=== PATIENT | male | born 1960 | race Hispanic/Latino ===

== ENCOUNTER 2016-10-27 12:27 | Inpatient (IN) | payer BC ==
[2016-10-27 12:46] VITALS: BMI 28.1
[2016-10-27 13:54] LABS: MEAN CELL VOLUME 99.5 fl (80.0-105.0); MEAN CORPUSCULAR HEMOGLOBIN 33.3 pg (25.0-35.0); MEAN CORPUSCULAR HGB CONC 33.5 g/dl (31.0-37.0); RBC 1.86 10^6/uL (3.5-6.1); RED CELL DISTRIBUTION WIDTH 18.4 % (11.5-14.5)
[2016-10-27] MEDS ORDERED: Iohexol 240 (50 ml) ONE (13:56)
[2016-10-27 14:04] LABS: ALB/GLOB RATIO 0.7 (1.1-1.8); ALBUMIN 3.2 g/dL (3.0-4.8); ALT/SGPT 36 U/L (7-56); AST/SGOT 43 U/L (15-59); BLOOD UREA NITROGEN 11 mg/dL (7-21); CALCIUM 8.7 mg/dL (8.4-10.5); GFR AFRICAN-AMERICAN > 60; GFR NON-AFRICAN AMERICAN > 60
[2016-10-27 14:05] LABS: INR 1.16 (0.93-1.08); PARTIAL THROMBOPLASTIN TIME 32.3 Seconds (23.7-30.8); PROTHROMBIN TIME 12.5 Seconds (9.9-11.8)
[2016-10-27 14:11] LABS: HEMOGLOBIN 6.2 g/dL (14.0-18.0); PLATELET COUNT 10 10^3/uL (120.0-450.0); WHITE BLOOD COUNT 2.2 10^3/ul (4.5-11.0)
[2016-10-27 14:26] LABS: EOSINOPHIL 1 % (0.0-3.0); LYMPHOCYTE 45 % (22.0-35.0); MONOCYTE 9 % (1.0-6.0); NEUTROPHIL 45 % (50.0-70.0)
[2016-10-27 14:27] LABS: HYPOCHROMIA SLIGHT; MICROCYTOSIS 1+; PLATELET ESTIMATE LOW (NORMAL)
--- NOTE | 2016-10-27 14:28 | ED PDOC ---
Arrival/HPI - General Chief Complaint: Dizziness/Lightheaded Time Seen by Provider: 10/27/16 13:10 - History of Present Illness Narrative History of Present Illness (Text): 10/27/16 15:58 56yo male with a hx of hemolytic anemia, referred to the ER for pancytopenia. Pt denies cp/sob, states he has some intermitted ISIDRO. No other complaints. Past Medical History - Provider Review Nursing Documentation Reviewed: Yes - Infectious Disease Hx of Infectious Diseases: None - Tetanus Immunization Tetanus Immunization: Unknown - Past Medical History Past Medical History: No Previous - Cardiac Hx Cardiac Disorders: No Hx Pacemaker: No - Pulmonary Hx Respiratory Disorders: Yes Hx Asthma: Yes - Neurological Hx Neurological Disorder: No Hx Paralysis: No - HEENT Hx HEENT Disorder: No - Renal Hx Renal Disorder: Yes Hx Kidney Stones: Yes (3.8 MM KIDNEY STONES 11-02-13) - Endocrine/Metabolic Hx Endocrine Disorders: No - Hematological/Oncological Hx Blood Disorders: Yes Hx Blood Transfusions: Yes (platelets) Hx Blood Transfusion Reaction: No Other/Comment: pancytopenia - Integumentary Hx Dermatological Disorder: No - Musculoskeletal/Rheumatological Hx Musculoskeletal Disorders: No - Gastrointestinal Hx Gastrointestinal Disorders: No - Genitourinary/Gynecological Hx Genitourinary Disorders: No - Psychiatric Hx Emotional Abuse: No Hx Physical Abuse: No Hx Substance Use: No - Past Surgical History Past Surgical History: No Previous - Surgical History Other/Comment: lung biopsy in past, begnin - Anesthesia Hx Anesthesia: Yes Hx Anesthesia Reactions: No Hx Malignant Hyperthermia: No - Suicidal Assessment Feels Threatened In Home Enviroment: No Family/Social History Family/Social History: Unknown Family HX Smoking Status: Never Smoked Hx Alcohol Use: No (RARE) Hx Substance Use: No Hx Substance Use Treatment: No Allergies/Home Meds Allergies/Adverse Reactions: Allergies DUST Adverse Reaction (Uncoded 10/27/16 12:46) SNEEZING MOLD Adverse Reaction (Uncoded 10/27/16 12:46) SNEEZING POLLEN Adverse Reaction (Uncoded 10/27/16 12:46) SNEEZING Home Medications: Home Meds Medication Instructions Recorded Confirmed Multivitamin [Daily Kayden] 1 tab PO DAILY 05/19/16 10/27/16 Benzonatate [Tessalon Perles] 100 mg PO TID PRN 10/27/16 10/27/16 Dexlansoprazole [Dexilant] 60 mg PO DAILY 10/27/16 10/27/16 Ferrous Sulfate [Iron] 325 mg PO DAILY 10/27/16 10/27/16 Folic Acid [Folic Acid] 1 mg PO BID 10/27/16 10/27/16 Physical Exam - Physical Exam Narrative Physical Exam (Text): - Review of Systems Constitutional: Normal. absent: Fatigue, Weight Change, Fevers Eyes: Normal ENT: denies sore throat, denies tristhmus Respiratory: Normal. absent: SOB, Cough, Sputum Cardiovascular: ISIDRO (not while at rest). absent: Chest Pain, Palpitations, Syncope Gastrointestinal: Normal. absent: Abdominal Pain, Diarrhea, Nausea, Vomiting Genitourinary: Normal. absent: Dysuria, Frequency, Hematuria Musculoskeletal: Normal. absent: Arthralgias, Back Pain, Neck Pain Skin: no rashes, no erythema Neurological: absent: Focal Weakness Endocrine: Normal Hemo/Lymphatic: Normal Psychiatric: No suicidal or homicidal ideations Physical exam Patient appears age appropriate in no distress, speaking full sentences without difficulty - Systems Exam Head: Present: Atraumatic, Normocephalic Pupils: Present: PERRL Extroacular Muscles: Present: EOMI Conjunctiva: Present: Normal Mouth: Present: Moist Mucous Membranes Neck: Present: Normal Range of Motion. No: MIDLINE TENDERNESS, Paraspinal Tenderness Respiratory/Chest: Present: Clear to Auscultation, Good Air Exchange. No: Respiratory Distress, Accessory Muscle Use, Tachypneic Cardiovascular: Present: Regular Rate and Rhythm, Normal S1, S2, Peripheal Pulses Present. No: Murmurs Abdomen: Present: Normal Bowel Sounds. No: Tenderness, Distention, Peritoneal Signs, Rebound, Guarding Back: Present: Normal Inspection. No: Midline Tenderness, Paraspinal Tenderness Upper Extremity: Present: Normal Inspection. No: Cyanosis, Edema Lower Extremity: Present: Normal Inspection. No: Edema Neurological: Present: GCS=15, Speech Normal, cranial nerves II through XII fully intact with no cerebellar abnormality, neurosensory fully intact. No focal neurological deficits. Skin: Present: Warm, Dry, Normal Color. No: Rashes Lymphatic: Present: OX3, NI, NC Psychiatric: Present: Alert, Oriented x 3, Normal Insight, Normal Concentration Vital Signs Reviewed: Yes Vital Signs Temp Pulse Resp BP Pulse Ox 10/27/16 15:35 76 18 103/62 100 10/27/16 13:00 97.7 F 76 20 94/60 L 97 Temperature: Afebrile Blood Pressure: Hypotensive Pulse: Regular Respiratory Rate: Normal Appearance: Positive for: Well-Appearing Pain Distress: None Mental Status: Positive for: Alert and Oriented X 3 Medical Decision Making ED Course and Treatment: 10/27/16 14:[address] Perez in detail, asked to admit to his service to monitored bed states he will f/u imaging asked to placed consults to Ming Morris, [place] pt in no distress, aware of and agrees with plan states he currently has no cp/sob/isidro 14:[address] Perez again, relayed the results asked to transfuse 2U PRBCs and 2 U single donor PLT - Critical Care Critical Care Minutes: 30 minutes - Medication Orders Current Medication Orders: Discontinued Medications Sodium Chloride (Sodium Chloride 0.9%) 1,000 mls @ 1,000 mls/hr IV .Q1H STA Stop: 10/27/16 15:42 Last Admin: 10/27/16 15:35 Dose: 1,000 mls/hr Iohexol (Omnipaque 240 (50 Ml)) Confirm Administered Dose 50 ml .ROUTE .STK-MED ONE Stop: 10/27/16 13:57 Disposition/Present on Arrival - Present on Arrival Any Indicators Present on Arrival: No History of DVT/PE: No History of Uncontrolled Diabetes: No Urinary Catheter: No History of Decub. Ulcer: No History Surgical Site Infection Following: None - Disposition Have Diagnosis and Disposition been Completed?: Yes Diagnosis: Anemia Disposition: HOSPITALIZED Disposition Time: 14:40 Patient Plan: Admission Patient Problems: Current Active Problems Problem Status Onset Anemia Acute Condition: FAIR
[2016-10-27] MEDS ORDERED: Sodium Chloride 0.9% 1,000 ML IV STA (14:43)
[2016-10-27] MEDS ORDERED: DiphenhydrAMINE 50 mg/ml Inj IVP STA (16:21)
--- NOTE | 2016-10-27 16:21 | CARD ---
APPROVED REPORT EKG Measurement Heart [id number] <Conclusion> Normal sinus rhythm Cannot rule out Anterior infarct, age undetermined Abnormal ECG
--- NOTE | 2016-10-27 18:01 | CT ---
PROCEDURE: CT Chest with contrast HISTORY: ABD PAIN Relevant medical history: Hemolytic anemia. COMPARISON: None. TECHNIQUE: Contiguous axial images were obtained through the chest with intravenous contrast enhancement. Sagittal and coronal reconstructions were performed. IV contrast: 95 cc Omnipaque 350 Radiation dose (DLP): 444.34 mGy-cm. This CT exam was performed using one or more of the following dose reduction techniques: Automated exposure control, adjustment of the mA and/or kV according to patient size, and/or use of iterative reconstruction technique. FINDINGS: LUNGS: Pulmonary parenchymal disease combination of interstitial lung disease peripheral alveolar consolidative changes which are bilateral an approximately symmetrical. The findings are nonspecific but can be seen with granulomatous diseases/sarcoid. MEDIASTINUM: Unremarkable thoracic aorta. No aneurysm or dissection. Normal sized heart. Main pulmonary artery unremarkable. No vascular congestion. Hilar and mediastinal lymphadenopathy. This includes paratracheal/azygos adenopathy. Bilateral hilar adenopathy is approximately symmetrical. PLEURA: No pleural fluid. No pneumothorax. BONES: No fracture. No destructive lesion. UPPER ABDOMEN: Hepatic steatosis. No focal masses. No intrahepatic bile duct dilatation or perihepatic ascites. Incompletely visualize splenomegaly. OTHER FINDINGS: None. IMPRESSION: Interstitial/alveolar lung disease. Hilar mediastinal adenopathy. Although the findings are nonspecific and can be seen in sarcoid.
--- NOTE | 2016-10-27 18:15 | CT ---
Liver protocol triple phase CT Indication: Pancytopenia Technique: Contiguous axial images of the abdomen and pelvis without & with IV contrast utilizing liver protocol. Coronal and Sagittal reformats generated and reviewed. This CT exam was performed using 1 or more of the falling dose reduction techniques: Automated exposure control, adjustment of the MAA and/or kV according to patient size, and/or use of iterative reconstruction technique. Contrast: Oral contrast was administered. 115 Omnipaque 350 IV. Radiation dose: Total exam DLP = 1449.79 MGy-cm. Comparison: CT abdomen and pelvis without contrast performed 11/02/13 Findings: Bilateral lower lobe patchy airspace and interstitial opacities. No visible pleural effusion or pneumothorax. Small hiatal hernia/ distal esophageal wall thickening. Delayed images do not include the entirety of the liver excluding the inferior aspect. The kidneys enhance symmetrically. No evidence of hydronephrosis or obstructing calculus. Too small to characterize left renal hypodensity; statistically likely cysts. Borderline splenomegaly. The pancreas, adrenal glands, and gallbladder appear otherwise unremarkable. The stomach is nondistended. The bowel loops appear within normal limits of caliber without evidence of intestinal obstruction. There is no definite free air. The presumed appendix appears within normal limits of caliber. No secondary signs of acute appendicitis. Sub cm mesenteric lymph nodes. Mild camilo appearance of the mesentery. Mesenteric panniculitis is not excluded. The prostate gland appears unremarkable. The urinary bladder appears unremarkable. Partially imaged left gynecomastia. Tiny fat containing umbilical hernia. No acute osseous abnormality is detected. Impression: The liver is incompletely imaged on delayed views with exclusion of the inferior aspect. No focal hepatic mass identified. Borderline splenomegaly. Sub cm mesenteric lymph nodes. Mild camilo appearance of the mesentery. Mesenteric panniculitis is not excluded. Patchy bilateral lower lobe airspace and interstitial opacities. Please refer to CT of the chest with contrast performed the same day more detailed discussion. Additional findings as above.
[2016-10-27] MEDS ORDERED: Pneumococcal 23-Valent Vaccine IM ONE (21:25)
[2016-10-27] MEDS ORDERED: Albuterol-Ipratrop 3 mg / 0.5 (3 ml) UD IH PRN (22:01)
[2016-10-28] MEDS: Pantoprazole 40 mg EC Tab PO SCH (06:31)
[2016-10-28 07:58] LABS: ALB/GLOB RATIO 0.7 (1.1-1.8); ALBUMIN 3.2 g/dL (3.0-4.8); ALT/SGPT 36 U/L (7-56); AST/SGOT 37 U/L (15-59); BLOOD UREA NITROGEN 11 mg/dL (7-21); CALCIUM 8.5 mg/dL (8.4-10.5); GFR AFRICAN-AMERICAN > 60; GFR NON-AFRICAN AMERICAN > 60
[2016-10-28 09:05] LABS: BASO # 0.02 K/mm3 (0.0-2.0); BASO % 0.5 % (0.0-3.0); GRAN # 2.21 (1.4-6.5); GRAN % 57.6 % (50.0-68.0); LYMPH # 1.3 (1.2-3.4); LYMPH % 33.6 % (22.0-35.0); MEAN CELL VOLUME 93.1 fl (80.0-105.0); MEAN CORPUSCULAR HEMOGLOBIN 31.9 pg (25.0-35.0); MEAN CORPUSCULAR HGB CONC 34.3 g/dl (31.0-37.0); MEAN PLATELET VOLUME 8.9 fl (7.0-11.0); MONO # 0.3 (0.1-0.6); MONO % 8.3 % (1.0-6.0); PLATELET COUNT 51 10^3/uL (120.0-450.0); RED CELL DISTRIBUTION WIDTH 20.5 % (11.5-14.5); WHITE BLOOD COUNT 3.8 10^3/ul (4.5-11.0)
[2016-10-28 09:08] LABS: HEMOGLOBIN 8.3 g/dL (14.0-18.0)
[2016-10-28] MEDS: Multivitamin Therapeutic Tab PO SCH (09:15)
--- NOTE | 2016-10-28 16:40 | CP.PCM.HP ---
History of Present Illness - History of Present Illness History of Present Illness: H&P note for Dr Perez: 56M with pmh of hemorrhoids s/p surgery, BETANCOURT, presents to the ED for feeling very weak and short of breath. Pt states that he was at Dr Perez office the day prior and he was told that he was very anemic and thrombocytopenic. His symptoms worsened so he came to the ED. He denies falling or hitting his head. Denies any headache or dizziness, fever or chills, n/v/d, chest santino or palpitations. Pt had a history of diarrhea aprox last Feb 2016, found to have Campylobacter infection. Later in February he started having a cough. Pt was found to have a pulm nodule and retroperitoneal lymphadenopathy. Pt went to develop anemia and thrombocytopenia 90's. Blood work showed Aditya direct + and hemolytic anemia with normal retic count and increased LDH. Endoscopy and colonoscopy have been negative. Pt had a bone marrow biopsy aspiration which was mainly negative. Coughing worsened over the months and EBUS biopsy was done in [facility] of the lung nodules and was nondiagnostic. Pt started to become pancytopenic with Hb in the 6s, Platlet of 12, and leukopenic. Pt became symptomatic and came to the ED. PMH: as above PSH: hemorrhoidectomy Med: refer to MAR ALL: dust, mold, pollen FH: nephrolithiasis in fathers side SH: denies any smoking, etoh abuse or drugs Present on Admission - Present on Admission Any Indicators Present on Admission: No Review of Systems - Review of Systems All systems: reviewed and no additional remarkable complaints except (HPI) Past Patient History - Infectious Disease Hx of Infectious Diseases: None - Tetanus Immunizations Tetanus Immunization: Unknown - Past Social History Smoking Status: Never Smoked - CARDIAC Hx Cardiac Disorders: No Hx Pacemaker: No Hx Peripheral Edema: Yes (ble +1 chronic) - PULMONARY Hx Respiratory Disorders: Yes Hx Asthma: Yes - NEUROLOGICAL Hx Neurological Disorder: No - HEENT Hx HEENT Problems: No - RENAL Hx Chronic Kidney Disease: Yes Hx Kidney Stones: Yes (3.8 MM KIDNEY STONES 11-02-13) - ENDOCRINE/METABOLIC Hx Endocrine Disorders: No - HEMATOLOGICAL/ONCOLOGICAL Hx Blood Disorders: Yes Other/Comment: pancytopenia, blood transfusion platelets - INTEGUMENTARY Hx Dermatological Problems: No - MUSCULOSKELETAL/RHEUMATOLOGICAL Hx Falls: No - GASTROINTESTINAL Hx Gastrointestinal Disorders: No - GENITOURINARY/GYNECOLOGICAL Hx Genitourinary Disorders: No - PSYCHIATRIC Hx Substance Use: No - SURGICAL HISTORY Other/Comment: lung biopsy in past, benign, ct scan guided bone marrow bx 05/21/16 - ANESTHESIA Hx Anesthesia: Yes Hx Anesthesia Reactions: No Hx Malignant Hyperthermia: No Meds Allergies/Adverse Reactions: Allergies Allergy/AdvReac Type Severity Reaction Status Date / Time DUST AdvReac SNEEZING Uncoded 10/27/16 12:46 MOLD AdvReac SNEEZING Uncoded 10/27/16 12:46 POLLEN AdvReac SNEEZING Uncoded 10/27/16 12:46 Physical Exam - Constitutional Appears: No Acute Distress - Head Exam Head Exam: ATRAUMATIC, NORMAL INSPECTION, NORMOCEPHALIC - Eye Exam Eye Exam: EOMI, Normal appearance, PERRL Pupil Exam: NORMAL ACCOMODATION, PERRL - ENT Exam ENT Exam: Mucous Membranes Moist, Normal Exam - Neck Exam Neck exam: Positive for: Normal Inspection - Respiratory Exam Respiratory Exam: Clear to Auscultation Bilateral, NORMAL BREATHING PATTERN. absent: Wheezes - Cardiovascular Exam Cardiovascular Exam: REGULAR RHYTHM, RRR, +S1, +S2 - GI/Abdominal Exam GI & Abdominal Exam: Normal Bowel Sounds, Soft. absent: Tenderness - Extremities Exam Extremities exam: Positive for: normal inspection. Negative for: calf tenderness, pedal edema - Neurological Exam Neurological exam: Alert, Oriented x3, Reflexes Normal - Psychiatric Exam Psychiatric exam: Normal Affect, Normal Mood - Skin Skin Exam: Dry, Intact, Normal Color, Warm Results - Vital Signs Recent Vital Signs: Last Vital Signs Temp 97.9 F 10/28/16 08:58 Pulse 82 10/28/16 10:00 Resp 21 10/28/16 08:58 BP 112/76 10/28/16 08:58 Pulse Ox 92 L 10/28/16 08:58 - Labs Result Diagrams: 10/28/16 08:30 10/28/16 07:00 Labs: Laboratory Results - last 24 hr 10/27/16 10/28/16 10/28/16 14:02 07:00 08:30 WBC 3.8 L D RBC 2.60 L Hgb 8.3 L D Hct 24.2 L MCV 93.1 D MCH 31.9 MCHC 34.3 RDW 20.5 H Plt Count 51 L MPV 8.9 Gran % 57.6 Lymph % (Auto) 33.6 [place]quois % (Auto) 8.3 H Eos % (Auto) 0.0 L Baso % (Auto) 0.5 Gran # 2.21 Lymph # 1.3 [place]quois # 0.3 Eos # 0.0 Baso # 0.02 Sodium 138 Potassium 4.0 Chloride 107 Carbon Dioxide 24 Anion Gap 11 BUN 11 Creatinine 0.6 Est GFR ( Amer) > 60 Est GFR (Non-Af Amer) > 60 Random Glucose 141 H Calcium 8.5 Total Bilirubin 1.3 AST 37 ALT 36 Alkaline Phosphatase 105 Total Protein 7.7 Albumin 3.2 Globulin 4.5 Albumin/Globulin Ratio 0.7 L Blood Type A POSITIVE Antibody Screen Negative RASHIDA, Poly Interpret Negative Crossmatch See Detail BBK History Checked No verified bt Assessment & Plan - Assessment and Plan (Free Text) Assessment: 56M with pmh of hemorrhoids s/p surgery, early onset signs of liver cirrhosis possibly due to BETANCOURT, chronic cough, presents to the ED for feeling very weak and short of breath, found to be pancytopenic. s/p Bone marrow biopsy in 05/2016 - negative. S/p lung EBUS biopsy negative as well. - NPO after midnight - Consulted GI- plan for push enteroscopy and biopsy velasquez 9am. Plan to hang first bag of platelets at 8am and second bag during the procedure - Consulted Dr Gallagher - Plan for liver biopsy following first biopsy - Hb upon admission was 6.6 s/p 2 units PRBC todays hb of 8.3 - Platelets on admission 10, s/p 2 units of platelets, this am 51 - F/u pulm consult - Cont Duoneb, Tessalon jazmin, codeine 15mg PO Q8h - F/u ID consult - hx of contact with black mold - Chest CT: interstitial/alveolar lung disease. Hilar mediastinal adenopathy. Non specific can be seen in Sarcoid. - Liver CT: borderline spelomegaly, sub cm mesenteric lymphnode. mild camilo appearance of the mesentary. Mesenteric pannculitis not excluded. - Cont hydrocortisone 25mg RC Q6H - Daily labs Case and plan was reviewed and discussed with Dr Perez.
--- NOTE | 2016-10-28 21:15 | CON ---
DATE: 10/28/2016 GASTROENTEROLOGY CONSULTATION REQUESTING PHYSICIAN: Dr. Perez. REASON FOR CONSULTATION: I have been asked to see this 56-year-old male with several months of pancytopenia with negative extensive workup including bone marrow biopsy, lung biopsy, endoscopy, colonoscopy, multiple CT imaging of the abdomen and chest, who comes to the hospital with generalized weakness and dyspnea at rest and on minimal exertion. The patient was noted to be profoundly anemic with a hemoglobin in the 6 gram range. His platelet count and white blood count were both also extremely low. He admits occasional rectal bleeding from hemorrhoids which is a chronic problem for this patient. He denies any bleeding from his gum or epistaxis or hematuria. The patient has a longstanding history of hepatic steatosis. He was also recently found to have splenomegaly mild as well as interstitial lung disease and nonspecific lymphadenopathy in the hilar region of the chest. Again, lung biopsy in the last several months has been negative. I have been asked to see this patient for anemia. Again, the patient had an endoscopy and colonoscopy within the last 3-4 months, which did not reveal a source of GI blood loss. He denies any weight loss, night sweats, chest pain or cough. He does have a history of asthma. He denies any fevers or chills. PAST MEDICAL HISTORY: As above. Again, he has a history of pancytopenia, mild splenomegaly, fatty liver, asthma, hemorrhoids and kidney stones. SOCIAL HISTORY: He denies cigarettes smoking or alcohol use. FAMILY HISTORY: Noncontributory. REVIEW OF SYSTEMS: A 14-point review of systems is notable for dyspnea on minimal exertion and occasionally at rest. PHYSICAL EXAMINATION: GENERAL: Well developed male, lying in bed, in no acute distress. VITAL SIGNS: Reveals temperature of 97.9, blood pressure of 112/76, and heart rate of 80. HEENT: Reveal sclerae to be white, conjunctivae pale. NECK: Supple. LUNGS: Chest reveal lungs to be clear. HEART: Reveals a regular rate and rhythm. ABDOMEN: Soft and nontender. EXTREMITIES: Show no edema. LABORATORY DATA: Reveals white blood cell count of 3.8, hemoglobin 8.3 after transfusion of 2 units of packed red blood cells. PT/INR are mildly elevated at 12.5 and 1.16. Chemistries reveal normal electrolytes. Blood sugar of 141. IMPRESSION: This is a 56-year-old male with pancytopenia, etiology unclear with negative recent bone marrow aspirate, lung biopsy, history of fatty liver with mild splenomegaly with carinal lymphadenopathy and interstitial infiltrates on CT scan of a chest. Etiology of the pancytopenia is unclear. The patient has only some intermittent rectal bleeding from hemorrhoids which he has had for years. He had a negative colonoscopy and endoscopy several months ago. RECOMMENDATIONS: The patient is to receive platelets and then undergo a push enteroscopy in the morning. He is also scheduled to have a liver biopsy. Gerardo Quintanilla MD
--- NOTE | 2016-10-29 03:27 | CON ---
DATE: 10/27/2016 REFERRING PHYSICIAN: Dr. Perez. REASON FOR CONSULTATION: Bilateral pulmonary embolism, chronic cough, sleep apnea syndrome. HISTORY OF PRESENT ILLNESS: This is a 56-year-old gentleman known to me from the office with multiple medical issues, which include has a mediastinal retroperitoneal lymphadenopathy, pulmonary nodule with interstitial infiltrate, has some sign of liver cirrhosis especially in the periphery, severe anemia, thrombocytopenia, leukopenia, had a mild sleep apnea syndrome and treated for it as outpatient. So from the last couple of months, he has seen multiple speciality including Dr. Perez. He has seen rheumatology at [place]. Also seen second opinion, Dr. Yolie Baugh, at [facility], seen interventional biofuels manager at [facility] Dr. Mata, he had an EBUS done with a biopsy of the lymph nodes, which was non-diagnostic. He was also referred to thoracic surgery to Dr. Adams for possible wedge resection for infiltrate to make the diagnosis. Presently admitted to [facility] through ER with increased shortness of breath. Other issue was his recurrent oral thrush, while he was on inhaled steroids, but inhaled steroids which stopped almost 3 weeks ago, but still has an oral thrush while he received Diflucan a few days ago and been on a statin in the past. So presently admitted because he was getting short of breath with minimal exertion, hemoglobin dropped severely to around 6 or so with thrombocytopenia, has a persistent cough, cough been treated with Tessalon Perles, Lyrica, and codeine as an outpatient. Since last night, he got one dose of hydrocortisone, also received blood transfusion and feels better, still gets short of breath and tachycardia with minimal exertion. No chest pain. No nausea. No vomiting. No diarrhea. Does have a chronic leg swelling. He had cardiac workup including echo, being unremarkable though. PAST MEDICAL HISTORY: Anemia, thrombocytopenia, leukopenia, bilateral pulmonary embolism, interstitial infiltrates, chronic cough, recurrent oral thrush, retroperitoneal lymphadenopathy, questionable liver cirrhosis, bilateral leg swelling, also had a history of renal stones in the past. SOCIAL HISTORY: Never smoked. No history of alcohol abuse. FAMILY HISTORY: Unremarkable. ALLERGIES: ENVIRONMENTAL AND TOXIN ALLERGIES. MEDICATIONS: Presently he is on Anusol q.6 hours, also on DuoNeb q.6 hours p.r.n., folic acid 1 mg twice a day, Protonix 40 mg daily, Tessalon Perles 100 mg 3 times a day, multivitamins daily. REVIEW OF SYSTEMS: No headache. No rhinitis. Has a dry cough for months, short of breath on exertion. No chest pain. No nausea. No vomiting. No abdominal pain. Has a chronic leg swelling. PHYSICAL EXAMINATION GENERAL: Lying in the bed, in no acute distress. VITAL SIGNS: Temperature is 98, heart rate is 83, blood pressure 112/76, pulse 72% on room air. HEENT: Moist mucous membranes. Has oral thrush. NECK: Supple. No JVD. LUNGS: Has few crackles on the bases. HEART: S1 and S2. ABDOMEN: Soft, nontender, nondistended. EXTREMITIES: Does have edema. NEUROLOGIC: Awake and follows simple commands. LABORATORY DATA: Shows hemoglobin yesterday 6.2, after transfusion came to 8.3. WBC 3.8. Platelet count today is 51, yesterday platelet was 10. INR 1.16, PTT 32. Sodium 138, potassium 4.0, chloride 107, bicarbonate 24, BUN 11, creatinine 0.6, glucose 141, calcium 8.5, total bilirubin 1.3, AST 37, ALT 36, alkaline phosphatase is 105, albumin is 3.2. CAT scan of the chest was done on admission. He also had a liver CT done, which showed interstitial alveolar lung disease, hilar mediastinal adenopathy suggestive of sarcoidosis, liver showed some hepatic steatosis, it was incomplete visualization of the liver. IMPRESSION AND PLAN: Severe anemia with thrombocytopenia, severe leukopenia, splenomegaly, retroperitoneal lymphadenopathy, has some cirrhotic patches in the liver, bilateral pulmonary embolism, mediastinal adenopathy, interstitial infiltrates, chronic dry cough with chronic leg swelling and edema. Case discussed with Chris Martin in detail. Patient had been seen by multiple specialities. Right on top of the list is sarcoidosis, but unfortunately, the bronchoscopy at [facility], which was an EBUS was non-diagnostic. Presently, the plan is to have an EGD and colonoscopy done with a villi biopsy, also suggestion is to do peripheral biopsy of the liver edges if we can make the diagnosis because there is some abnormality there. If that does not work, the next choice is going to be VATS with liver biopsy, especially because the patient's thrombocytopenia needs direct visualization for biopsy instead of blind procedure. He does not feel coughed up last night. For now, continue supportive care, increase in bronchodilator, cough suppressor. Thank you and we will follow with you. Ant Lai MD
[2016-10-29] MEDS: Pantoprazole 40 mg EC Tab PO SCH (06:49)
[2016-10-29 07:26] LABS: HEMOGLOBIN 8.6 g/dL (14.0-18.0); MEAN CELL VOLUME 94.9 fl (80.0-105.0); MEAN CORPUSCULAR HEMOGLOBIN 31.5 pg (25.0-35.0); MEAN CORPUSCULAR HGB CONC 33.2 g/dl (31.0-37.0); PLATELET COUNT 52 10^3/uL (120.0-450.0); RBC 2.73 10^6/uL (3.5-6.1); RED CELL DISTRIBUTION WIDTH 20.9 % (11.5-14.5); WHITE BLOOD COUNT 3.9 10^3/ul (4.5-11.0)
[2016-10-29 07:34] LABS: ALB/GLOB RATIO 0.7 (1.1-1.8); ALBUMIN 3.4 g/dL (3.0-4.8); ALT/SGPT 30 U/L (7-56); AST/SGOT 43 U/L (15-59); BLOOD UREA NITROGEN 9 mg/dL (7-21); CALCIUM 8.6 mg/dL (8.4-10.5); GFR AFRICAN-AMERICAN > 60; GFR NON-AFRICAN AMERICAN > 60
[2016-10-29 08:41] LABS: INR 1.1 (0.93-1.08); PROTHROMBIN TIME 11.9 Seconds (9.9-11.8)
[2016-10-29 09:05] LABS: LYMPHOCYTE 66 % (22.0-35.0); MONOCYTE 10 % (1.0-6.0); NEUTROPHIL 24 % (50.0-70.0); PLATELET ESTIMATE NORMAL (NORMAL)
[2016-10-29] MEDS ORDERED: Lidocaine 1% Inj (20ml) ONE ×2 (09:08→09:27)
[2016-10-29] MEDS ORDERED: Propofol 10 mg/ml Inj (20 ML) ONE ×3 (09:08→09:35)
[2016-10-29 09:24] LABS: FIBRINOGEN 337.8 mg/dL (187-400)
[2016-10-29] MEDS: Sodium Chloride 0.9% 1,000 ML IV SCH ×2 (10:31→21:10)
[2016-10-29] MEDS: Multivitamin Therapeutic Tab PO SCH (10:32)
[2016-10-29] MEDS ORDERED: Meropenem 1g/NS 100mL IVPB 1 GM/100 ML PIGGYBACK IVPB STA (14:25)
[2016-10-29] MEDS ORDERED: Vancomycin 1gm in NS 250ml 1 GM/250 ML BAG IVPB STA (14:26)
--- NOTE | 2016-10-29 14:45 | CP.PCM.PCO ---
Physician Communication Note - Physician Communication Note Physician Communication Note: Unable to see pt - undergoing procedures-start Vanco and Merrem for fever
--- NOTE | 2016-10-29 15:19 | CP.PCM.PN ---
Subjective - Date & Time of Evaluation Date of Evaluation: 10/29/16 Time of Evaluation: 07:30 - Subjective Subjective: Heme/onc note for Dr Perez: Pt seen and examined at bedside. Pt back from push enetroscopy this am. Pt spiked fever 101.9. Ordered tylenol and 650mg stat. ID called and started on vanc and kosta. Pt to have liver biopsy this afternoon. Denies any mujica, dizziness , sob, chest pain, abd pain, urinary or bm changes. Objective - Vital Signs/Intake and Output Vital Signs (last 24 hours): Temp Pulse Resp BP Pulse Ox 103.1 F H 62 16 125/72 100 10/29/16 15:04 10/29/16 11:00 10/29/16 11:00 10/29/16 11:00 10/29/16 11:00 Intake and Output: 10/29/16 10/29/16 06:59 18:59 Intake Total 540 200 Balance 540 200 - Medications Medications: Current Medications Albuterol/Ipratropium (Duoneb 3 Mg/0.5 Mg (3 Ml) Ud) 3 ml IH [id number] PRN PRN Reason: Cough Benzonatate (Tessalon Perles) 100 mg PO TID [facility] Last Admin: 10/29/16 14:16 Dose: Not Given Codeine Sulfate (Codeine) 15 mg PO Q8 [facility] Last Admin: 10/29/16 13:05 Dose: Not Given Folic Acid (Folic Acid) 1 mg PO BID [facility] Last Admin: 10/29/16 10:31 Dose: Not Given Hydrocortisone (Anusol-Hc) 25 mg RC Q6H [facility] Last Admin: 10/29/16 13:05 Dose: Not Given Sodium Chloride (Sodium Chloride 0.9%) 1,000 mls @ 100 mls/hr IV .Q10H [facility] Last Admin: 10/29/16 10:31 Dose: Not Given Meropenem 1g/NS 100mL IVPB (Meropenem 1g/Ns 100ml Ivpb) 1 gm in 100 mls @ 100 mls/hr IVPB STAT STA PRN Reason: Protocol Stop: 10/29/16 15:24 Last Admin: 10/29/16 14:57 Dose: 100 mls/hr Vancomycin HCl (Vancomycin 1gm) 1 gm in 250 mls @ 167 mls/hr IVPB STAT STA PRN Reason: Protocol Stop: 10/29/16 15:55 Meropenem 1g/NS 100mL IVPB (Meropenem 1g/Ns 100ml Ivpb) 1 gm in 100 mls @ 100 mls/hr IVPB Q8 DAVID PRN Reason: Protocol Stop: 11/05/16 22:01 Multivitamins (Thera Tab) 1 tab PO DAILY [facility] Last Admin: 10/29/16 10:32 Dose: Not Given Pantoprazole Sodium (Protonix Ec Tab) 40 mg PO 0600 [facility] Last Admin: 10/29/16 06:49 Dose: Not Given - Labs Labs: 10/29/16 07:00 10/29/16 07:00 PT 11.9 Seconds (9.9-11.8) H 10/29/16 07:00 INR 1.10 (0.93-1.08) H 10/29/16 07:00 APTT 32.3 Seconds (23.7-30.8) H 10/27/16 13:45 - Constitutional Appears: No Acute Distress - Head Exam Head Exam: ATRAUMATIC, NORMAL INSPECTION, NORMOCEPHALIC - Eye Exam Eye Exam: EOMI, Normal appearance, PERRL - ENT Exam ENT Exam: Mucous Membranes Moist, Normal Exam - Neck Exam Neck Exam: Full ROM, Normal Inspection. absent: Lymphadenopathy - Respiratory Exam Respiratory Exam: Clear to Ausculation Bilateral, NORMAL BREATHING PATTERN. absent: Wheezes - Cardiovascular Exam Cardiovascular Exam: REGULAR RHYTHM, RRR, +S1, +S2. absent: Murmur - GI/Abdominal Exam GI & Abdominal Exam: Soft, Normal Bowel Sounds. absent: Distended, Tenderness - Extremities Exam Extremities Exam: Normal Capillary Refill, Normal Inspection. absent: Calf Tenderness, Joint Swelling, Pedal Edema - Back Exam Back Exam: NORMAL INSPECTION - Neurological Exam Neurological Exam: Alert, Awake, CN II-XII Intact, Normal Gait, Oriented x3 - Psychiatric Exam Psychiatric exam: Normal Affect, Normal Mood - Skin Skin Exam: Dry, Intact, Normal Color, Warm Assessment and Plan - Assessment and Plan (Free Text) Assessment: 56M with pmh of hemorrhoids s/p surgery, early onset signs of liver cirrhosis possibly due to BETANCOURT, chronic cough, presents to the ED for feeling very weak and short of breath, found to be pancytopenic. s/p Bone marrow biopsy in 05/2016 - negative. S/p lung EBUS biopsy negative as well. This am pt went for push enteroscopy. Plan on liver biopsy today. - Fevers - Tylenol PRN and ID started on vanc and Kosta - S/p push enetroscopy POD 1 - f/u path results f/u gi recs - Consulted Dr Gallagher - Plan for liver biopsy this afternoon. 1 unit plt 1 hour prior and 1 unit platelets during procedure - Hb stable todays hb of 8.3 - Platelets on admission 10, s/p 2 units of platelets, this am 52 - F/u pulm consult - Cont Duoneb, Tessalon jazmin, codeine 15mg PO Q8h - F/u ID consult - started vanc and kosta - Chest CT: interstitial/alveolar lung disease. Hilar mediastinal adenopathy. Non specific can be seen in Sarcoid. - Liver CT: borderline spelomegaly, sub cm mesenteric lymphnode. mild camilo appearance of the mesentary. Mesenteric pannculitis not excluded. - Cont hydrocortisone 25mg RC Q6H - Daily labs Case and plan was reviewed and discussed with Dr Perez.
[2016-10-29] MEDS ORDERED: Midazolam 2 MG/2 ML VIAL ONE (16:14)
[2016-10-29] MEDS ORDERED: Sodium Chloride 0.45% 1,000 ML IV SCH (17:15)
[2016-10-29 19:10] LABS: URINE BILIRUBIN NEGATIVE (NEGATIVE); URINE BLOOD NEGATIVE (NEGATIVE); URINE GLUCOSE (UA) NEGATIVE (NEGATIVE); URINE LEUKOCYTE ESTERASE NEGATIVE Leu/uL (NEGATIVE); URINE NITRATE NEGATIVE (NEGATIVE); URINE PROTEIN NEGATIVE mg/dL (<30 mg/dL)
[2016-10-29 19:12] LABS: URINE APPEARANCE CLEAR (CLEAR); URINE COLOR YELLOW (YELLOW)
--- NOTE | 2016-10-29 20:13 | CT ---
PROCEDURE: CT guided liver biopsy. HISTORY: Pancytopenia. Fever of unknown origin. Unremarkable bone marrow biopsy. Needs liver biopsy. PHYSICIAN(S): Dalton Gallagher MD. TECHNIQUE: The relative risks and indications of the procedure were explained to the patient and consent obtained. The patient was transfused platelets prior to the procedure. The patient was placed supine on the CT scanner and preliminary images through the liver obtained. Conscious sedation and monitoring were provided throughout the procedure by a nurse. The visualized portions of the liver are normal on the non contrast images. A subxyphoid approach was selected and the area prepped and draped in the usual sterile fashion. 1% Xylocaine was used to anesthetize the skin and soft tissues. A 17-gauge guiding needle was advanced into the lateral segment of the left lobe of the liver. Its position was confirmed with CT. Using coaxial technique, multiple core biopsies were obtained. The postprocedure images show no evidence of significant hemorrhage. IMPRESSION: 1. CT-guided liver biopsy as described above. Specimens were sent for histology and microbiology.
[2016-10-29] MEDS: Meropenem 1g/NS 100mL IVPB 1 GM/100 ML PIGGYBACK IVPB SCH (21:10)
[2016-10-30] MEDS: DiphenhydrAMINE 50 mg/ml Inj IVP PRN ×2 (01:05→23:42)
--- NOTE | 2016-10-30 01:31 | PN ---
DATE: 10/29/2016 PULMONARY PROGRESS NOTE REFERRING PHYSICIAN: Dr. Herb Fernández. SUBJECTIVE: He just came back after liver biopsy, had an endoscopy done earlier today. After endoscopy, spiked fever up to 102, seen by infectious diseases, started on broad spectrum antibiotics, presently feels okay. Cough is little better since yesterday. No hemoptysis, no abdominal pain and no dysuria. No leg pain. He does have a leg swelling. OBJECTIVE GENERAL: No acute distress. VITAL SIGNS: Temperature 98, heart rate 67, respiratory rate is 18, blood pressure 134/69, pulse ox 100% on 3 liters nasal cannula. HEENT: Moist mucous membrane. Does have oral thrush. NECK: Supple. No JVD. LUNGS: Few crackles at the bases. HEART: S1 and S2. ABDOMEN: Soft, nontender. No organomegaly. EXTREMITIES: Have edema. NEUROLOGIC: Awake and alert. Follows simple command. LABORATORY DATA: Show hemoglobin 8.6, hematocrit 25.9, WBC 3.9 and platelet count is 52. INR 1.0 and fibrinogen 337. Sodium 137, potassium 4.1, chloride 104, bicarbonate 25, BUN 9, creatinine 0.7 and calcium is 8.6. AST 43, ALT 30, alkaline phosphatase is 129 and albumin is 3.4. MEDICATIONS: He is on Anusol 25 mg rectally q. 6 hours, codeine 15 mg q. 8 hours, DuoNeb q. 6 hours p.r.n., folic acid 1 mg twice a day, meropenem 1 g IV q. 8 hours, Protonix 40 mg daily, IV fluid half normal saline 80 mL/hour, Tessalon Perles 100 mg 3 times a day, multivitamins daily, Tylenol p.r.n. and Zofran p.r.n. IMPRESSION AND PLAN: Severe anemia with thrombocytopenia, abnormal liver CT, bilateral pulmonary embolism, interstitial infiltrates, retroperitoneal lymphadenopathy, mediastinal adenopathy, chronic dry cough and bilateral leg edema. Workup is in progress for the cause of above symptoms. Today, had a liver biopsy and endoscopy with small bowel biopsy, developed fever afterwards, seen by infectious diseases and started on broad spectrum antibiotics. Spoke to the family, all the questions answered, still waiting for the answer. If it is one systemic disease, most likely some sort of connective tissue disease. Hopefully, we will get some answer from the above liver biopsy and small bowel biopsy. If nothing pans out, next one is to do VATS and possible lung biopsy. The patient and the family is not thrilled about it, I agree. Continue present care. Gastric prophylaxis, SCDs to lower extremities, pain medication and also cough suppressor. Thank you and we will follow with you. Ant Lai MD
[2016-10-30] MEDS: Pantoprazole 40 mg EC Tab PO SCH (05:18)
[2016-10-30] MEDS: Meropenem 1g/NS 100mL IVPB 1 GM/100 ML PIGGYBACK IVPB SCH ×3 (05:19→21:39)
[2016-10-30] MEDS: Sodium Chloride 0.9% 1,000 ML IV SCH ×2 (05:27→18:17)
[2016-10-30 07:55] LABS: EOS % 0.4 % (1.5-5.0); GRAN % 40.7 % (50.0-68.0); LYMPH # 1.3 (1.2-3.4); MEAN CORPUSCULAR HEMOGLOBIN 31.9 pg (25.0-35.0); MEAN CORPUSCULAR HGB CONC 33.2 g/dl (31.0-37.0); MEAN PLATELET VOLUME 9.2 fl (7.0-11.0); MONO # 0.3 (0.1-0.6); MONO % 11.9 % (1.0-6.0); PLATELET COUNT 81 10^3/uL (120.0-450.0); RBC 2.51 10^6/uL (3.5-6.1); RED CELL DISTRIBUTION WIDTH 19.7 % (11.5-14.5)
[2016-10-30 08:00] LABS: WHITE BLOOD COUNT 2.7 10^3/ul (4.5-11.0)
[2016-10-30 08:10] LABS: ALB/GLOB RATIO 0.7 (1.1-1.8); ALBUMIN 3.2 g/dL (3.0-4.8); ALT/SGPT 46 U/L (7-56); AST/SGOT 55 U/L (15-59); BLOOD UREA NITROGEN 9 mg/dL (7-21); CALCIUM 8.6 mg/dL (8.4-10.5); GFR AFRICAN-AMERICAN > 60; GFR NON-AFRICAN AMERICAN > 60
[2016-10-30] MEDS: Multivitamin Therapeutic Tab PO SCH (09:20)
--- NOTE | 2016-10-30 15:49 | CP.PCM.PN ---
Subjective - Date & Time of Evaluation Date of Evaluation: 10/30/16 Time of Evaluation: 10:35 - Subjective Subjective: Heme/onc note for Dr ePrez: Pt seen and examined at bedside. No acute events overnight. Denies any fevers since yesterday. He does state that he feels weak. No other complaints. Denies any mujica, dizziness, sob, chest pain, abd pain, urinary or bm changes. Objective - Vital Signs/Intake and Output Vital Signs (last 24 hours): Temp Pulse Resp BP Pulse Ox 98.1 F 77 18 121/79 96 10/30/16 14:51 10/30/16 14:51 10/30/16 14:51 10/30/16 14:51 10/30/16 08:17 Intake and Output: 10/30/16 10/30/16 06:59 18:59 Intake Total 1740 10 Balance 1740 10 - Medications Medications: Current Medications Acetaminophen (Tylenol 325mg Tab) 650 mg PO Q6H PRN PRN Reason: Fever >100.4 F Last Admin: 10/30/16 02:42 Dose: 650 mg Albuterol/Ipratropium (Duoneb 3 Mg/0.5 Mg (3 Ml) Ud) 3 ml IH [id number] PRN PRN Reason: Cough Last Admin: 10/29/16 21:22 Dose: 3 ml Benzonatate (Tessalon Perles) 100 mg PO TID [facility] Last Admin: 10/30/16 14:12 Dose: 100 mg Codeine Sulfate (Codeine) 15 mg PO Q8 [facility] Last Admin: 10/30/16 14:14 Dose: Not Given Diphenhydramine HCl (Benadryl) 25 mg IVP HS PRN PRN Reason: Allergy symptoms Last Admin: 10/30/16 01:05 Dose: 25 mg Folic Acid (Folic Acid) 1 mg PO BID [facility] Last Admin: 10/30/16 09:20 Dose: 1 mg Hydrocortisone (Anusol-Hc) 25 mg RC Q6H [facility] Last Admin: 10/30/16 14:14 Dose: Not Given Sodium Chloride (Sodium Chloride 0.9%) 1,000 mls @ 100 mls/hr IV .Q10H [facility] Last Admin: 10/30/16 05:27 Dose: 100 mls/hr Meropenem 1g/NS 100mL IVPB (Meropenem 1g/Ns 100ml Ivpb) 1 gm in 100 mls @ 100 mls/hr IVPB Q8 [facility] PRN Reason: Protocol Stop: 11/05/16 22:01 Last Admin: 10/30/16 14:14 Dose: Not Given Multivitamins (Thera Tab) 1 tab PO DAILY [facility] Last Admin: 10/30/16 09:20 Dose: 1 tab Ondansetron HCl (Zofran Inj) 4 mg IVP Q6H PRN PRN Reason: Nausea/Vomiting Pantoprazole Sodium (Protonix Ec Tab) 40 mg PO 0600 [facility] Last Admin: 10/30/16 05:18 Dose: Not Given - Labs Labs: 10/30/16 07:00 10/30/16 07:00 PT 11.9 Seconds (9.9-11.8) H 10/29/16 07:00 INR 1.10 (0.93-1.08) H 10/29/16 07:00 APTT 32.3 Seconds (23.7-30.8) H 10/27/16 13:45 - Constitutional Appears: No Acute Distress - Head Exam Head Exam: ATRAUMATIC, NORMAL INSPECTION, NORMOCEPHALIC - Eye Exam Eye Exam: EOMI, Normal appearance, PERRL Pupil Exam: NORMAL ACCOMODATION, PERRL - ENT Exam ENT Exam: Mucous Membranes Moist, Normal Exam - Neck Exam Neck Exam: Full ROM, Normal Inspection. absent: Lymphadenopathy - Respiratory Exam Respiratory Exam: Clear to Ausculation Bilateral, NORMAL BREATHING PATTERN. absent: Rales, Rhonchi, Wheezes - Cardiovascular Exam Cardiovascular Exam: REGULAR RHYTHM, +S1, +S2. absent: Murmur - GI/Abdominal Exam GI & Abdominal Exam: Soft, Normal Bowel Sounds. absent: Distended, Tenderness - Extremities Exam Extremities Exam: Full ROM, Normal Capillary Refill, Normal Inspection. absent : Joint Swelling, Pedal Edema - Back Exam Back Exam: NORMAL INSPECTION - Neurological Exam Neurological Exam: Alert, Awake, CN II-XII Intact, Normal Gait, Oriented x3 - Psychiatric Exam Psychiatric exam: Normal Affect, Normal Mood - Skin Skin Exam: Dry, Intact, Normal Color, Warm Assessment and Plan - Assessment and Plan (Free Text) Assessment: 56M with pmh of hemorrhoids s/p surgery, early onset signs of liver cirrhosis possibly due to BETANCOURT, chronic cough, presents to the ED for feeling very weak and short of breath, found to be pancytopenic. s/p Bone marrow biopsy in 05/2016 - negative. S/p lung EBUS biopsy negative as well a months prior. S/p push enteroscopy and liver biopsy pod1. - S/p push enetroscopy POD 1 - f/u path results and gi recs - s/p liver biopsy pod 1 - f/u path results - Consulted ID for fevers - started on vanc and French - Hb of 8.0 this am will transfuse 1 unit prbc - Platelets this am 81 - F/u pulm consult - Cont Duoneb, Tessalon jazmin, codeine 15mg PO Q8h - Chest CT: interstitial/alveolar lung disease. Hilar mediastinal adenopathy. Non specific can be seen in Sarcoid. - Liver CT: borderline spelomegaly, sub cm mesenteric lymphnode. mild camilo appearance of the mesentary. Mesenteric pannculitis not excluded. - Cont hydrocortisone 25mg RC Q6H - Daily labs Case and plan was reviewed and discussed with Dr Perez.
--- NOTE | 2016-10-30 15:49 | CP.PCM.CON ---
History of Present Illness - History of Present Illness History of Present Illness: 56 year old male with PMH of hemorrhoids, history of non-alcoholic steatohepatitis is brought in to [facility] because of weakness and dyspnea on exertion. He has had pancytopenia since earlier this year after a bout of Influenza (2016). PRior to that, he has had 2 episodes of Campylobacter infection a year apart. Since the start of the year, he has had pancytopenia and extensive work up has been done , including a bone marrow biopsy, but no answers have been found to find the etiology. He had enteroscopy and biopsy of the small bowels done and liver biopsy done, and he developed fevers after the procedure, with shaking chills. He denies headache or dizziness , no blurring of vision, no chest pain, no SOB, no cough or colds, no dysuria, no diarrhea. Infectious Diseases consult is requested to further evaluate and manage. Review of Systems - Review of Systems All systems: reviewed and no additional remarkable complaints except (as per HPI ) Past Patient History - Infectious Disease Hx of Infectious Diseases: None - Tetanus Immunizations Tetanus Immunization: Unknown - Past Social History Smoking Status: Never Smoked - CARDIAC Hx Cardiac Disorders: No Hx Pacemaker: No Hx Peripheral Edema: Yes (ble +1 chronic) - PULMONARY Hx Respiratory Disorders: Yes Hx Asthma: Yes - NEUROLOGICAL Hx Neurological Disorder: No - HEENT Hx HEENT Problems: No - RENAL Hx Chronic Kidney Disease: Yes Hx Kidney Stones: Yes (3.8 MM KIDNEY STONES 11-02-13) - ENDOCRINE/METABOLIC Hx Endocrine Disorders: No - HEMATOLOGICAL/ONCOLOGICAL Hx Blood Transfusions: Yes (platelets) Hx Blood Transfusion Reaction: No - INTEGUMENTARY Hx Dermatological Problems: No - MUSCULOSKELETAL/RHEUMATOLOGICAL Hx Falls: No - GASTROINTESTINAL Hx Gastrointestinal Disorders: No - GENITOURINARY/GYNECOLOGICAL Hx Genitourinary Disorders: No - PSYCHIATRIC Hx Substance Use: No - SURGICAL HISTORY Hx Surgeries: No - ANESTHESIA Hx Anesthesia Reactions: No Hx Malignant Hyperthermia: No Meds Allergies/Adverse Reactions: Allergies Allergy/AdvReac Type Severity Reaction Status Date / Time DUST AdvReac SNEEZING Uncoded 10/27/16 12:46 MOLD AdvReac SNEEZING Uncoded 10/27/16 12:46 POLLEN AdvReac SNEEZING Uncoded 10/27/16 12:46 - Medications Medications: Current Medications Acetaminophen (Tylenol 325mg Tab) 650 mg PO Q6H PRN PRN Reason: Fever >100.4 F Last Admin: 10/30/16 02:42 Dose: 650 mg Albuterol/Ipratropium (Duoneb 3 Mg/0.5 Mg (3 Ml) Ud) 3 ml IH [id number] PRN PRN Reason: Cough Last Admin: 10/29/16 21:22 Dose: 3 ml Benzonatate (Tessalon Perles) 100 mg PO TID [facility] Last Admin: 10/30/16 14:12 Dose: 100 mg Codeine Sulfate (Codeine) 15 mg PO Q8 [facility] Last Admin: 10/30/16 14:14 Dose: Not Given Diphenhydramine HCl (Benadryl) 25 mg IVP HS PRN PRN Reason: Allergy symptoms Last Admin: 10/30/16 01:05 Dose: 25 mg Folic Acid (Folic Acid) 1 mg PO BID [facility] Last Admin: 10/30/16 09:20 Dose: 1 mg Hydrocortisone (Anusol-Hc) 25 mg RC Q6H [facility] Last Admin: 10/30/16 14:14 Dose: Not Given Sodium Chloride (Sodium Chloride 0.9%) 1,000 mls @ 100 mls/hr IV .Q10H [facility] Last Admin: 10/30/16 05:27 Dose: 100 mls/hr Meropenem 1g/NS 100mL IVPB (Meropenem 1g/Ns 100ml Ivpb) 1 gm in 100 mls @ 100 mls/hr IVPB Q8 [facility]ID PRN Reason: Protocol Stop: 11/05/16 22:01 Last Admin: 10/30/16 14:14 Dose: Not Given Multivitamins (Thera Tab) 1 tab PO DAILY [facility] Last Admin: 10/30/16 09:20 Dose: 1 tab Ondansetron HCl (Zofran Inj) 4 mg IVP Q6H PRN PRN Reason: Nausea/Vomiting Pantoprazole Sodium (Protonix Ec Tab) 40 mg PO 0600 [facility] Last Admin: 10/30/16 05:18 Dose: Not Given Physical Exam - Constitutional Appears: Non-toxic, No Acute Distress - Head Exam Head Exam: NORMAL INSPECTION - ENT Exam ENT Exam: Mucous Membranes Moist - Neck Exam Neck exam: Negative for: Lymphadenopathy, Meningismus - Respiratory Exam Respiratory Exam: Decreased Breath Sounds - Cardiovascular Exam Cardiovascular Exam: +S1, +S2 - GI/Abdominal Exam GI & Abdominal Exam: Soft. absent: Tenderness Results - Vital Signs Recent Vital Signs: Last Vital Signs Temp 98.1 F 10/30/16 14:51 Pulse 77 10/30/16 14:51 Resp 18 10/30/16 14:51 BP 121/79 10/30/16 14:51 Pulse Ox 96 10/30/16 08:17 - Labs Result Diagrams: 10/30/16 07:00 10/30/16 07:00 Labs: Laboratory Results - last 24 hr 10/28/16 10/29/16 10/29/16 08:30 16:17 16:17 WBC RBC Hgb Hct MCV MCH MCHC RDW Plt Count MPV Gran % Lymph % (Auto) Buchanan % (Auto) Eos % (Auto) Baso % (Auto) Gran # Lymph # Buchanan # Eos # Baso # Sodium Potassium Chloride Carbon Dioxide Anion Gap BUN Creatinine Est GFR ( Amer) Est GFR (Non-Af Amer) Random Glucose Calcium Total Bilirubin AST ALT Alkaline Phosphatase Total Protein Albumin Globulin Albumin/Globulin Ratio A1AT Clinical Indicatr TNP Reoiy-7-[place] TNP A1AT Mutation TNP Procalcitonin 0.11 L Urine Color Urine Appearance Urine pH Ur Specific Baker Urine Protein Urine Glucose (UA) Urine Ketones Urine Blood Urine Nitrate Urine Bilirubin Urine Urobilinogen Ur Leukocyte Esterase Hepatitis C Antibody Negative HIV 1&2 Ag/Ab, 4th Gen Blood Type Antibody Screen Crossmatch BBK History Checked 10/29/16 10/29/16 10/30/16 16:17 19:06 07:00 WBC 2.7 L* D RBC 2.51 L Hgb 8.0 L Hct 24.1 L MCV 96.0 MCH 31.9 MCHC 33.2 RDW 19.7 H Plt Count 81 L MPV 9.2 Gran % 40.7 L Lymph % (Auto) 47.0 H Buchanan % (Auto) 11.9 H Eos % (Auto) 0.4 L Baso % (Auto) 0.0 Gran # 1.10 L Lymph # 1.3 Buchanan # 0.3 Eos # 0.0 Baso # 0.00 Sodium Potassium Chloride Carbon Dioxide Anion Gap BUN Creatinine Est GFR ( Amer) Est GFR (Non-Af Amer) Random Glucose Calcium Total Bilirubin AST ALT Alkaline Phosphatase Total Protein Albumin Globulin Albumin/Globulin Ratio A1AT Clinical Indicatr [id number] A1AT Mutation Procalcitonin Urine Color Yellow Urine Appearance Clear Urine pH 7.0 Ur Specific Baker 1.015 Urine Protein Negative Urine Glucose (UA) Negative Urine Ketones Negative Urine Blood Negative Urine Nitrate Negative Urine Bilirubin Negative Urine Urobilinogen 2.0 H Ur Leukocyte Esterase Negative Hepatitis C Antibody HIV 1&2 Ag/Ab, 4th Gen Nonreactive Blood Type Antibody Screen Crossmatch BBK History Checked 10/30/16 10/30/16 07:00 11:15 WBC RBC Hgb Hct MCV MCH MCHC RDW Plt Count MPV Gran % Lymph % (Auto) Buchanan % (Auto) Eos % (Auto) Baso % (Auto) Gran # Lymph # Buchanan # Eos # Baso # Sodium 138 Potassium 4.2 Chloride 105 Carbon Dioxide 25 Anion Gap 12 BUN 9 Creatinine 0.7 Est GFR ( Amer) > 60 Est GFR (Non-Af Amer) > 60 Random Glucose 100 Calcium 8.6 Total Bilirubin 0.8 AST 55 ALT 46 Alkaline Phosphatase 123 Total Protein 7.5 Albumin 3.2 Globulin 4.3 Albumin/Globulin Ratio 0.7 L A1AT Clinical Indicatr Vqdmm-7-Tlbgeewgitg A1AT Mutation Procalcitonin Urine Color Urine Appearance Urine pH Ur Specific Baker Urine Protein Urine Glucose (UA) Urine Ketones Urine Blood Urine Nitrate Urine Bilirubin Urine Urobilinogen Ur Leukocyte Esterase Hepatitis C Antibody HIV 1&2 Ag/Ab, 4th Gen Blood Type A POSITIVE Antibody Screen Negative Crossmatch See Detail BBK History Checked Patient has bt Assessment & Plan - Assessment and Plan (Free Text) Plan: Assessment Systemic Inflammatory Response Syndome, R/O sepsis from bacteremia after enterscopy and biopsy was done Pancytopenia, etiology to be determined hemorrhoids history of non-alcoholic steatohepatitis Plan Gave a dose of IV Vancomycin and started MErrem yesterday pending blood and urine cx; CT chest showed interstitial disease which has been there previously follow up results of the small bowel and liver biopsy we have ordered CMV and EBV tests, Crypt Ag (apparently the patient was exposed to molds in his house previously), HIV tests, Hepatitis profile will monitor clinically
--- NOTE | 2016-10-30 16:03 | PN ---
DATE: 10/30/2016 SUBJECTIVE: The patient is lying in bed, comfortable. He had a low grade temperature last night to 100.2. He denies any fevers this morning. His temperature at this point is 99.8. He had a transient episode of mild mid abdominal cramping yesterday. He denies any further abdominal pain. He is tolerating solid foods. He underwent a liver biopsy yesterday without any apparent complications. OBJECTIVE: VITAL SIGNS: Currently reveal temperature of 99.8, blood pressure 116/69, heart rate of 85. ABDOMEN: Soft, nontender. LABORATORY DATA: Hemoglobin this morning is 8.0. White blood cell count 2.7, platelet count of 81,000. Chemistries reveal normal electrolytes. IMPRESSION: A 56-year-old male with pancytopenia, etiology unclear. The patient is status post a normal push-enteroscopy and a liver biopsy yesterday. His blood count is slowly dropping. There is no clinical evidence of GI bleeding. He did have a low-grade temperature last night. Infectious disease has been called to see the patient. RECOMMENDATIONS: Further workup and treatment as per Hematology and Infectious Disease. Gerardo Quintanilla MD
--- NOTE | 2016-10-31 01:23 | PN ---
DATE: 10/30/2016 REFERRING PHYSICIAN: Herb Fernández MD SUBJECTIVE: The patient is lying in the bed, head at 45 degrees. and sister are at bedside. Night was unremarkable, got short of breath with exertion, cough is much better. No nausea, no vomiting, no diarrhea. Decreased leg swelling. PHYSICAL EXAMINATION GENERAL: No acute distress. VITAL SIGNS: Temperature is 99, heart rate is 77, respiratory rate is 18, blood pressure 121/79, pulse ox 100% on room air. HEENT: Moist mucous membrane. Thrush is better. NECK: Supple. No JVD. LUNGS: Fair airflow with crackles at the bases. HEART: S1 and S2. ABDOMEN: Soft, nontender. No organomegaly. EXTREMITIES: There is decreased edema. NEUROLOGIC: Awake and alert. Follows simple command. LABORATORY DATA: Hemoglobin 8.0, hematocrit 24.1, WBC 2.7, platelet is 81,000. Chemistry showed sodium 138, potassium 4.2, chloride 105, bicarbonate 25, BUN 9, creatinine 0.7, glucose 100, calcium is 8.6, AST 55,ALT 46, alk phos is 123, procalcitonin 0.11. Microbiology; blood culture negative and urine culture has no growth. MEDICATIONS: He is on Benadryl 25 mg at nighttime p.r.n., codeine 15 mg q. 8 hours p.r.n., DuoNeb q. 6 hours, folic acid 1 mg daily, meropenem 1 g IV q. 8 hours, Protonix 40 mg daily, IV fluid, normal saline 100 mL per hour, Tessalon Perles 3 times a day, multivitamins daily, Tylenol p.r.n. and Zofran p.r.n. basis. IMPRESSION AND PLAN: Recurrent anemia, thrombocytopenia, elevated abnormal liver on CT, bilateral pulmonary infiltrate with nodule, retroperitoneal lymphadenopathy, mediastinal adenopathy, chronic dry cough, bilateral leg edema, status post endoscopy with small bowel biopsy, status post liver biopsy, being transfused. Since transfusion, shortness of breath is better, cough is little better too. Case discussed with Dr. Perez. Clinically, I feel his fever related to transient bacteremia secondary to endoscopy. His cultures are all negative. May consider to discontinue antibiotics if okay with Infectious Diseases. Future plan discussed with Dr. Perez as well as family members. If he is afebrile and antibiotics discontinued by tomorrow and no cultures positive, he can go home. Follow up as outpatient with both biopsies. If no answer for cognitive disease, may need to consider VATS at tertiary care center in hope to make a diagnosis. Continue bronchodilator, cough suppressors, gastric prophylaxis, SCDs to lower extremities. Thank you and we will follow up with you. Ant Lai MD
[2016-10-31] MEDS: Meropenem 1g/NS 100mL IVPB 1 GM/100 ML PIGGYBACK IVPB SCH ×2 (05:16→14:26)
[2016-10-31] MEDS: Pantoprazole 40 mg EC Tab PO SCH (05:16)
[2016-10-31] MEDS: Sodium Chloride 0.9% 1,000 ML IV SCH (05:17)
[2016-10-31 06:07] VITALS: PULSE 76
[2016-10-31 06:31] LABS: BASO # 0.02 K/mm3 (0.0-2.0); BASO % 0.9 % (0.0-3.0); EOS % 0.4 % (1.5-5.0); GRAN # 0.84 (1.4-6.5); HEMOGLOBIN 8.6 g/dL (14.0-18.0); LYMPH # 1.2 (1.2-3.4); LYMPH % 49.4 % (22.0-35.0); MEAN CELL VOLUME 94.5 fl (80.0-105.0); MEAN CORPUSCULAR HEMOGLOBIN 31.6 pg (25.0-35.0); MEAN CORPUSCULAR HGB CONC 33.5 g/dl (31.0-37.0); MEAN PLATELET VOLUME 9.3 fl (7.0-11.0); MONO # 0.3 (0.1-0.6); MONO % 13.3 % (1.0-6.0); PLATELET COUNT 63 10^3/uL (120.0-450.0); RBC 2.72 10^6/uL (3.5-6.1); RED CELL DISTRIBUTION WIDTH 18.7 % (11.5-14.5)
[2016-10-31 06:41] LABS: WHITE BLOOD COUNT 2.3 10^3/ul (4.5-11.0)
[2016-10-31 06:43] LABS: ALB/GLOB RATIO 0.8 (1.1-1.8); ALBUMIN 3.2 g/dL (3.0-4.8); ALT/SGPT 48 U/L (7-56); AST/SGOT 43 U/L (15-59); BLOOD UREA NITROGEN 10 mg/dL (7-21); CALCIUM 8.7 mg/dL (8.4-10.5); GFR AFRICAN-AMERICAN > 60; GFR NON-AFRICAN AMERICAN > 60
[2016-10-31 08:27] VITALS: BP 126/79; RESP 19; TEMP 98.9; O2SAT 93
[2016-10-31] MEDS: Multivitamin Therapeutic Tab PO SCH (10:53)
--- NOTE | 2016-10-31 11:52 | CP.PCM.PN ---
Subjective - Date & Time of Evaluation Date of Evaluation: 10/31/16 Time of Evaluation: 11:30 - Subjective Subjective: Comfortable on a chair, not in distress, afebrile for more than 24 hours, eating well, no diarrhea, no nausea, no SOB, no cough. Objective - Vital Signs/Intake and Output Vital Signs (last 24 hours): Temp Pulse Resp BP Pulse Ox 98.9 F 76 19 126/79 93 L 10/31/16 08:27 10/31/16 08:27 10/31/16 08:27 10/31/16 08:27 10/31/16 08:27 Intake and Output: 10/31/16 10/31/16 06:59 18:59 Intake Total 3060 Output Total 400 Balance 2660 - Medications Medications: Current Medications Acetaminophen (Tylenol 325mg Tab) 650 mg PO Q6H PRN PRN Reason: Fever >100.4 F Last Admin: 10/30/16 02:42 Dose: 650 mg Albuterol/Ipratropium (Duoneb 3 Mg/0.5 Mg (3 Ml) Ud) 3 ml IH [id number] PRN PRN Reason: Cough Last Admin: 10/29/16 21:22 Dose: 3 ml Benzonatate (Tessalon Perles) 100 mg PO TID [facility] Last Admin: 10/30/16 18:17 Dose: 100 mg Codeine Sulfate (Codeine) 15 mg PO Q8 [facility] Last Admin: 10/31/16 05:16 Dose: Not Given Diphenhydramine HCl (Benadryl) 25 mg IVP HS PRN PRN Reason: Allergy symptoms Last Admin: 10/30/16 23:42 Dose: 25 mg Folic Acid (Folic Acid) 1 mg PO BID [facility] Last Admin: 10/30/16 19:17 Dose: 1 mg Hydrocortisone (Anusol-Hc) 25 mg RC Q6H [facility] Last Admin: 10/31/16 08:07 Dose: Not Given Sodium Chloride (Sodium Chloride 0.9%) 1,000 mls @ 100 mls/hr IV .Q10H [facility] Last Admin: 10/31/16 05:17 Dose: 100 mls/hr Meropenem 1g/NS 100mL IVPB (Meropenem 1g/Ns 100ml Ivpb) 1 gm in 100 mls @ 100 mls/hr IVPB Q8 [facility] PRN Reason: Protocol Stop: 11/05/16 22:01 Last Admin: 10/31/16 05:16 Dose: 100 mls/hr Multivitamins (Thera Tab) 1 tab PO DAILY [facility] Last Admin: 10/30/16 09:20 Dose: 1 tab Ondansetron HCl (Zofran Inj) 4 mg IVP Q6H PRN PRN Reason: Nausea/Vomiting Pantoprazole Sodium (Protonix Ec Tab) 40 mg PO 0600 [facility] Last Admin: 10/31/16 05:16 Dose: 40 mg - Labs Labs: 10/31/16 06:10 10/31/16 06:10 PT 11.9 Seconds (9.9-11.8) H 10/29/16 07:00 INR 1.10 (0.93-1.08) H 10/29/16 07:00 APTT 32.3 Seconds (23.7-30.8) H 10/27/16 13:45 - Constitutional Appears: Non-toxic, No Acute Distress - Head Exam Head Exam: NORMAL INSPECTION - Neck Exam Neck Exam: absent: Meningismus - Respiratory Exam Respiratory Exam: Decreased Breath Sounds - Cardiovascular Exam Cardiovascular Exam: +S1, +S2 - GI/Abdominal Exam GI & Abdominal Exam: Soft. absent: Tenderness Assessment and Plan - Assessment and Plan (Free Text) Plan: Assessment Systemic Inflammatory Response Syndome, probably from transient bacteremia after enterscopy and biopsy was done Pancytopenia, etiology to be determined hemorrhoids history of non-alcoholic steatohepatitis Plan on Merrem day 3; blood cx have been negative; CT chest showed interstitial disease which has been there previously; patient has no urinary symptoms - can be switched to PO Augmentin to complete a 5-7 day course follow up results of the small bowel and liver biopsy we have ordered CMV and EBV tests, Crypt Ag (apparently the patient was exposed to molds in his house previously) and these can be followed as an outpatient; HIV tests, Hepatitis profile are negative
--- NOTE | 2016-11-02 15:41 | DS ---
LOCATION: The patient is in room 369. HISTORY OF PRESENT ILLNESS: This is a 56-year-old white male with a history of progressive pancytopenia seen and monitored by us since April 2016 with progressively worsening hemoglobin, hematocrit, and platelet count. He was admitted with symptomatic anemia and profound weakness with dyspnea on minimal exertion. PAST MEDICAL HISTORY: Significant for the fact that he has history of nonalcoholic steatohepatitis documented about 20 years ago when he was overweight. He had two episodes of Campylobacter infection in March 2015, a bout of influenza and he says he was also exposed to mold in his basement and subsequent to that the patient has had progressive pancytopenia from the white count of 3.7, hemoglobin 9.7, platelet count of 70,000 in May to now where the counts have really gone down. Upon admission, his white count was 2.6, hemoglobin was 6.4, and the platelet count was 12,000. In the interim, the patient has had exhaustive workup between here at [facility] in our office and also workup at [facility], but he was seen both by is project manager/deckhand sponge boat and the liver person or price accuracy supervisor. The patient was also seen in [facility] for EBUS in targeted biopsy of the mediastinal nodes and lung, which was inconclusive and was also seen by one of the irrigator gravity flow/oncologist at [facility], by the name of Dr. Gil Baugh to get some input on his management. Workup so far as an outpatient had been negative for his progressive pancytopenia, bone marrow biopsy, aspiration was sent for cultures and various studies including fluid cytometric analysis, histochemical analysis and the marrow showed a reactive marrow with appropriate cell lines without any evidence of the mononuclear cells, paratrabecular infiltrate, leukemia, lymphoma, myelodysplastic syndrome, or myeloproliferative disorder. The patient also had screening for PNH, which was negative. He had ultrasound of his liver, which showed an abnormal contour suggestive of early cirrhosis, but the ultrasound failed to confirm it. CAT scan was suggestive of it. He had an MRCP to check for patent portal vein to make sure he had no portal venous thrombosis. CAT scans of the chest have always shown mediastinal nodes and interstitial infiltrates in the lung and borderline splenomegaly on the CAT scan of the abdomen. No had been found. The patient denies any headache dizziness, blurring of vision, chest pain. The patient definitely is short of breath on minimal exertion, coughing which has abated while he is in the hospital. No dysuria, no diarrhea. Infectious disease consult was obtained while he has been in the hospital. The patient required 3 units of blood and 4 units of platelets just before the push enteroscopy and biopsy and the liver biopsy. Push enteroscopy was done with a suggestion if he had anything to do with celiac disease. Biopsies were taken for the same or to rule out intestinal lymphoma. Liver biopsy was done as part of the fewer workup to check for granulomas, lymphomas, or even sarcoidosis. Post transfusion and post biopsy, post push enteroscopy and prior to the liver biopsy. The patient had fevers and chills, but was not sure if it was the reaction to the platelets or it was a procedure related issue where if transient bacteria when the bowels were insufflated at the time of the push enteroscopy. The patient was covered with antibiotics. Cultures were done, which are negative and ID suggested sending him home on oral antibiotics for five days. PHYSICAL EXAMINATION: Physical examination at the time of discharge reveals: GENERAL: The patient to be awake, alert, and oriented in no acute distress. He is feeling better. He is able to walk and ambulate better without getting wheezes, shortness of breath or coughing. Denies any history of fevers, chills, nausea, vomiting. LUNGS: Relatively clear. CARDIOVASCULAR: Reveals S1 and S2 to be normal. Gallop and murmur is heard. ABDOMEN: Soft, nontender. EXTREMITIES: Reveals no cyanosis, clubbing or edema. PLAN: The patient is going to be discharged to home. At the time of discharge, the patient's blood counts were noted and is still on pancytopenic side. Today's labs reveal a white count of 2.3 with an ANC of 0.84, hemoglobin 8.6, hematocrit 25, platelet count 163,000. I told to the patient that at this point in time to stay on a neutropenic diet will not intervene or intercede and give him anything at this point based on the liver biopsies and the cultures and then make appropriate recommendations. It would appear that it is needed, we can always give him Neupogen to correct the leukopenia at this time. Wait for the cultures before we push about anything else. I spoke to Dr. Lai, the fretted instrument maker hand who has been following him as well. The other staff that we would probably explore would be to include a plan for VATS procedure, video assisted thoracoscopy and possible lung biopsy. Diagnose was done at the time of discharge is unclear except that he has pancytopenia and further workup may be needed. Definitely dealing with some sort of an autoimmune process this affecting the lung, also causing pancytopenia with a normal marrow and evidence of splenomegaly and mediastinal nodes. Workup for rheumatologic issues so far to date has been negative. I told the patient to continue to monitor him at least we know for a fact and he does not have any major antibodies unless they were interfering protease that were giving the falsely Comb's test that was done repeatedly as an outpatient was reported abnormal. Routine post exam instructions have been given to the patient. He has been told to stay on a neutropenic diet. There is no other medication except folic acid that has been requested and the patient should followup in about four days with me as an outpatient in the office. Abhinav Perez MD
== END 2016-10-31 15:19 | disposition home or self-care (01) | DRG 809 ==
LOC: ED 12:27 → ERH 13:43 → 3RSO 15:57 → 3RNO 10-28 16:15
PROVIDERS: ADMIT Family Medicine; ATTEND Family Medicine
PROC: 30233N1 Transfusion of Nonautologous Red Blood Cells into Peripheral Vein, Percutaneous Approach (ICD-10-PCS; principal; 2016-10-27)
PROC: 6A551Z2 Pheresis of Platelets, Multiple (ICD-10-PCS; 2016-10-28)
DX: D61.818 Other pancytopenia (principal); J84.9 Interstitial pulmonary disease, unspecified; B37.0 Candidal stomatitis; D69.6 Thrombocytopenia, unspecified; R65.10 Systemic inflammatory response syndrome (SIRS) of non-infectious origin without acute organ dysfunction; R78.81 Bacteremia; D58.9 Hereditary hemolytic anemia, unspecified; K74.60 Unspecified cirrhosis of liver; K75.81 Nonalcoholic steatohepatitis (NASH); D86.9 Sarcoidosis, unspecified; G47.30 Sleep apnea, unspecified; J45.909 Unspecified asthma, uncomplicated; K64.9 Unspecified hemorrhoids; Z87.442 Personal history of urinary calculi; Z86.711 Personal history of pulmonary embolism; Z91.048 Other nonmedicinal substance allergy status; R40.2412 Glasgow coma scale score 13-15, at arrival to emergency department; R59.0 Localized enlarged lymph nodes; R16.1 Splenomegaly, not elsewhere classified

== ENCOUNTER 2016-11-19 16:50 | Observation (INO) | payer BC ==
[2016-11-19 17:02] VITALS: BMI 27.6
[2016-11-19] MEDS ORDERED: DiphenhydrAMINE 12.5 mg/5 ml LIQ UD (5 ml) PO STA (17:15)
--- NOTE | 2016-11-19 17:33 | ED PDOC ---
Arrival/HPI - General Chief Complaint: Abnormal Labs Time Seen by Provider: 11/19/16 16:56 Historian: Patient - History of Present Illness Narrative History of Present Illness (Text): 11/19/16 17:25 Aristeo Contreras is a 56 year old male, whose past medical history includes hemolytic anemia and pancytopenia, presents to the emergency department complaining of feeling fatigue. Patient reports having a persistent chronic cough and shortness of breath, consistent with symptoms of pancytopenia. Patient denies any chest pain, headache, abdominal pain, vomiting, diarrhea, dysuria, or other complaints. PMD: Dr. Barber Time/Duration: 4-6 hours Symptom Onset: Sudden Symptom Course: Unchanged Activities at Onset: Light Context: Home Associated Symptoms (Text): chronic persistent cough, fatigue, and shortness of breat Past Medical History - Provider Review Nursing Documentation Reviewed: Yes - Infectious Disease Hx of Infectious Diseases: None - Tetanus Immunization Tetanus Immunization: Unknown - Past Medical History Past Medical History: No Previous - Cardiac Hx Cardiac Disorders: No Hx Pacemaker: No Hx Peripheral Edema: Yes (ble +1 chronic) - Pulmonary Hx Respiratory Disorders: Yes Hx Asthma: Yes - Neurological Hx Neurological Disorder: No - HEENT Hx HEENT Disorder: No - Renal Hx Renal Disorder: Yes Hx Kidney Stones: Yes (3.8 MM KIDNEY STONES 11-02-13) - Endocrine/Metabolic Hx Endocrine Disorders: No - Hematological/Oncological Hx Blood Transfusions: Yes (platelets) Hx Blood Transfusion Reaction: No - Integumentary Hx Dermatological Disorder: No - Musculoskeletal/Rheumatological Hx Falls: No - Gastrointestinal Hx Gastrointestinal Disorders: No - Genitourinary/Gynecological Hx Genitourinary Disorders: No - Psychiatric Hx Emotional Abuse: No Hx Physical Abuse: No Hx Substance Use: No - Past Surgical History Past Surgical History: No Previous - Surgical History Other/Comment: lung biopsy in past, benign, ct scan guided bone marrow bx 05/21/16 - Anesthesia Hx Anesthesia Reactions: No Hx Malignant Hyperthermia: No - Suicidal Assessment Feels Threatened In Home Enviroment: No Family/Social History - Physician Review Nursing Documentation Reviewed: Yes Family/Social History: Unknown Family HX Smoking Status: Never Smoked Hx Alcohol Use: No (rarely) Hx Substance Use: No Hx Substance Use Treatment: No Allergies/Home Meds Allergies/Adverse Reactions: Allergies POLLEN Adverse Reaction (Mild, Uncoded 11/19/16 17:02) SNEEZING DUST Adverse Reaction (Uncoded 11/19/16 17:02) SNEEZING MOLD Adverse Reaction (Uncoded 11/19/16 17:02) SNEEZING Home Medications: Home Meds Medication Instructions Recorded Confirmed Multivitamin [Daily Kayden] 1 tab PO DAILY 05/19/16 11/19/16 Benzonatate [Tessalon Perles] 100 mg PO TID PRN 10/27/16 11/19/16 Dexlansoprazole [Dexilant] 60 mg PO DAILY 10/27/16 11/19/16 Ferrous Sulfate [Iron] 325 mg PO DAILY 10/27/16 11/19/16 Folic Acid [Folic Acid] 1 mg PO BID 10/27/16 11/19/16 Codeine Phosphate 10 gm MC DAILY 11/19/16 11/19/16 Review of Systems - Review of Systems Constitutional: Fatigue. absent: Fevers Respiratory: SOB, Cough (chronic) Cardiovascular: absent: Chest Pain Gastrointestinal: absent: Abdominal Pain Genitourinary Male: absent: Dysuria Musculoskeletal: absent: Back Pain Neurological: absent: Headache Physical Exam Vital Signs Reviewed: Yes Vital Signs Temp Pulse Resp BP Pulse Ox 11/19/16 18:01 93 H 18 110/70 99 11/19/16 16:59 99.5 F 114 H 18 123/66 99 Temperature: Afebrile Blood Pressure: Normal Pulse: Tachycardic Respiratory Rate: Normal Appearance: Positive for: Well-Appearing, Non-Toxic, Comfortable Pain Distress: None Mental Status: Positive for: Alert and Oriented X 3 - Systems Exam Head: Present: Atraumatic, Normocephalic Pupils: Present: PERRL Extroacular Muscles: Present: EOMI Conjunctiva: Present: Normal Mouth: Present: Moist Mucous Membranes Neck: Present: Normal Range of Motion Respiratory/Chest: Present: Clear to Auscultation, Good Air Exchange. No: Respiratory Distress, Accessory Muscle Use Cardiovascular: Present: Tachycardic. No: Murmurs Abdomen: Present: Normal Bowel Sounds. No: Tenderness, Distention, Peritoneal Signs Upper Extremity: Present: Normal Inspection. No: Cyanosis, Edema Lower Extremity: Present: Normal Inspection. No: Edema Neurological: Present: GCS=15, CN II-XII Intact, Speech Normal Skin: Present: Warm, Dry, Normal Color. No: Rashes Psychiatric: Present: Alert, Oriented x 3, Normal Insight, Normal Concentration Medical Decision Making ED Course and Treatment: 11/19/16 17:25 Impression: 56 year old male with symptoms consisting of pmh pancytopenia. Patient reports feeling fatigue with chronic cough and shortness of breath. Plan: -- EKG -- Labs -- Benadryl, Solucortef, and Tylenol -- Reassess and disposition Progress Notes: EKG: Ordered, reviewed, and independently interpreted the EKG. Rate : 108 BPM Rhythm : sinus tachycardia Interpretation : No ST-segment elevations or depressions, no T-wave inversions, normal intervals. 11/19/[address] Fernández who presented to ED with patient with a Hgb done today by Dr. Perez for 7.3. The plan is to treat pre-treat patient with benadryl, solucortef and tylenol prior to transfusion as per their recommendations. They request transfusion for 2 units of RBC and Platelets. 11/19/16 18:50 Labs returned with Hgb of 8.3. Discussed with Dr. Fernández and Dr. Perez and they both recommend transfusion of PRBC and Platelets to be continued. Patient agreed and would like the transfusion. Consent for transfusion signed. Will admit to Dr. Fernández service. - Lab Interpretations Lab Results: 11/19/16 17:10 11/19/16 17:10 Lab Results 11/19/16 17:20: Blood Type Pending, Antibody Screen Pending, Crossmatch See Detail, BBK History Checked Patient has bt 11/19/16 17:10: Sodium 135, Potassium 3.8, Chloride 99, Carbon Dioxide 25, Anion Gap 15, BUN 13, Creatinine 0.7, Est GFR ( Amer) > 60, Est GFR (Non- Af Amer) > 60, Random Glucose 119 H, Calcium 9.1, Total Bilirubin 1.0, AST 31, ALT 22, Alkaline Phosphatase 127 H, Total Protein 9.2 H, Albumin 3.8, Globulin 5.4, Albumin/Globulin Ratio 0.7 L 11/19/16 17:10: PT 12.0 H, INR 1.11 H, APTT 29.9 11/19/16 17:10: WBC 2.8 L* D, RBC 2.50 L, Hgb 8.3 L, Hct 24.3 L, MCV 97.2, MCH 33.2, MCHC 34.2, RDW 20.2 H, Plt Count 20 L*, MPV 10.4, Gran % 36.9 L, Lymph % ( Auto) 43.0 H, Baker % (Auto) 19.0 H, Eos % (Auto) 0.4 L, Baso % (Auto) 0.7, Gran # 1.05 L, Lymph # 1.2, Baker # 0.5, Eos # 0.0, Baso # 0.02 - EKG Interpretation Interpreted by ED Physician: Yes Type: 12 lead EKG - Medication Orders Current Medication Orders: Discontinued Medications Acetaminophen (Tylenol 325mg Tab) 650 mg PO STAT STA Stop: 11/19/16 17:16 Diphenhydramine HCl (Benadryl) 25 mg PO STAT STA Stop: 11/19/16 17:16 Hydrocortisone Sodium Succinate (Solu-Cortef) 100 mg IVP STAT STA Stop: 11/19/16 17:16 Last Admin: 11/19/16 17:32 Dose: 100 mg - Scribe Statement The provider has reviewed the documentation as recorded by the Scribe 11/19/2016 Megan Easton Provider Scribe Attestation: All medical record entries made by the Scribe were at my direction and personally dictated by me. I have reviewed the chart and agree that the record accurately reflects my personal performance of the history, physical exam, medical decision making, and the department course for this patient. I have also personally directed, reviewed, and agree with the discharge instructions and disposition. Disposition/Present on Arrival - Present on Arrival Any Indicators Present on Arrival: No History of DVT/PE: No History of Uncontrolled Diabetes: No Urinary Catheter: No History of Decub. Ulcer: No History Surgical Site Infection Following: None - Disposition Have Diagnosis and Disposition been Completed?: Yes Diagnosis: Symptomatic anemia, Pancytopenia Disposition: HOSPITALIZED Disposition Time: 18:51 Patient Plan: Observation Condition: FAIR Referrals: Terry Barber MD [Primary Care Provider] - Follow up with primary Forms: Shahab P. Tabatabai, Broker (Turkish)
--- NOTE | 2016-11-19 17:46 | CARD ---
APPROVED REPORT EKG Measurement Heart [id number] <Conclusion> Sinus tachycardia Cannot rule out Anterior infarct, age undetermined Abnormal ECG
[2016-11-19 17:48] LABS: ALB/GLOB RATIO 0.7 (1.1-1.8); ALKALINE PHOSPHATASE 127 U/L (38-126); ALT/SGPT 22 U/L (7-56); AST/SGOT 31 U/L (17-59); BLOOD UREA NITROGEN 13 mg/dL (7-21); CALCIUM 9.1 mg/dL (8.4-10.5); CARBON DIOXIDE 25 mmol/L (21-33); CHLORIDE 99 mmol/L (95-110); GFR AFRICAN-AMERICAN > 60; GLUCOSE,RANDOM 119 mg/dL (70-110); POTASSIUM 3.8 mmol/L (3.6-5.0); SODIUM 135 mmol/L (132-148); TOTAL PROTEIN 9.2 g/dL (5.8-8.3)
[2016-11-19 17:49] LABS: BASO # 0.02 K/mm3 (0.0-2.0); BASO % 0.7 % (0.0-3.0); EOS % 0.4 % (1.5-5.0); GRAN # 1.05 (1.4-6.5); GRAN % 36.9 % (50.0-68.0); HEMATOCRIT 24.3 % (42.0-52.0); LYMPH # 1.2 (1.2-3.4); MEAN CELL VOLUME 97.2 fl (80.0-105.0); MEAN CORPUSCULAR HEMOGLOBIN 33.2 pg (25.0-35.0); MEAN CORPUSCULAR HGB CONC 34.2 g/dl (31.0-37.0); MEAN PLATELET VOLUME 10.4 fl (7.0-11.0); MONO # 0.5 (0.1-0.6); RED CELL DISTRIBUTION WIDTH 20.2 % (11.5-14.5)
[2016-11-19 17:56] LABS: INR 1.11 (0.93-1.08); PARTIAL THROMBOPLASTIN TIME 29.9 Seconds (23.7-30.8)
[2016-11-19 18:16] LABS: PLATELET COUNT 20 10^3/uL (120.0-450.0); WHITE BLOOD COUNT 2.8 10^3/ul (4.5-11.0)
[2016-11-19] MEDS ORDERED: Pneumococcal 23-Valent Vaccine IM ONE (22:20)
[2016-11-19 22:31] VITALS: RESP 20
[2016-11-19 23:07] VITALS: O2SAT 95
[2016-11-20 02:09] VITALS: TEMP 97.4
[2016-11-20 03:35] VITALS: BP 109/69; PULSE 79
[2016-11-20 05:02] LABS: HEMATOCRIT 28.9 % (42.0-52.0); MEAN CELL VOLUME 93.5 fl (80.0-105.0); MEAN CORPUSCULAR HEMOGLOBIN 31.7 pg (25.0-35.0); MEAN CORPUSCULAR HGB CONC 33.9 g/dl (31.0-37.0); MEAN PLATELET VOLUME 9.4 fl (7.0-11.0); RED CELL DISTRIBUTION WIDTH 19.1 % (11.5-14.5)
[2016-11-20 05:16] LABS: WHITE BLOOD COUNT 2.8 10^3/ul (4.5-11.0)
[2016-11-20] MEDS ORDERED: DEXLANSOPRAZOLE 60 MG PO SCH (10:00)
[2016-11-20] MEDS ORDERED: [UNRECOGNIZED DRUG - OTHER] MC SCH (10:00)
[2016-11-20] MEDS ORDERED: Multivitamin Therapeutic Tab PO SCH (10:00)
--- NOTE | 2016-12-24 03:42 | HP ---
This is Aristeo Arechiga's admission history and physical. For Dr. Perez. CHIEF COMPLAINT: Severe anemia. HISTORY OF PRESENT ILLNESS: The patient is a 56-year-old male, admitted by the emergency room for transfusion of packed red blood cells due to severe hemolytic anemia with pancytopenic indices. He has main complaints that is of severe fatigue with persistent chronic cough and shortness of breath. With this as per Dr. Perez's recommendation, we will transfuse the patient in anticipation of his visit at [facility] tomorrow as his anemic indices was quite severe with a value in our office earlier, hemoglobin 7.3 earlier today with a repeat of 8.3 in the emergency room. His white blood cell count was at 2.8 with a platelet count of 20,000 with significant pancytopenic parameters that is listed. The patient is otherwise in no acute distress, oxygen is on, and consent was signed. ALLERGIES: NO KNOWN ALLERGIES EXCEPT FOR MOLD, DUST, AND POLLEN. MEDICATIONS: The patient's medicines were reviewed, they included Dexilant, folic acid, ferrous sulfate, Tessalon Perles, multivitamin, and codeine phosphate. PAST MEDICAL HISTORY: Significant for kidney stones in the past, persistent cough with fatigue and his pancytopenia with severe thrombocytopenia, history of diarrhea with Campylobacter infection in 01/2016 with pulmonary nodule, retroperitoneal lymphadenopathy. Bone marrow biopsy aspiration was mainly negative with EBUS biopsy done in [facility] was nondiagnostic. He also is status post hemorrhoid surgery, possible early liver cirrhosis due to BETANCOURT and splenomegaly. SOCIAL HISTORY: Nonsmoker. Nonethanolic. REVIEW OF SYSTEMS: A 12-point review of systems was done, which was negative to question except as mentioned in history of present illness. PHYSICAL EXAMINATION: VITAL SIGNS: At the time of admission included a temperature of 98.9, pulse 88, respirations 20, blood pressure 110/67, pulse ox 99%. HEENT: Unremarkable with pale sclerae. NECK: Supple. HEART: Tachy rate. Regular rhythm. LUNGS: Clear. ABDOMEN: Soft and nontender. EXTREMITIES: No edema. SKIN: Warm and dry. Pale. NEUROLOGIC: Awake, alert and oriented x3. LABORATORY DATA: The patient's labs were done to include white blood cell count of 2.8, hemoglobin of 8.3, hematocrit 24.3, platelet count 20,000 with a chem metabolic panel essentially within normal range except for total protein of 9.2, alkaline phosphatase 127. His INR is 1.11. His absolute neutrophil count was 1.05. As far as his workup, he did have an EKG done ordered by Dr. Samuel. The emergency room director saw the patient showing sinus tachycardia cannot rule out anterior infarct abnormal EKG. ASSESSMENT: The assessment for this patient is severe anemia, thrombocytopenia, neutropenia, and pancytopenia with transfusion to be done today. Fatigue and chronic cough. PLAN: The plan was to transfuse 2 units of packed red blood cells and also platelets, single donor apheresis platelets, with further testing as per consultants in [place] once he is discharged. Prognosis for this patient is guarded. We will repeat the labs in the morning. Herb Fernández MD
--- NOTE | 2016-12-24 06:06 | DS ---
For Dr. Perez. SUBJECTIVE: The patient is a 56-year-old male with known severe pancytopenic indices, status post transfusion 2 units of packed red blood cells and platelets as per Dr. Perez's recommendation in anticipation of evaluation at [facility] for assistance in his diagnoses. The patient reports that his cough is modestly improved and reports that his fatigue is also modestly improved. He is for discharge today on his present medical regimen. PHYSICAL EXAMINATION: VITAL SIGNS: Temperature is 97.4, pulse 79, respirations 20, blood pressure 109/69, pulse ox of 95%. HEENT: Unremarkable. NECK: Supple. HEART: Tachy rate, regular rhythm. LUNGS: Clear. ABDOMEN: Soft and nontender. EXTREMITIES: No edema. SKIN: Warm and dry. NEUROLOGIC: Awake and alert, LABORATORY DATA: The patient's labs were done; white blood cell count of 2.8, hemoglobin of 9.8 improved from 8.3 yesterday, hematocrit of 29.9, platelet count of 36,000 improved from 20,000 yesterday. ASSESSMENT: Pancytopenia with thrombocytopenia, neutropenia and anemia of etiology unknown. She worked up with persistent cough, chronic obstructive pulmonary disease, and fatigue. PLAN: For this patient is to be discharged home on his present medical regimen, which includes multivitamin once a day, Dexilant, folic acid, ferrous sulfate, Tessalon, codeine phosphate for cough. Plan for this patient after conservation with Dr. Perez, had followup at [facility] as per Dr. ePrez's recommendations with arrangements made for visit with doctors their with the patient to followup with Dr. Perez in one weeks time or earlier. Prognosis for this patient is guarded. Herb Fernández MD
== END 2016-11-20 05:03 | disposition home or self-care (01) ==
LOC: ED 16:50 → ERH 18:51 → 5RSO 20:42
PROVIDERS: ADMIT Family Medicine; ATTEND Family Medicine
DX: D58.9 Hereditary hemolytic anemia, unspecified (principal); D61.818 Other pancytopenia; J45.909 Unspecified asthma, uncomplicated; Z87.442 Personal history of urinary calculi; Z91.048 Other nonmedicinal substance allergy status; R00.0 Tachycardia, unspecified; R40.2412 Glasgow coma scale score 13-15, at arrival to emergency department
CPT/HCPCS: 36415; 36430; 80053; 85025; 85027; 85610; 85730; 86850; 86900; 86920; 86921; 86922; 93005; 96374; 99283; G0378; J1720; P9016; P9035

== ENCOUNTER 2017-01-28 17:20 | Inpatient (IN) | payer BC ==
[2017-01-28 17:30] VITALS: BMI 27.3
--- NOTE | 2017-01-28 18:19 | ED PDOC ---
Arrival/HPI - General Chief Complaint: Abnormal Labs Time Seen by Provider: 01/28/17 17:22 Historian: Patient, Spouse - History of Present Illness Narrative History of Present Illness (Text): 01/28/17 17:58 A 56 year old male, whose past medical history includes pancytopenia and anemia , sent into the emergency department by Dr. Perez for further evaluation. Patient reports worsening generalized weakness and a decrease in appetite for the past 5 days. reports 1 week old bruise on left arm and recently noticed small bruise on left side of neck. Patient also notes a slight cough, mild lightheadedness and a fever in the low 100s over the past 2 days. Patient denies any nasal congestion, nausea, vomiting, abdominal pain, urinary symptoms , chest pain, shortness of breath, headache or any other complaints. PMD: Dr. Perez Time/Duration: Other (5 days) Symptom Course: Worsening Quality: Other Context: Home Past Medical History - Provider Review Nursing Documentation Reviewed: Yes - Infectious Disease Hx of Infectious Diseases: None - Tetanus Immunization Tetanus Immunization: Unknown - Past Medical History Past Medical History: No Previous - Cardiac Hx Cardiac Disorders: No Hx Pacemaker: No Hx Peripheral Edema: Yes (ble +1 chronic pitting) - Pulmonary Hx Respiratory Disorders: Yes Hx Asthma: (pt denies asthma) - Neurological Hx Neurological Disorder: No - HEENT Hx HEENT Disorder: No - Renal Hx Renal Disorder: Yes Hx Kidney Stones: Yes (3.8 MM KIDNEY STONES 11-02-13) - Endocrine/Metabolic Hx Endocrine Disorders: No - Hematological/Oncological Hx Blood Disorders: Yes Other/Comment: pancytopenia, blood transfusion platelets, hemolytic anemia - Integumentary Hx Dermatological Disorder: No - Musculoskeletal/Rheumatological Hx Falls: No - Gastrointestinal Hx Gastrointestinal Disorders: No - Genitourinary/Gynecological Hx Genitourinary Disorders: No - Psychiatric Hx Emotional Abuse: No Hx Physical Abuse: No Hx Substance Use: No - Past Surgical History Past Surgical History: No Previous - Surgical History Other/Comment: lung biopsy in past, benign, ct scan guided bone marrow bx 05/21/16 - Anesthesia Hx Anesthesia Reactions: No Hx Malignant Hyperthermia: No - Suicidal Assessment Feels Threatened In Home Enviroment: No Family/Social History - Physician Review Nursing Documentation Reviewed: Yes Family/Social History: No Known Family HX Smoking Status: Never Smoked Hx Alcohol Use: No (rare) Hx Substance Use: No Hx Substance Use Treatment: No Allergies/Home Meds Allergies/Adverse Reactions: Allergies POLLEN Adverse Reaction (Mild, Uncoded 01/28/17 17:30) SNEEZING DUST Adverse Reaction (Uncoded 01/28/17 17:30) SNEEZING MOLD Adverse Reaction (Uncoded 01/28/17 17:30) SNEEZING Home Medications: Home Meds Medication Instructions Recorded Confirmed Multivitamin [Daily Kayden] 1 tab PO DAILY 05/19/16 01/28/17 Dexlansoprazole [Dexilant] 60 mg PO DAILY 10/27/16 01/28/17 Ferrous Sulfate [Iron] 325 mg PO DAILY 10/27/16 01/28/17 Folic Acid 1 mg PO BID 10/27/16 01/28/17 Prednisone 75 mg PO DAILY 01/28/17 01/28/17 Review of Systems - Physician Review All systems were reviewed & negative as marked: Yes - Review of Systems Constitutional: Fevers, Other (Generalized weakness) ENT: absent: Sinus Congestion Respiratory: Cough. absent: SOB Cardiovascular: absent: Chest Pain Gastrointestinal: Appetite Changes (decrease appetite). absent: Abdominal Pain , Nausea, Vomiting Genitourinary Male: absent: Dysuria, Frequency, Hematuria, Urinary Output Changes Skin: Other (bruising on lef arm and left side of neck) Neurological: Other (lightheadedness). absent: Headache Physical Exam Vital Signs Temp Pulse Resp BP 01/28/17 21:00 101.1 F H 99 H 16 118/81 01/28/17 20:50 101.1 F H Appearance: Positive for: Non-Toxic, Comfortable, Other (weak appearing) Pain Distress: None Mental Status: Positive for: Alert and Oriented X 3 - Systems Exam Head: Present: Atraumatic, Normocephalic Pupils: Present: PERRL Extroacular Muscles: Present: EOMI Conjunctiva: Present: Normal Mouth: Present: Moist Mucous Membranes Neck: Present: Normal Range of Motion, Other (small bruise on left side of neck , no palpable hematoma). No: Bruit (/thrill) Respiratory/Chest: Present: Clear to Auscultation, Good Air Exchange. No: Respiratory Distress, Accessory Muscle Use Cardiovascular: Present: Regular Rate and Rhythm, Normal S1, S2. No: Murmurs Abdomen: Present: Normal Bowel Sounds. No: Tenderness, Distention, Peritoneal Signs Back: Present: Normal Inspection Upper Extremity: Present: Normal ROM, NORMAL PULSES, Neurovascularly Intact, Other (bruise on left upper extremity). No: Cyanosis, Edema, Temperature Abnormalties Lower Extremity: Present: Edema (trace edema bilaterally), NORMAL PULSES. No: CALF TENDERNESS Neurological: Present: GCS=15, CN II-XII Intact, Speech Normal Skin: Present: Warm, Dry, Normal Color. No: Rashes Psychiatric: Present: Alert, Oriented x 3, Normal Insight, Normal Concentration Medical Decision Making ED Course and Treatment: 01/28/17 17:58 Impression: A 56 year old male sent in by Dr. Perez for evaluation. Patient reports increased weakness and decreased appetite. Differential Diagnosis included but are not limited to: Pancytopenia Plan: -- Chest xray -- EKG -- Labs -- Blood and Urine culture -- Urinalysis -- Reassess and disposition Dr. Fernández states that Dr. Perez wants patient received 1 unit of PRBC and 2 units of Platelets. Both were ordered. Progress Notes: EKG shows NSR at [address]-segment elevations, normal intervals, normals axis. Interpreted by me. 01/28/17 20:56 Sodium low and treated with IV fluids. Case was discussed with Dr. Herb Fernández who will take the admission to his service on the medical floor. He ordered isolation. Dr. Morley states that patient is Dr. Barber's patient and admitting to Dr. Perez and Dr. Fernández is appropriate. Patient developed a fever in the ED and treated with Tylenol. This fever developed prior to blood transfusion. CXR was negative for PNA. Patient states his ID doctor was giving him Bactrim for PCP prophylaxis but he has not started it yet. 01/28/17 21:08 01/28/17 21:09 Dr. Herb Menon came back to the ED. I discussed with him that we will be calling a code sepsis on his patient for elevated LA with tachycardia and fever. Treated with broad spectrum abx Vancomycin and Zosyn IV. Dr. Menon asked me to discontinue Bactrim and Granix which I cancelled for him. - Lab Interpretations Lab Results: 01/28/17 19:00 Lab Results 01/28/17 19:00: Blood Type A POSITIVE, Antibody Screen Negative, Crossmatch See Detail, BBK History Checked Patient has bt 01/28/17 19:00: Sodium 125 L, Chloride 91 L, Potassium 4.4, Carbon Dioxide 27, Anion Gap 11, BUN 16, Creatinine 0.8, Est GFR ( Amer) > 60, Est GFR (Non- Af Amer) > 60, Random Glucose 257 H, Calcium 8.8, Phosphorus 3.6, Magnesium 2.2 , Total Bilirubin 1.3, AST 80 H D, ALT 90 H, Alkaline Phosphatase 207 H D, Total Protein 8.1, Albumin 3.4, Globulin 4.7, Albumin/Globulin Ratio 0.7 L 01/28/17 19:00: PT 14.9 H, INR 1.36 H, APTT 28.4 01/28/17 18:58: pO2 25 L, VBG pH 7.44 H, VBG pCO2 40.0, VBG HCO3 27.2, VBG Total CO2 28.4 H, VBG O2 Sat (Calc) 48.5, VBG Base Excess 2.8 H, VBG Potassium 4.3, Sodium 127.0 L, Chloride 93.0 L, Glucose 262 H, Lactate 2.7 H, FiO2 21.0, Venous Blood Potassium 4.3 01/28/17 18:00: Urine Color Yellow, Urine Appearance Slight-cloudy, Urine pH 6.0 , Ur Specific [place] >= 1.030, Urine Protein 100 H, Urine Glucose (UA) >=1000, Urine Ketones Negative, Urine Blood Large H, Urine Nitrate Negative, Urine Bilirubin Negative, Urine Urobilinogen 1.0 H, Ur Leukocyte Esterase Negative, Urine RBC 10 - 15, Urine WBC 2 - 5, Ur Epithelial Cells 1 - 3, Urine Bacteria Few, Hyaline Casts 0 - 2, Fine Granular Casts 0 - 2 I have reviewed the lab results: Yes - RAD Interpretation Radiology Orders: 01/28/17 17:55 CHEST PORTABLE [RAD] Stat - Medication Orders Current Medication Orders: Acetaminophen (Tylenol 325mg Tab) 650 mg PO Q4 PRN PRN Reason: Fever >100.4 F Clotrimazole (Mycelex Charles) 10 mg MT 5XD DAVID Folic Acid (Folic Acid) 1 mg PO DAILY DAVID Sodium Chloride (Sodium Chloride 0.9%) 1,000 mls @ 100 mls/hr IV .Q10H DAVID Last Admin: 01/28/17 19:11 Dose: 100 mls/hr eMAR Start Stop Document 01/28/17 19:11 OCS (Rec: 01/28/17 19:11 OCS [place] [id number]) Intravenous Solution Start Date 01/28/17 Start Time 19:11 Vancomycin HCl (Vancomycin 1gm) 250 mls @ 167 mls/hr IVPB STAT STA PRN Reason: Protocol Stop: 01/28/17 22:33 Piperacillin Sod/Tazobactam Sod (Zosyn 4.5 Gm In Ns 100ml) 100 mls @ 200 mls/ hr IVPB STAT STA PRN Reason: Protocol Stop: 01/28/17 21:33 Insulin Human Regular (Humulin R Low) 0 units SC ACHS DAVID PRN Reason: Protocol Pantoprazole Sodium (Protonix Ec Tab) 40 mg PO DAILY DAVID Prednisone (Prednisone Tab) 60 mg PO DAILY DAVID Prednisone (Prednisone Tab) 15 mg PO DAILY DAVID Discontinued Medications Acetaminophen (Tylenol 325mg Tab) 975 mg PO STAT STA Stop: 01/28/17 20:48 Last Admin: 01/28/17 20:50 Dose: 975 mg MAR Pain/Vitals Document 01/28/17 20:50 JOL (Rec: 01/28/17 21:03 JOL [place] [id number]) Pain Reassessment Is This A Pain ReAssessment? No Sleep Is patient sleeping during reassessment? No Presence of Pain Presence of Pain No Vitals Temperature (97.6 F-99.6 F) 101.1 F Temperature Source Oral - Scribe Statement The provider has reviewed the documentation as recorded by the Scribe Alanna Salazar Provider Scribe Attestation: All medical record entries made by the Scribe were at my direction and personally dictated by me. I have reviewed the chart and agree that the record accurately reflects my personal performance of the history, physical exam, medical decision making, and the department course for this patient. I have also personally directed, reviewed, and agree with the discharge instructions and disposition. Disposition/Present on Arrival - Present on Arrival Any Indicators Present on Arrival: No History of DVT/PE: No History of Uncontrolled Diabetes: No Urinary Catheter: No History of Decub. Ulcer: No History Surgical Site Infection Following: None - Disposition Have Diagnosis and Disposition been Completed?: Yes Diagnosis: Pancytopenia, Fever, Hyponatremia Disposition Time: 19:14 Patient Plan: Admission Patient Problems: Current Active Problems Problem Status Onset Pancytopenia Acute Fever Acute Hyponatremia Acute Condition: GUARDED
[2017-01-28 18:51] LABS: URINE BILIRUBIN NEGATIVE (NEGATIVE); URINE BLOOD LARGE (NEGATIVE); URINE GLUCOSE (UA) >=1000 mg/dL (NEGATIVE); URINE KETONE NEGATIVE (NEGATIVE); URINE LEUKOCYTE ESTERASE NEGATIVE Leu/uL (NEGATIVE); URINE PROTEIN 100 mg/dL (<30 mg/dL)
[2017-01-28 19:03] LABS: VENOUS BLOOD GAS BASE EXCESS 2.8 mmol/L (0.0-2.0); VENOUS BLOOD PH 7.44 (7.32-7.43)
[2017-01-28] MEDS: Sodium Chloride 0.9% 1,000 ML IV SCH (19:11)
[2017-01-28 19:42] LABS: URINE COLOR YELLOW (YELLOW)
[2017-01-28 19:43] LABS: URINE APPEARANCE SLIGHT-CLOUDY (CLEAR)
[2017-01-28 19:55] LABS: ALB/GLOB RATIO 0.7 (1.1-1.8); ALKALINE PHOSPHATASE 207 U/L (38-126); ALT/SGPT 90 U/L (7-56); AST/SGOT 80 U/L (17-59); BILIRUBIN,TOTAL 1.3 mg/dL (0.2-1.3); BLOOD UREA NITROGEN 16 mg/dL (7-21); CALCIUM 8.8 mg/dL (8.4-10.5); CARBON DIOXIDE 27 mmol/L (21-33); CHLORIDE 91 mmol/L (98-107); GFR AFRICAN-AMERICAN > 60; GLUCOSE,RANDOM 257 mg/dL (70-110); MAGNESIUM 2.2 mg/dL (1.7-2.2); PHOSPHOROUS 3.6 mg/dL (2.5-4.5); POTASSIUM 4.4 mmol/L (3.6-5.0); SODIUM 125 mmol/L (132-148); TOTAL PROTEIN 8.1 g/dL (5.8-8.3)
[2017-01-28 20:02] LABS: INR 1.36 (0.93-1.08); PARTIAL THROMBOPLASTIN TIME 28.4 Seconds (25.1-36.5)
[2017-01-28 20:08] LABS: URINE BACTERIA FEW (NEG)
[2017-01-28] MEDS ORDERED: Tmp-Smz 800 mg-160 mg DS Tab PO STA ×2 (20:48)
[2017-01-28] MEDS ORDERED: Vancomycin 1gm in NS 250ml 1 GM/250 ML BAG IVPB STA (21:04)
[2017-01-28] MEDS ORDERED: Piperacill/Tazo 4.5gm in NS 4.5 GM/100 ML BAG IVPB STA (21:04)
[2017-01-28] MEDS ORDERED: Tmp-Smz 800 mg-160 mg DS Tab PO SCH (21:30)
[2017-01-28 21:33] LABS: VENOUS BLOOD GAS BASE EXCESS 5.2 mmol/L (0.0-2.0); VENOUS BLOOD PH 7.55 (7.32-7.43)
--- NOTE | 2017-01-29 00:17 | PCM.SEPTIC ---
<Mani Landeros - Last Filed: 01/29/17 00:17> Sepsis Progress Note - Reassessment Type Reassessment Type: Non-invasive reassessment - Non Invasive Reassessment Were the most recent vital sign reviewed: Yes Vital Sign (Latest): Temp Pulse Resp BP Pulse Ox 98.0 F 76 19 99/62 L 100 01/28/17 23:23 01/28/17 23:23 01/28/17 23:23 01/28/17 23:23 01/28/17 20:59 Cardiovascular: Yes: Regular Rate, Rhythm Respiratory: Yes: Normal Breath Sounds Capillary Refill: Normal (Less than 2 sec) Skin: Warm <Tasha Rocha - Last Filed: 01/29/17 01:48> Sepsis Progress Note - Non Invasive Reassessment Vital Sign (Latest): Temp Pulse Resp BP Pulse Ox 98.0 F 76 19 99/62 L 100 01/28/17 23:23 01/28/17 23:23 01/28/17 23:23 01/28/17 23:23 01/28/17 20:59 Attending/Attestation - Attestation I have personally seen and examined this patient.: Yes I have fully participated in the care of the patient.: Yes I have reviewed all pertinent clinical information, including history, physical exam and plan: Yes Notes (Text): 01/29/17 01:47 =Agree with documentation.
[2017-01-29] MEDS: Insulin Reg-LOW-Coverage SC SCH ×5 (00:21→22:26)
[2017-01-29] MEDS: Meropenem 1 GM in Dextrose 5% In Water 100 ML IVPB SCH ×4 (00:22→22:27)
[2017-01-29] MEDS ORDERED: DiphenhydrAMINE 50 mg/ml Inj IVP STA (05:20)
--- NOTE | 2017-01-29 05:42 | CP.PCM.PN ---
Subjective - Date & Time of Evaluation Date of Evaluation: 01/29/17 Time of Evaluation: 05:30 - Subjective Subjective: Pt seen stat at the request of his RN for fever or of 101.8 and shaking chills while second unit of platelets is infusing. He was admitted for fever,pancytopenia and hyponatremia. Pt denies any additional symptoms. VS:BP 131/77 HR 107 RR 20 [id number] O2 sat 97% on R Air. Objective - Vital Signs/Intake and Output Vital Signs (last 24 hours): Temp Pulse Resp BP Pulse Ox 101.8 F H 107 H 20 131/77 91 L 01/29/17 05:10 01/29/17 05:10 01/29/17 05:10 01/29/17 05:10 01/29/17 05:10 Intake and Output: 01/28/17 01/29/17 18:59 06:59 Intake Total 865 Output Total 600 Balance 265 - Medications Medications: Current Medications Acetaminophen (Tylenol 325mg Tab) 650 mg PO Q4 PRN PRN Reason: Fever >100.4 F Last Admin: 01/29/17 05:10 Dose: 650 mg Clotrimazole (Mycelex Charles) 10 mg MT 5XD [facility] Last Admin: 01/29/17 00:22 Dose: 10 mg Folic Acid (Folic Acid) 1 mg PO DAILY DAVID Sodium Chloride (Sodium Chloride 0.9%) 1,000 mls @ 100 mls/hr IV .Q10H [facility] Last Admin: 01/28/17 19:11 Dose: 100 mls/hr Meropenem 1 gm/ Dextrose 100 mls @ 100 mls/hr IVPB Q8 DAVID PRN Reason: Protocol Stop: 02/04/17 23:46 Last Admin: 01/29/17 00:22 Dose: 100 mls/hr Insulin Human Regular (Humulin R Low) 0 units SC ACHS DAVID PRN Reason: Protocol Last Admin: 01/29/17 00:21 Dose: Not Given Pantoprazole Sodium (Protonix Ec Tab) 40 mg PO DAILY DAVID Prednisone (Prednisone Tab) 60 mg PO DAILY DAVID Prednisone (Prednisone Tab) 15 mg PO DAILY [facility] - Labs Labs: PT 14.9 SECONDS (9.4-12.5) H 01/28/17 19:00 INR 1.36 (0.93-1.08) H 01/28/17 19:00 APTT 28.4 Seconds (25.1-36.5) 01/28/17 19:00 - Constitutional Appears: No Acute Distress - Head Exam Head Exam: ATRAUMATIC, NORMAL INSPECTION, NORMOCEPHALIC - Eye Exam Eye Exam: PERRL - ENT Exam ENT Exam: Mucous Membranes Moist - Neck Exam Neck Exam: Full ROM Additional comments: There is a linear ecchymotic area on the neck just below the L ear. - Respiratory Exam Respiratory Exam: Clear to Ausculation Bilateral - Cardiovascular Exam Cardiovascular Exam: Tachycardia, REGULAR RHYTHM - GI/Abdominal Exam GI & Abdominal Exam: Soft, Normal Bowel Sounds. absent: Tenderness (no guarding or rebound) - Extremities Exam Extremities Exam: absent: Calf Tenderness Additional comments: There are 2 ecchymotic areas noted on the L upper arm,one on the deltoid region and another on the lower part of the upper arm. - Back Exam Back Exam: NORMAL INSPECTION - Neurological Exam Neurological Exam: Alert, Awake, Oriented x3 - Psychiatric Exam Psychiatric exam: Normal Affect - Skin Skin Exam: Dry, Warm. absent: Rash Additional comments: Ecchymotic areas noted on the L side of the neck and L upper arm. Assessment and Plan - Assessment and Plan (Free Text) Assessment: Fever and shaking chills Pancytopenia Plan: Tylenol already given Benadryl ordered Discussed with Dr Fernández,was advised to continue the platelet infusion. Transfer to the Oncology floor ordered at his request. CBC including manual platelet count and ,CMP ordered for the am.
--- NOTE | 2017-01-29 07:18 | HP ---
ADMISSION HISTORY AND PHYSICAL For Dr. Perez. CHIEF COMPLAINT: Pancytopenia. HISTORY OF PRESENT ILLNESS: The patient is a 56-year-old male admitted by the emergency room for progressive pancytopenia with the patient now status post a visit earlier today to Dr. Weston, Infectious Disease product marketing consultant with recommendations for the patient to be on Bactrim Double Strength for suspected infection, possibly pneumonia. With this, the patient is now also complaining of severe fatigue with watery stool for approximately 3 days' time with weight loss approximately 20 pounds in the past 1 week. He also reports a left lateral neck abrasion that is scabbed with no recollection of how this had happened, with ecchymotic changes to left biceps, also a scab lesion to the left posterior shoulder. He is accompanied by his , who reports the patient has been following a strict protocol with medicines adhere to with patient known to have had transfusions in the recent past for significant anemic indices.. Patient is also status post visits to other facilities for evaluation of his complex medical condition. He had recently been seen by Dr. Emanuel Samuel, 11/20/2016 at [facility] at [place] with the impression by Dr. Samuel that to be that of pancytopenia with liver and pulmonary dysfunction, mediastinal LAD with splenomegaly. His recommendations at that time as the multisystem organ dysfunction of uncertain etiology with worsening pancytopenia with consideration for repeat bone marrow biopsy. Also, consideration for mediastinoscopy or open mediastinal lymph node biopsy to fully characterize the ongoing process with a possible underlying rheumatologic condition with all testing thus far unable to reveal a specific diagnosis. The patient is now being admitted as per Dr. Perez's recommendations. PAST MEDICAL HISTORY: Significant for longstanding nonalcoholic steatohepatitis diagnosed approximately 20 years prior with liver biopsy, which did not demonstrate evidence of cirrhosis. Two episodes of Campylobacter infection, 03/2015 with progressive pancytopenia since then. Bone marrow biopsy, 05/21/2016 revealed cellular marrow maturing trilineage, hematopoiesis, no evidence of acute leukemia, lymphoproliferative disorder, plasma cell dyscrasia. The other second opinion at [facility], Dr. Gil Baugh, which did not elucidate further etiology of his cytopenias. PNH testing was negative with splenomegaly and mediastinal LAD. He had a bronchoscopy with biopsy of the mediastinal lymph nodes, but has not had excision biopsy of these nodes. He does have ongoing GI blood loss due to hemorrhoids with colonoscopy in 04/2016, push enteroscopy in 10/2016 with no evidence of source of the blood loss. He is also evaluated at [facility] for liver disease and rheumatologic issues also in [place], but none of these consultation or test biopsies determined any unifying diagnosis. As it is presumed, he has underlying autoimmune disease according to his constellation of symptoms and he is now here for evaluation of treatment of his profound fatigue with severe thrombocytopenia with a platelet count 17,000, manual count 16,000 earlier today. The patient also has abnormal liver enzymes. 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 He is status post multiple transfusions in the past, packed red blood cells and platelets. FAMILY HISTORY AND SOCIAL HISTORY: Noncontributory. Patient never smoked, rare EtOH. He is with one child, alive and well. Mother is alive at 83, history of CVA. Father at 81, coronary artery disease, colon cancer. His daughter is 18 years old with mentally challenged with ulcerative colitis history. ALLERGIES: POLLEN, DUST AND MOLD. MEDICATIONS: Patient's current medications include prednisone 75 mg per day, the patient was on 80 mg a day with modest improvement in his symptoms. He is also on Dexilant 60 mg daily for GI prophylaxis; Strovite; calcium and vitamin D; phosphorus, ferrous sulfate; folic acid; Tessalon Perles, which he is no longer taking; Zovirax ointment with recent herpes simplex of his lip; Mycelex Troches and nystatin,which he has not taken recently. Patient was given a prescription today for Bactrim Double Strength. We will determine whether this is necessary to continue as per Dr. Lovett and Dr. Chisholm, Infectious Disease consultants. REVIEW OF SYSTEMS: A 12-point review of systems was done, which is negative except for items mentioned in the history of present illness above with a profound fatigue, now expressing itself. OBJECTIVE PHYSICAL EXAMINATION: VITAL SIGNS: Temperature 98.8, pulse 102, respirations 14, blood pressure 113/72 with a pulse ox of 91%. HEENT: Unremarkable. Tongue has whitish coating. NECK: Has a 2 cm left lateral neck abrasion with scabbed changes. HEART: Tachy rate. Regular rhythm. LUNGS: Minimal decreased breath sounds. ABDOMEN: Soft, nontender. EXTREMITIES: Faint +1 edema, bilateral feet. NEUROLOGIC: Awake, alert, and oriented, but lethargic. SKIN: Warm, dry and clear except for an apricot size ecchymotic change to left biceps with scabbed left posterior shoulder abrasion, healing. LABORATORY DATA: The patient's labs were done with white blood cell count of 2.4, absolute neutrophilic count of 2.0, hemoglobin 8.5, hematocrit 25.4 with a platelet count of 17,000 with a manual count of 16,000. Patient's urinalysis showed large amount of blood with an ABG to be done. His INR was 1.36 with a PTT of 28.4, PT of 14.9. A chest x-ray is pending as is an EKG. The patient's labs are now addended to his hard-copy chart from Dr. Weston's office with his CD4/CD8 ratio profile, absolute CD4 helper cells noted to be 171 with a percent CD4 positive lymphocytes at 15.4 with recommendations to start PCP prophylaxis with Bactrim. His hemoglobin in Dr. Weston's office from 01/21/2017 showed hemoglobin 8.1, hematocrit 24.2 with platelet count of 25,000. His blood sugar that day was 260 as the patient is on high dose steroids. He had Yen-Adhikari antibody VCA-IgG of greater than 600 with immunoglobulin E total of 208 with immunoglobulin A, quantitative serum of 1216 greater than the cut of value of 386. Lyme testing was negative. Hepatitis C testing was negative. HIV testing was also negative. RPR testing was negative. TSH is 0.32. Hepatitis B surface antibody was also nonreactive with antinuclear antibody testing negative. Sed rate of 41. C-reactive protein of 76. Hepatitis B surface antigen was negative. Copies of these tests are on the chart, hard-copy. ASSESSMENT: Severe thrombocytopenia, pancytopenia with Pneumocystis carinii pneumonia prophylaxis recommended for his absolute CD4 helper count of 171 with a CD4 positive lymphocyte count of 15.[address] Weston. Severe fatigue, failure to thrive with weight loss approximately 20 pounds in the past week, watery stool, rule out Clostridium difficile, easy bruisability secondary to severe thrombocytopenia, hematuria, oropharyngeal candidiasis, gastrointestinal prophylaxis. PLAN: After conversation with Dr. Perez and Dr. Samuel, emergency room director, is to admit to the medical floor. We will recommend the patient's transfusion of 1 unit of packed red blood cells, 2 unit of freezed single donor platelets. We will also recommend Granix 300 mcg subcu daily for 5 days with consults with Dr. Lovett, Infectious Disease; Dr. Lai, Pulmonology; Dr. Esquivel, Renal for his electrolyte imbalance as he is hyponatremic at this point. We will also as per consult with his primary doctor, a medical evaluation, Dr. Braton and Dr. Joshua for his abnormal liver function tests. We will continue his prednisone, Mycelex Troches and we will also give the Bactrim Double Strength until further evaluation by Dr. Lovett. I will monitor clinically with labs. Prognosis for this patient is guarded. Herb Fernández MD
[2017-01-29 08:30] LABS: GRAN # 1.1 (1.4-6.5); GRAN % 55.2 % (50.0-68.0); LYMPH # 0.7 (1.2-3.4); LYMPH % 32.7 % (22.0-35.0); MEAN CELL VOLUME 102.9 fl (80.0-105.0); MEAN CORPUSCULAR HEMOGLOBIN 35.3 pg (25.0-35.0); MEAN CORPUSCULAR HGB CONC 34.3 g/dl (31.0-37.0); MEAN PLATELET VOLUME 10.5 fl (7.0-11.0); MONO # 0.2 (0.1-0.6); MONO % 12.1 % (1.0-6.0); RED CELL DISTRIBUTION WIDTH 22.5 % (11.5-14.5)
[2017-01-29 08:34] LABS: ALB/GLOB RATIO 0.8 (1.1-1.8); ALKALINE PHOSPHATASE 133 U/L (38-126); ALT/SGPT 78 U/L (7-56); AST/SGOT 53 U/L (17-59); BILIRUBIN,TOTAL 1.4 mg/dL (0.2-1.3); BLOOD UREA NITROGEN 15 mg/dL (7-21); CALCIUM 8.4 mg/dL (8.4-10.5); CARBON DIOXIDE 27 mmol/L (21-33); CHLORIDE 99 mmol/L (98-107); GFR AFRICAN-AMERICAN > 60; GLUCOSE,RANDOM 114 mg/dL (70-110); POTASSIUM 3.9 mmol/L (3.6-5.0); SODIUM 129 mmol/L (132-148); TOTAL PROTEIN 6.5 g/dL (5.8-8.3)
[2017-01-29] MEDS ORDERED: Influenza Vaccine 60 mcg/0.5 mL SYR (4YR UP) IM ONE (08:50)
[2017-01-29] MEDS ORDERED: Pneumococcal 23-Valent Vaccine IM ONE (08:50)
[2017-01-29] MEDS: Pantoprazole 40 mg EC Tab PO SCH (09:18)
--- NOTE | 2017-01-29 09:25 | RAD ---
HISTORY: Sepsis Patient COMPARISON: No prior. FINDINGS: LUNGS: Linear infiltrates in the upper lobes. Previously evaluated with CT PLEURA: No significant pleural effusion identified, no pneumothorax apparent. CARDIOVASCULAR: Normal. OSSEOUS STRUCTURES: No significant abnormalities. VISUALIZED UPPER ABDOMEN: Normal. OTHER FINDINGS: None. IMPRESSION: Chronic interstitial infiltrates in the upper lobes
[2017-01-29] MEDS: Sodium Chloride 0.9% 1,000 ML IV SCH ×2 (09:26→17:43)
--- NOTE | 2017-01-29 10:40 | CP.PCM.PN ---
Subjective - Date & Time of Evaluation Date of Evaluation: 01/29/17 Time of Evaluation: 10:35 - Subjective Subjective: Progress Note for Mary Tsai PGY2 Patient seen and examined at bedside. As per nursing, patient was having fever and chills while getting platelet infusion. House doctor was called. Tylenol was already given and Benadryl was ordered and transfer was put in to oncology floor. Patient reports he feels weak today and has decreased taste. The decreased taste has been going on for the past week and has made him unable to eat food. He reports it makes him feel sick and he lost 20lbs. Patient has also had diarrhea for the past week, but has not had an episode today. This morning he denies chest pain, shortness of breath, nausea/vomiting, diarrhea, pain, fever or chills. Objective - Vital Signs/Intake and Output Vital Signs (last 24 hours): Temp Pulse Resp BP Pulse Ox 99.5 F 82 18 99/56 L 97 01/29/17 08:53 01/29/17 08:53 01/29/17 08:53 01/29/17 08:53 01/29/17 08:53 Intake and Output: 01/29/17 01/29/17 06:59 18:59 Intake Total 865 0 Output Total 600 Balance 265 0 - Medications Medications: Current Medications Acetaminophen (Tylenol 325mg Tab) 650 mg PO Q4 PRN PRN Reason: Fever >100.4 F Last Admin: 01/29/17 05:10 Dose: 650 mg Al Hydrox/Mg Hydrox/Simethicone (Maalox Plus 30 Ml) 30 ml PO 0900 PRN PRN Reason: Indigestion / Heartburn Clotrimazole (Mycelex Charles) 10 mg MT 5XD [facility] Last Admin: 01/29/17 00:22 Dose: 10 mg Folic Acid (Folic Acid) 1 mg PO DAILY [facility] Last Admin: 01/29/17 09:14 Dose: 1 mg Home Med (Home Med) 1 unit PO 0700 [facility] Hydrocortisone (Anusol-Hc) 25 mg RC BID [facility] Sodium Chloride (Sodium Chloride 0.9%) 1,000 mls @ 100 mls/hr IV .Q10H [facility] Last Admin: 01/29/17 09:26 Dose: 100 mls/hr Meropenem 1 gm/ Dextrose 100 mls @ 100 mls/hr IVPB Q8 DAVID PRN Reason: Protocol Stop: 02/04/17 23:46 Last Admin: 01/29/17 09:24 Dose: 100 mls/hr Insulin Human Regular (Humulin R Low) 0 units SC ACHS DAVID PRN Reason: Protocol Last Admin: 01/29/17 08:54 Dose: Not Given Pantoprazole Sodium (Protonix Ec Tab) 40 mg PO DAILY [facility] Last Admin: 01/29/17 09:18 Dose: 40 mg Prednisone (Prednisone Tab) 60 mg PO DAILY [facility] Prednisone (Prednisone Tab) 15 mg PO DAILY [facility] - Labs Labs: 01/29/17 08:00 01/29/17 08:00 PT 14.9 SECONDS (9.4-12.5) H 01/28/17 19:00 INR 1.36 (0.93-1.08) H 01/28/17 19:00 APTT 28.4 Seconds (25.1-36.5) 01/28/17 19:00 - Constitutional Appears: No Acute Distress, Chronically Ill - Head Exam Head Exam: ATRAUMATIC, NORMAL INSPECTION, NORMOCEPHALIC - Eye Exam Eye Exam: Normal appearance, PERRL Pupil Exam: PERRL - ENT Exam ENT Exam: Mucous Membranes Dry - Neck Exam Additional comments: Small L sided scab on neck - Respiratory Exam Respiratory Exam: Clear to Ausculation Bilateral, NORMAL BREATHING PATTERN. absent: Rales, Rhonchi, Wheezes - Cardiovascular Exam Cardiovascular Exam: REGULAR RHYTHM, +S1, +S2. absent: Gallop, Rubs, Murmur - GI/Abdominal Exam GI & Abdominal Exam: Soft, Normal Bowel Sounds. absent: Tenderness, Mass, Rebound - Extremities Exam Extremities Exam: Normal Inspection, Pedal Edema (+1 bilaterally ) - Neurological Exam Neurological Exam: Alert, Awake, CN II-XII Intact, Oriented x3 - Psychiatric Exam Psychiatric exam: Normal Affect, Normal Mood - Skin Skin Exam: Dry, Pallor, Warm. absent: Rash Additional comments: bruising on L upper arm Assessment and Plan - Assessment and Plan (Free Text) Assessment: This is a 56Y male with past medical history of hemorrhoids, pancytopenia of unknown origin with extensive work up, BETANCOURT s/p liver biopsy that was benign, florencia positive anemia, oropharyngeal candidiasis, campylobacter infection who was admitted for pancytopenia with neutropenia, diarrhea, and sepsis. Patient was given 2U of platelets and 1U PRBC yesterday. Plan: 1. Sepsis with neutropenia - this can be secondary to infection in diarrhea versus from daughter who accidentally scratched him (pt is immunocompromised) - Neutropenic precautions - CXR showed no active disease - ID consulted - GI consulted for diarrhea - Tylenol prn fever - Pt on Merrem - Stool studies pending - Patient was seen by Dr. Weston who found pt to have low CD4 count and recommended Bactrim for prophylaxis (Dr. Weston's note from outpatient visit is in the chart) - Will CT chest/abd/pelvis once patient's condition has improved - Cultures pending - Continue hydration - ICU consulted for evaluation 2. Pancytopenia - Patient had extensive work up without any clear source - This can be secondary to an autoimmune component - Will transfuse 2 more U PRBC today - Continue to monitor CBC - Continue neutropenic precautions - Will decrease prednisone to 60mg daily - Continue folic acid - Will give Granix 150 SC daily - Flow cytometry ordered 3. Hyponatremia - Can be secondary from failure to thrive - Pt on NS@100 - Nephro consulted - Continue to monitor 4. BETANCOURT - patient had abnormal liver enzymes with biopsy that did not show any abnormalities - Pt also had mediastinal lymph nodes in past that were biopsied without any abnormalities - Will order alpha-1 antitrypsin, Hep panel ordered - GI consulted - Pulm consulted as well for history of lymphadenopathy in mediastinum 5. Decreased sensation of taste - Can be secondary to esophageal candidiasis - No oral thrush was seen on exam, but can be within the esophagus. - Pt was taking Nystatin on and off at home - GI on consult GI ppx: Protonix DVT ppx: SCDs Case seen, discussed and reviewed with Dr. Perez. Mary Santamaria PGY2
[2017-01-29] MEDS: Alum-Mag Hydrox-Simethicone Susp (30 mL) PO PRN (11:15)
--- NOTE | 2017-01-29 12:51 | CP.PCM.CON ---
<Noe Mata - Last Filed: 01/29/17 12:32> History of Present Illness - History of Present Illness History of Present Illness: Patient is a 56 year old male with a PMHx of longstanding nonalcoholic steatohepatitis and campylobacter infection who was admitted for evaluation and treatment of fatigue and diarrhea. Patient was found to have pancytopenia without a specified underlying etiology. Overnight the patient was experiencing a fever with accompanied chills while receiving a platelet infusion. Tylenol and benadryl were given in response to transfusion reaction. ICU consulted for evaluation of low blood pressure and pancytopenia. Patient seen and examined at bedside. States that he continues to experiences fatigue. Also admits to improved diarrhea which he has not experienced today. Admits to decreased appetite and associated weight loss. Denies dizziness, chest pain, shortness of breath, nausea/vomiting, constipation, and urinary symptoms. PMHx: longstanding nonalcoholic steatohepatitis, campylobacter infection, hemorrhoids, pancytopenia of unknown origin with extensive work up, florencia positive anemia, oropharyngeal candidiasis, campylobacter infection PSHx: noncontributory Allergies: pollen, dust, mold Social hx: social ETOH use, denies tobacco use, and denies illicit drug use Family hx: noncontributory Medications: please see MAR Review of Systems - Review of Systems Review of Systems: 12 point review of systems negative except has noted in HPI Past Patient History - Infectious Disease Hx of Infectious Diseases: None - Tetanus Immunizations Tetanus Immunization: Unknown - Past Social History Smoking Status: Never Smoked - CARDIAC Hx Cardiac Disorders: No Hx Pacemaker: No Hx Peripheral Edema: Yes (ble +1 chronic pitting) - PULMONARY Hx Respiratory Disorders: Yes Hx Asthma: (pt denies asthma) - NEUROLOGICAL Hx Neurological Disorder: No - HEENT Hx HEENT Problems: No - RENAL Hx Chronic Kidney Disease: Yes Hx Kidney Stones: Yes (3.8 MM KIDNEY STONES 11-02-13) - ENDOCRINE/METABOLIC Hx Endocrine Disorders: No - HEMATOLOGICAL/ONCOLOGICAL Hx Blood Disorders: Yes Other/Comment: pancytopenia, blood transfusion platelets, hemolytic anemia - INTEGUMENTARY Hx Dermatological Problems: No - MUSCULOSKELETAL/RHEUMATOLOGICAL Hx Falls: No - GASTROINTESTINAL Hx Gastrointestinal Disorders: No - GENITOURINARY/GYNECOLOGICAL Hx Genitourinary Disorders: No - PSYCHIATRIC Hx Emotional Abuse: No Hx Physical Abuse: No Hx Substance Use: No - SURGICAL HISTORY Other/Comment: lung biopsy in past, benign, ct scan guided bone marrow bx 05/21/16 - ANESTHESIA Hx Anesthesia Reactions: No Hx Malignant Hyperthermia: No Meds Allergies/Adverse Reactions: Allergies Allergy/AdvReac Type Severity Reaction Status Date / Time POLLEN AdvReac Mild SNEEZING Uncoded 01/28/17 17:30 DUST AdvReac SNEEZING Uncoded 01/28/17 17:30 MOLD AdvReac SNEEZING Uncoded 01/28/17 17:30 - Medications Medications: Current Medications Acetaminophen (Tylenol 325mg Tab) 650 mg PO Q4 PRN PRN Reason: Fever >100.4 F Last Admin: 01/29/17 05:10 Dose: 650 mg Al Hydrox/Mg Hydrox/Simethicone (Maalox Plus 30 Ml) 30 ml PO 0900 PRN PRN Reason: Indigestion / Heartburn Last Admin: 01/29/17 11:15 Dose: 30 ml Clotrimazole (Mycelex Charles) 10 mg MT 5XD [facility] Last Admin: 01/29/17 11:37 Dose: 10 mg Folic Acid (Folic Acid) 1 mg PO DAILY [facility] Last Admin: 01/29/17 09:14 Dose: 1 mg Hydrocortisone (Anusol-Hc) 25 mg RC BID DAVID Sodium Chloride (Sodium Chloride 0.9%) 1,000 mls @ 100 mls/hr IV .Q10H [facility] Last Admin: 01/29/17 09:26 Dose: 100 mls/hr Meropenem 1 gm/ Dextrose 100 mls @ 100 mls/hr IVPB Q8 DAVID PRN Reason: Protocol Stop: 02/04/17 23:46 Last Admin: 01/29/17 09:24 Dose: 100 mls/hr Insulin Human Regular (Humulin R Low) 0 units SC ACHS DAVID PRN Reason: Protocol Last Admin: 01/29/17 11:35 Dose: Not Given Pantoprazole Sodium (Protonix Ec Tab) 40 mg PO DAILY [facility] Last Admin: 01/29/17 09:18 Dose: 40 mg Prednisone (Prednisone Tab) 60 mg PO DAILY [facility] Last Admin: 01/29/17 11:14 Dose: 60 mg Physical Exam - Additional Findings Additional findings: - Constitutional Appears: No Acute Distress, Chronically Ill - Head Exam Head Exam: ATRAUMATIC, NORMAL INSPECTION, NORMOCEPHALIC - Eye Exam Eye Exam: Normal appearance, PERRL Pupil Exam: PERRL - ENT Exam ENT Exam: Mucous Membranes Dry - Neck Exam Additional comments: Small L sided scab on neck - Respiratory Exam Respiratory Exam: Clear to Ausculation Bilateral, NORMAL BREATHING PATTERN. absent: Rales, Rhonchi, Wheezes - Cardiovascular Exam Cardiovascular Exam: REGULAR RHYTHM, +S1, +S2. absent: Gallop, Rubs, Murmur - GI/Abdominal Exam GI & Abdominal Exam: Soft, Normal Bowel Sounds. absent: Tenderness, Mass, Rebound - Extremities Exam Extremities Exam: Normal Inspection, Pedal Edema (+1 bilaterally ) - Neurological Exam Neurological Exam: Alert, Awake, CN II-XII Intact, Oriented x3 - Psychiatric Exam Psychiatric exam: Normal Affect, Normal Mood - Skin Skin Exam: Dry, Pallor, Warm. absent: Rash Results - Vital Signs Recent Vital Signs: Last Vital Signs Temp 102.6 F H 01/29/17 11:46 Pulse 92 H 01/29/17 11:46 Resp 17 01/29/17 11:46 BP 112/67 01/29/17 11:46 Pulse Ox 99 01/29/17 11:46 - Labs Result Diagrams: 01/29/17 08:00 01/29/17 08:00 Labs: Laboratory Results - last 24 hr 01/28/17 01/28/17 01/29/17 21:28 22:10 00:44 WBC RBC Hgb Hct MCV MCH MCHC RDW Plt Count Manual Plt Count MPV Gran % Lymph % (Auto) [place] % (Auto) Eos % (Auto) Baso % (Auto) Gran # Lymph # [place] # Eos # Baso # pO2 140 H VBG pH 7.55 H VBG pCO2 31.0 L VBG HCO3 27.1 VBG Total CO2 28.1 H VBG O2 Sat (Calc) 97.9 H VBG Base Excess 5.2 H VBG Potassium 4.4 Sodium 126.0 L Chloride 95.0 L Glucose 239 H Lactate 1.6 FiO2 21.0 Potassium Carbon Dioxide Anion Gap BUN Creatinine Est GFR ( Amer) Est GFR (Non-Af Amer) POC Glucose (mg/dL) 216 H Random Glucose Calcium Total Bilirubin AST ALT Alkaline Phosphatase Total Protein Albumin Globulin Albumin/Globulin Ratio Venous Blood Potassium 4.4 Influenza Typ A,B (EIA) Negative for flu a/b 01/29/17 01/29/17 01/29/17 07:20 08:00 08:00 WBC 2.0 L* RBC 2.04 L Hgb 7.2 L Hct 21.0 L MCV 102.9 D MCH 35.3 H MCHC 34.3 RDW 22.5 H Plt Count 59 L Manual Plt Count 75 L* MPV 10.5 Gran % 55.2 Lymph % (Auto) 32.7 [place] % (Auto) 12.1 H Eos % (Auto) 0.0 L Baso % (Auto) 0.0 Gran # 1.10 L Lymph # 0.7 L [place] # 0.2 Eos # 0.0 Baso # 0.00 pO2 VBG pH VBG pCO2 VBG HCO3 VBG Total CO2 VBG O2 Sat (Calc) VBG Base Excess VBG Potassium Sodium 129 L Chloride 99 Glucose Lactate FiO2 Potassium 3.9 Carbon Dioxide 27 Anion Gap 7 L BUN 15 Creatinine 0.7 L Est GFR ( Amer) > 60 Est GFR (Non-Af Amer) > 60 POC Glucose (mg/dL) 127 H Random Glucose 114 H Calcium 8.4 Total Bilirubin 1.4 H AST 53 ALT 78 H Alkaline Phosphatase 133 H D Total Protein 6.5 Albumin 2.8 L Globulin 3.7 Albumin/Globulin Ratio 0.8 L Venous Blood Potassium Influenza Typ A,B (EIA) 01/29/17 11:15 WBC RBC Hgb Hct MCV MCH MCHC RDW Plt Count Manual Plt Count MPV Gran % Lymph % (Auto) [place] % (Auto) Eos % (Auto) Baso % (Auto) Gran # Lymph # [place] # Eos # Baso # pO2 VBG pH VBG pCO2 VBG HCO3 VBG Total CO2 VBG O2 Sat (Calc) VBG Base Excess VBG Potassium Sodium Chloride Glucose Lactate FiO2 Potassium Carbon Dioxide Anion Gap BUN Creatinine Est GFR ( Amer) Est GFR (Non-Af Amer) POC Glucose (mg/dL) 105 Random Glucose Calcium Total Bilirubin AST ALT Alkaline Phosphatase Total Protein Albumin Globulin Albumin/Globulin Ratio Venous Blood Potassium Influenza Typ A,B (EIA) Assessment & Plan - Assessment and Plan (Free Text) Assessment: This is a 56Y male with past medical history of hemorrhoids, pancytopenia of unknown origin with extensive work up, BETANCOURT s/p liver biopsy that was benign, florencia positive anemia, oropharyngeal candidiasis, campylobacter infection who was admitted for pancytopenia with neutropenia, diarrhea, and sepsis. Patient was given 2U of platelets and 1U PRBC yesterday. Plan: Neuro: - awake, alert, responds to verbal stimuli, follows commands, answers questionable Cardio: - HR and BP trended, reviewed, and appreciated - keep MAP> 65, continue IVF Pulm: History of lymphadenopathy in mediastinum, suspecting scarcoidosis without tissue evidence of noncaseating granulomas - no acute intervention at this time - continue prednisone - keep SaO2 > 92 Renal/Electrolytes: Hyponatremia - continue IVF - BUN/creatinine trended, reviewed, and appreciated - nephrology consulted- appreciate recommendations GI: Diarrhea; Elevated LFTs - GI consulted- appreciate recommendations - continue maalox - Alpha-1 antitrypsin pending, Hep panel pending - prophylaxis- pantoprazole Heme: Pancytopenia - hematology, oncology on board- appreciate recommendations - Neutropenic precautions - patient s/p 1 unit pRBC transfusion, 3 ordered total - patient s/p 2 units platelet transfusion - monitor via CBC closely ID: Sepsis with neutropenia - Neutropenic precautions - Infectious disease consulted- appreciate recommendations - continue merrem and clotrimazole - consider anton CT scan - continue IVF - blood culture, urine culture, and stool culture pending - Tylenol prn fever Dispo: Patient BP is stable and exchanging air without overt difficulty. Critical care team will sign off at this time. Thank for you for the opportunity to participate in this patient's care. Patient case discussed with and plan approved by attending physician, Dr. Whittington. <Bethel Whittington - Last Filed: 01/29/17 15:39> Meds - Medications Medications: Current Medications Acetaminophen (Tylenol 325mg Tab) 650 mg PO Q4 PRN PRN Reason: Fever >100.4 F Last Admin: 01/29/17 15:28 Dose: 650 mg Al Hydrox/Mg Hydrox/Simethicone (Maalox Plus 30 Ml) 30 ml PO 0900 PRN PRN Reason: Indigestion / Heartburn Last Admin: 01/29/17 11:15 Dose: 30 ml Clotrimazole (Mycelex Charles) 10 mg MT 5XD [facility] Last Admin: 01/29/17 11:37 Dose: 10 mg Folic Acid (Folic Acid) 1 mg PO DAILY [facility] Last Admin: 01/29/17 09:14 Dose: 1 mg Hydrocortisone (Anusol-Hc) 25 mg RC BID [facility] Sodium Chloride (Sodium Chloride 0.9%) 1,000 mls @ 100 mls/hr IV .Q10H [facility] Last Admin: 01/29/17 09:26 Dose: 100 mls/hr Meropenem 1 gm/ Dextrose 100 mls @ 100 mls/hr IVPB Q8 DAVID PRN Reason: Protocol Stop: 02/04/17 23:46 Last Admin: 01/29/17 09:24 Dose: 100 mls/hr Insulin Human Regular (Humulin R Low) 0 units SC ACHS DAVID PRN Reason: Protocol Last Admin: 01/29/17 11:35 Dose: Not Given Pantoprazole Sodium (Protonix Ec Tab) 40 mg PO DAILY [facility] Last Admin: 01/29/17 09:18 Dose: 40 mg Prednisone (Prednisone Tab) 60 mg PO DAILY [facility] Last Admin: 01/29/17 11:14 Dose: 60 mg Results - Vital Signs Recent Vital Signs: Last Vital Signs Temp 102.5 F H 01/29/17 15:24 Pulse 86 01/29/17 15:24 Resp 17 01/29/17 15:24 BP 120/68 01/29/17 15:24 Pulse Ox 99 01/29/17 11:46 - Labs Result Diagrams: 01/29/17 08:00 01/29/17 08:00 Labs: Laboratory Results - last 24 hr 01/28/17 01/28/17 01/29/17 21:28 22:10 00:44 WBC RBC Hgb Hct MCV MCH MCHC RDW Plt Count Manual Plt Count MPV Gran % Lymph % (Auto) [place] % (Auto) Eos % (Auto) Baso % (Auto) Gran # Lymph # [place] # Eos # Baso # pO2 140 H VBG pH 7.55 H VBG pCO2 31.0 L VBG HCO3 27.1 VBG Total CO2 28.1 H VBG O2 Sat (Calc) 97.9 H VBG Base Excess 5.2 H VBG Potassium 4.4 Sodium 126.0 L Chloride 95.0 L Glucose 239 H Lactate 1.6 FiO2 21.0 Potassium Carbon Dioxide Anion Gap BUN Creatinine Est GFR ( Amer) Est GFR (Non-Af Amer) POC Glucose (mg/dL) 216 H Random Glucose Calcium Total Bilirubin AST ALT Alkaline Phosphatase Total Protein Albumin Globulin Albumin/Globulin Ratio Venous Blood Potassium 4.4 Influenza Typ A,B (EIA) Negative for flu a/b WB Flow Cytometry 01/29/17 01/29/17 01/29/17 07:20 08:00 08:00 WBC 2.0 L* RBC 2.04 L Hgb 7.2 L Hct 21.0 L MCV 102.9 D MCH 35.3 H MCHC 34.3 RDW 22.5 H Plt Count 59 L Manual Plt Count 75 L* MPV 10.5 Gran % 55.2 Lymph % (Auto) 32.7 [place] % (Auto) 12.1 H Eos % (Auto) 0.0 L Baso % (Auto) 0.0 Gran # 1.10 L Lymph # 0.7 L [place] # 0.2 Eos # 0.0 Baso # 0.00 pO2 VBG pH VBG pCO2 VBG HCO3 VBG Total CO2 VBG O2 Sat (Calc) VBG Base Excess VBG Potassium Sodium 129 L Chloride 99 Glucose Lactate FiO2 Potassium 3.9 Carbon Dioxide 27 Anion Gap 7 L BUN 15 Creatinine 0.7 L Est GFR ( Amer) > 60 Est GFR (Non-Af Amer) > 60 POC Glucose (mg/dL) 127 H Random Glucose 114 H Calcium 8.4 Total Bilirubin 1.4 H AST 53 ALT 78 H Alkaline Phosphatase 133 H D Total Protein 6.5 Albumin 2.8 L Globulin 3.7 Albumin/Globulin Ratio 0.8 L Venous Blood Potassium Influenza Typ A,B (EIA) WB Flow Cytometry 01/29/17 01/29/17 11:15 15:18 WBC RBC Hgb Hct MCV MCH MCHC RDW Plt Count Manual Plt Count MPV Gran % Lymph % (Auto) [place] % (Auto) Eos % (Auto) Baso % (Auto) Gran # Lymph # [place] # Eos # Baso # pO2 VBG pH VBG pCO2 VBG HCO3 VBG Total CO2 VBG O2 Sat (Calc) VBG Base Excess VBG Potassium Sodium Chloride Glucose Lactate FiO2 Potassium Carbon Dioxide Anion Gap BUN Creatinine Est GFR ( Amer) Est GFR (Non-Af Amer) POC Glucose (mg/dL) 105 Random Glucose Calcium Total Bilirubin AST ALT Alkaline Phosphatase Total Protein Albumin Globulin Albumin/Globulin Ratio Venous Blood Potassium Influenza Typ A,B (EIA) WB Flow Cytometry Reference test Attending/Attestation - Attestation I have personally seen and examined this patient.: Yes I have fully participated in the care of the patient.: Yes I have reviewed all pertinent clinical information: Yes Notes (Text): 01/29/17 15:33 56 yo male with clinical sarcoidosis, but 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 Patient however hemodyanmically and respiratory lew stable, no respiratory distress, able to protect his airways. On abx, septic workup is ongoing. Interesting case from pulmonary perspective--discussed with Dr. Lai (private dessert cup machine feeder on case) : agreed that clinical and radiographic presentation resembles that of sarcoidosis. Also agreed that no need for MICU at present time. ccm time 40 min
--- NOTE | 2017-01-29 15:43 | CP.PCM.CON ---
History of Present Illness - History of Present Illness History of Present Illness: please reconsult icu if clinically deteriorates, becomes hemodynamically unstable, in respiratory distress or unable to protect airways, or any other questions. Past Patient History - Infectious Disease Hx of Infectious Diseases: None - Tetanus Immunizations Tetanus Immunization: Unknown - Past Social History Smoking Status: Never Smoked - CARDIAC Hx Cardiac Disorders: No Hx Pacemaker: No Hx Peripheral Edema: Yes (ble +1 chronic pitting) - PULMONARY Hx Respiratory Disorders: Yes Hx Asthma: (pt denies asthma) - NEUROLOGICAL Hx Neurological Disorder: No - HEENT Hx HEENT Problems: No - RENAL Hx Chronic Kidney Disease: Yes Hx Kidney Stones: Yes (3.8 MM KIDNEY STONES 11-02-13) - ENDOCRINE/METABOLIC Hx Endocrine Disorders: No - HEMATOLOGICAL/ONCOLOGICAL Hx Blood Disorders: Yes Other/Comment: pancytopenia, blood transfusion platelets, hemolytic anemia - INTEGUMENTARY Hx Dermatological Problems: No - MUSCULOSKELETAL/RHEUMATOLOGICAL Hx Falls: No - GASTROINTESTINAL Hx Gastrointestinal Disorders: No - GENITOURINARY/GYNECOLOGICAL Hx Genitourinary Disorders: No - PSYCHIATRIC Hx Emotional Abuse: No Hx Physical Abuse: No Hx Substance Use: No - SURGICAL HISTORY Other/Comment: lung biopsy in past, benign, ct scan guided bone marrow bx 05/21/16 - ANESTHESIA Hx Anesthesia Reactions: No Hx Malignant Hyperthermia: No Meds Allergies/Adverse Reactions: Allergies Allergy/AdvReac Type Severity Reaction Status Date / Time POLLEN AdvReac Mild SNEEZING Uncoded 01/28/17 17:30 DUST AdvReac SNEEZING Uncoded 01/28/17 17:30 MOLD AdvReac SNEEZING Uncoded 01/28/17 17:30 - Medications Medications: Current Medications Acetaminophen (Tylenol 325mg Tab) 650 mg PO Q4 PRN PRN Reason: Fever >100.4 F Last Admin: 01/29/17 15:28 Dose: 650 mg Al Hydrox/Mg Hydrox/Simethicone (Maalox Plus 30 Ml) 30 ml PO 0900 PRN PRN Reason: Indigestion / Heartburn Last Admin: 01/29/17 11:15 Dose: 30 ml Clotrimazole (Mycelex Charles) 10 mg MT 5XD [facility] Last Admin: 01/29/17 11:37 Dose: 10 mg Folic Acid (Folic Acid) 1 mg PO DAILY [facility] Last Admin: 01/29/17 09:14 Dose: 1 mg Hydrocortisone (Anusol-Hc) 25 mg RC BID [facility] Sodium Chloride (Sodium Chloride 0.9%) 1,000 mls @ 100 mls/hr IV .Q10H [facility] Last Admin: 01/29/17 09:26 Dose: 100 mls/hr Meropenem 1 gm/ Dextrose 100 mls @ 100 mls/hr IVPB Q8 DAVID PRN Reason: Protocol Stop: 02/04/17 23:46 Last Admin: 01/29/17 09:24 Dose: 100 mls/hr Insulin Human Regular (Humulin R Low) 0 units SC ACHS DAVID PRN Reason: Protocol Last Admin: 01/29/17 11:35 Dose: Not Given Pantoprazole Sodium (Protonix Ec Tab) 40 mg PO DAILY [facility] Last Admin: 01/29/17 09:18 Dose: 40 mg Prednisone (Prednisone Tab) 60 mg PO DAILY [facility] Last Admin: 01/29/17 11:14 Dose: 60 mg Results - Vital Signs Recent Vital Signs: Last Vital Signs Temp 102.5 F H 01/29/17 15:24 Pulse 86 01/29/17 15:24 Resp 17 01/29/17 15:24 BP 120/68 01/29/17 15:24 Pulse Ox 99 01/29/17 11:46 - Labs Result Diagrams: 01/29/17 08:00 01/29/17 08:00 Labs: Laboratory Results - last 24 hr 01/28/17 01/28/17 01/29/17 21:28 22:10 00:44 WBC RBC Hgb Hct MCV MCH MCHC RDW Plt Count Manual Plt Count MPV Gran % Lymph % (Auto) [place] % (Auto) Eos % (Auto) Baso % (Auto) Gran # Lymph # [place] # Eos # Baso # pO2 140 H VBG pH 7.55 H VBG pCO2 31.0 L VBG HCO3 27.1 VBG Total CO2 28.1 H VBG O2 Sat (Calc) 97.9 H VBG Base Excess 5.2 H VBG Potassium 4.4 Sodium 126.0 L Chloride 95.0 L Glucose 239 H Lactate 1.6 FiO2 21.0 Potassium Carbon Dioxide Anion Gap BUN Creatinine Est GFR ( Amer) Est GFR (Non-Af Amer) POC Glucose (mg/dL) 216 H Random Glucose Uric Acid Calcium Total Bilirubin AST ALT Alkaline Phosphatase Total Protein Albumin Globulin Albumin/Globulin Ratio Venous Blood Potassium 4.4 Influenza Typ A,B (EIA) Negative for flu a/b WB Flow Cytometry 01/29/17 01/29/17 01/29/17 07:20 08:00 08:00 WBC 2.0 L* RBC 2.04 L Hgb 7.2 L Hct 21.0 L MCV 102.9 D MCH 35.3 H MCHC 34.3 RDW 22.5 H Plt Count 59 L Manual Plt Count 75 L* MPV 10.5 Gran % 55.2 Lymph % (Auto) 32.7 [place] % (Auto) 12.1 H Eos % (Auto) 0.0 L Baso % (Auto) 0.0 Gran # 1.10 L Lymph # 0.7 L [place] # 0.2 Eos # 0.0 Baso # 0.00 pO2 VBG pH VBG pCO2 VBG HCO3 VBG Total CO2 VBG O2 Sat (Calc) VBG Base Excess VBG Potassium Sodium 129 L Chloride 99 Glucose Lactate FiO2 Potassium 3.9 Carbon Dioxide 27 Anion Gap 7 L BUN 15 Creatinine 0.7 L Est GFR ( Amer) > 60 Est GFR (Non-Af Amer) > 60 POC Glucose (mg/dL) 127 H Random Glucose 114 H Uric Acid Calcium 8.4 Total Bilirubin 1.4 H AST 53 ALT 78 H Alkaline Phosphatase 133 H D Total Protein 6.5 Albumin 2.8 L Globulin 3.7 Albumin/Globulin Ratio 0.8 L Venous Blood Potassium Influenza Typ A,B (EIA) WB Flow Cytometry 01/29/17 01/29/17 01/29/17 11:15 15:18 15:18 WBC RBC Hgb Hct MCV MCH MCHC RDW Plt Count Manual Plt Count MPV Gran % Lymph % (Auto) [place] % (Auto) Eos % (Auto) Baso % (Auto) Gran # Lymph # [place] # Eos # Baso # pO2 VBG pH VBG pCO2 VBG HCO3 VBG Total CO2 VBG O2 Sat (Calc) VBG Base Excess VBG Potassium Sodium Chloride Glucose Lactate FiO2 Potassium Carbon Dioxide Anion Gap BUN Creatinine Est GFR ( Amer) Est GFR (Non-Af Amer) POC Glucose (mg/dL) 105 Random Glucose Uric Acid 2.0 L Calcium Total Bilirubin AST ALT Alkaline Phosphatase Total Protein Albumin Globulin Albumin/Globulin Ratio Venous Blood Potassium Influenza Typ A,B (EIA) WB Flow Cytometry Reference test
--- NOTE | 2017-01-29 16:03 | CARD ---
APPROVED REPORT EKG Measurement Heart [id number] <Conclusion> Normal sinus rhythm Possible Left atrial enlargement Borderline ECG
--- NOTE | 2017-01-29 16:21 | CP.PCM.CON ---
History of Present Illness - History of Present Illness History of Present Illness: 56 year old male with PMH of hemorrhoids, history of non-alcoholic steatohepatitis, history of pancytopenia of unknown etiology was sent in [place] [facility] [place] increased weakness, anorexia and fevers for the past 4-5 days. He recently developed a bruise /scratch on the left side of his neck. He denies animal contacts, no recent travel outside of the [facility] in the past 3 months, no diarrhea, no nausea or vomiting, no chest pain, no SOB, no cough or colds, no dysuria. He was found to have fever in the ED. He was also recently started on PO bactrim for PJP prophylaxis by his Infectious diseases physician. Infectious Diseases consult is requested to further evaluate and manage. Review of Systems - Review of Systems All systems: reviewed and no additional remarkable complaints except (as per HPI ) Past Patient History - Infectious Disease Hx of Infectious Diseases: None - Tetanus Immunizations Tetanus Immunization: Unknown - Past Social History Smoking Status: Never Smoked - CARDIAC Hx Cardiac Disorders: No Hx Pacemaker: No Hx Peripheral Edema: Yes (ble +1 chronic pitting) - PULMONARY Hx Respiratory Disorders: Yes Hx Asthma: (pt denies asthma) - NEUROLOGICAL Hx Neurological Disorder: No - HEENT Hx HEENT Problems: No - RENAL Hx Chronic Kidney Disease: Yes Hx Kidney Stones: Yes (3.8 MM KIDNEY STONES 11-02-13) - ENDOCRINE/METABOLIC Hx Endocrine Disorders: No - HEMATOLOGICAL/ONCOLOGICAL Hx Blood Disorders: Yes Other/Comment: pancytopenia, blood transfusion platelets, hemolytic anemia - INTEGUMENTARY Hx Dermatological Problems: No - MUSCULOSKELETAL/RHEUMATOLOGICAL Hx Falls: No - GASTROINTESTINAL Hx Gastrointestinal Disorders: No - GENITOURINARY/GYNECOLOGICAL Hx Genitourinary Disorders: No - PSYCHIATRIC Hx Emotional Abuse: No Hx Physical Abuse: No Hx Substance Use: No - SURGICAL HISTORY Other/Comment: lung biopsy in past, benign, ct scan guided bone marrow bx 05/21/16 - ANESTHESIA Hx Anesthesia Reactions: No Hx Malignant Hyperthermia: No Meds Allergies/Adverse Reactions: Allergies Allergy/AdvReac Type Severity Reaction Status Date / Time POLLEN AdvReac Mild SNEEZING Uncoded 01/28/17 17:30 DUST AdvReac SNEEZING Uncoded 01/28/17 17:30 MOLD AdvReac SNEEZING Uncoded 01/28/17 17:30 - Medications Medications: Current Medications Acetaminophen (Tylenol 325mg Tab) 650 mg PO Q4 PRN PRN Reason: Fever >100.4 F Clotrimazole (Mycelex Charles) 10 mg MT 5XD DAVID Folic Acid (Folic Acid) 1 mg PO DAILY [facility] Sodium Chloride (Sodium Chloride 0.9%) 1,000 mls @ 100 mls/hr IV .Q10H DAVID Last Admin: 01/28/17 19:11 Dose: 100 mls/hr Insulin Human Regular (Humulin R Low) 0 units SC ACHS DAVID PRN Reason: Protocol Pantoprazole Sodium (Protonix Ec Tab) 40 mg PO DAILY DAVID Prednisone (Prednisone Tab) 60 mg PO DAILY DAVID Prednisone (Prednisone Tab) 15 mg PO DAILY [facility] Physical Exam - Constitutional Appears: Chronically Ill - Head Exam Head Exam: NORMAL INSPECTION - Neck Exam Neck exam: Negative for: Lymphadenopathy, Meningismus - Respiratory Exam Respiratory Exam: Decreased Breath Sounds - Cardiovascular Exam Cardiovascular Exam: +S1, +S2 - GI/Abdominal Exam GI & Abdominal Exam: Soft. absent: Tenderness Results - Vital Signs Recent Vital Signs: Last Vital Signs Temp 98.0 F 01/28/17 23:23 Pulse 76 01/28/17 23:23 Resp 19 01/28/17 23:23 BP 99/62 L 01/28/17 23:23 Pulse Ox 100 01/28/17 20:59 - Labs Result Diagrams: 01/29/17 08:00 01/29/17 08:00 Labs: Laboratory Results - last 24 hr 01/28/17 01/28/17 21:28 22:10 pO2 140 H VBG pH 7.55 H VBG pCO2 31.0 L VBG HCO3 27.1 VBG Total CO2 28.1 H VBG O2 Sat (Calc) 97.9 H VBG Base Excess 5.2 H VBG Potassium 4.4 Sodium 126.0 L Chloride 95.0 L Glucose 239 H Lactate 1.6 FiO2 21.0 POC Glucose (mg/dL) 216 H Venous Blood Potassium 4.4 Assessment & Plan - Assessment and Plan (Free Text) Plan: Assessment Systemic Inflammatory Response Syndome, R/O sepsis etiology to be determined Pancytopenia, etiology to be determined hemorrhoids history of non-alcoholic steatohepatitis Plan will get blood cx, urine cx, PCT, CXR; will start patient on Vancomycin and Merrem will also start patient on Mepron since CD4/CD8 ratio is low and patient is on chronic steroids reviewed work up done by Dr. Weston from [facility] which did not show acute EBV infection, no HIV, negative RPR will monitor clinically discussed with Dr. Fernández
--- NOTE | 2017-01-29 16:49 | CARD ---
APPROVED REPORT EXAM: Two-dimensional and M-mode echocardiogram with Doppler and color Doppler. INDICATION CARDIOGENIC SHOCK 2D DIMENSIONS Left Atrium (2D)3.2 (1.6-4.0cm)IVSd1.0 (0.7-1.1cm) LVDd4.3 (3.9-5.9cm)PWd1.0 (0.7-1.1cm) LVDs3.1 (2.5-4.0cm)FS (%) 28.3 % LVEF (%)55.0 (>50%) M-Mode DIMENSIONS Aortic Root2.80 (2.2-3.7cm)Aortic Cusp Exc.1.70 (1.5-2.0cm) Aortic Valve AoV Peak Mrgskikr140.0cm/Mayela Peak GR.14mmHg Mitral Valve E/A ratio0.0 TDI E/Lateral E'0.0E/Medial E'0.0 Tricuspid Valve TR Peak [id number] [id number] Peak Gr.29mmHg [id number] LEFT VENTRICLE The left ventricle is normal size. There is normal left ventricular wall thickness. The left ventricular function is normal.EF-55% There is normal LV segmental wall motion. The left ventricular diastolic function is normal. No left ventricle thrombus noted on this study. There is no ventricular septal defect visualized. There is no left ventricular aneurysm. There is no mass noted in the left ventricle. RIGHT VENTRICLE The right ventricle is normal size. There is normal right ventricular wall thickness. The right ventricular systolic function is normal. ATRIA The left atrium size is normal. The right atrium size is normal. The interatrial septum is intact with no evidence for an atrial septal defect. AORTIC VALVE The aortic valve is thickened but opens well. There is trace to mild aortic regurgitation. There is no aortic valvular stenosis. There is no aortic valvular vegetation. MITRAL VALVE The mitral valve is thickened but opens well. Mitral regurgitation is mild. There is no mitral valve stenosis. There is no evidence of mitral valve prolapse. TRICUSPID VALVE The tricuspid valve leaflets are thickened , but open well. There is mild to moderate tricuspid regurgitation.[id number] Mmof hg. There is no tricuspid valve stenosis. There is no tricuspid valve prolapse or vegetation. PULMONIC VALVE The pulmonic valve is borderline thickened. There is mild pulmonic valvular regurgitation. There is no pulmonic valvular stenosis. GREAT VESSELS The aortic root is normal in size. The ascending aorta is normal in size. The pulmonary artery is normal. The IVC is normal in size and collapses >50% with inspiration. PERICARDIAL EFFUSION There is no pleural effusion. There is no pericardial effusion. <Conclusion> Normal chamber Size. EF-55% There is trace to mild aortic regurgitation. Mitral regurgitation is mild. There is mild to moderate tricuspid regurgitation.[id number] Mmof hg. There is no pericardial effusion. No vegetation or thrombus noted.
[2017-01-29] MEDS: Vancomycin 1gm in NS 250ml 1 GM/250 ML BAG IVPB SCH (17:36)
[2017-01-29 21:36] LABS: URINE BILIRUBIN NEGATIVE (NEGATIVE); URINE BLOOD SMALL (NEGATIVE); URINE GLUCOSE (UA) >=1000 mg/dL (NEGATIVE); URINE KETONE TRACE mg/dL (NEGATIVE); URINE LEUKOCYTE ESTERASE NEGATIVE Leu/uL (NEGATIVE); URINE PROTEIN 30 mg/dL (<30 mg/dL)
[2017-01-29 21:37] LABS: URINE COLOR YELLOW (YELLOW)
[2017-01-29 21:38] LABS: URINE APPEARANCE CLEAR (CLEAR); URINE WBC 0 - 2 /hpf (0-6)
[2017-01-29 21:39] LABS: URINE BACTERIA NEG (NEG); URINE EPITHELIAL CELLS 0 - 2 /hpf (0-5)
[2017-01-30] MEDS ORDERED: DEXILANT 60 MG PO SCH (02:00)
--- NOTE | 2017-01-30 03:11 | CON ---
DATE: 01/29/2017 REASON FOR CONSULTATION: Pulmonary infiltrate and cough being treated as an outpatient, has sarcoidosis. HISTORY OF PRESENT ILLNESS: This is a 56-year-old male well known to me from the office at previous admission, has multiple diagnostic testings from the last year or so which include EBUS with mediastinal lymph biopsy, which was known diagnosis. Had a liver biopsy which was a known diagnosis to bone marrow biopsy which was known diagnosis to bone marrow biopsy which was a known diagnosis. Has a colonoscopy with biopsy was nondiagnostic. His symptoms originally were persistent dry cough with pancytopenia, requiring multiple transfusions. The patient was off for open lung biopsy because of persistent thrombocytopenia, which he refused and wanted to try steroids for diagnostic and therapeutic option, understanding risk and benefits, so he was started on 80 mg prednisone. He also has a history of HIV testing done, though extensive connective tissue testing was done, so he responded very well with the symptoms. As prednisone was started, his cough disappeared. His lungs became clear which had crackles before that. His hemoglobin improved. His platelet improved, but now from the last few days, been complaining about some leg pain and cramps. His prednisone was decreased to 60 mg just few days ago, taking probably one or two doses, he got 60 mg instead of 80, so now he presented just generalized body ache, dysphagia, not feeling well, seen by multiple speciality including Infectious Diseases as an outpatient. He had multiple second opinions including seen a fugitive detective in [place], also seen Hematology/Oncology as a second opinion. Presently, sitting up in a chair, has a mild cough, this aches and pains, spike fever up to 102. There is no hemoptysis or emesis. No hematuria. He does have some leg swelling which has been chronic. PAST MEDICAL HISTORY: As per history of present illness. ALLERGIES: TO SEASONAL ALLERGIES. ALLERGIC TO POLLEN, DUST AND MOLDS. SOCIAL HISTORY: Nonsmoker, nondrinker. FAMILY HISTORY: Positive for CVA, coronary artery disease, colon cancer. There is no history of immune disease. MEDICATIONS: Presently, he is on Anusol 25 mg rectally twice a day, folic acid 1 mg daily, Maalox p.r.n. basis, meropenem 1 g IV q.8 hours, prednisone 60 mg daily, Protonix 40 mg daily, getting IV fluid normal saline 10 mL/hour, Tylenol p.r.n., vancomycin 1 g IV q.12 hours is given. REVIEW OF SYSTEMS: No headache, no rhinitis. Has mild cough. No sputum production. He has a fever. No chest pain. No nausea. Has a poor appetite, though no abdominal pain. Does have a chronic leg swelling, some AVF skin bruise. PHYSICAL EXAMINATION: GENERAL: Sitting up in a chair. VITAL SIGNS: T max was 102, heart rate 90, respiratory rate is 20, blood pressure 113/70, pulse ox 99% room air. HEENT: Moist mucous membranes. No ulcer or thrush. NECK: Supple. No JVD. LUNGS: Fair airflow. HEART: S1 and S2. ABDOMEN: Soft, nontender. No organomegaly. EXTREMITIES: There is edema. NEUROLOGIC: Awake and follows simple commands. LABORATORY DATA: Shows hemoglobin 7.2, hematocrit 21.0, WBC 2.0, platelet count is 59. Manual platelet count is 75. His INR 1.36, PTT 28. Has a VBG done on admission shows pH 7.55, pCO2 of 31, O2 of 140. Sodium 129, potassium 3.9, chloride 99, bicarbonate 27, BUN 15, creatinine 0.7, glucose 114, uric acid 2.0, calcium 8.4, total bili 1.4, AST 53, ALT 78, alk phos is 133, albumin 2.8. Urinalysis shows wbc 0-2, rbc 1-3. Hepatitis profile is negative. Influenza is negative. Microbiology, blood culture has been negative. Had echocardiogram done which shows LV ejection fraction 55%, [id number] tricuspid regurgitation, right ventricle systolic pressure is 39. Chest x-ray done on admission shows chronic interstitial infiltrate in the upper lobes, otherwise unremarkable. IMPRESSION AND PLAN: Autoimmune syndrome in a working diagnosis clinically is sarcoidosis. It seems like he may have a superimposed infection in an immunocompromised host with fever, body aches, and pain. Has thrombocytopenia, anemia, leukopenia. The patient is already on broad-spectrum antibiotics covering healthcare-associated organism. We will suggest continue H2 blockers and continue prednisone 60 mg daily. We will get CT scan of the chest to evaluate lung parenchyma. The patient should also be on Bactrim for PCP prophylaxis, especially on high dose of prednisone. We will speak to Infectious Diseases about it. We will send CPK to assure there is no myopathy, especially while high dose of steroid. Follow up labs in the morning. Thank you and we will follow with you. Ant Lai MD
[2017-01-30] MEDS: Vancomycin 1gm in NS 250ml 1 GM/250 ML BAG IVPB SCH ×2 (05:23→17:02)
[2017-01-30] MEDS: Meropenem 1 GM in Dextrose 5% In Water 100 ML IVPB SCH ×3 (05:23→21:57)
[2017-01-30] MEDS: Sodium Chloride 0.9% 1,000 ML IV SCH ×2 (05:23→20:02)
--- NOTE | 2017-01-30 05:54 | CON ---
DATE: 01/29/2017 REASON FOR CONSULTATION: Electrolyte abnormality, fluid management. HISTORY OF PRESENT ILLNESS: A 56-year-old male with history of pancytopenia for the last one year, anemia - requiring multiple transfusions, history of Campylobacter infection,and extensive workup including liver biopsy x2, bone marrow biopsy x2, who was started on prednisone 80 mg daily about seven weeks ago. He reports that his symptoms improved. His cough, which was persistent for four to five months disappeared. One week ago, his prednisone was tapered to 75 mg and subsequently, he was supposed to start 60 mg of prednisone today, but three days ago, he started feeling very weak, also complaining of some watery stool and weight loss of 20 pounds in the last one week. The patient was advised to come to the hospital by Dr. Perez. Consultation was requested for fluid management, hyponatremia, hypoalbuminemia, and hypocalcemia. PAST MEDICAL/SURGICAL HISTORY: As mentioned above, Campylobacter infection one year ago, nonalcoholic steatohepatitis, pancytopenia with no evidence of leukemia or lymphoproliferative disorder, a mediastinal lymph node biopsy which was negative, ?sarcoidosis, Aditya positive anemia, COPD, oropharyngeal candidiasis, and symptomatic anemia requiring multiple transfusions. FAMILY HISTORY: Noncontributory. SOCIAL HISTORY: No smoking, no alcohol use, no IV drug abuse. ALLERGIES: POLLEN, DUST, AND MOLDS. MEDICATIONS: At home, the patient was on prednisone 80 mg daily - it was tapered to 75 mg daily one week prior, Dexilant 60 mg for GI prophylaxis, Strovite, calcium and vitamin D, folic acid, Tessalon Perles. REVIEW OF SYSTEMS: Extreme fatigue, no chest tightness, no palpitations. No headaches, no dizziness. No urinary complaints. PHYSICAL EXAMINATION: GENERAL: A young male sitting in chair. VITAL SIGNS: Blood pressure 113/70, heart rate 90, respiratory rate 18, temperature 98.5, and T-max 102.5. HEENT: Normocephalic, atraumatic. Positive pallor. NECK: Supple. No JVD. CARDIOPULMONARY: S1, S2. Regular rate and rhythm. No murmur. No rub. LUNGS: Bilateral equal air entry. No rales. ABDOMEN: Obese, distended, soft, and nontender. Bowel sounds present. EXTREMITIES: No lower extremity edema. INTAKE AND OUTPUT: 865/600. LABORATORY DATA: WBC 2, hemoglobin 7, hematocrit 21, platelets 69, and manual platelet count 75. Sodium 129, potassium 3.9, chloride 99, CO2 of 27, BUN 15, creatinine 0.7, glucose 114, calcium 8.4, uric acid 2.0, and albumin 2.8. Urinalysis, yellow, slightly cloudy, pH 6.0, specific gravity greater than 1.030, protein 100, glucose greater than 1000, ketones negative, blood large, nitrite negative, and leukocyte esterase negative. Hepatitis profile negative. WBC, flow cytometry. Echocardiogram, normal chamber-size, EF 55%, mild mitral regurgitation, and [id number] tricuspid regurgitation. CURRENT MEDICATIONS: Anusol, folic acid, Maalox, meropenem 1 g q. 8, prednisone 60, Protonix 40, normal saline at 100, Tylenol, vancomycin 1 g. ASSESSMENT AND PLAN: A 56-year-old young male with severe pancytopenia, neutropenic sepsis, fever, ?autoimmune disorder is being seen for hyponatremia. The patient appears somewhat hypovolemic as evidenced by low blood pressure and elevated heart rate. His uric acid is 2, which is more consistent with syndrome of inappropriate antidiuretic hormone. Urine sodium and urine osmolality are not available for review at this time. His sodium has improved with normal saline infusion, which also points towards depletional hyponatremia. At this time, we will continue normal saline at 100 mL per hour. I am also concerned about his proteinuria, hematuria, and glucosuria. The patient has been extensively worked up in the past. At this time, I will check ESR, CARMELA, ANCA, complements. Agree with empiric antibiotics. Agree with neutropenic precautions. More recommendations to follow once workup is available. Thank you for the courtesy of this consultation. We will follow this patient closely with you. Ella Steve MD
[2017-01-30] MEDS ORDERED: Pantoprazole 40 mg EC Tab PO SCH (07:30)
[2017-01-30 08:15] LABS: GRAN # 4.35 (1.4-6.5); GRAN % 85.7 % (50.0-68.0); HEMATOCRIT 31.3 % (42.0-52.0); LYMPH # 0.6 (1.2-3.4); LYMPH % 11.2 % (22.0-35.0); MEAN CELL VOLUME 100.6 fl (80.0-105.0); MEAN CORPUSCULAR HEMOGLOBIN 34.4 pg (25.0-35.0); MEAN CORPUSCULAR HGB CONC 34.2 g/dl (31.0-37.0); MONO # 0.2 (0.1-0.6); MONO % 3.1 % (1.0-6.0); RED CELL DISTRIBUTION WIDTH 22.5 % (11.5-14.5); WHITE BLOOD COUNT 5.1 10^3/ul (4.5-11.0)
[2017-01-30] MEDS: Insulin Reg-LOW-Coverage SC SCH ×4 (08:19→21:54)
[2017-01-30 08:24] LABS: ALB/GLOB RATIO 0.7 (1.1-1.8); ALKALINE PHOSPHATASE 242 U/L (38-126); ALT/SGPT 120 U/L (7-56); AST/SGOT 85 U/L (17-59); BILIRUBIN,TOTAL 1.7 mg/dL (0.2-1.3); BLOOD UREA NITROGEN 14 mg/dL (7-21); CALCIUM 8.7 mg/dL (8.4-10.5); CARBON DIOXIDE 26 mmol/L (21-33); CHLORIDE 100 mmol/L (98-107); GFR AFRICAN-AMERICAN > 60; GLUCOSE,RANDOM 120 mg/dL (70-110); INR 1.29 (0.93-1.08); MAGNESIUM 2.2 mg/dL (1.7-2.2); PHOSPHOROUS 2.7 mg/dL (2.5-4.5); POTASSIUM 4.2 mmol/L (3.6-5.0); SODIUM 131 mmol/L (132-148); TOTAL PROTEIN 7.3 g/dL (5.8-8.3)
[2017-01-30] MEDS: Atovaquone 750 mg/5 ml Susp UD PO SCH ×2 (10:20→17:02)
[2017-01-30] MEDS: Pantoprazole 40 mg EC Tab PO SCH (10:20)
[2017-01-30] MEDS: Alum-Mag Hydrox-Simethicone Susp (30 mL) PO PRN (10:23)
--- NOTE | 2017-01-30 13:29 | CT ---
PROCEDURE: CT Chest, Abdomen and Pelvis without intravenous contrast HISTORY: neutropenic sepsis/infiltrate COMPARISON: Comparison is made to the previous CT of the chest and CT of the abdomen and pelvis dated 10/27/2016. TECHNIQUE: Radiation dose: Total exam DLP = 1013.31 mGy-cm. This CT exam was performed using one or more of the following dose reduction techniques: Automated exposure control, adjustment of the mA and/or kV according to patient size, and/or use of iterative reconstruction technique. FINDINGS: CT CHEST WITHOUT CONTRAST: LUNGS: Interval improvement in the previously seen bilateral peripheral lung reticular opacities associated with small cystic formation and mild lung fibrosis more prominent in the upper lobes. Findings are nonspecific and the differential consideration includes sarcoidosis. No evidence of suspicious mass or pneumonia. MEDIASTINUM: The thoracic aorta is slightly ectatic. The main pulmonary trunk is mildly enlarged. Normal size heart. LYMPH NODES: Interval mild decrease in the size of the previously seen mediastinal and hilar lymphadenopathy since the previous exam. PLEURA: Unremarkable. No pneumothorax. No pleural fluid. BONES: Unremarkable. OTHER FINDINGS: Paraspinal muscles atrophy noted associated with fat replacement. CT ABDOMEN AND PELVIS: LIVER: Unremarkable. No gross lesion or ductal dilatation. GALLBLADDER AND BILE DUCTS: Unremarkable. PANCREAS: Unremarkable. No gross lesion or ductal dilatation. SPLEEN: Unremarkable. ADRENALS: Unremarkable. No mass. KIDNEYS AND URETERS: Unremarkable. No hydronephrosis. No solid mass. VASCULATURE: Unremarkable. No aortic aneurysm. BOWEL: Unremarkable. No obstruction. No gross mural thickening. APPENDIX: There is no evidence of appendicitis PERITONEUM: Unremarkable. No free fluid. No free air. LYMPH NODES: Interval decrease in the size of the paraortic lymph nodes in the upper abdomen since the previous exam. BLADDER: Unremarkable. REPRODUCTIVE: Unremarkable. BONES: No acute fracture. OTHER FINDINGS: None. IMPRESSION: No evidence of acute pathology in the chest abdomen and pelvis. Interval improvement in the previously seen peripheral patchy opacities and reticular opacities in the lungs since the previous exam associated with mild lung fibrosis. Interval improvement in the previously seen chest and upper abdomen lymphadenopathy. Otherwise no significant interval change since the previous study.
--- NOTE | 2017-01-30 18:31 | CP.PCM.PN ---
Subjective - Date & Time of Evaluation Date of Evaluation: 01/30/17 Time of Evaluation: 08:40 - Subjective Subjective: Patient is feeling a little better today, no fevers this morning, no diarrhea, no nausea. Objective - Vital Signs/Intake and Output Vital Signs (last 24 hours): Temp Pulse Resp BP Pulse Ox 99.7 F H 76 20 126/77 97 01/30/17 06:00 01/30/17 06:00 01/30/17 06:00 01/30/17 06:00 01/30/17 06:00 Intake and Output: 01/30/17 01/30/17 06:59 18:59 Intake Total 4075 Output Total 1500 Balance 2575 - Medications Medications: Current Medications Acetaminophen (Tylenol 325mg Tab) 650 mg PO Q4 PRN PRN Reason: Fever >100.4 F Last Admin: 01/29/17 23:37 Dose: 650 mg Al Hydrox/Mg Hydrox/Simethicone (Maalox Plus 30 Ml) 30 ml PO 0900 PRN PRN Reason: Indigestion / Heartburn Last Admin: 01/29/17 11:15 Dose: 30 ml Atovaquone (Mepron) 750 mg PO BID [facility] Folic Acid (Folic Acid) 1 mg PO DAILY [facility] Last Admin: 01/29/17 09:14 Dose: 1 mg Hydrocortisone (Anusol-Hc) 25 mg RC BID [facility] Last Admin: 01/29/17 17:35 Dose: 25 mg Sodium Chloride (Sodium Chloride 0.9%) 1,000 mls @ 100 mls/hr IV .Q10H [facility] Last Admin: 01/30/17 05:23 Dose: 100 mls/hr Meropenem 1 gm/ Dextrose 100 mls @ 100 mls/hr IVPB Q8 DAVID PRN Reason: Protocol Stop: 02/04/17 23:46 Last Admin: 01/30/17 05:23 Dose: 100 mls/hr Vancomycin HCl (Vancomycin 1gm) 1 gm in 250 mls @ 167 mls/hr IVPB Q12H DAVID PRN Reason: Protocol Last Admin: 01/30/17 05:23 Dose: 167 mls/hr Insulin Human Regular (Humulin R Low) 0 units SC ACHS DAVID PRN Reason: Protocol Last Admin: 01/29/17 22:26 Dose: Not Given Pantoprazole Sodium (Protonix Ec Tab) 40 mg PO DAILY [facility] Last Admin: 01/29/17 09:18 Dose: 40 mg Prednisone (Prednisone Tab) 60 mg PO DAILY [facility] Last Admin: 01/29/17 11:14 Dose: 60 mg - Labs Labs: 01/29/17 08:00 01/29/17 08:00 PT 14.9 SECONDS (9.4-12.5) H 01/28/17 19:00 INR 1.36 (0.93-1.08) H 01/28/17 19:00 APTT 28.4 Seconds (25.1-36.5) 01/28/17 19:00 - Constitutional Appears: Chronically Ill - Head Exam Head Exam: NORMAL INSPECTION - ENT Exam ENT Exam: Mucous Membranes Moist - Neck Exam Neck Exam: absent: Meningismus - Respiratory Exam Respiratory Exam: Decreased Breath Sounds - Cardiovascular Exam Cardiovascular Exam: +S1, +S2 - GI/Abdominal Exam GI & Abdominal Exam: Soft. absent: Tenderness Assessment and Plan - Assessment and Plan (Free Text) Plan: Assessment Systemic Inflammatory Response Syndome, R/O sepsis etiology to be determined Pancytopenia, etiology to be determined hemorrhoids history of non-alcoholic steatohepatitis Plan follow up blood cx, urine cx; PCT ins 0.4; CT C/A/P shows lung fibrosis but no acute pathology; continue Vancomycin and Merrem day 2 will also start patient on Mepron since CD4/CD8 ratio is low and patient is on chronic steroids reviewed work up done by Dr. Weston from [facility] which did not show acute EBV infection, no HIV, negative RPR will continue to monitor clinically discussed with Dr. Fernández previously
--- NOTE | 2017-01-30 19:56 | PN ---
DATE: 01/30/2017 This is [facility] visit on the medical floor. For Dr. Perez. SUBJECTIVE: The patient is a 56-year-old male seen lying awake in the bed with isolation precautions for pancytopenia. The patient is now IV antibiotics as per Dr. Lovett with improvement of his admitting pancytopenic indices, values to given later in this dictation. Otherwise, the patient is reporting he feel stronger with his taste returning as he had been unable to taste his food with resultant loss of weight as the patient was not eating. He had an echocardiogram done, which would be reported on with his liver function test mildly elevated. He appears in no acute distress, denying any pain with his hemoglobin improving from 7.2 to 10.7 after 3 units of packed red blood transfused in the past 2 days. PHYSICAL EXAMINATION: VITAL SIGNS: Temperature 99.7, pulse 76, respirations 20, blood pressure 126/77 and pulse oximetry 97%. HEENT: Minimal whitish coating to the tongue. NECK: Supple. HEART: Regular rate. LUNGS: Clear. ABDOMEN: Soft and nontender. EXTREMITIES: Faint +1 edema. NEUROLOGIC: Awake, alert and oriented x3. SKIN: Warm, dry and clear. The patient does have scabbed lesion of the skin to his lateral posterior neck and also on his upper back, possibly scratch that might have precipitated this acute turn of events for necessitating admission. LABORATORY DATA: Done. White blood cell count of 5.1 after Granix was given, hemoglobin 10.7, yesterday's hemoglobin 7.2, hematocrit 31.3 and platelet count today of 37,000 with manual of 50,000 down from platelet count of 59,000, manual 75,000 yesterday. He did receive 2 units of single donor apheresis platelets. His INR is 1.29 down from 1.36 yesterday with a chem metabolic panel shows his sodium 131, non-fasting glucose 196, T-bili of 1.7 up from 1.4 yesterday, AST of 85, and ALT of 120 mildly higher than previous values. His procalcitonin level was done admission was 0.37. The patient did have an alpha-1 antitrypsin level of 207, which is elevated with the normal value being below 199. The patient's urinalysis did improve. He had a large amount of blood on admission and now the amount of blood is small. His complement C3 is elevated at 175 with C4 normal at 43, normal C3 component value should be below 165, his is 175. Hepatitis A, B and C testing was negative with influenza titers also negative with flow cytometric analysis pending. His blood cultures showed no growth at 24 hours with urine culture also negative. The patient has received 3 units of packed red blood cells, 2 units of single donor apheresis platelets. He is also on Granix 150 mcg daily as per Dr. Perez's recommendations. The patient's other testing included a CT scan of the chest, abdomen and pelvis done earlier today. It was read as no evidence of acute pathology in the chest, abdomen and pelvis, internal improvement in the previously in peripheral patchy opacities, previous exam associated with mild lung fibrosis and interval improvement in previously chest and upper abdomen, lymphadenopathy otherwise no significant interval change as to previous study. ASSESSMENT: Pancytopenia, neutropenic sepsis with improvement in temperature and lab values. Severe thrombocytopenia treated with high dose steroids tapering down, electrolyte imbalance, abnormal liver function tests, hematuria, gastrointestinal prophylaxis. The patient did have an echocardiogram done on 01/29/2017 it was read as normal chambered sized ejection fraction of 55%, trace to mild aortic regurgitation, mitral regurgitation mild, mild to moderate tricuspid regurgitation, no pericardial effusion, no vegetation or thrombus noted. PLAN: After conversation with Dr. Perez, Dr. Lovett and Dr. Whittington he is to continue his present medical regimen. We will continue his antibiotics with his Granix to continue with sliding scale insulin, with fingerstick blood sugars. Continuing with prednisone 60 mg a day to decreased every 3 days by 10 mg with IV fluids as per Dr. Steve. We will also give Bactroban scratched scabbed lesion to his posterior neck. We will monitor clinically and with labs with consideration for further transfusions as indicated. Herb Fernández MD
--- NOTE | 2017-01-30 20:06 | PN ---
DATE: 01/30/2017 REFERRING PHYSICIAN: Dr. Herb Fernández. SUBJECTIVE: He is sitting up in the chair. Night was much better, feels better. Aches and pains is better. Mild cough. No nausea, no vomiting, no diarrhea. Still have leg swelling. OBJECTIVE: GENERAL: In no acute distress. VITAL SIGNS: Temperature 99.7, heart rate is 76, respiratory rate is 20, blood pressure 126/77, pulse ox 97% on 2 liter nasal cannula. HEENT: Moist mucous membranes. Crowded airway. NECK: Supple. No JVD. LUNGS: Fair airflow. No crackles, rhonchi or wheezing. HEART: S1 and S2. ABDOMEN: Soft and nontender. No organomegaly. EXTREMITIES: Does have edema. NEUROLOGIC: Awake and alert, follow simple commands. CURRENT MEDICATIONS: He is on Anusol rectally twice a day, folic acid 1 mg daily, insulin coverage, Maalox 30 mL q. p.r.n., Mepron 750 mg twice a day added also on meropenem 1 g IV q. 8 hours, prednisone for 60 mg daily, Protonix 40 mg daily, IV fluid normal saline 100 mL/hour, Tylenol p.r.n., vancomycin 1 g IV q. 12 hours. LABORATORY DATA: Shows hemoglobin 10.7, hematocrit 31.3, WBC 5.1, platelet is manually is 50, INR 1.29. Sodium 131, potassium 4.2, chloride 100, bicarbonate 26, BUN 14, creatinine 0.7, glucose 120, calcium 8.7,phosphorus 2.7, magnesium 2.2, total bili is 1.7, AST 85, ALT 120, alkaline phosphatase 242, albumin 3.0, procalcitonin 0.40. CT of the chest, abdomen, and pelvis is done which was remarkable for improvement in nodular interstitial infiltrate in the lung compared to previous CAT scan and also improvement of the retroperitoneal lymphadenopathy. IMPRESSION AND PLAN: Presumed sarcoidosis, increased an high dose of steroids. Clinically, responding well by decreasing cough, shortness of breath, improving platelets as well as hemoglobin also improving the infiltrates in the CT scan and also retroperitoneal lymph nodes probably at present has superimposed infection because of immunocompromised status being treated with broad spectrum antibiotics, covering healthcare associated organism also being covered for PCP, though CT of the chest is improved. So prophylaxis could be continue. The patient also had a sleep apnea syndrome. Advise the patient to being on CPAP and use overnight. May continue cough suppressive. Gastric prophylaxis, being followed by Hematology/Oncology, Infectious Disease. Thank you and we will follow with you. Ant Lai MD
--- NOTE | 2017-01-30 21:00 | PN ---
DATE: 01/30/2017 SUBJECTIVE: The patient is lying in bed. He states that he feels much better after blood and platelet transfusions. The patient also states that he now has an appetite. He is hungry and has less of an aversion to food. He denies any odynophagia. PHYSICAL EXAMINATION: VITAL SIGNS: Reveal temperature of 99.7, blood pressure 126/77, heart rate 76. HEENT: Reveal sclerae to be white. There is less erythema over the bridge of his nose. NECK: Supple. He again has two papules on the side of his left neck with decreasing erythema. CHEST: Reveal lungs to be clear. HEART: Reveals regular rate and rhythm. ABDOMEN: Soft, nontender. EXTREMITIES: Show no edema. LABORATORY DATA: Reveal white blood cell count of 5.1, hemoglobin 10.7, platelet count of 50,000. Chemistries reveal sodium of 131, AST 85, ALT 120, alkaline phosphatase of 242. IMPRESSION: 1. 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 2. Pancytopenia, etiology unclear. 3. Aditya positive hemolytic anemia. 4. Mediastinal and shotty intra-abdominal lymphadenopathy. RECOMMENDATIONS: Further treatment and workup as per Hematology. The patient is stable from a GI standpoint. Gerardo Quintanilla MD
[2017-01-31] MEDS: Vancomycin 1gm in NS 250ml 1 GM/250 ML BAG IVPB SCH ×2 (04:32→16:18)
[2017-01-31] MEDS: Meropenem 1 GM in Dextrose 5% In Water 100 ML IVPB SCH ×3 (06:30→21:30)
[2017-01-31] MEDS ORDERED: Pantoprazole 40 mg EC Tab PO SCH (07:30)
[2017-01-31] MEDS ORDERED: DEXILANT PO SCH (07:30)
[2017-01-31] MEDS: Insulin Reg-LOW-Coverage SC SCH ×4 (08:19→22:00)
[2017-01-31 09:16] LABS: GRAN # 3.76 (1.4-6.5); GRAN % 81.5 % (50.0-68.0); HEMATOCRIT 26.7 % (42.0-52.0); LYMPH # 0.7 (1.2-3.4); LYMPH % 15.2 % (22.0-35.0); MEAN CORPUSCULAR HEMOGLOBIN 34.5 pg (25.0-35.0); MEAN CORPUSCULAR HGB CONC 34.5 g/dl (31.0-37.0); MONO # 0.2 (0.1-0.6); MONO % 3.3 % (1.0-6.0); RED CELL DISTRIBUTION WIDTH 21.9 % (11.5-14.5); WHITE BLOOD COUNT 4.6 10^3/ul (4.5-11.0)
[2017-01-31 09:26] LABS: PLATELET COUNT 20 10^3/uL (120.0-450.0)
[2017-01-31 09:27] LABS: ALB/GLOB RATIO 0.7 (1.1-1.8); ALKALINE PHOSPHATASE 263 U/L (38-126); ALT/SGPT 127 U/L (7-56); AST/SGOT 93 U/L (17-59); BILIRUBIN,TOTAL 1.4 mg/dL (0.2-1.3); BLOOD UREA NITROGEN 12 mg/dL (7-21); CARBON DIOXIDE 26 mmol/L (21-33); CHLORIDE 98 mmol/L (98-107); GFR AFRICAN-AMERICAN > 60; GLUCOSE,RANDOM 108 mg/dL (70-110); POTASSIUM 3.4 mmol/L (3.6-5.0); SODIUM 126 mmol/L (132-148); TOTAL PROTEIN 6.4 g/dL (5.8-8.3)
[2017-01-31 09:48] LABS: PLATELET ESTIMATE LOW (NORMAL)
[2017-01-31] MEDS: Atovaquone 750 mg/5 ml Susp UD PO SCH ×2 (10:11→17:43)
[2017-01-31] MEDS: Sodium Chloride 0.9% 1,000 ML IV SCH (10:42)
[2017-01-31] MEDS: DEXILANT 60 MG PO SCH (11:27)
--- NOTE | 2017-01-31 17:41 | CP.PCM.PN ---
Subjective - Date & Time of Evaluation Date of Evaluation: 01/31/17 Time of Evaluation: 10:35 - Subjective Subjective: Developed fevers this morning, disappointed that he is not able to go home today. Objective - Vital Signs/Intake and Output Vital Signs (last 24 hours): Temp Pulse Resp BP Pulse Ox 102.2 F H 87 20 128/74 96 01/31/17 06:47 01/31/17 06:00 01/31/17 06:00 01/31/17 06:00 01/31/17 06:00 Intake and Output: 01/31/17 01/31/17 06:59 18:59 Intake Total 1585 Output Total 600 Balance 985 - Medications Medications: Current Medications Acetaminophen (Tylenol 325mg Tab) 650 mg PO Q4 PRN PRN Reason: Fever >100.4 F Last Admin: 01/31/17 06:47 Dose: 650 mg Al Hydrox/Mg Hydrox/Simethicone (Maalox Plus 30 Ml) 30 ml PO 0900 PRN PRN Reason: Indigestion / Heartburn Last Admin: 01/30/17 10:23 Dose: 30 ml Atovaquone (Mepron) 750 mg PO BID [facility] Last Admin: 01/31/17 10:11 Dose: 750 mg Folic Acid (Folic Acid) 1 mg PO DAILY [facility] Last Admin: 01/31/17 10:11 Dose: 1 mg Home Med (Home Med) 1 unit PO 0700 [facility] Hydrocortisone (Anusol-Hc) 25 mg RC BID [facility] Last Admin: 01/31/17 10:11 Dose: 25 mg Sodium Chloride (Sodium Chloride 0.9%) 1,000 mls @ 100 mls/hr IV .Q10H [facility] Last Admin: 01/30/17 20:02 Dose: 100 mls/hr Meropenem 1 gm/ Dextrose 100 mls @ 100 mls/hr IVPB Q8 DAVID PRN Reason: Protocol Stop: 02/04/17 23:46 Last Admin: 01/31/17 06:30 Dose: 100 mls/hr Vancomycin HCl (Vancomycin 1gm) 1 gm in 250 mls @ 167 mls/hr IVPB Q12H DAVID PRN Reason: Protocol Last Admin: 01/31/17 04:32 Dose: 167 mls/hr Doxycycline Hyclate 100 mg/ (Sodium Chloride) 100 mls @ 100 mls/hr IVPB Q12 DAVID PRN Reason: Protocol Insulin Human Regular (Humulin R Low) 0 units SC ACHS DAVID PRN Reason: Protocol Last Admin: 01/31/17 08:19 Dose: Not Given Mupirocin (Bactroban Ointment) 0 gm TOP BID [facility] Last Admin: 01/30/17 17:03 Dose: 1 appl Prednisone (Prednisone Tab) 40 mg PO DAILY [facility] Last Admin: 01/31/17 10:11 Dose: 40 mg - Labs Labs: 01/31/17 09:00 01/31/17 09:00 PT 14.3 SECONDS (9.4-12.5) H 01/30/17 07:50 INR 1.29 (0.93-1.08) H 01/30/17 07:50 APTT 28.4 Seconds (25.1-36.5) 01/28/17 19:00 - Constitutional Appears: Chronically Ill - Head Exam Head Exam: NORMAL INSPECTION - ENT Exam ENT Exam: Mucous Membranes Moist - Neck Exam Neck Exam: absent: Meningismus - Respiratory Exam Respiratory Exam: Decreased Breath Sounds - Cardiovascular Exam Cardiovascular Exam: +S1, +S2 - GI/Abdominal Exam GI & Abdominal Exam: Soft. absent: Tenderness Assessment and Plan - Assessment and Plan (Free Text) Plan: Assessment Systemic Inflammatory Response Syndome, R/O sepsis etiology to be determined Pancytopenia, etiology to be determined hemorrhoids history of non-alcoholic steatohepatitis Plan follow up blood cx, urine cx - will repeat blood cx; PCT is 0.4; CT C/A/P shows lung fibrosis but no acute pathology; continue Vancomycin and Merrem day 3; will also get blood AFB cx, Fungitell, Galactomannan continue Mepron since CD4/CD8 ratio is low and patient is on chronic steroids reviewed work up done by Dr. Weston from [facility] which did not show acute EBV infection, no HIV, negative RPR will continue to monitor clinically discussed with Dr. Fernández previously
--- NOTE | 2017-01-31 17:42 | PN ---
DATE: 01/31/2017 This is the patient's hospital visit on the medical floor. For Dr. Perez. SUBJECTIVE: The patient is a 56-year-old male seen sitting up in bed, at the bedside with isolation precautions in effect for his pancytopenic indices which have now modestly improved. The patient now report his appetite is significantly better with the patient's requesting food from home to be given. The patient otherwise reporting hemorrhoidal discomfort with some bleeding with his hemorrhoids for which Anusol suppositories were given. The patient is otherwise without compliant, in no acute distress with his color improving. OBJECTIVE: VITAL SIGNS: Temperature 97.4 with repeat of 102.2 with a pulse of 87, respirations 20, blood pressure 128/74, pulse ox 96%. HEENT: Unremarkable. There is no whitish discoloration to his tongue at this point. NECK: Supple. HEART: Regular rate. LUNGS: Minimal decreased breath sounds. ABDOMEN: Soft, nontender. EXTREMITIES: +1 edema of the feet bilateral. NEUROLOGIC: Awake, alert and oriented x3. LABORATORY DATA: The patient's labs were done. White blood cell count of 4.6, the patient is on Granix; hemoglobin of 9.2, down from 10.7 yesterday; hematocrit 26.7 with a platelet count of 20,000, down from 37,000 yesterday with a manual count 37,000, down from 50,000 yesterday. His absolute neutrophil count has improved to 3.7 on his Granix. His sed rate yesterday was 124. His chem metabolic panel was within normal limit except for a sodium of 126, potassium 3.6 with a nonfasting glucose of 184, T bili of 1.4, AST of 93, ALT of 127, CK was 39. The patient's other testing included a CT scan of the chest, abdomen and pelvis, copy was given to the patient as it showed significant improvement in the patient's lymphadenopathic changes. The report readings, no evidence of acute pathology in the chest, abdomen, and pelvis. There is no improvement in the previously seen peripheral patchy opacities and reticular opacities in the lungs since previous exam associated with mild lung fibrosis, and no improvement in the previously seen chest and upper abdomen lymphadenopathy, otherwise, no significant changes from the previous study. Previous study being done on 10/27/2016. This test being done on 01/30/2017. ASSESSMENT: Neutropenic sepsis, pancytopenic, etiology uncertain; severe thrombocytopenia; severe anemia, status post platelet and packed red blood cell transfusion with Granix continuing for his neutropenia, electrolyte imbalance, abnormal liver function test, hemorrhoids. The suspicion here as per conversation with Dr. Lai and Dr. Perez is that of an autoimmune phenomenon causing the patient's continued morbidity with the etiologies to be determined. PLAN: After conversation with Dr. Perez and Dr. Lai, is to continue his present medical regimen. We will check a hemoglobin A1c as his blood sugars have been elevated secondary to steroids. His steroids have been cutback to 40 mg per day from a maximum of 80, approximately 5 days prior; sed rate will be done in the morning along with the manual platelet count with considerations for transfusion again of platelets and packed red blood cells as indicated. We will continue his Granix for day 3 of 5 days along with Anusol HC suppositories as per Dr. Quintanilla. We will continue his sliding scale insulin coverage as indicated with consideration for discontinuing his neutropenic precautions as per Dr. Lovett. His IV antibiotic for vancomycin, meropenem and also Mepron p.o. with Dexilant as GI prophylaxis. He is also on doxycycline IV and Bactroban topically to his neck area from his scabbed lesion probably the source of his acute infection. We will monitor clinical labs. Prognosis for this patient is guarded. Herb Fernández MD
--- NOTE | 2017-02-01 02:13 | PN ---
DATE: 01/31/2017 REFERRING PHYSICIAN: Dr. Herb Fernández. SUBJECTIVE: He is sitting up in a reclining chair. Night was unremarkable. Again had fever this afternoon. Clinically feels better. Decreased cough. Decreased shortness of breath. No nausea, no vomiting, no diarrhea. Does have some leg swelling. OBJECTIVE: GENERAL: No acute distress. VITAL SIGNS: T-max is 102, heart rate is 87, respiratory rate is 20, blood pressure 128/74 and pulse ox 96% on room air. HEENT: Moist mucous membranes. Crowded airway. Mallampati score is 4. NECK: Supple. No JVD. LUNGS: Has a fair airflow with few rhonchi. HEART: S1 and S2. ABDOMEN: Soft, nontender, no organomegaly. EXTREMITIES: There is no tenderness. Has some edema. NEUROLOGIC: Awake, alert, and follows simple commands. MEDICATIONS: He is on Anusol 25 mg rectally twice a day, doxycycline 100 mg twice a day, folic acid 1 mg daily, insulin coverage, Maalox 30 mL p.r.n., Mepron 750 mg twice a day, meropenem 1 g q.8 hours, prednisone 40 mg daily, Tylenol p.r.n. basis and vancomycin 1 g IV q.12 hours. LABORATORY DATA: Shows hemoglobin 9.2, hematocrit 26.7, WBC 4.6 and platelet count is 20, but manually it is 37. Chemistry shows sodium 126, potassium 3.4, chloride 98, bicarbonate is 26, BUN 12, creatinine 0.7, glucose 108, calcium is 8, phosphorus is 2.0, magnesium is 2.0, total bili 1.4, AST 93, ALT 127, alk phos is 263 and albumin is 2.5. influenza A and B have been negative. Hepatitis profile is unremarkable. Microbiology, blood culture has been negative. Urine culture, there is no growth. IMPRESSION AND PLAN: Sepsis with fever up to 102, on high dose of steroids for presumed sarcoidosis and autoimmune phenomenon, has hemorrhoids with occasional bleed. Prednisone was decreased to 40 mg daily by me. Case discussed with primary team. Infectious Disease's note reviewed. Spoke to patient's at bedside. All the questions answered. His high fever is bothersome while on steroids. CT finding of the chest and abdomen is encouraging that nodular and interstitial infiltrate most of it has disappeared and also retroperitoneal lymph nodes have improved, but then why fever?. Say we need to investigate further, what site we should explore? Has 2 bone marrow done already. Had a mediastinal lymph node biopsy by endobronchial ultrasound already done which has no diagnosis. Had a liver biopsy which was nondiagnostic, could it be tuberculosis?. For now, continue antibiotics, continue steroids. Supportive care. Thank you and we will follow with you. Ant Lai MD
[2017-02-01] MEDS: Sodium Chloride 0.9% 1,000 ML IV SCH (04:30)
[2017-02-01] MEDS: Vancomycin 1gm in NS 250ml 1 GM/250 ML BAG IVPB SCH ×2 (05:00→18:12)
[2017-02-01] MEDS: Meropenem 1 GM in Dextrose 5% In Water 100 ML IVPB SCH ×3 (05:02→21:15)
[2017-02-01 06:32] LABS: GRAN # 3.25 (1.4-6.5); GRAN % 67.9 % (50.0-68.0); HEMATOCRIT 27.4 % (42.0-52.0); LYMPH # 1.2 (1.2-3.4); MEAN CELL VOLUME 101.1 fl (80.0-105.0); MEAN CORPUSCULAR HEMOGLOBIN 33.9 pg (25.0-35.0); MEAN CORPUSCULAR HGB CONC 33.6 g/dl (31.0-37.0); MONO # 0.4 (0.1-0.6); MONO % 8.1 % (1.0-6.0); RED CELL DISTRIBUTION WIDTH 21.5 % (11.5-14.5); WHITE BLOOD COUNT 4.8 10^3/ul (4.5-11.0)
[2017-02-01 06:56] LABS: PLATELET COUNT 15 10^3/uL (120.0-450.0)
[2017-02-01] MEDS: DEXILANT 60 MG PO SCH (07:00)
[2017-02-01] MEDS: Insulin Reg-LOW-Coverage SC SCH ×4 (07:00→22:00)
[2017-02-01 07:08] LABS: ALB/GLOB RATIO 0.6 (1.1-1.8); ALKALINE PHOSPHATASE 310 U/L (38-126); ALT/SGPT 159 U/L (7-56); AST/SGOT 107 U/L (17-59); BILIRUBIN,TOTAL 1.3 mg/dL (0.2-1.3); BLOOD UREA NITROGEN 12 mg/dL (7-21); CALCIUM 7.8 mg/dL (8.4-10.5); CARBON DIOXIDE 25 mmol/L (21-33); CHLORIDE 97 mmol/L (98-107); GFR AFRICAN-AMERICAN > 60; GLUCOSE,RANDOM 94 mg/dL (70-110); PHOSPHOROUS 1.7 mg/dL (2.5-4.5); POTASSIUM 3.6 mmol/L (3.6-5.0); SODIUM 126 mmol/L (132-148); TOTAL PROTEIN 6.4 g/dL (5.8-8.3)
[2017-02-01 08:28] LABS: PLATELET ESTIMATE LOW (NORMAL)
--- NOTE | 2017-02-01 08:47 | CON ---
DATE: GASTROENTEROLOGY CONSULTATION REQUESTING PHYSICIAN: Dr. Fernández. REASON FOR CONSULT: I have been asked to see this 56-year-old male with a complicated medical history, which includes severe pancytopenia requiring multiple blood transfusions in the past with 2 negative bone marrow biopsies, history of steatosis of the liver, mediastinal lymphadenopathy with splenomegaly, bronchitis, and Aditya positive hemolytic anemia, on high dose prednisone, who comes to the hospital with severe anemia and leukopenia. Over the last week, patient has experienced extreme weakness with loss of appetite. Patient states that food has a bad taste to him and has no desire to eat. He has been on nystatin and Mycelex Troches during his prednisone use. Over the last several days, patient had some watery diarrhea. This has subsided with loss of oral intake. He denies any fevers or chills, but did have low-grade temperature with blood transfusion. He denies any recent travel or ingestion of any unusual foods. He denies any rectal bleeding, but states that his hemorrhoids have been causing discomfort with recent diarrhea. Again, patient has had multiple evaluations at different centers including [facility] with Dr. Yolie Baugh and [facility] in [place] with Dr. Emanuel Samuel. Despite all these evaluations, etiology of his pancytopenia, lymphadenopathy, and splenomegaly had not been determined. Patient did have a liver biopsy in October of 2016, which revealed some septal fibrosis, mild periportal inflammation, focal piecemeal necrosis, and ballooning of hepatocytes. No granulomas or acid-fast bacteria were noted. Patient also had a push enteroscopy to the mid jejunum in October which did not reveal a source of bleeding. Duodenal mucosa appeared normal. He did have a hiatal hernia. PAST MEDICAL HISTORY: Detailed as above. Again, he has a history of steatosis of the liver; COPD, on BiPAP; pancytopenia; hemorrhoids; oral candidiasis; Aditya positive hemolytic anemia. SOCIAL HISTORY: Patient denies cigarette smoking or alcohol use. FAMILY HISTORY: Noncontributory. MEDICATIONS: Include Dexilant, Mycelex Torches, prednisone 75 mg daily, Strovite, calcium, vitamin D, and ferrous sulfate. REVIEW OF SYSTEMS: A 14-point review of systems is notable for generalized weakness, loss of appetite, weight loss of 12 to 15 pounds recently, and rectal pain from hemorrhoids. PHYSICAL EXAMINATION: GENERAL: Chronically ill-appearing male, lying in bed, appearing comfortable. VITAL SIGNS: Reveal temperature of 99.5, blood pressure 99/56, heart rate of 82. His BMI is 27.4. HEENT: Reveals sclerae to be white, conjunctivae pale. He has a yellowish coating to his tongue. There is no evidence of oral thrush. On the bridge of his nose, is a small area of erythema from the BiPAP machine. NECK: Supple. He has 2 papules on the left side of his neck with some overlying erythema. There is no evidence of cellulitis. CHEST: Reveals scattered rhonchi. HEART: Reveals regular rate and rhythm. ABDOMEN: Soft, nontender. No mass. EXTREMITIES: Show no edema. LABORATORY DATA: Revealed white blood cell count of 2, hemoglobin 7.2, platelet count of 75,000. Chemistries reveal AST 53, ALT 78, alkaline phosphatase of 133, total bilirubin of 1.4. Influenza type serology is negative. IMPRESSION: 1. Pancytopenia with mediastinal lymphadenopathy, shotty, peritoneal lymphadenopathy with splenomegaly and Aditya positive hemolytic anemia, etiology of which is unclear despite multiple bone marrow biopsies and multiple opinions at [facility], [facility], and [facility]. 2. Neck papules, unclear if these are lymph nodes. If there is no resolution, may need a biopsy once his platelet count is being corrected. 3. Elevated liver enzymes with recent biopsy showing periportal inflammation and piecemeal necrosis with some ballooning of hepatocellular cells. RECOMMENDATIONS: 1. We will recheck hepatitis serology. 2. Transfuse packed red blood cells. 3. Continue steroids as per Hematology. 4. Infectious Disease evaluation given recent fever during blood transfusion. Gerardo Quintanilla MD
--- NOTE | 2017-02-01 08:57 | CON ---
DATE: 01/30/2017 HISTORY OF PRESENT ILLNESS: A 56-year-old male with a history of severe pancytopenia of unknown etiology for the past 12 months, who underwent multiple evaluations by director of exhibit development and import/export agent with bone marrow biopsy twice, who was sent to Emergency Room from Hematology office after found to be severely pancytopenic. He complained of his generalized fatigue and weakness of 4 days, associated with episode of diarrhea, loss of appetite, and loss of weight over the past 4 to 5 days. He denies any cough, shortness of breath, sore throat, chest pain, abdominal pain, dysuria or hematuria. PAST MEDICAL HISTORY: As I mentioned is significant for severe pancytopenia. The patient had extensive workup done with multiple rheumatologic and diagnostic tests all negative. He had bone marrow biopsy twice. He was found to have Aditya and anemia, but no other etiology. The patient had liver biopsy and GI workup this summer. He was seen by an infectious disease specialist couple days earlier. His RPR, HIV tests, and CMV tests were all negative. REVIEW OF SYSTEMS: The patient complaints of loss of appetite, weight loss for the last week, chills, and low-grade fever. He denies any sore throat. He denies any dysphagia. He denies any cough, chest pain or heart palpitation. He denies any abdominal pain, nausea or vomiting, but complains of episodes of watery diarrhea for 2 days. He denies any dysuria, hematuria or flank pain. He denies any muscle pain, joint pain, stiffness or swelling. He denies any headaches, blurry vision or neurological weakness. The patient feels depressed and frustrated due to ongoing health problems. He denies any depression symptoms or anxiety. PHYSICAL EXAMINATION: GENERAL: He was alert, awake, and oriented during exam. He was comfortable in bed. VITAL SIGNS: His temperature in the Emergency Room was 101.2 and this morning 98.5, blood pressure was 118/81, respiratory rate was 20, pulse was 90, and oxygen saturation of 99% on room air. HEENT: Eyes; pupils reactive to light. No jaundice. Oral mucosa was very dry. NECK: Supple. No neck masses. No lymphadenopathy. No thyromegaly. LUNGS: Clear to auscultation. HEART: With regular rhythm and rate. ABDOMEN: Soft, nontender, and nondistended. EXTREMITIES: With some trace of edema and chronic superficial varicose veins. Pulses were palpable. NEUROLOGIC: Showed no neurological deficits. DIAGNOSTIC TESTS: Significant for abnormal CBC with leukopenia with WBC of 2, hemoglobin was 7.2 this morning, hematocrit 21, and platelet count today 59 with manual platelet count of 75. Chemistry showed low sodium 129, potassium 3.9, BUN 15, and creatinine 0.7. Random glucose was elevated in the Emergency Room this morning was 127. Uric acid 2. His liver enzymes were elevated with AST of 80 on admission and ALT of 90 and alkaline phosphatase of 133. Urinalysis is significant for protein and large amount of blood, but negative nitrites. Influenza test was negative. Chest x-ray showed nonspecific infiltration in right upper lobes. EKG showed normal sinus rhythm with possible left atrial enlargement. ASSESSMENT: A 56-year-old male admitted for increase of fatigue, severe pancytopenia, and fever of unknown etiology, rule out sepsis. PLAN OF TREATMENT: The patient underwent a septic workup with cultures. He was started on IV Merrem and vancomycin as per recommendation of infectious disease specialist. He had platelet transfusion and due to very low hemoglobin, he will need also blood transfusion. The patient will be evaluated by Gastroenterology due to elevated liver enzymes. We will follow his condition very closely. Denisa Hebert MD MTDD
--- NOTE | 2017-02-01 09:20 | PN ---
DATE: 01/30/2017 SUBJECTIVE: The patient is seen lying in bed. is at bedside. He reports some loose bowel movements. He denies any fevers, chills. He has some cough. He denies any shortness of breath. He denies any headaches. He denies any chest tightness. PHYSICAL EXAMINATION: GENERAL: Middle-aged male, lying in bed. VITAL SIGNS: Blood pressure 128/74, heart rate 87, respiratory rate 20, temperature 102.2. HEENT: Normocephalic, atraumatic, positive pallor. NECK: Supple, no JVD. LUNGS: Bilateral equal entry, rales present. CARDIAC: S1 and S2. Regular rate and rhythm. No murmur, no rub. ABDOMEN: Soft, nondistended, nontender, bowel sounds present. EXTREMITIES: 1+ pitting edema of the lower extremities, hyperpigmentation of the lower legs. INTAKE AND OUTPUT: 4075/1500. LABORATORY DATA: WBC 5, hemoglobin 10.7, hematocrit 31, platelets 37, and manual 50. Sodium 131, potassium 4.2, chloride of 100, CO2 26, BUN 14, creatinine 0.7, glucose 120, calcium 8.7, phosphorus 2.7 magnesium 2.2, total bili 1.7, AST 85, ALT 120, albumin 3.0. Cultures negative. CT of the abdomen and pelvis has no evidence of acute pathology improvement in previously seen peripheral patchy opacities and reticular opacities in the lung. Improvement in upper abdomen and chest lymphadenopathy. CURRENT MEDICATIONS: Anusol, Bactroban, doxycycline, folic acid, insulin, Maalox, Mepron, meropenem prednisone, normal saline at 100, Tylenol, and vancomycin 1 g q. 12 hours. ASSESSMENT AND PLAN: 1. Neutropenic sepsis. 2. Hyponatremia. 3. Nonalcoholic steatohepatitis. 4. Low CD-4 count. PLAN: 1. Continue normal saline at 100. 2. Continue empiric antibiotics as per ID recommendations. 3. The patient to be started on Mepron as per ID. 4. Followup vasculitis workup. Ella Steve MD
--- NOTE | 2017-02-01 09:20 | CP.PCM.PN ---
Subjective - Date & Time of Evaluation Date of Evaluation: 02/01/17 Time of Evaluation: 09:17 - Subjective Subjective: Progress Note for Mary Tsai PGY2 Patient seen and examined at bedside. As per nursing, patient had fever of 103.4 this morning. Patient was given Tylenol. Patient reports feeling feverish , but denies chest pain, shortness of breath, poor appetite, nausea/vomiting/ diarrhea, dysuria/hematuria, chills, constipation, pain, numbness or tingling. He reports his sensation in taste has improved. Patient reports he had diarrhea yesterday, but did not have a BM today. Objective - Vital Signs/Intake and Output Vital Signs (last 24 hours): Temp Pulse Resp BP Pulse Ox 102.0 F H 90 20 131/78 94 L 02/01/17 07:59 02/01/17 07:59 02/01/17 07:59 02/01/17 07:59 02/01/17 07:59 Intake and Output: 02/01/17 02/01/17 06:59 18:59 Intake Total 1740 Output Total 800 Balance 940 - Medications Medications: Current Medications Acetaminophen (Tylenol 325mg Tab) 650 mg PO Q4 PRN PRN Reason: Fever >100.4 F Last Admin: 02/01/17 07:34 Dose: 650 mg Al Hydrox/Mg Hydrox/Simethicone (Maalox Plus 30 Ml) 30 ml PO 0900 PRN PRN Reason: Indigestion / Heartburn Last Admin: 01/30/17 10:23 Dose: 30 ml Atovaquone (Mepron) 750 mg PO BID [facility] Last Admin: 01/31/17 17:43 Dose: 750 mg Folic Acid (Folic Acid) 1 mg PO DAILY [facility] Last Admin: 01/31/17 10:11 Dose: 1 mg Home Med (Home Med) 1 unit PO 0700 [facility] Last Admin: 01/31/17 11:27 Dose: 1 unit Hydrocortisone (Anusol-Hc) 25 mg RC BID [facility] Last Admin: 01/31/17 17:44 Dose: 25 mg Hydrocortisone (Cortizone 1% Cream) 0 gm TOP BID [facility] Sodium Chloride (Sodium Chloride 0.9%) 1,000 mls @ 100 mls/hr IV .Q10H [facility] Last Admin: 02/01/17 04:30 Dose: 100 mls/hr Meropenem 1 gm/ Dextrose 100 mls @ 100 mls/hr IVPB Q8 [facility] PRN Reason: Protocol Stop: 02/04/17 23:46 Last Admin: 02/01/17 05:02 Dose: 100 mls/hr Vancomycin HCl (Vancomycin 1gm) 1 gm in 250 mls @ 167 mls/hr IVPB Q12H [facility] PRN Reason: Protocol Last Admin: 02/01/17 05:00 Dose: 167 mls/hr Doxycycline Hyclate 100 mg/ (Sodium Chloride) 100 mls @ 100 mls/hr IVPB Q12 [facility] PRN Reason: Protocol Last Admin: 01/31/17 22:45 Dose: 100 mls/hr Insulin Human Regular (Humulin R Low) 0 units SC ACHS [facility] PRN Reason: Protocol Last Admin: 01/31/17 22:00 Dose: Not Given Mupirocin (Bactroban Ointment) 0 gm TOP BID [facility] Last Admin: 01/31/17 17:45 Dose: 1 appl Prednisone (Prednisone Tab) 40 mg PO DAILY [facility] Last Admin: 01/31/17 10:11 Dose: 40 mg - Labs Labs: 02/01/17 05:30 02/01/17 05:30 PT 14.3 SECONDS (9.4-12.5) H 01/30/17 07:50 INR 1.29 (0.93-1.08) H 01/30/17 07:50 APTT 28.4 Seconds (25.1-36.5) 01/28/17 19:00 - Constitutional Appears: No Acute Distress - Head Exam Head Exam: ATRAUMATIC, NORMAL INSPECTION, NORMOCEPHALIC - Eye Exam Eye Exam: Normal appearance Pupil Exam: NORMAL ACCOMODATION, PERRL - ENT Exam ENT Exam: Mucous Membranes Moist - Neck Exam Neck Exam: Full ROM - Respiratory Exam Respiratory Exam: Clear to Ausculation Bilateral, NORMAL BREATHING PATTERN. absent: Rales, Rhonchi, Wheezes - Cardiovascular Exam Cardiovascular Exam: Tachycardia, REGULAR RHYTHM, +S1, +S2. absent: Gallop, Rubs, Murmur - GI/Abdominal Exam GI & Abdominal Exam: Soft, Normal Bowel Sounds. absent: Rigid, Tenderness, Mass , Rebound - Extremities Exam Extremities Exam: Normal Inspection, Pedal Edema (+ 1 bilaterally ) - Neurological Exam Neurological Exam: Alert, Awake, CN II-XII Intact, Oriented x3 - Psychiatric Exam Psychiatric exam: Normal Affect, Normal Mood - Skin Skin Exam: Dry, Warm Additional comments: scratch on L neck has scab - Redness on bridge of nose- can be secondary to CPAP. Assessment and Plan - Assessment and Plan (Free Text) Assessment: This is a 56Y male with past medical history of hemorrhoids, pancytopenia of unknown origin with extensive work up, BETANCOURT s/p liver biopsy that was benign, florencia positive anemia, oropharyngeal candidiasis, campylobacter infection who was admitted for pancytopenia with neutropenia, diarrhea, and sepsis. Patient was given 2U of platelets and 3U PRBC. Diarrhea and neutropenia have resolved. Patient continues to be thrombocytopenic and febrile. Plan: 1. SIRS - this can be secondary to infection in diarrhea versus from daughter who accidentally scratched him (pt is immunocompromised) - Pt febrile with Tmax 103.4- tylenol prn - ANC: 3.0- neutropenic precautions d/c - PCT: 0.4 - Pt on Mepron for low CD4/CD8 count- HIV negative - Pt on Doxy, Merrem, and Vanco - ID consulted-recs appreciated - GI consulted- recs appreciated - Urine culture negative, stool culture negative - Will check C. diff - final sputum culture pending - CT chest/abd/pelvis showed decreased size of mediastinal lymphadenopathy- no acute findings- see full report for more details - Patient is on Prednisone 40mg PO as per Pulm - CMV, AFP, aspergillosis pending 2. Pancytopenia - Patient had extensive work up without any clear source - This can be secondary to an autoimmune component - WBC: 4.3, Hgb: 9.7, Plt manual count: 20 - WBC and Hgb improved, Plt continues to decline - Pt s/p 2U platelet and 3U PRBC - Will transfuse 2 more units of platelets - ANC: 3.0 - neutropenic precautions were d/c - CARMELA, ANCA, ESR pending, alpha 1 trypsin and flow cytometry pending - Continue folic acid - Granix 150 SC daily for 5 days total - Will schedule for repeat bone marrow biopsy this week. 3. Hyponatremia - Can be secondary from failure to thrive - Na: 126, Urine sodium: 162 - Pt on NS@100 - Nephro consulted- recs appreciated 4. Non-alcoholic hepatic steatosis with transaminitis - Patient has transaminitis can be secondary to BETANCOURT versus medications - patient had abnormal liver enzymes with biopsy that did not show any abnormalities - Pt also had mediastinal lymph nodes in past that were biopsied without any abnormalities - GI consulted- recs appreciated - Alpha 1 antitrypsin pending - Hep panel negative - Will continue to monitor LFTs 5. Hemorrhoids - Anusol scheduled - Monitor for bleeding 6. Diabetes - Glucose noted to be high- HgbA1c as outpatient was 6.8 - Pt on ISS - Continue to monitor blood glucose 7. Decreased sensation of taste- resolved - Can be secondary to esophageal candidiasis - No oral thrush was seen on exam, but can be within the esophagus. - Pt was taking Nystatin on and off at home - GI on consult- recs appreciated GI ppx: Dexliant (from home) DVT ppx: SCDs Case seen, discussed and reviewed with Dr. Perez. Mary Santamaria PGY2
[2017-02-01 09:32] LABS: ERYTHROCYTE SEDIMENTATION RATE 110 mm/hr (0.00-15.0)
[2017-02-01] MEDS: Atovaquone 750 mg/5 ml Susp UD PO SCH ×2 (09:39→18:10)
[2017-02-01] MEDS: Alum-Mag Hydrox-Simethicone Susp (30 mL) PO PRN (09:53)
[2017-02-01] MEDS ORDERED: POLYETHYLENE GLYCOL 3350 17 GM/Dose PACKET PO PRN (10:53)
[2017-02-01] MEDS ORDERED: Mineral Oil (480 ml) PO PRN (11:09)
[2017-02-01] MEDS ORDERED: Mineral Oil Light Sterile 25 ml TOP ONE (11:30)
--- NOTE | 2017-02-01 12:14 | CP.PCM.PN ---
Subjective - Date & Time of Evaluation Date of Evaluation: 02/01/17 Time of Evaluation: 11:20 - Subjective Subjective: Patient is still having fevers, still feels weak, denies nausea or vomiting, no headache, no sore throat, no mouth pain, no dysphagia or odynophagia, no dysuria , no diarrhea, no abdominal pain, no SOB, no cough. Objective - Vital Signs/Intake and Output Vital Signs (last 24 hours): Temp Pulse Resp BP Pulse Ox 102.0 F H 90 20 131/78 94 L 02/01/17 07:59 02/01/17 07:59 02/01/17 07:59 02/01/17 07:59 02/01/17 07:59 Intake and Output: 02/01/17 02/01/17 06:59 18:59 Intake Total 1740 Output Total 800 Balance 940 - Medications Medications: Current Medications Acetaminophen (Tylenol 325mg Tab) 650 mg PO Q4 PRN PRN Reason: Fever >100.4 F Last Admin: 02/01/17 07:34 Dose: 650 mg Al Hydrox/Mg Hydrox/Simethicone (Maalox Plus 30 Ml) 30 ml PO 0900 PRN PRN Reason: Indigestion / Heartburn Last Admin: 02/01/17 09:53 Dose: 30 ml Atovaquone (Mepron) 750 mg PO BID [facility] Last Admin: 02/01/17 09:39 Dose: 750 mg Folic Acid (Folic Acid) 1 mg PO DAILY [facility] Last Admin: 02/01/17 09:39 Dose: 1 mg Home Med (Home Med) 1 unit PO 0700 [facility] Last Admin: 01/31/17 11:27 Dose: 1 unit Hydrocortisone (Anusol-Hc) 25 mg RC BID [facility] Last Admin: 02/01/17 09:38 Dose: 25 mg Hydrocortisone (Cortizone 1% Cream) 0 gm TOP BID [facility] Sodium Chloride (Sodium Chloride 0.9%) 1,000 mls @ 100 mls/hr IV .Q10H [facility] Last Admin: 02/01/17 04:30 Dose: 100 mls/hr Meropenem 1 gm/ Dextrose 100 mls @ 100 mls/hr IVPB Q8 [facility]ID PRN Reason: Protocol Stop: 02/04/17 23:46 Last Admin: 02/01/17 05:02 Dose: 100 mls/hr Vancomycin HCl (Vancomycin 1gm) 1 gm in 250 mls @ 167 mls/hr IVPB Q12H [facility] PRN Reason: Protocol Last Admin: 02/01/17 05:00 Dose: 167 mls/hr Doxycycline Hyclate 100 mg/ (Sodium Chloride) 100 mls @ 100 mls/hr IVPB Q12 [facility] PRN Reason: Protocol Last Admin: 02/01/17 09:40 Dose: 100 mls/hr Insulin Human Regular (Humulin R Low) 0 units SC ACHS [facility] PRN Reason: Protocol Last Admin: 01/31/17 22:00 Dose: Not Given Mupirocin (Bactroban Ointment) 0 gm TOP BID [facility] Last Admin: 01/31/17 17:45 Dose: 1 appl Polyethylene Glycol (Miralax) 17 gm PO BID PRN PRN Reason: Constipation Prednisone (Prednisone Tab) 40 mg PO DAILY [facility] Last Admin: 02/01/17 09:39 Dose: 40 mg - Labs Labs: 02/01/17 05:30 02/01/17 05:30 PT 14.3 SECONDS (9.4-12.5) H 01/30/17 07:50 INR 1.29 (0.93-1.08) H 01/30/17 07:50 APTT 28.4 Seconds (25.1-36.5) 01/28/17 19:00 - Constitutional Appears: Chronically Ill - Head Exam Head Exam: NORMAL INSPECTION - Neck Exam Neck Exam: absent: Lymphadenopathy, Meningismus - Respiratory Exam Respiratory Exam: Decreased Breath Sounds - Cardiovascular Exam Cardiovascular Exam: +S1, +S2 - GI/Abdominal Exam GI & Abdominal Exam: Soft. absent: Tenderness Assessment and Plan - Assessment and Plan (Free Text) Plan: Assessment Systemic Inflammatory Response Syndome, R/O sepsis etiology to be determined Pancytopenia, etiology to be determined hemorrhoids history of non-alcoholic steatohepatitis Plan follow up final blood cx, urine cx results (negative so far) - will repeat blood cx; PCT is 0.4; CT C/A/P shows lung fibrosis but no acute pathology; continue Vancomycin and Merrem day 4 and Doxycycline; follow up blood AFB cx, Fungitell, Galactomannan, CMV PCR continue Mepron since CD4/CD8 ratio is low and patient is on chronic steroids reviewed work up done by Dr. Weston from [facility] which did not show acute EBV infection, no HIV, negative RPR will continue to monitor clinically discussed with Dr. Fernández previously
[2017-02-01] MEDS ORDERED: DiphenhydrAMINE 50 mg/ml Inj IVP STA (16:20)
--- NOTE | 2017-02-01 16:54 | CP.PCM.PN ---
<Delvis Zimmerman - Last Filed: 02/01/17 16:45> Subjective - Date & Time of Evaluation Date of Evaluation: 02/01/17 Time of Evaluation: 16:45 - Subjective Subjective: Notified by resident about re-consult for ICU. Patient known to the ICU service from prior consult. Patient was getting a unit of platelets today at around 3PM for Platelet count of 20. Soon after transfusion, patient was found to have vigorous shaking which lasted about 10 mins. Patient does report a fever overnight, however, none since then. Patient does c/o chills. Denies any N/V/D. No Abd pain. No CP/SOB. No other complaints. Patient received Benadryl 25mg IV when he was noted to have shakes. Currently, patient's vital signs are stable. Objective - Vital Signs/Intake and Output Vital Signs (last 24 hours): Temp Pulse Resp BP Pulse Ox 99.6 F 86 22 116/74 94 L 02/01/17 16:00 02/01/17 16:00 02/01/17 16:00 02/01/17 16:00 02/01/17 16:00 Intake and Output: 02/01/17 02/01/17 06:59 18:59 Intake Total 1740 1031 Output Total 800 Balance 940 1031 - Medications Medications: Current Medications Acetaminophen (Tylenol 325mg Tab) 650 mg PO Q4 PRN PRN Reason: Fever >100.4 F Last Admin: 02/01/17 07:34 Dose: 650 mg Al Hydrox/Mg Hydrox/Simethicone (Maalox Plus 30 Ml) 30 ml PO 0900 PRN PRN Reason: Indigestion / Heartburn Last Admin: 02/01/17 09:53 Dose: 30 ml Atovaquone (Mepron) 750 mg PO BID [facility] Last Admin: 02/01/17 09:39 Dose: 750 mg Folic Acid (Folic Acid) 1 mg PO DAILY [facility] Last Admin: 02/01/17 09:39 Dose: 1 mg Home Med (Home Med) 1 unit PO 0700 [facility] Last Admin: 01/31/17 11:27 Dose: 1 unit Hydrocortisone (Anusol-Hc) 25 mg RC BID [facility] Last Admin: 02/01/17 09:38 Dose: 25 mg Hydrocortisone (Cortizone 1% Cream) 0 gm TOP BID [facility] Meropenem 1 gm/ Dextrose 100 mls @ 100 mls/hr IVPB Q8 DAVID PRN Reason: Protocol Stop: 02/04/17 23:46 Last Admin: 02/01/17 05:02 Dose: 100 mls/hr Vancomycin HCl (Vancomycin 1gm) 1 gm in 250 mls @ 167 mls/hr IVPB Q12H [facility] PRN Reason: Protocol Last Admin: 02/01/17 05:00 Dose: 167 mls/hr Doxycycline Hyclate 100 mg/ (Sodium Chloride) 100 mls @ 100 mls/hr IVPB Q12 [facility]ID PRN Reason: Protocol Last Admin: 02/01/17 09:40 Dose: 100 mls/hr Potassium Phosphate 20 mmole/ (Sodium Chloride) 1,006.6667 mls @ 100 mls/hr IV .Q10H4M [facility] Insulin Human Regular (Humulin R Low) 0 units SC ACHS [facility] PRN Reason: Protocol Last Admin: 01/31/17 22:00 Dose: Not Given Mineral Oil (Mineral Oil Heavy) 30 ml PO DAILY PRN PRN Reason: Constipation Mupirocin (Bactroban Ointment) 0 gm TOP BID [facility] Last Admin: 01/31/17 17:45 Dose: 1 appl Polyethylene Glycol (Miralax) 17 gm PO BID PRN PRN Reason: Constipation Potassium Phos/Sodium Phos (Neutra-Phos) 1 pkt PO BID [facility] Prednisone (Prednisone Tab) 40 mg PO DAILY [facility] Last Admin: 02/01/17 09:39 Dose: 40 mg - Labs Labs: 02/01/17 05:30 02/01/17 05:30 PT 14.3 SECONDS (9.4-12.5) H 01/30/17 07:50 INR 1.29 (0.93-1.08) H 01/30/17 07:50 APTT 28.4 Seconds (25.1-36.5) 01/28/17 19:00 - Constitutional Appears: No Acute Distress - Head Exam Head Exam: ATRAUMATIC, NORMAL INSPECTION, NORMOCEPHALIC - Eye Exam Eye Exam: EOMI - ENT Exam ENT Exam: Mucous Membranes Moist - Respiratory Exam Respiratory Exam: Clear to Ausculation Bilateral, NORMAL BREATHING PATTERN. absent: Respiratory Distress - Cardiovascular Exam Cardiovascular Exam: RRR. absent: JVD - GI/Abdominal Exam GI & Abdominal Exam: Soft. absent: Guarding, Rigid, Tenderness - Extremities Exam Extremities Exam: Normal Inspection. absent: Calf Tenderness, Pedal Edema - Neurological Exam Neurological Exam: Alert, Awake, Oriented x3 - Psychiatric Exam Psychiatric exam: Normal Affect, Normal Mood - Skin Skin Exam: Dry, Intact, Normal Color, Warm Assessment and Plan - Assessment and Plan (Free Text) Assessment: 56yo M with possible transfusion reaction. Patient's vital signs stable. Afebrile, hemodynamically stable, comfortable on 2L NC not hypoxic, Not tachycardic. Alert and Oriented x3. - Patient will full memory of event thus seizure low probability Plan: - Recommend pre-medicating the patient prior to any further transfusions - at this time, continue tele monitoring - please re-consult the ICU team if patient's status changes Patient discussed, seen and evaluated with Dr. Suhas Zimmerman PGY1 <Federico Dai - Last Filed: 02/01/17 17:18> Objective - Vital Signs/Intake and Output Vital Signs (last 24 hours): Temp Pulse Resp BP Pulse Ox 99.6 F 86 22 116/74 94 L 02/01/17 16:00 02/01/17 16:00 02/01/17 16:00 02/01/17 16:00 02/01/17 16:00 Intake and Output: 02/01/17 02/01/17 06:59 18:59 Intake Total 1740 1031 Output Total 800 Balance 940 1031 - Medications Medications: Current Medications Acetaminophen (Tylenol 325mg Tab) 650 mg PO Q4 PRN PRN Reason: Fever >100.4 F Last Admin: 02/01/17 07:34 Dose: 650 mg Al Hydrox/Mg Hydrox/Simethicone (Maalox Plus 30 Ml) 30 ml PO 0900 PRN PRN Reason: Indigestion / Heartburn Last Admin: 02/01/17 09:53 Dose: 30 ml Atovaquone (Mepron) 750 mg PO BID [facility] Last Admin: 02/01/17 09:39 Dose: 750 mg Folic Acid (Folic Acid) 1 mg PO DAILY [facility] Last Admin: 02/01/17 09:39 Dose: 1 mg Home Med (Home Med) 1 unit PO 0700 [facility] Last Admin: 01/31/17 11:27 Dose: 1 unit Hydrocortisone (Anusol-Hc) 25 mg RC BID [facility] Last Admin: 02/01/17 09:38 Dose: 25 mg Hydrocortisone (Cortizone 1% Cream) 0 gm TOP BID [facility] Meropenem 1 gm/ Dextrose 100 mls @ 100 mls/hr IVPB Q8 [facility] PRN Reason: Protocol Stop: 02/04/17 23:46 Last Admin: 02/01/17 05:02 Dose: 100 mls/hr Vancomycin HCl (Vancomycin 1gm) 1 gm in 250 mls @ 167 mls/hr IVPB Q12H [facility] PRN Reason: Protocol Last Admin: 02/01/17 05:00 Dose: 167 mls/hr Doxycycline Hyclate 100 mg/ (Sodium Chloride) 100 mls @ 100 mls/hr IVPB Q12 [facility] PRN Reason: Protocol Last Admin: 02/01/17 09:40 Dose: 100 mls/hr Potassium Phosphate 20 mmole/ (Sodium Chloride) 1,006.6667 mls @ 100 mls/hr IV .Q10H4M [facility] Insulin Human Regular (Humulin R Low) 0 units SC ACHS [facility] PRN Reason: Protocol Last Admin: 01/31/17 22:00 Dose: Not Given Mineral Oil (Mineral Oil Heavy) 30 ml PO DAILY PRN PRN Reason: Constipation Mupirocin (Bactroban Ointment) 0 gm TOP BID [facility] Last Admin: 01/31/17 17:45 Dose: 1 appl Polyethylene Glycol (Miralax) 17 gm PO BID PRN PRN Reason: Constipation Potassium Phos/Sodium Phos (Neutra-Phos) 1 pkt PO BID [facility] Prednisone (Prednisone Tab) 40 mg PO DAILY [facility] Last Admin: 02/01/17 09:39 Dose: 40 mg - Labs Labs: 02/01/17 05:30 02/01/17 05:30 PT 14.3 SECONDS (9.4-12.5) H 01/30/17 07:50 INR 1.29 (0.93-1.08) H 01/30/17 07:50 APTT 28.4 Seconds (25.1-36.5) 01/28/17 19:00 Assessment and Plan - Assessment and Plan (Free Text) Assessment: Patient seen and examined with resident, agree with note with following exceptions/additions: 56yo male with PMHx of thrombocytopenia, campelobacter infection, a/w pancytopenia, being currently worked up for it, s/p platelet transfusion earlier after which he developed rigorous shaking, with NO fever, or HD compromise. Doubtful patient had seizure as he was awake during the entire episode. Currently awake, alert, NAD, comfortable on 2LNC, HD stable, afebrile. Recommend: - consider pre-medicating with Benadryl prior to any further blood transfusion products - antibiotics as per ID - continue care on telemetry - re-consult ICU if patients clinical status changes
[2017-02-01] MEDS: Potassium & Sodium Phosphate PO SCH (18:13)
[2017-02-01] MEDS: Potassium Phosphate 20 MMOLE in Sodium Chloride 0.9% 1,000 ML IV SCH (20:41)
--- NOTE | 2017-02-02 00:03 | PN ---
PULMONARY PROGRESS NOTE DATE: 02/01/2017 REFERRING PHYSICIAN: Dr. Herb Fernández. SUBJECTIVE: He is sitting up in bed. is at bedside. Received IV platelets. Ends up with fever up to 103. Steroids and Benadryl given. Presently feels much better. PHYSICAL EXAMINATION: VITAL SIGNS: Temperature 99.3, heart rate is 86, respiratory rate is 20, blood pressure 116/74 and pulse ox is 94% on nasal cannula. HEENT: Moist mucous membrane. Carotid airway. Mallampati score is 4. NECK: Supple. No JVD. LUNGS: Fair airflow with a few rhonchi. HEART: S1 and S2. ABDOMEN: Soft and nontender. No organomegaly. EXTREMITIES: There is no edema. NEUROLOGICAL: Awake and alert. Follows simple commands. MEDICATIONS: He is on Anusol 25 mg rectally twice a day, doxycycline 100 mg twice a day, folic acid 1 mg daily, insulin coverage, simethicone 30 mL p.r.n. basis, started on Mepron 750 mg twice a day, meropenem 1 g q. 8 hours, mineral oil for constipation, Miralax 17 g twice a day, Neutra-Phos twice a day, potassium and phosphorus IV, prednisone 40 mg daily, Tylenol p.r.n. and vancomycin 1 g IV q. 12 hours. LABORATORY DATA: Shows hemoglobin 9.2, hematocrit 27.4, WBC 4.8, and platelet count is 15 and manually is 20. Sodium 126, potassium 3.6, chloride 97, bicarbonate 25, BUN 12, creatinine 0.7, glucose 187, hemoglobin A1c 7.2, calcium is 7.8, phosphorus 1.7, magnesium 2.0, AST 107, ALT 159, alkaline phosphatase is 310 and albumin is 2.5. Microbiology; stool for C. diff is negative. Sputum has some gram-negative rods which is a moderate growth. IMPRESSION AND PLAN: Sepsis, fever up to 103 today, pancytopenia and thrombocytopenia requiring platelet transfusion, being treated for autoimmune disease on top of the latest sarcoidosis, has hemorrhoids, spike fever up to 103 after platelet transfusion, has sleep apnea syndrome, tolerated continuous positive airway pressure well last night. Spoke to the patient's at bedside. All the questions answered. The patient is being followed by infectious diseases. Question is are we dealing with opportunistic infection? lymphoma? So far, no yield after a number of sites of biopsy. I believe he had the PPD in the past which was no reaction. Will suggest sending TB Gold test. I do not find any recent results. Continue hematology/oncology and ID followup. Follow up labs in the morning. Thank you and we will follow with you. Ant Lai MD
[2017-02-02] MEDS: Vancomycin 1gm in NS 250ml 1 GM/250 ML BAG IVPB SCH ×2 (04:22→22:46)
[2017-02-02] MEDS: Meropenem 1 GM in Dextrose 5% In Water 100 ML IVPB SCH ×3 (06:18→21:31)
[2017-02-02 06:51] LABS: ALB/GLOB RATIO 0.7 (1.1-1.8); ALKALINE PHOSPHATASE 369 U/L (38-126); ALT/SGPT 235 U/L (7-56); AST/SGOT 102 U/L (17-59); BLOOD UREA NITROGEN 12 mg/dL (7-21); CARBON DIOXIDE 25 mmol/L (21-33); CHLORIDE 100 mmol/L (95-110); GFR AFRICAN-AMERICAN > 60; GLUCOSE,RANDOM 153 mg/dL (70-110); MAGNESIUM 2.1 mg/dL (1.7-2.2); PHOSPHOROUS 3.3 mg/dL (2.5-4.5); POTASSIUM 3.8 mmol/L (3.6-5.0); SODIUM 131 mmol/L (132-148); TOTAL PROTEIN 6.8 g/dL (5.8-8.3)
[2017-02-02 06:54] LABS: GRAN # 1.74 (1.4-6.5); GRAN % 76.3 % (50.0-68.0); HEMATOCRIT 29.2 % (42.0-52.0); LYMPH # 0.4 (1.2-3.4); MEAN CELL VOLUME 101.4 fl (80.0-105.0); MEAN CORPUSCULAR HEMOGLOBIN 33.7 pg (25.0-35.0); MEAN CORPUSCULAR HGB CONC 33.2 g/dl (31.0-37.0); MEAN PLATELET VOLUME 10.1 fl (7.0-11.0); MONO # 0.1 (0.1-0.6); MONO % 5.7 % (1.0-6.0); RED CELL DISTRIBUTION WIDTH 20.9 % (11.5-14.5)
[2017-02-02 06:59] LABS: WHITE BLOOD COUNT 2.3 10^3/ul (4.5-11.0)
[2017-02-02] MEDS: Insulin Reg-LOW-Coverage SC SCH ×4 (07:19→22:45)
[2017-02-02 07:21] LABS: BILIRUBIN,TOTAL 1.5 mg/dL (0.2-1.3)
[2017-02-02] MEDS: DEXILANT 60 MG PO SCH (08:08)
--- NOTE | 2017-02-02 08:13 | PN ---
DATE: 02/01/2017 SUBJECTIVE: The patient was admitted for severe fatigue and fever. He has improved appetite but continues with high fever, temperature 102 this morning. He denies any cough, chest pain, abdominal pain. PHYSICAL EXAMINATION GENERAL: The patient looks comfortable, diaphoretic. VITAL SIGNS: Temperature 103.4 this morning, pulse 90, regular, blood pressure 131/78, respiratory rate 20 and oxygen saturation 97% on room air. HEENT: Head normocephalic and atraumatic. Eyes pupils reactive to light. No jaundice. Oral mucosa is moist. NECK: Supple. LUNGS: Decreased breath sounds and enlarged lungs. HEART: With regular rhythm and rate. ABDOMEN: Soft, nontender and nondistended. EXTREMITIES: With no edema. DIAGNOSTIC DATA: This morning significant for hemoglobin stable 9.2, hematocrit 27.4, his white count is 4.8 and platelet count dropped again to 15 with manual 20. His sed rate is high 120. Persistent hyponatremia with sodium 126, potassium 3.6, BUN 12, creatinine is 0.7. His glucose remains elevated. Hemoglobin A1c 7.2. The patient is on prednisone for the past few weeks. His liver enzymes are elevated. Alkaline phosphatase high. Procalcitonin level during hospitalizations was negative. Stool for Clostridium difficile is negative. Preliminary sputum culture show gram-negative rods. Blood culture preliminary are negative. ASSESSMENT: 1. Systemic inflammatory response syndrome. Rule out sepsis. The patient remains on broad-spectrum antibiotics, doxycycline, Merrem and vancomycin. His cultures are still pending. 2. Severe pancytopenia with drop of platelets again. The patient will be evaluated for a platelet transfusion. 3. Abnormal chest x-ray with possible sarcoidosis. 4. Persistent hyponatremia. 5. Abnormal liver enzymes uncertain etiology possibly secondary to medications. PLAN OF TREATMENT: Followup cultures. Followup immunology and serology testing. Continue prednisone 40 mg with gastric protection. Continue IV antibiotics until final cultures. Denisa Hebert MD MTDMacey
--- NOTE | 2017-02-02 08:31 | PN ---
SUBJECTIVE: The patient is sitting up in bed. He continues to have fevers. The patient admits to some constipation but denies any rectal bleeding. He denies dysphagia, odynophagia, rectal bleeding, abdominal pain. His temperature at 7:30 this morning was 103. PHYSICAL EXAMINATION: VITAL SIGNS: Currently, reveal blood pressure 131/78, heart rate 90. HEENT: Reveal sclerae to be white. Conjunctiva pink. NECK: Supple. CHEST: Reveal lungs to be clear. HEART: Reveals a regular rate and rhythm. ABDOMEN: Soft, nontender, no mass. EXTREMITIES: Show no edema. LABORATORY DATA: Reveal white blood cell count of 4.8, hemoglobin 9.2, platelet count down to 20,000. Serologies reveal hepatitis serology negative. Chemistries reveal sodium of 126, AST 107, ALT 157, alkaline phosphatase of 310. IMPRESSION: 1. Fever with negative blood cultures, most likely systemic inflammatory response syndrome. 2. Pancytopenia. 3. Nonalcoholic steatohepatitis. 4. Constipation. 5. Hemorrhoids. RECOMMENDATIONS: 1. The patient is to receive platelet transfusions. 2. The patient is to receive Granix. 3. Continue broad-spectrum antibiotics. 4. The patient is to start MiraLax 17 g twice a day as needed for constipation. Gerardo Quintanilla MD MTDD
--- NOTE | 2017-02-02 08:32 | PN ---
DATE: 02/01/2017 SUBJECTIVE: The patient is seen, lying in bed. He has depressed affect. He complains of alternating sweats and fever. He denies any pain. He denies any nausea or vomiting. PHYSICAL EXAMINATION GENERAL: A middle-aged male lying in bed. VITAL SIGNS: Blood pressure 113/72, heart rate 82, respiratory rate 18 and temperature 98.1. HEENT: Normocephalic and atraumatic. Positive pallor. NECK: Supple. No JVD. LUNGS: Bilateral equal entry. Bilateral equal expansion. No rales. CARDIAC: S1 and S2, regular rate and rhythm, no murmur, no rub. ABDOMEN: Obese, distended, soft and nontender. Bowel sounds present. EXTREMITIES: Chronic stasis changes. 1+ pitting edema of the lower extremities. INTAKE/OUTPUT: 1740/800. LABORATORY DATA: WBC 4.8, hemoglobin 9.2, hematocrit 27 and platelets 15, manual platelet count 20. Sodium 126, potassium 3.6, chloride 97, CO2 25, BUN 12, creatinine 0.7, glucose 94, calcium 7.8, phosphorous 1.7, magnesium 2.0. A1c 7.2. AST 107, ALT 159. Albumin 2.5. Corrected calcium is 8.9. Urinalysis yellow clear, pH 6.0, specific gravity 1.020, protein 30, glucose greater than 1000, ketones trace, blood small, complements normal. ESR 110. Cultures negative. MEDICATIONS: Anusol, Bactroban, cortisone, doxycycline 100 q. 12, folic acid, insulin, Maalox, Mepron, meropenem 1 g q. 12, MiraLax, prednisone 40, sodium chloride 100 mL per hour, Tylenol and vancomycin 1 g. ASSESSMENT: 1. Hyponatremia. Syndrome of inappropriate antidiuretic hormone. Etiology of syndrome of inappropriate antidiuretic hormone is unclear. 2. Hypokalemia. 3. Hypophosphatemia. 4. Nonalcoholic steatohepatitis. 5. Pancytopenia. 6. Severe thrombocytopenia. 7. Status post neutropenic sepsis. PLAN: 1. Restrict p.o. free fluids. 2. Neutra-Phos 1 packet b.i.d. 3. K-Phos. 4. Random urine protein. 5. Random urine creatinine. 6. Add potassium phosphate 20 millimoles to IV fluids. Ella Steve MD [facility] # [id number]
[2017-02-02] MEDS: Hydrocortisone 1% Cream (30 GM) TOP SCH ×2 (10:06→18:24)
--- NOTE | 2017-02-02 10:09 | CP.PCM.PN ---
Subjective - Date & Time of Evaluation Date of Evaluation: 02/02/17 Time of Evaluation: 10:04 - Subjective Subjective: Progress Note for Mary Tsai PGY2 Patient seen and examined at bedside. Yesterday patient had increased chills after receiving one unit of platelets. He was given Solu-cortef and benadryl and his symptoms resolved. Patient was evaluated by ICU who reports patient is stable to stay on the floor. Overnight there were no acute events as per nursing. This morning patient reports having a soft BM, but no diarrhea. He was afebrile overnight. He reports he has decreased appetite, but denies chest pain , shortness of breath, chills, nausea/vomiting/diarrhea, numbness or tingling. Objective - Vital Signs/Intake and Output Vital Signs (last 24 hours): Temp Pulse Resp BP Pulse Ox 98 F 82 20 110/72 100 02/02/17 08:25 02/02/17 08:25 02/02/17 08:25 02/02/17 08:25 02/02/17 08:25 Intake and Output: 02/02/17 02/02/17 06:59 18:59 Intake Total 2820 Output Total 1650 Balance 1170 - Medications Medications: Current Medications Acetaminophen (Tylenol 325mg Tab) 650 mg PO Q4 PRN PRN Reason: Fever >100.4 F Last Admin: 02/01/17 07:34 Dose: 650 mg Al Hydrox/Mg Hydrox/Simethicone (Maalox Plus 30 Ml) 30 ml PO 0900 PRN PRN Reason: Indigestion / Heartburn Last Admin: 02/01/17 09:53 Dose: 30 ml Atovaquone (Mepron) 750 mg PO BID [facility] Last Admin: 02/01/17 18:10 Dose: 750 mg Folic Acid (Folic Acid) 1 mg PO DAILY [facility] Last Admin: 02/01/17 09:39 Dose: 1 mg Home Med (Home Med) 1 unit PO 0700 [facility] Last Admin: 02/02/17 08:08 Dose: 1 unit Hydrocortisone (Anusol-Hc) 25 mg RC BID [facility] Last Admin: 02/01/17 18:10 Dose: 25 mg Hydrocortisone (Cortizone 1% Cream) 0 gm TOP BID [facility] Meropenem 1 gm/ Dextrose 100 mls @ 100 mls/hr IVPB Q8 [facility] PRN Reason: Protocol Stop: 02/04/17 23:46 Last Admin: 02/02/17 06:18 Dose: 100 mls/hr Vancomycin HCl (Vancomycin 1gm) 1 gm in 250 mls @ 167 mls/hr IVPB Q12H [facility] PRN Reason: Protocol Last Admin: 02/02/17 04:22 Dose: 167 mls/hr Doxycycline Hyclate 100 mg/ (Sodium Chloride) 100 mls @ 100 mls/hr IVPB Q12 [facility] PRN Reason: Protocol Last Admin: 02/01/17 21:14 Dose: 100 mls/hr Potassium Phosphate 20 mmole/ (Sodium Chloride) 1,006.6667 mls @ 100 mls/hr IV .Q10H4M [facility] Last Admin: 02/01/17 20:41 Dose: 100 mls/hr Insulin Human Regular (Humulin R Low) 0 units SC ACHS [facility] PRN Reason: Protocol Last Admin: 02/01/17 22:00 Dose: Not Given Mineral Oil (Mineral Oil Heavy) 30 ml PO DAILY PRN PRN Reason: Constipation Mupirocin (Bactroban Ointment) 0 gm TOP BID [facility] Last Admin: 02/01/17 19:02 Dose: 1 appl Polyethylene Glycol (Miralax) 17 gm PO BID PRN PRN Reason: Constipation Potassium Phos/Sodium Phos (Neutra-Phos) 1 pkt PO BID [facility] Last Admin: 02/01/17 18:13 Dose: 1 pkt Prednisone (Prednisone Tab) 40 mg PO DAILY [facility] Last Admin: 02/01/17 09:39 Dose: 40 mg - Labs Labs: 02/02/17 06:28 02/02/17 06:28 PT 14.3 SECONDS (9.4-12.5) H 01/30/17 07:50 INR 1.29 (0.93-1.08) H 01/30/17 07:50 APTT 28.4 Seconds (25.1-36.5) 01/28/17 19:00 - Constitutional Appears: No Acute Distress - Head Exam Head Exam: ATRAUMATIC, NORMAL INSPECTION, NORMOCEPHALIC - Eye Exam Eye Exam: PERRL Pupil Exam: PERRL - ENT Exam ENT Exam: Mucous Membranes Moist - Neck Exam Neck Exam: Full ROM - Respiratory Exam Respiratory Exam: Clear to Ausculation Bilateral, NORMAL BREATHING PATTERN. absent: Rales, Rhonchi, Wheezes - Cardiovascular Exam Cardiovascular Exam: REGULAR RHYTHM, +S1, +S2. absent: Gallop, Rubs, Murmur - GI/Abdominal Exam GI & Abdominal Exam: Soft, Normal Bowel Sounds. absent: Rigid, Tenderness, Mass , Rebound - Extremities Exam Extremities Exam: Full ROM, Normal Inspection, Pedal Edema (+ 1 bilaterally ) - Neurological Exam Neurological Exam: Alert, Awake, CN II-XII Intact, Oriented x3 - Psychiatric Exam Psychiatric exam: Normal Affect, Normal Mood - Skin Skin Exam: Dry, Warm Assessment and Plan - Assessment and Plan (Free Text) Assessment: This is a 56Y male with past medical history of hemorrhoids, pancytopenia of unknown origin with extensive work up, BETANCOURT s/p liver biopsy that was benign, florencia positive anemia, oropharyngeal candidiasis, campylobacter infection who was admitted for pancytopenia with neutropenia, diarrhea, and sepsis. Patient was given 3U of platelets and 3U PRBC. Diarrhea and neutropenia have resolved. Plan: 1. SIRS - this can be secondary to infection in diarrhea versus from daughter who accidentally scratched him (pt is immunocompromised) - Patient is afebrile this AM - ID on consult- continue Doxy, Merrem and Vanco - Sputum culture positive for gram negative jong - Both Urine and stool culture negative - Continue Mepron for low CD4/CD8 count - Pt HIV negative - GI consulted for diarrhea- recs appreciated - C. diff negative - CT chest/abd/pelvis showed decreased size of mediastinal lymphadenopathy- no acute findings- see full report for more details - Patient is on Prednisone 40mg PO as per Pulm - CMV, AFP, aspergillosis pending 2. Pancytopenia - Patient had extensive work up without any clear source - This can be secondary to an autoimmune component - Will obtain amyloid stain on both bone marrow and liver biopsies - WBC: 2.3, Hgb: 9.7, Plt manual count: 45 (increased from 20 after 1U platelet ) - ANC: 1.7- will re-instate neutropenic precaution if <1.5 - s/p 3U platelet and 3U PRBC total - Flow cytometry normal - Repeat bone marrow biopsy today - CARMELA, ANCA, ESR pending, alpha 1 trypsin pending - Continue folic acid and Granix 150 SC daily 3. Hyponatremia - Can be secondary from failure to thrive - Na: 131, Urine sodium: 162 - Pt on NS@100 - Continue to monitor electrolytes - Nephro consulted- recs appreciated 4. Non-alcoholic hepatic steatosis with transaminitis - Patient has transaminitis can be secondary to BETANCOURT versus medications - Liver biopsy in past did not show any abnormalities- will obtain amyloid stain on biopsy - GI consulted- recs appreciated - Hep panel negative 5. Hemorrhoids - Anusol scheduled - no overt signs of bleeding - Hgb stable 6. Diabetes - HgbA1c: 7.2 - Continue ISS and to monitor blood glucose 7. Decreased sensation of taste- resolved - Can be secondary to esophageal candidiasis - No oral thrush was seen on exam, but can be within the esophagus. - Pt was taking Nystatin on and off at home - GI on consult- recs appreciated GI ppx: Dexliant (from home) DVT ppx: SCDs Case seen, discussed and reviewed with Dr. Perez. Mary Santamaria PGY2
[2017-02-02] MEDS: Alum-Mag Hydrox-Simethicone Susp (30 mL) PO PRN (10:12)
[2017-02-02] MEDS: Atovaquone 750 mg/5 ml Susp UD PO SCH ×2 (10:16→21:16)
[2017-02-02] MEDS: Potassium & Sodium Phosphate PO SCH (10:24)
[2017-02-02] MEDS: Potassium Phosphate 20 MMOLE in Sodium Chloride 0.9% 1,000 ML IV SCH (10:26)
--- NOTE | 2017-02-02 12:06 | CP.PCM.PN ---
Subjective - Date & Time of Evaluation Date of Evaluation: 02/02/17 Time of Evaluation: 11:05 - Subjective Subjective: Patient is still having intermittent fevers, no abdominal pain, no diarrhea, no sore throat, having cough. Objective - Vital Signs/Intake and Output Vital Signs (last 24 hours): Temp Pulse Resp BP Pulse Ox 100.9 F H 82 20 110/72 100 02/02/17 10:16 02/02/17 08:25 02/02/17 08:25 02/02/17 08:25 02/02/17 08:25 Intake and Output: 02/02/17 02/02/17 06:59 18:59 Intake Total 2820 Output Total 1650 Balance 1170 - Medications Medications: Current Medications Acetaminophen (Tylenol 325mg Tab) 650 mg PO Q4 PRN PRN Reason: Fever >100.4 F Last Admin: 02/02/17 10:16 Dose: 650 mg Al Hydrox/Mg Hydrox/Simethicone (Maalox Plus 30 Ml) 30 ml PO 0900 PRN PRN Reason: Indigestion / Heartburn Last Admin: 02/02/17 10:12 Dose: 30 ml Atovaquone (Mepron) 750 mg PO BID [facility] Last Admin: 02/02/17 10:16 Dose: 750 mg Folic Acid (Folic Acid) 1 mg PO DAILY [facility] Last Admin: 02/02/17 10:17 Dose: 1 mg Home Med (Home Med) 1 unit PO 0700 [facility] Last Admin: 02/02/17 08:08 Dose: 1 unit Hydrocortisone (Anusol-Hc) 25 mg RC BID [facility] Last Admin: 02/02/17 10:24 Dose: Not Given Hydrocortisone (Cortizone 1% Cream) 0 gm TOP BID [facility] Last Admin: 02/02/17 10:06 Dose: 1 appful Meropenem 1 gm/ Dextrose 100 mls @ 100 mls/hr IVPB Q8 [facility] PRN Reason: Protocol Stop: 02/04/17 23:46 Last Admin: 02/02/17 06:18 Dose: 100 mls/hr Vancomycin HCl (Vancomycin 1gm) 1 gm in 250 mls @ 167 mls/hr IVPB Q12H [facility] PRN Reason: Protocol Last Admin: 02/02/17 04:22 Dose: 167 mls/hr Doxycycline Hyclate 100 mg/ (Sodium Chloride) 100 mls @ 100 mls/hr IVPB Q12 [facility] PRN Reason: Protocol Last Admin: 02/02/17 10:24 Dose: 100 mls/hr Potassium Phosphate 20 mmole/ (Sodium Chloride) 1,006.6667 mls @ 100 mls/hr IV .Q10H4M [facility] Last Admin: 02/02/17 10:26 Dose: 100 mls/hr Insulin Human Regular (Humulin R Low) 0 units SC ACHS [facility] PRN Reason: Protocol Last Admin: 02/01/17 22:00 Dose: Not Given Mineral Oil (Mineral Oil Heavy) 30 ml PO DAILY PRN PRN Reason: Constipation Mupirocin (Bactroban Ointment) 0 gm TOP BID [facility] Last Admin: 02/02/17 10:06 Dose: 1 appl Polyethylene Glycol (Miralax) 17 gm PO BID PRN PRN Reason: Constipation Potassium Phos/Sodium Phos (Neutra-Phos) 1 pkt PO BID [facility] Last Admin: 02/02/17 10:24 Dose: 1 pkt Prednisone (Prednisone Tab) 40 mg PO DAILY [facility] Last Admin: 02/02/17 10:17 Dose: 40 mg - Labs Labs: 02/02/17 06:28 02/02/17 06:28 PT 14.3 SECONDS (9.4-12.5) H 01/30/17 07:50 INR 1.29 (0.93-1.08) H 01/30/17 07:50 APTT 28.4 Seconds (25.1-36.5) 01/28/17 19:00 - Constitutional Appears: Chronically Ill - Head Exam Head Exam: NORMAL INSPECTION - Neck Exam Neck Exam: absent: Lymphadenopathy, Meningismus - Respiratory Exam Respiratory Exam: Decreased Breath Sounds - Cardiovascular Exam Cardiovascular Exam: +S1, +S2 - GI/Abdominal Exam GI & Abdominal Exam: Soft. absent: Tenderness Assessment and Plan - Assessment and Plan (Free Text) Plan: Assessment Systemic Inflammatory Response Syndome, R/O sepsis etiology to be determined; R/ O autoimmune disease Pancytopenia, etiology to be determined hemorrhoids history of non-alcoholic steatohepatitis Plan follow up final blood cx, urine cx results (negative so far); sputum cx is showing gram negative bacilli and we are awaiting identification and sensitivities - follow up repeat blood cx as well; PCT is 0.4; CT C/A/P shows lung fibrosis but no acute pathology; continue Vancomycin and Merrem day 5 and Doxycycline; follow up blood AFB cx, Fungitell, Galactomannan, CMV PCR continue Mepron since CD4/CD8 ratio is low and patient is on chronic steroids reviewed work up done by Dr. Weston from [facility] which did not show acute EBV infection, no HIV, negative RPR will continue to monitor clinically discussed with Dr. Fernández previously and discussed with Dr. Perez today - will need Autoimmune work up
[2017-02-02 13:20] LABS: BILIRUBIN,DIRECT 1.3 mg/dL (0.0-0.4); IRON 46 ug/dL (45-180)
[2017-02-02] MEDS: Multivitamin (MVI) 10 ML, Thiamine 100 MG, Folic Acid 1 MG in Sodium Chloride 0.9% 1,00... IV SCH (15:28)
--- NOTE | 2017-02-02 15:46 | PN ---
SUBJECTIVE: The patient is currently seen ambulating in the room. He still continuing to complain of lower extremity edema. He has IV fluids running which are isotonic in nature. His sodium level has improved from 125 to 131. He was felt to have possibility of having SIADH based on his urine studies an electrolytes. MEDICATIONS: Medication list reviewed. The patient is currently on Anusol, Bactroban, cortisone, doxycycline, folic acid, Dexilant, sliding scale insulin, Maalox, meropenem, Mepron, mineral oil, MiraLax, IV normal saline 100 an hour with 20 mmol of potassium phosphorus, prednisone, Tylenol p.r.n., IV vancomycin, Wellbutrin, and Zovirax. OBJECTIVE: INTAKE/OUTPUT: 3851/1650. VITAL SIGNS: Blood pressure 110/72, temperature 100.9, respiratory rate is 20 with a pulse of 82, pulse ox 100%. HEENT EXAM: Shows him to be normocephalic, atraumatic. Conjunctivae are pink. Sclerae nonicteric. NECK: Supple. No neck vein distention. CHEST: Clear to auscultation and percussion. No rales. No rhonchi or wheezing. CARDIAC EXAM: Shows a normal S1, S2. No audible murmurs, rubs or gallops. ABDOMEN: Soft, nontender. Bowel sounds normal. No rebound or guarding. EXTREMITIES: Show 1+ pitting edema of the lower extremity bilaterally. No cyanosis or clubbing. LABORATORY DATA AND IMAGING: CBC; white blood cell count today 2.3, hemoglobin 9.7 with a platelet count of 35,000, manual platelet count of 45,000 consistent with pancytopenia. Coags are normal. Chemistry shows sodium up to 131 from 125. Electrolytes are otherwise normal. Uric acid level was low at 2.0. Hemoglobin was 7.2. Bilirubin was 1.5 with mild elevation of his liver enzymes. Albumin was 2.7. Urine show trace protein. Urine sodium was 162. Hepatitis serologies were negative. Chest, abdomen and pelvic CT scan showed no evidence for acute pathology. Microbiology; sputum was positive for Pseudomonas. Blood cultures were negative. Stool for C. diff was negative. Urine cultures were negative. ASSESSMENT: 1. Hyponatremia with a presentation consistent with syndrome of inappropriate antidiuretic hormone. On isotonic saline with the patient attempting to decrease p.o. fluid intake, sodium level has improved from 125 to 131. 2. Status post mild hypokalemia. Normal magnesium level. Mild hypophosphatemia. Phosphorus up from 1.7 to 3.3. The patient continues on potassium phosphorus supplements. 3. Nonalcoholic steatohepatitis. 4. Pancytopenia. Workup as per Hematology/Oncology. 5. [id number] diabetes mellitus; hemoglobin A1c acceptable at 7.2%. 6. Systemic inflammatory response syndrome. No evidence for infectious diarrhea. The patient has seen by ID; remains on empiric antibiotic therapy. PLAN: 1. The patient is stable from a renal standpoint. Right now, I will continue isotonic IV fluid hydration with supplements of potassium and phosphorus. 2. Await further input from Hematology/Oncology. 3. Continue empiric course of antibiotic therapy given his immunocompromised state. 4. Follow labs on a daily basis. Emanuel Esquivel MD
[2017-02-02] MEDS ORDERED: Midazolam 2 MG/2 ML VIAL ONE (17:01)
[2017-02-02] MEDS ORDERED: Vancomycin 1gm in NS 250ml 1 GM/250 ML BAG IVPB SCH (20:56)
[2017-02-02] MEDS: Sodium Chloride 0.45% 1,000 ML IV SCH (21:31)
--- NOTE | 2017-02-03 01:40 | PN ---
DATE: 02/02/2017 PULMONARY PROGRESS NOTE REFERRING PHYSICIAN: Dr. Herb Fernández. SUBJECTIVE: He is lying in the bed, waiting for bone marrow biopsy. Night was unremarkable. No headache. No rhinitis. Could not use CPAP because of the nasal bridge ulcer. No hemoptysis. No hematemesis. No abdominal pain. Does have leg swelling. OBJECTIVE: GENERAL: In no acute distress. VITAL SIGNS: Temperature is 98, heart rate is 71, respiratory rate is 20, blood pressure 132/84, and pulse ox 96% on room air. HEENT: Moist mucous membranes. Crowded airway. Mallampati score is IV. Has a lip ulcer and nasal bridge ulcer. LUNGS: Has a fair airflow with no rhonchi. HEART: S1 and S2. ABDOMEN: Soft, nontender. No organomegaly. EXTREMITIES: There is edema. NEUROLOGIC: Awake and alert. Follow simple commands. MEDICATIONS: He is on Anusol 25 mg rectally twice a day, hydrocortisone affected area twice a day, doxycycline 100 mg twice a day, folic acid 1 mg daily, insulin coverage, Maalox 30 mL p.r.n., Mepron 750 mg twice a day, meropenem 1 g IV q.8 hours, mineral oil daily p.r.n., MiraLax 17 g twice a day, multivitamin with thiamine, folic acid with fluid 100 mL per hour, prednisone 40 mg daily, Tylenol p.r.n., vancomycin 250 mg q.12 hours, Wellbutrin SR 150 mg daily, Zofran p.r.n., and also Zovirax 200 mg 5 times a day. LABORATORY DATA: Shows hemoglobin 9.7, hematocrit 29.2, WBC 2.3 and platelet count is 45. Sodium 139, potassium 3.8, chloride 100, bicarbonate 25, BUN 12, creatinine 0.5, glucose 153, calcium is 8.0, phosphorus 3.3, magnesium 2.1, iron is 46, ferritin 9550, direct bili 1.3, AST 102, ALT 235, alkaline phosphatase is 369. Microbiology; sputum culture has Pseudomonas, otherwise all the culture has been negative. It is sensitive to cefepime and Cipro. IMPRESSION AND PLAN: Sepsis, pancytopenia, status post platelet transfusion, autoimmune phenomenon, and treated for sarcoidosis, hemorrhoids, sleep apnea syndrome. Case discussed in detail with Dr. Perez. Agree with repeating bone marrow. There is no other side for biopsy or culture. In the past, had negative PPD. QuantiFERON-TB test is being said. We will change CPAP mask to whole face mask because of the nasal bridge ulcer. Infectious Diseases followup. Hematology followup. Thank you and we will follow with you. Ant Lai MD
[2017-02-03] MEDS: Potassium Phosphate 20 MMOLE in Sodium Chloride 0.9% 1,000 ML IV SCH ×3 (05:35→11:24)
[2017-02-03] MEDS: Multivitamin (MVI) 10 ML, Thiamine 100 MG, Folic Acid 1 MG in Sodium Chloride 0.9% 1,00... IV SCH (05:35)
[2017-02-03] MEDS: Meropenem 1 GM in Dextrose 5% In Water 100 ML IVPB SCH (05:40)
[2017-02-03 06:26] LABS: GRAN # 2.45 (1.4-6.5); GRAN % 73.8 % (50.0-68.0); HEMATOCRIT 26.4 % (42.0-52.0); LYMPH # 0.7 (1.2-3.4); LYMPH % 21.1 % (22.0-35.0); MEAN CELL VOLUME 102.7 fl (80.0-105.0); MEAN CORPUSCULAR HEMOGLOBIN 34.2 pg (25.0-35.0); MEAN CORPUSCULAR HGB CONC 33.3 g/dl (31.0-37.0); MEAN PLATELET VOLUME 9.7 fl (7.0-11.0); MONO # 0.2 (0.1-0.6); MONO % 5.1 % (1.0-6.0); RED CELL DISTRIBUTION WIDTH 21.2 % (11.5-14.5); WHITE BLOOD COUNT 3.3 10^3/ul (4.5-11.0)
[2017-02-03 06:35] LABS: PLATELET COUNT 19 10^3/uL (120.0-450.0)
[2017-02-03 06:37] LABS: ALKALINE PHOSPHATASE 367 U/L (38-126); ALT/SGPT 175 U/L (7-56); AST/SGOT 77 U/L (17-59); BILIRUBIN,TOTAL 1.2 mg/dL (0.2-1.3); BLOOD UREA NITROGEN 14 mg/dL (7-21); CARBON DIOXIDE 24 mmol/L (21-33); CHLORIDE 101 mmol/L (98-107); GFR AFRICAN-AMERICAN > 60; GLUCOSE,RANDOM 116 mg/dL (70-110); PHOSPHOROUS 2.2 mg/dL (2.5-4.5); POTASSIUM 3.9 mmol/L (3.6-5.0); SODIUM 129 mmol/L (132-148); TOTAL PROTEIN 6.2 g/dL (5.8-8.3)
[2017-02-03] MEDS: DEXILANT 60 MG PO SCH (07:01)
[2017-02-03] MEDS: Sodium Chloride 0.45% 1,000 ML IV SCH (07:01)
[2017-02-03 07:44] LABS: ALB/GLOB RATIO 0.6 (1.1-1.8)
[2017-02-03 08:03] VITALS: RESP 20
--- NOTE | 2017-02-03 08:28 | PROCN ---
DATE: 02/02/2017 SUBJECTIVE: The patient was seen earlier by me in the room today and he was set for a bone marrow aspiration biopsy today. He had one unit of platelet yesterday. Post platelet transfusion, his temperature 103, unclear whether this was developing fever related to his underlying sepsis or autoimmune process or some association with post-transfusion of platelets as well. The patient has been feeling well even though he has been low grade temperature. After detailed discussion with the patient, we will decide we will do another marrow and send it for various testing and analysis. We spoke to Dr. Lovett, also spoke to Dr. Aubrey Guerrero one of the other Hematology/Oncology attending. The family wanted me to be in touch with and is going to see him once the patient gets better from here and gets discharged. The patient has already been seen by 2 other Heme/Onc people including Dr. Yolie Baugh at [facility] in [place] and Dr. Samuel who is md allergy immunology at [facility]. The patient was also being seen by md allergy immunology and manager document control at [facility]. In past, the patient has had bone marrow aspiration biopsy in end of May 2016, following that he had a liver biopsy about 2 months ago; along with this, the patient has also had bronchoscopy and an EBUS directed biopsy of one of the lymph nodes in the mediastinum, results of which was inconclusive. Indication for bone marrow aspiration biopsy, the patient continues to be pancytopenic with hectic temperatures. After obtaining consent from the patient and the patient was given conscious sedation with supervision of Dr. Dalton Gallagher and his nurse. The patient had a bone marrow aspiration biopsy done from the posterior superior iliac crust after being prepped with intravenous conscious sedation medicines along with local anesthetic. Cellular aspirate was obtained and a core biopsy was also obtained, which was more than 1.5 cm probably 1 inch in length. Both of the clot and the core biopsies have been sent for various studies, including H and E stains on the aspirate, flow cytometric analysis, stains for cytogenetics and SNP array analysis. The patient's marrow was also has been set for microbiology including TB and fungal cultures. Request has also been made for fungal stains, mycobacterial stains and also test for amyloidosis as well. We will check for vasculitis as well on the specimen submitted. Several slides have been submitted including touch prep on the bone marrow biopsy. The patient tolerated the procedure well without any untoward complications. He will be send back to the floor. Continue to monitor his blood work. We will speak to the attending involved. The patient's culture of the sputum from a few days ago come back showing Pseudomonas and he is on appropriate antibiotics for the same as it is sensitive to few antibiotics that the patient is currently on. We will follow up with ID as well to what the treatment plan should be what we are waiting for the results of the marrow. Routine post-exam instruction have been given to the patient. Follow the patient very carefully over the next 48 to 72 hours. Abhinav Perez MD
[2017-02-03] MEDS: Alum-Mag Hydrox-Simethicone Susp (30 mL) PO PRN (08:39)
[2017-02-03] MEDS: Insulin Reg-LOW-Coverage SC SCH ×3 (09:16→17:46)
[2017-02-03] MEDS: Atovaquone 750 mg/5 ml Susp UD PO SCH ×2 (09:16→17:48)
[2017-02-03] MEDS ORDERED: Cefepime IV 2 gm in NS 2 GM/100 ML BAG IVPB SCH (09:30)
[2017-02-03] MEDS ORDERED: buPROPion SR 150 MG TABLET PO SCH (10:00)
[2017-02-03] MEDS: Hydrocortisone 1% Cream (30 GM) TOP SCH ×2 (11:38→17:43)
--- NOTE | 2017-02-03 12:08 | CP.PCM.PN ---
Subjective - Date & Time of Evaluation Date of Evaluation: 02/03/17 Time of Evaluation: 10:30 - Subjective Subjective: Comfortable in bed, has not had fever since 10AM yesterday morning, no diarrhea , no nausea or vomiting, no headache. Objective - Vital Signs/Intake and Output Vital Signs (last 24 hours): Temp Pulse Resp BP Pulse Ox 99.4 F 90 20 113/69 97 02/03/17 08:02 02/03/17 08:02 02/03/17 08:02 02/03/17 08:02 02/03/17 08:02 Intake and Output: 02/03/17 02/03/17 06:59 18:59 Intake Total 3540 Balance 3540 - Medications Medications: Current Medications Acetaminophen (Tylenol 325mg Tab) 650 mg PO Q4 PRN PRN Reason: Fever >100.4 F Last Admin: 02/02/17 10:16 Dose: 650 mg Acyclovir (Zovirax) 200 mg PO 5XD DAVID PRN Reason: Protocol Last Admin: 02/03/17 09:15 Dose: 200 mg Al Hydrox/Mg Hydrox/Simethicone (Maalox Plus 30 Ml) 30 ml PO 0900 PRN PRN Reason: Indigestion / Heartburn Last Admin: 02/03/17 08:39 Dose: 30 ml Atovaquone (Mepron) 750 mg PO BID [facility] Last Admin: 02/03/17 09:16 Dose: 750 mg Bupropion HCl (Wellbutrin Sr 150 Mg) 150 mg PO DAILY [facility] Last Admin: 02/03/17 09:15 Dose: Not Given Folic Acid (Folic Acid) 1 mg PO DAILY [facility] Last Admin: 02/03/17 09:15 Dose: 1 mg Home Med (Home Med) 1 unit PO 0700 [facility] Last Admin: 02/03/17 07:01 Dose: 1 unit Hydrocortisone (Anusol-Hc) 25 mg RC BID [facility] Last Admin: 02/03/17 09:15 Dose: Not Given Hydrocortisone (Cortizone 1% Cream) 0 gm TOP BID [facility] Last Admin: 02/02/17 18:24 Dose: 1 appful Doxycycline Hyclate 100 mg/ (Sodium Chloride) 100 mls @ 100 mls/hr IVPB Q12 DAVID PRN Reason: Protocol Last Admin: 02/02/17 21:30 Dose: 100 mls/hr Potassium Phosphate 20 mmole/ (Sodium Chloride) 1,006.6667 mls @ 100 mls/hr IV .Q10H4M [facility] Last Admin: 02/03/17 05:35 Dose: Not Given Multivitamins/Vitamin C 10 ml/Thiamine HCl 100 mg/ Folic Acid 1 mg/ Sodium Chloride 1,011.2 mls @ 100 mls/hr IV .Q10H7M [facility] Last Admin: 02/03/17 05:35 Dose: 100 mls/hr Cefepime HCl (Maxipime 2gm) 2 gm in 100 mls @ 100 mls/hr IVPB Q8 DAVID PRN Reason: Protocol Stop: 02/10/17 09:31 Insulin Human Regular (Humulin R Low) 0 units SC ACHS [facility] PRN Reason: Protocol Last Admin: 02/03/17 09:16 Dose: Not Given Mineral Oil (Mineral Oil Heavy) 30 ml PO DAILY PRN PRN Reason: Constipation Mupirocin (Bactroban Ointment) 0 gm TOP BID [facility] Last Admin: 02/03/17 09:15 Dose: 1 appl Ondansetron HCl (Zofran Inj) 4 mg IVP Q6H PRN PRN Reason: Nausea/Vomiting Polyethylene Glycol (Miralax) 17 gm PO BID PRN PRN Reason: Constipation Prednisone (Prednisone Tab) 40 mg PO DAILY [facility] Last Admin: 02/03/17 09:15 Dose: 40 mg - Labs Labs: 02/03/17 06:00 02/03/17 06:00 PT 14.3 SECONDS (9.4-12.5) H 01/30/17 07:50 INR 1.29 (0.93-1.08) H 01/30/17 07:50 APTT 28.4 Seconds (25.1-36.5) 01/28/17 19:00 - Constitutional Appears: Chronically Ill - Head Exam Head Exam: NORMAL INSPECTION - ENT Exam ENT Exam: Mucous Membranes Moist - Neck Exam Neck Exam: absent: Meningismus - Respiratory Exam Respiratory Exam: Decreased Breath Sounds - Cardiovascular Exam Cardiovascular Exam: +S1, +S2 - GI/Abdominal Exam GI & Abdominal Exam: Soft. absent: Tenderness Assessment and Plan - Assessment and Plan (Free Text) Plan: Assessment Systemic Inflammatory Response Syndome, R/O sepsis due to PSeudomonas in sputum cx in a patient with lung fibrosis; R/O autoimmune disease Pancytopenia, etiology to be determined hemorrhoids history of non-alcoholic steatohepatitis Plan follow up final blood cx, urine cx results (negative so far); sputum cx is showing PSeudomonas - will d/c Vanco, Merrem and Doxycycline and change to Cefepime - when he is ready for discharge, we can switch to PO Ciprofloxacin to complete 7 days of therapy repeat blood cx are negative; PCT is 0.4; CT C/A/P shows lung fibrosis blood AFB cx, Fungitell, CMV PCR can be followed as an outpatient; Galactomannan is negative continue Mepron since CD4/CD8 ratio is low and patient is on chronic steroids reviewed work up done by Dr. Weston from [facility] which did not show acute EBV infection, no HIV, negative RPR will continue to monitor clinically discussed with Dr. Perez previously - will need Autoimmune work up
--- NOTE | 2017-02-03 12:21 | PN ---
DATE: 02/03/2017 SUBJECTIVE: The patient is lying in bed. He denies any further fevers. PHYSICAL EXAMINATION: VITAL SIGNS: Revealed temperature of 99.4, blood pressure of 113/69, and heart rate of 90. HEENT: Reveals sclerae to be white. Conjunctivae are pink. NECK: Supple. CHEST: Lungs are clear. HEART: Exam reveals a regular rate and rhythm. GASTROINTESTINAL: Abdomen is soft and nontender. EXTREMITIES: Show no edema. RECTAL: Exam shows bilateral internal hemorrhoids, left greater than right. LABORATORY DATA: Revealed white blood cell count of 3.3, hemoglobin of 8.8, and platelet count of 19,000. Chemistries revealed AST of 77, ALT of 175, and alkaline phosphatase of 367. IMPRESSION: 1. Systemic inflammatory response syndrome with fever which has improved. 2. Pancytopenia. 3. Nonalcoholic steatohepatitis. RECOMMENDATIONS 1. Continue IV antibiotics. 2. Continue Anusol HC 25 mg suppository twice a day for hemorrhoids. 3. Continue MiraLax as a stool softener. Gerardo Quintanilla MD
--- NOTE | 2017-02-03 16:01 | PN ---
DATE: 02/03/2017 SUBJECTIVE: The patient is seen sitting in bed. He is awake, he is alert. He denies any complaints at this time. He denies any chest pain, shortness of breath, fever, chills, abdominal pain. PHYSICAL EXAMINATION GENERAL: Middle-aged male sitting in bed. VITAL SIGNS: Blood pressure 113/69, heart rate 90, respiratory rate 20, temperature 99.4, T-max is 100.9. HEENT: Normocephalic, atraumatic, positive pallor. NECK: Supple, no JVD LUNGS: Bilateral equal entry, bilateral equal expansion, no rales. CARDIAC: Cardiac S1 and S2. Regular rate and rhythm, no murmur, no rub. ABDOMEN: Obese, distended, soft, nontender, bowel sounds present. EXTREMITIES: 2+ pitting edema of the lower extremities. INTAKE AND OUTPUT: 4820/not charted. LABORATORY DATA: WBC 3.3, hemoglobin 8.8, hematocrit 26, platelets 19, manual 20,000. Sodium 129, potassium 3.9, chloride 101, CO2 of 24, BUN 14, creatinine 0.6, glucose 116, calcium 8.0, phosphorus 2.2 magnesium 2.0, AST 77, ALT 175, albumin 2.4, corrected calcium is 9.0. Random urine protein 32, random urine creatinine 20 consistent with 1.5 g of proteinuria. CARMELA screen positive, 1:640 titer, complements normal. ANCA negative. ESR 110. Cultures no growth. CURRENT MEDICATIONS: Anusol, Bactroban, cortisone, doxycycline 100 q.12, folic acid, insulin, cefepime 2 g q.8, Mepron, mineral oil, MiraLax, multivitamin, potassium phosphate 20 millimoles in normal saline at 100, prednisone, Tylenol, Wellbutrin, Zofran, Zovirax. ASSESSMENT: 1. 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 2. Hypokalemia. 3. Proteinuria. 4. Nonalcoholic steatohepatitis. 5. Pancytopenia. 6. Systemic inflammatory response syndrome. PLAN: 1. Check anti-double stranded DNA antibody. 2. Discontinue IV fluids. 3. Continue antibiotics as per ID recommendations ? 4. Consider kidney biopsy ?? Ella Steve MD [facility] # [id number]
[2017-02-03 16:12] VITALS: BP 106/69; PULSE 89; TEMP 99.7; O2SAT 96
--- NOTE | 2017-02-04 11:22 | PN ---
DATE: 02/03/2017 REFERRING PHYSICIAN: Dr. Marmolejo/ Dr. Fernández SUBJECTIVE: The patient is lying in the bed, head at 45 degree, night was unremarkable, tolerated CPAP well, has a nasal bridge ulcer. Recommended whole facemask or gel padding into the mask, mild cough with sputum production. No nausea or vomiting. No diarrhea. He does have some leg swelling. OBJECTIVE: GENERAL: In no acute distress. VITAL SIGNS: Temperature 99, heart rate is 90, respiratory rate is 20, blood pressure is 113/69, and pulse ox is 97% on room air. HEENT: Moist mucous membranes noted. Nasal bridge has some ulceration from the BiPAP. LUNGS: Has a fair airflow with few rhonchi. HEART: S1 and S2. ABDOMEN: Soft and nontender. No organomegaly. EXTREMITIES: Does have edema. NEUROLOGICAL: Awake and alert. Follows simple commands. MEDICATIONS: He is on Anusol rectally p.r.n. basis, Bactroban ointment on affected area, doxycycline 100 mg twice a day, folic acid 1 mg daily, insulin coverage, cefepime 2 gm IV q.8 hours, Mepron 750 mg twice a day, mineral oil p.r.n. basis, MiraLAX 17 g twice a day p.r.n., multivitamin, vitamin C, thiamine, folic acid with fluids 100 mL per hour, K-Phos IV, prednisone 40 mg daily, Tylenol p.r.n., Wellbutrin SR 150 mg daily, Zofran p.r.n., and Zovirax 200 mg 5 times a day. LABORATORY DATA: Shows hemiglobin of 8.8, hematocrit 26.4, WBC 3.3, and platelet count is 19, manually is 20. Sodium 129, potassium 3.9, chloride 101, bicarbonate 24, BUN 14, creatinine 0.6, glucose 116, calcium is 8.0, phosphorus 2.2, magnesium 2.0, AST 77, ALT 175, alk phos is 367, and albumin is 2.4. IMPRESSION AND PLAN: Sepsis, pancytopenia, severe thrombocytopenia, status post bone marrow biopsy yesterday, has a positive CARMELA, autoimmune phenomenon, working diagnosis sarcoidosis, also has hemorrhoids, mild sleep apnea syndrome, and nasal bridge ulcer. I had a long discussion with the patient about the differential diagnosis what is ruled in and what is ruled out, mostly what is ruled out, high CARMELA. QuantiFERON-TB Gold has been sent. He received extra steroids of the day, seem that help improving the hemoglobin. We are awaiting for bone marrow report done last night. For now continue supportive care. Keep head at 45 degree, bronchodilator, continue prednisone 40 for now. No recent high fever. Being followed by Infectious Disease and Hematology. Again, question is are we dealing with pure connective tissue disease with mixed picture (?). Ant Lai MD
--- NOTE | 2017-02-04 13:38 | PQF SEPSIS ---
02/04/17 Dr. Perez, Please clarify whether patient had sepsis verses SIRS. ID physician states "SIRS , rule out sepsis" on several of his notes. Last progress note, of 02/03, by brake coupler dinkey, states sepsis. Also, please indicate whether this was present on admission. Thank you. Clarification of your documentation is requested to better reflect the severity of illness and intensity of treatment of your patient. Indicators present [] Temp < 96.8 or > 100.4 [] WBC count > 12,000/mm3 or <000/mm3 or 10% immature neutrophils [] Heart Rate > 90 [] Respiratory Rate > 20 [] Fever or hypothermia [] Chills [] Positive blood cultures [] Hypotension [] Metabolic acidosis (Elevated lactate level, anion gap or reduced blood pH) [] Acute confusion /Altered Mental Status [] Shock [] Other: [] Location in the medical record that reflects the above clinical findings: [] Treatment Provided: [] PHYSICIAN'S RESPONSE Based on your medical judgment of the clinical indicators outlined above, are you treating this patient for a known or suspected: [] Sepsis / Septicemia Please specify organism if known [] [] SIRS (Systemic Inflammatory Response Syndrome) [] Severe Sepsis (Sepsis with Associated Organ Dysfunction) [] Fever of Unknown Origin [] Other, please indicate: [] [] If Unable to Determine, please check the box, sign and date. Present On Admission (POA) Indicator: [] Present at the time of admission [] Not present at the time of admission [] Clinically Undetermined In responding to this query, please exercise your independent professional judgment. The fact that a question is asked does not imply that any particular answer is desired or expected. Thank you for your clarification on this documentation. If you have any questions please call:[ ] * Thank you, [ ] form setter/driver DENNIS
== END 2017-02-03 18:45 | disposition home or self-care (01) | DRG 809 ==
LOC: ED 17:20 → ERH 19:14 → 5RNO 21:50 → 3RSO 01-29 10:41 → 3RNO 01-31 10:16
PROVIDERS: ADMIT Family Medicine; ATTEND Family Medicine
PROC: 6A551Z2 Pheresis of Platelets, Multiple (ICD-10-PCS; 2017-01-29)
PROC: BQ21ZZZ Computerized Tomography (CT Scan) of Left Hip (ICD-10-PCS; 2017-02-02)
PROC: 07DR3ZZ Extraction of Iliac Bone Marrow, Percutaneous Approach (ICD-10-PCS; principal; 2017-02-02 15:00)
DX: D61.818 Other pancytopenia (principal); B37.89 Other sites of candidiasis; B37.0 Candidal stomatitis; E22.2 Syndrome of inappropriate secretion of antidiuretic hormone; R65.10 Systemic inflammatory response syndrome (SIRS) of non-infectious origin without acute organ dysfunction; D58.9 Hereditary hemolytic anemia, unspecified; E11.22 Type 2 diabetes mellitus with diabetic chronic kidney disease; D70.3 Neutropenia due to infection; J84.10 Pulmonary fibrosis, unspecified; C18.9 Malignant neoplasm of colon, unspecified; B96.89 Other specified bacterial agents as the cause of diseases classified elsewhere; D86.9 Sarcoidosis, unspecified; E83.39 Other disorders of phosphorus metabolism; E83.51 Hypocalcemia; E86.1 Hypovolemia; E87.6 Hypokalemia; E88.09 Other disorders of plasma-protein metabolism, not elsewhere classified; G47.30 Sleep apnea, unspecified; I25.10 Atherosclerotic heart disease of native coronary artery without angina pectoris; Z82.3 Family history of stroke; Z82.49 Family history of ischemic heart disease and other diseases of the circulatory system; Z80.0 Family history of malignant neoplasm of digestive organs; J44.9 Chronic obstructive pulmonary disease, unspecified; K44.9 Diaphragmatic hernia without obstruction or gangrene; K59.00 Constipation, unspecified; K64.9 Unspecified hemorrhoids; K75.81 Nonalcoholic steatohepatitis (NASH); N18.9 Chronic kidney disease, unspecified; R13.10 Dysphagia, unspecified; S10.91XA Abrasion of unspecified part of neck, initial encounter; T80.89XA Other complications following infusion, transfusion and therapeutic injection, initial encounter; Y84.8 Other medical procedures as the cause of abnormal reaction of the patient, or of later complication, without mention of misadventure at the time of the procedure; Z79.84 Long term (current) use of oral hypoglycemic drugs; Z87.442 Personal history of urinary calculi; Z91.048 Other nonmedicinal substance allergy status; R40.2412 Glasgow coma scale score 13-15, at arrival to emergency department; R16.1 Splenomegaly, not elsewhere classified; R62.7 Adult failure to thrive; B96.5 Pseudomonas (aeruginosa) (mallei) (pseudomallei) as the cause of diseases classified elsewhere; R50.9 Fever, unspecified

== ENCOUNTER 2017-02-04 18:03 | Inpatient (IN) | payer BC ==
[2017-02-04 18:05] VITALS: BMI 30.5
--- NOTE | 2017-02-04 18:32 | ED PDOC ---
Arrival/HPI - General Chief Complaint: Fever Time Seen by Provider: 02/04/17 18:05 - History of Present Illness Narrative History of Present Illness (Text): 56 y/o M c PMHx pancytopenia p/w fever x 1 week. Patient was admitted to this hospital, on antibiotics, fever seemed to improve, blood cultures, urine cultures negative. Sputum positive for pseudomonas. At heme/onc visit today, patient found to have temperature of 102, WBC 3.1, sent by Dr. Loera for readmission requiring IV antibiotics, PICC line placement, probable transfusions. Patient denies dysuria, abdominal pain, vomiting, dyspnea. Past Medical History - Infectious Disease Hx of Infectious Diseases: None - Tetanus Immunization Tetanus Immunization: Unknown - Past Medical History Past Medical History: No Previous - Cardiac Hx Cardiac Disorders: No Hx Pacemaker: No Hx Peripheral Edema: Yes - Pulmonary Hx Respiratory Disorders: Yes - Neurological Hx Neurological Disorder: No - HEENT Hx HEENT Disorder: No - Renal Hx Renal Disorder: Yes Hx Kidney Stones: Yes (3.8 MM KIDNEY STONES 11-02-13) - Endocrine/Metabolic Hx Endocrine Disorders: No - Hematological/Oncological Hx Blood Disorders: Yes Hx Anemia: Yes Hx Blood Transfusions: Yes Other/Comment: pancytopenia, blood transfusion platelets, hemolytic anemia - Integumentary Hx Dermatological Disorder: No - Musculoskeletal/Rheumatological Hx Falls: No - Gastrointestinal Hx Gastrointestinal Disorders: No - Genitourinary/Gynecological Hx Genitourinary Disorders: No - Psychiatric Hx Emotional Abuse: No Hx Physical Abuse: No Hx Substance Use: No - Past Surgical History Past Surgical History: No Previous - Surgical History Other/Comment: lung biopsy in past, benign, ct scan guided bone marrow bx 05/21/16 - Anesthesia Hx Anesthesia: Yes Hx Anesthesia Reactions: No Hx Malignant Hyperthermia: No - Suicidal Assessment Feels Threatened In Home Enviroment: No Family/Social History Family/Social History: No Known Family HX Smoking Status: Never Smoked Hx Alcohol Use: Yes (rare) Hx Substance Use: No Hx Substance Use Treatment: No Allergies/Home Meds Allergies/Adverse Reactions: Allergies POLLEN Adverse Reaction (Mild, Uncoded 01/28/17 17:30) SNEEZING DUST Adverse Reaction (Uncoded 01/28/17 17:30) SNEEZING MOLD Adverse Reaction (Uncoded 01/28/17 17:30) SNEEZING Home Medications: Home Meds Medication Instructions Recorded Confirmed Multivitamin [Daily Kayden] 1 tab PO DAILY 05/19/16 01/28/17 Dexlansoprazole [Dexilant] 60 mg PO DAILY 10/27/16 01/28/17 Ferrous Sulfate [Iron] 325 mg PO DAILY 10/27/16 01/28/17 Folic Acid 1 mg PO BID 10/27/16 01/28/17 Review of Systems - Physician Review All systems were reviewed & negative as marked: Yes - Review of Systems Constitutional: Fevers Respiratory: absent: SOB Cardiovascular: absent: Chest Pain Physical Exam - Physical Exam Narrative Physical Exam (Text): Constitutional: No acute distress. Head: Normocephalic. Eyes: PERRL. ENT: Moist mucous membranes. Neck: Supple. Cardiovascular: Mildly tachycardic. Chest: No tenderness. Respiratory: Clear to auscultation bilaterally. GI: Soft. Nontender. Nondistended. Back: No CVA tenderness. Musculoskeletal: Bilateral extremity edema. Skin: Ecchymoses to bilateral arms. Neurologic: Alert, no focal deficit. Vital Signs Temp Pulse Resp BP Pulse Ox 02/04/17 18:15 101.2 F H 136 H 18 123/73 97 Medical Decision Making ED Course and Treatment: EKG Sinus rhythm, 110 bpm, no ST elevations. CXR no consolidation. Blood cultures drawn. Packed RBCs and platelets ordered, will defer to Heme/Onc for administration. Consults placed as recommended by Dr. Mcdowell. He accepts admission to Dr. Perez's service. - RAD Interpretation Radiology Orders: 02/04/17 18:10 CHEST PORTABLE [RAD] Stat - Medication Orders Current Medication Orders: Discontinued Medications Acetaminophen (Tylenol 325mg Tab) 650 mg PO STAT STA Stop: 02/04/17 18:20 Disposition/Present on Arrival - Present on Arrival Any Indicators Present on Arrival: No History of DVT/PE: No History of Uncontrolled Diabetes: No Urinary Catheter: No History of Decub. Ulcer: No History Surgical Site Infection Following: None - Disposition Have Diagnosis and Disposition been Completed?: Yes Diagnosis: Pancytopenia, Fever Disposition: HOSPITALIZED Disposition Time: 19:00 Patient Plan: Admission, Telemetry Condition: GUARDED Referrals: Abhinav Perez MD [Primary Care Provider] - Follow up with primary Forms: [employer] ([place])
[2017-02-04 19:23] LABS: ALB/GLOB RATIO 0.6 (1.1-1.8); ALKALINE PHOSPHATASE 504 U/L (38-126); ALT/SGPT 192 U/L (7-56); AST/SGOT 102 U/L (17-59); BILIRUBIN,TOTAL 2.1 mg/dL (0.2-1.3); BLOOD UREA NITROGEN 10 mg/dL (7-21); CALCIUM 8.2 mg/dL (8.4-10.5); CARBON DIOXIDE 28 mmol/L (21-33); CHLORIDE 91 mmol/L (98-107); GFR AFRICAN-AMERICAN > 60; GLUCOSE,RANDOM 146 mg/dL (70-110); SODIUM 124 mmol/L (132-148); TOTAL PROTEIN 7.6 g/dL (5.8-8.3)
[2017-02-04 19:48] LABS: GRAN # 1.95 (1.4-6.5); GRAN % 83.3 % (50.0-68.0); HEMATOCRIT 29.9 % (42.0-52.0); LYMPH # 0.4 (1.2-3.4); LYMPH % 15.4 % (22.0-35.0); MEAN CELL VOLUME 101.7 fl (80.0-105.0); MEAN CORPUSCULAR HGB CONC 34.4 g/dl (31.0-37.0); MONO % 1.3 % (1.0-6.0); RED CELL DISTRIBUTION WIDTH 20.4 % (11.5-14.5)
[2017-02-04 19:49] LABS: PLATELET COUNT 17 10^3/uL (120.0-450.0); WHITE BLOOD COUNT 2.3 10^3/ul (4.5-11.0)
[2017-02-04 19:50] LABS: PLATELET ESTIMATE LOW (NORMAL)
[2017-02-04] MEDS: Atovaquone 750 mg/5 ml Susp UD PO SCH (20:03)
[2017-02-04] MEDS ORDERED: Sodium Chloride 0.9% 1,000 ML IV ONE (20:48)
--- NOTE | 2017-02-04 21:42 | CARD ---
APPROVED REPORT EKG Measurement Heart [id number] <Conclusion> Sinus tachycardia Possible Left atrial enlargement Borderline ECG
[2017-02-04] MEDS ORDERED: Pneumococcal 23-Valent Vaccine IM ONE (23:45)
[2017-02-04] MEDS ORDERED: Influenza Vaccine 60 mcg/0.5 mL SYR (4YR UP) IM ONE (23:45)
[2017-02-05] MEDS: Cefepime IV 2 gm in NS 2 GM/100 ML BAG IVPB SCH ×4 (04:30→23:16)
--- NOTE | 2017-02-05 05:32 | CP.PCM.PN ---
Subjective - Date & Time of Evaluation Date of Evaluation: 02/04/17 Time of Evaluation: 09:00 - Subjective Subjective: S:It was requested to obtain a consent for platelet transfusion. Patient has no acute symptoms now. O: Last Vital Signs 3 Temp 103.0 F H 02/05/17 04:30 Pulse 96 H 02/05/17 04:36 Resp 20 02/05/17 04:36 BP 132/72 02/05/17 04:36 Pulse Ox 97 02/05/17 00:00 Awake, alert, not in distress. LUNGS:Normal breathing pattern. NEURO: Speech normal. A:Pancytopenia. Fever. P: A consent for platelet transfusion was obtained. Patient had no questions to ask me at end of my discussion with him. Consent form was signed in presence nurse Keily. Objective - Vital Signs/Intake and Output Vital Signs (last 24 hours): Temp Pulse Resp BP Pulse Ox 103.0 F H 96 H 20 132/72 97 02/05/17 04:30 02/05/17 04:36 02/05/17 04:36 02/05/17 04:36 02/05/17 00:00 - Medications Medications: Current Medications Acetaminophen (Tylenol 325mg Tab) 650 mg PO Q4 PRN PRN Reason: Fever >100.4 F Last Admin: 02/05/17 04:30 Dose: 650 mg Atovaquone (Mepron) 750 mg PO BID [facility] Last Admin: 02/04/17 20:03 Dose: 750 mg Clotrimazole (Mycelex Charles) 10 mg MT 5XD [facility] Last Admin: 02/04/17 22:39 Dose: 10 mg Folic Acid (Folic Acid) 1 mg PO DAILY [facility] Home Med (Home Med) 60 unit PO DAILY [facility] Hydrocortisone (Anusol-Hc) 0 gm [place] BID [facility]ID Hydrocortisone (Anusol-Hc) 25 mg RC BID [facility]ID Sodium Chloride (Sodium Chloride 0.9%) 1,000 mls @ 100 mls/hr IV .Q10H ONE Stop: 02/05/17 06:47 Last Admin: 02/04/17 21:15 Dose: 100 mls/hr Cefepime HCl (Maxipime 2gm) 2 gm in 100 mls @ 100 mls/hr IVPB Q8 DAVID PRN Reason: Protocol Stop: 02/11/17 23:31 Last Admin: 02/05/17 04:30 Dose: 100 mls/hr Mupirocin (Bactroban Ointment) 0 gm TOP BID [facility]ID Prednisone (Prednisone Tab) 80 mg PO DAILY DAVID
[2017-02-05 06:53] LABS: GRAN # 1.08 (1.4-6.5); HEMATOCRIT 24.3 % (42.0-52.0); LYMPH # 0.3 (1.2-3.4); LYMPH % 18.9 % (22.0-35.0); MEAN CELL VOLUME 101.7 fl (80.0-105.0); MEAN CORPUSCULAR HEMOGLOBIN 34.3 pg (25.0-35.0); MEAN CORPUSCULAR HGB CONC 33.7 g/dl (31.0-37.0); MONO # 0.1 (0.1-0.6); MONO % 8.1 % (1.0-6.0); RED CELL DISTRIBUTION WIDTH 20.5 % (11.5-14.5)
[2017-02-05 07:01] LABS: PLATELET COUNT 7 10^3/uL (120.0-450.0); WHITE BLOOD COUNT 1.5 10^3/ul (4.5-11.0)
[2017-02-05 07:51] LABS: ALB/GLOB RATIO 0.6 (1.1-1.8); ALKALINE PHOSPHATASE 387 U/L (38-126); ALT/SGPT 147 U/L (7-56); AST/SGOT 66 U/L (17-59); BLOOD UREA NITROGEN 10 mg/dL (7-21); CALCIUM 7.6 mg/dL (8.4-10.5); CARBON DIOXIDE 30 mmol/L (21-33); CHLORIDE 95 mmol/L (98-107); GFR AFRICAN-AMERICAN > 60; GLUCOSE,RANDOM 128 mg/dL (70-110); POTASSIUM 3.7 mmol/L (3.6-5.0); SODIUM 125 mmol/L (132-148); TOTAL PROTEIN 6.1 g/dL (5.8-8.3)
--- NOTE | 2017-02-05 08:40 | RAD ---
HISTORY: Fever. COMPARISON: January 28, 2017. Single-view chest, January 30, 2017 CT thorax FINDINGS: LUNGS: Multifocal infiltrates bilaterally left greater than right progressive. PLEURA: No significant pleural effusion identified, no pneumothorax apparent. CARDIOVASCULAR: Normal. OSSEOUS STRUCTURES: No significant abnormalities. VISUALIZED UPPER ABDOMEN: Normal. OTHER FINDINGS: None. IMPRESSION: Multifocal infiltrates progressive. These are progressive compared to the prior study. Asymmetrical pulmonary edema should be considered along with infectious/inflammatory etiologies.
--- NOTE | 2017-02-05 08:55 | HP ---
ADMISSION HISTORY AND PHYSICAL For Dr. Perez CHIEF COMPLAINT: Fever of unknown origin. HISTORY OF PRESENT ILLNESS: The patient is a 56 year old male discharged home from [facility] yesterday as per Dr. Perez after treatment for pancytopenia with neutropenic sepsis with fever of unknown origin. As per Dr. Perez with the patient when being home with his family, the patient otherwise reporting that his appetite is again decreased. With this, the patient is otherwise now noted to have elevated temperature of 102.5 with significantly dropped platelet count in our office. With this, the patient is now brought back to the emergency room for readmission. I want to refer to previous visits as we discharged yesterday from the hospital. MEDICATIONS: His medications upon discharge included Mepron and Cipro in addition to prednisone 40 mg daily. The patient's left upper extremity is also now significantly edematous secondary to multiple venous access for labs and intravenous and transfusions with consideration for PICC line to be placed as per Dr. Dalton Gallagher with resting of his extremities as well if at all possible. He also has significant ecchymotic changes on his arm. PAST MEDICAL HISTORY: Significant for longstanding nonalcoholic steatohepatitis diagnosed approximately 20 years prior with liver biopsy, which did not demonstrate any evidence of cirrhosis, two episodes of Campylobacter infection in 03/2015 with progressive pancytopenia since then. Bone marrow biopsy in 05/2016 showed cellular marrow maturing trilineage hematopoiesis, no evidence of acute leukemia, lymphoproliferative disorder or plasma cell dyscrasia. He had another bone marrow biopsy with results pending by Dr. Perez recently this hospital stay. The patient also had second opinion at [facility] by Dr. Yolie Baugh, which did not elucidate further etiology of his cytopenias. PNH testing was negative with splenomegaly and mediastinal lymphadenopathy was noted. He had a bronchoscopy with biopsy with mediastinal nodes, but not an excision biopsy. He also had GI blood loss due to hemorrhoids with colonoscopy done in 04/2016 with no evidence of source of the blood loss. [facility] and [facility], none of these consultation or test biopsies determined underlying diagnoses. It is presumed, he has autoimmune disease with constellation of symptoms, which he is now here for treatment with significant thrombocytopenic indices and pancytopenia. He also now has Aditya positive anemia, abnormal LFTs, COPD with oropharyngeal Candidiasis status post multiple transfusions of platelets and packed cells with Granix given for his neutropenic issues. FAMILY HISTORY AND SOCIAL HISTORY: Noncontributory. Patient never smoked, rare EtOH. He is , with one child, was mentally challenged, otherwise alive and well. Mother is alive at 83, history of CVA. Father at 81, coronary artery disease, colon cancer. His daughter also has ulcerative colitis. ALLERGIES: POLLEN, DUST AND MOLD. MEDICATIONS: The patient's medications include prednisone at 40 mg, it should be increased, Mepron, Cipro, Dexilant, calcium and vitamin D, folic acid, Strovite, Zovirax ointment, and Anusol-HC Suppositories. REVIEW OF SYSTEMS: The patient 12-point review of systems was done, which is negative to questions except as mentioned in the history of present illness as above. PHYSICAL EXAMINATION: VITAL SIGNS: In the emergency room, temperature 101.2, pulse of 136, respirations 18, blood pressure 123/73, pulse ox 97%. HEENT: Unremarkable except for herpetic versus scab lesion to the left lower lip with tongue with whitish coating. NECK: Supple with 2 cm left neck abrasion, which is now dried and healing. HEART: Tachy rate. Regular rhythm. LUNGS: Minimal decreased breath sounds. ABDOMEN: Soft, nontender. EXTREMITIES: +1 edema of the feet bilaterally and +1 to 2 edema of the left upper extremity with ecchymotic changes there. NEUROLOGIC: Awake, alert, and oriented, but lethargic. SKIN: Warm, dry and clear except for ecchymotic change as described on his left upper extremity and also left mid abdomen. LABORATORY DATA: The patient's labs were done. White blood cell count of 2.3 with a absolute neutrophil count of 1.95, hemoglobin of 10.3; however, this may be heme concentrated due to his elevated temperatures, hematocrit 29.9 with platelet count of 17,000, manual count to be done. The patient's chem metabolic panel showed sodium of 124, chloride of 91 with a random glucose of 146, calcium of 8.2, total bilirubin of 2.1. AST of 102, ALT of 192, alkaline phosphatase of 504. The patient's tests from his previous admission showed an CARMELA screen positive with an CARMELA titer 1 to 640 nucleolar pattern, his complement C3 was elevated at 175 with total complement of greater than 60. Other testing was essentially negative including ANCA screen with proteinase 3 also within normal range. He had hepatitis A, B, C testing, which is all negative as was influenza AmB, Aspergillus none detected, TB tests were negative except for QuantiFERON TB test QFT, which was intermediate. CMV testing was also negative. The other tests for this patient included a chest x ray, which will be read today, as well EKG to be read. The patient did have a bone marrow biopsy, which was done recently, the report is pending. ASSESSMENT: Fever of unknown origin, pancytopenia with severe thrombocytopenia, failure to thrive, left upper extremity edema with ecchymotic changes, pseudomonas in sputum through recent testing on antibiotics, elevated blood sugar secondary to steroids, autoimmune disease, as etiology ?, history of nonalcoholic steatohepatitis, hemorrhoids, systemic inflammatory response syndrome. PLAN: The plan for this patient after conversation with Dr. Perez is to ask for a PICC line to be placed as per Dr. Dalton Gallagher with transfusion of packed red blood cells and platelets as indicated. Consult with Dr. Chisholm and Dr. Lovett for neutropenic fever. Dr. Lai consult for his changes of his chest x ray and pulmonary issues. Followup with Dr. Quintanilla for abnormal LFTs and Dr. Hebert for fever of unknown origin. After conservation with Dr. Perez, we will continue his Cipro and Mepron until Dr. Lovett or Dr. Chisholm see the patient. We will also give Mycelex Troches, increase his Prednisone as per Dr. Lai to 80 mg daily from 40 mg, Protonix 40 mg daily, until he can get his Dexilant from home, which is [address] Quintanilla. We will give IV fluids at 100 mL an hour for his hyponatremic indices with Tylenol as needed for his elevated temperatures. We will ask for manual platelet count in the morning with transfusions as indicated as above. We will also given Anusol-HC cream, Anusol suppository for his hemorrhoid issues with the patient being monitored clinically and with labs. Prognosis for this patient is guarded. Herb Fernández MD [facility] # [id number]
[2017-02-05] MEDS ORDERED: Vancomycin 2 GM in Sodium Chloride 0.9% 500 ML IVPB ONE (09:26)
--- NOTE | 2017-02-05 09:56 | CP.PCM.PN ---
Subjective - Date & Time of Evaluation Date of Evaluation: 02/05/17 Time of Evaluation: 09:51 - Subjective Subjective: Progress Note for Mary Tsai PGY2 Patient seen and examined at bedside. As per nursing staff, patient had fever of 103 this am and platelet count of 7. Otherwise there were no other acute events. Patient feels lethargic today and feverish. He had 2 loose BM yesterday. He denies having chest pain, shortness of breath, nausea/vomiting/ constipation, numbness/tingling or pain. He has poor appetite due to "decreased sensation of taste". He also complains of muscle cramps. Objective - Vital Signs/Intake and Output Vital Signs (last 24 hours): Temp Pulse Resp BP Pulse Ox 103.0 F H 82 20 132/72 97 02/05/17 04:30 02/05/17 06:00 02/05/17 04:36 02/05/17 04:36 02/05/17 00:00 Intake and Output: 02/05/17 02/05/17 06:59 18:59 Intake Total 1000 Output Total 1400 Balance -400 - Medications Medications: Current Medications Acetaminophen (Tylenol 325mg Tab) 650 mg PO Q4 PRN PRN Reason: Fever >100.4 F Last Admin: 02/05/17 04:30 Dose: 650 mg Acetaminophen (Tylenol 325mg Tab) 650 mg PO STAT ONE Stop: 02/05/17 10:01 Al Hydrox/Mg Hydrox/Simethicone (Maalox Plus 30 Ml) 30 ml PO DAILY PRN PRN Reason: Indigestion / Heartburn Atovaquone (Mepron) 750 mg PO BID [facility] Last Admin: 02/04/17 20:03 Dose: 750 mg Clotrimazole (Mycelex Charles) 10 mg MT 5XD [facility] Last Admin: 02/05/17 05:41 Dose: 10 mg Diphenhydramine HCl (Benadryl) 50 mg IVP ONCE ONE Stop: 02/05/17 10:01 Folic Acid (Folic Acid) 1 mg PO DAILY [facility] Home Med (Home Med) 60 unit PO DAILY [facility]ID Hydrocortisone (Anusol-Hc) 0 gm [place] BID [facility] Hydrocortisone (Anusol-Hc) 25 mg RC BID [facility] Cefepime HCl (Maxipime 2gm) 2 gm in 100 mls @ 100 mls/hr IVPB Q8 DAVID PRN Reason: Protocol Stop: 02/11/17 23:31 Last Admin: 02/05/17 06:29 Dose: Not Given Vancomycin HCl 2 gm/ Sodium (Chloride) 500 mls @ 170 mls/hr IVPB ONCE ONE PRN Reason: Protocol Stop: 02/05/17 12:22 Insulin Human Lispro (Humalog Low) 0 units SC ACHS DAVID PRN Reason: Protocol Mupirocin (Bactroban Ointment) 0 gm TOP BID DAVID Prednisone (Prednisone Tab) 80 mg PO DAILY DAVID - Labs Labs: 02/05/17 06:20 02/05/17 06:20 - Constitutional Appears: No Acute Distress, Chronically Ill - Head Exam Head Exam: ATRAUMATIC, NORMAL INSPECTION, NORMOCEPHALIC - Eye Exam Eye Exam: Normal appearance, PERRL Pupil Exam: NORMAL ACCOMODATION, PERRL - ENT Exam ENT Exam: Mucous Membranes Moist - Neck Exam Neck Exam: Full ROM - Respiratory Exam Respiratory Exam: Clear to Ausculation Bilateral, NORMAL BREATHING PATTERN. absent: Rales, Rhonchi, Wheezes - Cardiovascular Exam Cardiovascular Exam: REGULAR RHYTHM, +S1, +S2. absent: Gallop, Rubs, Murmur - GI/Abdominal Exam GI & Abdominal Exam: Soft, Normal Bowel Sounds. absent: Rigid, Tenderness, Mass , Rebound - Extremities Exam Extremities Exam: Normal Inspection, Pedal Edema. absent: Calf Tenderness - Neurological Exam Neurological Exam: Alert, Awake, CN II-XII Intact, Oriented x3 - Psychiatric Exam Psychiatric exam: Normal Affect, Normal Mood - Skin Skin Exam: Dry, Warm Additional comments: multiple bruising sites in arms from IV sites. Excoriation on nasal bridge and crusting on R lower lip. Assessment and Plan - Assessment and Plan (Free Text) Assessment: This is a 56Y male with past medical history of hemorrhoids, pancytopenia of unknown origin with extensive work up, BETANCOURT s/p liver biopsy that was benign, florencia positive anemia, oropharyngeal candidiasis, campylobacter infection who was admitted for pancytopenia with neutropenia, diarrhea, and sepsis. Patient was given 3U of platelets and 3U PRBC at last admission. He had a bone marrow biopsy with results pending. He was seen in Dr. Perez's office yesterday and noted to be pancytopenic. Patient was then transferred to the ED for admission. Plan: 1. Fever of unknown - Pt febrile this am - Neutropenic precautions - On previous admission, patient was positive for pseudonomas on sputum. - ID on consult - Patient is on Vanco and Cefepime - Acyclovir for possible HSV on R lower lip - Mepron for low CD4/CD8 count- HIV negative - GI consulted for diarrhea and abnormal LFTs- C.diff negative at last admission - Pulm consulted - Prednisone 80mg - Tylenol prn fever - Pt had bone marrow biopsy at last admission- prelim may be positive for lymphoma- awaiting final results - in previous admission, CT chest/abd/pelvis showed decreased size of mediastinal lymphadenopathy- no acute findings- see full report for more details 2. Pancytopenia - Patient had extensive work up without any clear source - Amyloid stain on liver negative - Awaiting results for bone marrow biopsy - WBC: 1.5, Hgb: 8.2, Platelets: 10 - Will transfuse 2U of platelets and 2U PRBC (pt had 3U plt and 3U PRBC at last admission) - ANC: 1.08- continue neutropenic precautions - CARMELA positive, ANCA negative, double stranded DNA negative, muscle aldolase negative - Folic acid - Granix 150 SC daily 3. Hyponatremia - Na: 125 - Will place pt on NS@100 - Will consult Nephrology 4. Non-alcoholic hepatic steatosis with transaminitis - possibly secondary to BETANCOURT versus medications - Liver biopsy in past did not show any abnormalities and amyloid stain of liver negative - GI consulted - Hep panel negative 5. Hemorrhoids - Proctocream TID - Anusol d/c 6. Diabetes - HgbA1c: 7.2 at last admission - glucose can be elevated due to steroids - Continue ISS and to monitor blood glucose 7. Decreased sensation of taste - No oral thrush was seen on exam - Pt was taking Nystatin on and off at home - GI consulted 8. IV access - Patient need PICC line due to increased bruising and swelling of arms - Consulted Dr. Gallagher for PICC line placement - Spoke with Dr. Nevarez- will due central line after 1U of platelet. GI ppx: Dexliant (from home) DVT ppx: SCDs Case seen, discussed and reviewed with Dr. Perez. Mary Santamaria PGY2
[2017-02-05] MEDS: Hydrocortisone 2.5% Rectal Cream(30 gm) PR SCH ×2 (10:00→18:14)
[2017-02-05] MEDS ORDERED: DiphenhydrAMINE 50 mg/ml Inj IVP ONE (10:00)
[2017-02-05] MEDS ORDERED: Pantoprazole 40 mg EC Tab PO SCH (10:00)
[2017-02-05] MEDS: Atovaquone 750 mg/5 ml Susp UD PO SCH ×2 (10:12→18:10)
[2017-02-05] MEDS: Alum-Mag Hydrox-Simethicone Susp (30 mL) PO PRN (10:12)
[2017-02-05] MEDS: DEXILANT 60 MG PO SCH (10:15)
[2017-02-05 10:37] LABS: INR 1.51 (0.93-1.08); PARTIAL THROMBOPLASTIN TIME 29.6 Seconds (25.1-36.5)
[2017-02-05] MEDS: Insulin Lispro (humaLOG) LOW Coverage SC SCH ×3 (11:30→21:27)
[2017-02-05] MEDS: Hydrocortisone-Pramoxine 1%-1% Foam(10 gm) TOP SCH (14:05)
[2017-02-05] MEDS ORDERED: HYDROmorphone 1 mg/ml ISec IVP STA (14:22)
--- NOTE | 2017-02-05 14:26 | CP.PCM.CON ---
History of Present Illness - History of Present Illness History of Present Illness: 56 year old male with PMH of hemorrhoids, history of non-alcoholic steatohepatitis, history of pancytopenia of unknown etiology was recently admitted in [facility] for pancytopenia and fevers. Work up was done which so far only yielded Pseudomonas in his sputum associated with lung fibrosis. He was discharged on PO Ciprofloxacin. He then saw his Oncologist on follow up and was found to be more profoundly thrombocytopenic and also febrile again. He also has chills when he has fevers, no headache or dizziness, no chest pain, no SOB although still with cough which continues to improve compared to his previous admission, no nausea or vomiting, no abdominal pain, no diarrhea, no dysuria, no sore throat, no dysphagia. Infectious Diseases consult is requested to further evaluate and manage. Review of Systems - Review of Systems All systems: reviewed and no additional remarkable complaints except (as per HPI ) Past Patient History - Infectious Disease Hx of Infectious Diseases: None - Tetanus Immunizations Tetanus Immunization: Unknown - Past Social History Smoking Status: Never Smoked - CARDIAC Hx Cardiac Disorders: No Hx Pacemaker: No Hx Peripheral Edema: Yes - PULMONARY Hx Respiratory Disorders: Yes - NEUROLOGICAL Hx Neurological Disorder: No - HEENT Hx HEENT Problems: No - RENAL Hx Chronic Kidney Disease: Yes Hx Kidney Stones: Yes (3.8 MM KIDNEY STONES 11-02-13) - ENDOCRINE/METABOLIC Hx Endocrine Disorders: No - HEMATOLOGICAL/ONCOLOGICAL Hx Blood Disorders: Yes Hx Anemia: Yes Hx Blood Transfusions: Yes Other/Comment: pancytopenia, blood transfusion platelets, hemolytic anemia - INTEGUMENTARY Hx Dermatological Problems: No - MUSCULOSKELETAL/RHEUMATOLOGICAL Hx Falls: No - GASTROINTESTINAL Hx Gastrointestinal Disorders: No - GENITOURINARY/GYNECOLOGICAL Hx Genitourinary Disorders: No - PSYCHIATRIC Hx Emotional Abuse: No Hx Physical Abuse: No Hx Substance Use: No - SURGICAL HISTORY Other/Comment: lung biopsy in past, benign, ct scan guided bone marrow bx 05/21/16 - ANESTHESIA Hx Anesthesia: Yes Hx Anesthesia Reactions: No Hx Malignant Hyperthermia: No Meds Allergies/Adverse Reactions: Allergies Allergy/AdvReac Type Severity Reaction Status Date / Time POLLEN AdvReac Mild SNEEZING Uncoded 01/28/17 17:30 DUST AdvReac SNEEZING Uncoded 01/28/17 17:30 MOLD AdvReac SNEEZING Uncoded 01/28/17 17:30 - Medications Medications: Current Medications Acetaminophen (Tylenol 325mg Tab) 650 mg PO Q4 PRN PRN Reason: Fever >100.4 F Atovaquone (Mepron) 750 mg PO BID [facility] Last Admin: 02/04/17 20:03 Dose: 750 mg Ciprofloxacin (Cipro) 500 mg PO BID [facility] PRN Reason: Protocol Last Admin: 02/04/17 20:03 Dose: 500 mg Clotrimazole (Mycelex Charles) 10 mg MT 5XD [facility] Last Admin: 02/04/17 22:39 Dose: 10 mg Folic Acid (Folic Acid) 1 mg PO DAILY [facility] Hydrocortisone (Anusol-Hc) 0 gm [place] BID [facility] Hydrocortisone (Anusol-Hc) 25 mg RC BID [facility] Sodium Chloride (Sodium Chloride 0.9%) 1,000 mls @ 100 mls/hr IV .Q10H ONE Stop: 02/05/17 06:47 Last Admin: 02/04/17 21:15 Dose: 100 mls/hr Mupirocin (Bactroban Ointment) 0 gm TOP BID [facility] Non-Formulary Medication (Dexilant) 60 mg PO DAILY [facility] Pantoprazole Sodium (Protonix Ec Tab) 40 mg PO DAILY [facility] Prednisone (Prednisone Tab) 80 mg PO DAILY [facility] Physical Exam - Constitutional Appears: Chronically Ill - Head Exam Head Exam: NORMAL INSPECTION - ENT Exam ENT Exam: Mucous Membranes Moist - Neck Exam Neck exam: Negative for: Meningismus - Respiratory Exam Respiratory Exam: Decreased Breath Sounds - Cardiovascular Exam Cardiovascular Exam: +S1, +S2 - GI/Abdominal Exam GI & Abdominal Exam: Soft. absent: Tenderness Results - Vital Signs Recent Vital Signs: Last Vital Signs Temp 101.2 F H 02/04/17 20:03 Pulse 100 H 02/04/17 20:03 Resp 16 02/04/17 20:03 BP 125/77 02/04/17 20:03 Pulse Ox 98 02/04/17 20:03 - Labs Result Diagrams: 02/05/17 06:20 02/05/17 06:20 Assessment & Plan - Assessment and Plan (Free Text) Plan: Assessment Systemic Inflammatory Response Syndome, R/O sepsis due to PSeudomonas in sputum cx in a patient with lung fibrosis; R/O autoimmune disease Pancytopenia, etiology to be determined hemorrhoids history of non-alcoholic steatohepatitis Plan follow up repeat blood cx; previous sputum cx showed Pseudomonas - restarted Cefepime and will give a dose of IV Vanco and Gentamicin CT C/A/P previously showed lung fibrosis will repeat Fungitell; CMV PCR and Galactomannan from previous admission are negative continue Mepron since CD4/CD8 ratio is low and patient is on chronic steroids reviewed work up done by Dr. Weston from [facility] which did not show acute EBV infection, no HIV, negative RPR will continue to monitor clinically discussed with Dr. Perez
[2017-02-05] MEDS ORDERED: Gentamicin 80 mg/2mL Inj. IVPB ONE (14:30)
--- NOTE | 2017-02-05 16:58 | RAD ---
HISTORY: Right IJ central line placement COMPARISON: February 04, 2017. FINDINGS: LUNGS: Interval improvement pulmonary edema, multifocal asymmetric infiltrates. PLEURA: No significant pleural effusion identified, no pneumothorax apparent. CARDIOVASCULAR: Improved presumed cardiogenic pulmonary edema. Venous access catheter in satisfactory position. OSSEOUS STRUCTURES: No significant abnormalities. VISUALIZED UPPER ABDOMEN: Normal. OTHER FINDINGS: None. IMPRESSION: Interval improvement multifocal infiltrates/ pulmonary edema.
--- NOTE | 2017-02-05 17:09 | CP.PCM.CON ---
History of Present Illness - History of Present Illness History of Present Illness: General Surgery - Dr. Nevarez 56M w/ hx of BETANCOURT, Pancytopenia of unknown etiology despite extensive testing including bone marrow biopsies, admitted with fever of unknown origin. He is currently resting in bed and denies any acute complaints. Surgery was consulted for central line placement for transfusions and group home IV access. Platelets were 10 this morning so pt was transfused 1U Platelets prior to the procedure. Discussed risks and benefits of the procedure with patient and he was agreeable. Dr. Perez was also present for the procedure. Review of Systems - Review of Systems All systems: reviewed and no additional remarkable complaints except (as per HPI ) Past Patient History - Infectious Disease Hx of Infectious Diseases: None - Tetanus Immunizations Tetanus Immunization: Unknown - Past Social History Smoking Status: Never Smoked - CARDIAC Hx Cardiac Disorders: No Hx Pacemaker: No Hx Peripheral Edema: Yes - PULMONARY Hx Respiratory Disorders: Yes - NEUROLOGICAL Hx Neurological Disorder: No - HEENT Hx HEENT Problems: No - RENAL Hx Chronic Kidney Disease: Yes Hx Kidney Stones: Yes (3.8 MM KIDNEY STONES 11-02-13) - ENDOCRINE/METABOLIC Hx Endocrine Disorders: No - HEMATOLOGICAL/ONCOLOGICAL Hx Blood Disorders: Yes Hx Anemia: Yes Hx Blood Transfusions: Yes Other/Comment: pancytopenia, blood transfusion platelets, hemolytic anemia - INTEGUMENTARY Hx Dermatological Problems: No - MUSCULOSKELETAL/RHEUMATOLOGICAL Hx Falls: No - GASTROINTESTINAL Hx Gastrointestinal Disorders: No - GENITOURINARY/GYNECOLOGICAL Hx Genitourinary Disorders: No - PSYCHIATRIC Hx Emotional Abuse: No Hx Physical Abuse: No Hx Substance Use: No - SURGICAL HISTORY Other/Comment: lung biopsy in past, benign, ct scan guided bone marrow bx 05/21/16 - ANESTHESIA Hx Anesthesia: Yes Hx Anesthesia Reactions: No Hx Malignant Hyperthermia: No Meds Allergies/Adverse Reactions: Allergies Allergy/AdvReac Type Severity Reaction Status Date / Time POLLEN AdvReac Mild SNEEZING Uncoded 01/28/17 17:30 DUST AdvReac SNEEZING Uncoded 01/28/17 17:30 MOLD AdvReac SNEEZING Uncoded 01/28/17 17:30 - Medications Medications: Current Medications Acetaminophen (Tylenol 325mg Tab) 650 mg PO Q4 PRN PRN Reason: Fever >100.4 F Last Admin: 02/05/17 04:30 Dose: 650 mg Acyclovir (Zovirax) 200 mg PO 5XD [facility] PRN Reason: Protocol Last Admin: 02/05/17 14:07 Dose: 200 mg Al Hydrox/Mg Hydrox/Simethicone (Maalox Plus 30 Ml) 30 ml PO DAILY PRN PRN Reason: Indigestion / Heartburn Last Admin: 02/05/17 10:12 Dose: 30 ml Atovaquone (Mepron) 750 mg PO BID [facility] Last Admin: 02/05/17 10:12 Dose: 750 mg Clotrimazole (Mycelex Charles) 10 mg MT 5XD [facility] Last Admin: 02/05/17 14:07 Dose: 10 mg Folic Acid (Folic Acid) 1 mg PO DAILY [facility] Last Admin: 02/05/17 10:12 Dose: 1 mg Home Med (Home Med) 60 unit PO DAILY [facility] Last Admin: 02/05/17 10:15 Dose: 60 unit Hydrocortisone (Anusol-Hc) 0 gm FL BID [facility] Last Admin: 02/05/17 10:00 Dose: 1 applic Hydrocortisone/Pramoxine (Proctofoam) 1 gm TOP TID [facility] Last Admin: 02/05/17 14:05 Dose: Not Given Cefepime HCl (Maxipime 2gm) 2 gm in 100 mls @ 100 mls/hr IVPB Q8 [facility] PRN Reason: Protocol Stop: 02/11/17 23:31 Last Admin: 02/05/17 14:00 Dose: Not Given Sodium Chloride (Sodium Chloride 0.9%) 1,000 mls @ 100 mls/hr IV .Q10H [facility] Insulin Human Lispro (Humalog Low) 0 units SC ACHS [facility] PRN Reason: Protocol Last Admin: 02/05/17 11:30 Dose: Not Given Mupirocin (Bactroban Ointment) 0 gm TOP BID [facility] Last Admin: 02/05/17 10:00 Dose: 1 applic Prednisone (Prednisone Tab) 80 mg PO DAILY [facility] Last Admin: 02/05/17 10:12 Dose: 80 mg Tolvaptan (Samsca) 15 mg PO DAILY [facility] Stop: 02/07/17 15:04 Physical Exam - Constitutional Appears: No Acute Distress - Head Exam Head Exam: ATRAUMATIC, NORMAL INSPECTION, NORMOCEPHALIC - Eye Exam Eye Exam: Normal appearance - Neck Exam Neck exam: Positive for: Normal Inspection - Respiratory Exam Respiratory Exam: NORMAL BREATHING PATTERN. absent: Respiratory Distress - Cardiovascular Exam Cardiovascular Exam: REGULAR RHYTHM - Neurological Exam Neurological exam: Alert, Oriented x3 - Psychiatric Exam Psychiatric exam: Normal Affect, Normal Mood - Skin Skin Exam: Dry, Intact Results - Vital Signs Recent Vital Signs: Last Vital Signs Temp 101 F H 02/05/17 12:59 Pulse 100 H 02/05/17 12:59 Resp 21 02/05/17 12:59 BP 115/70 02/05/17 12:59 Pulse Ox 97 02/05/17 06:00 - Labs Result Diagrams: 02/05/17 06:20 02/05/17 06:20 Labs: Laboratory Results - last 24 hr 02/05/17 02/05/17 02/05/17 06:20 06:20 06:20 WBC 1.5 L* D RBC 2.39 L Hgb 8.2 L D Hct 24.3 L MCV 101.7 MCH 34.3 MCHC 33.7 RDW 20.5 H Plt Count 7 L* Manual Plt Count 10 L* Gran % 73.0 H Lymph % (Auto) 18.9 L [place] % (Auto) 8.1 H Eos % (Auto) 0.0 L Baso % (Auto) 0.0 Gran # 1.08 L Lymph # 0.3 L [place] # 0.1 Eos # 0.0 Baso # 0.00 PT INR APTT Sodium 125 L Potassium 3.7 Chloride 95 L Carbon Dioxide 30 Anion Gap 4 L BUN 10 Creatinine 0.6 L Est GFR ( Amer) > 60 Est GFR (Non-Af Amer) > 60 POC Glucose (mg/dL) Random Glucose 128 H Uric Acid Calcium 7.6 L Total Bilirubin 2.0 H AST 66 H D ALT 147 H Alkaline Phosphatase 387 H D Total Protein 6.1 Albumin 2.2 L Globulin 3.9 Albumin/Globulin Ratio 0.6 L Procalcitonin 1.65 H 02/05/17 02/05/17 02/05/17 06:30 08:11 10:15 WBC RBC Hgb Hct MCV MCH MCHC RDW Plt Count Manual Plt Count Gran % Lymph % (Auto) [place] % (Auto) Eos % (Auto) Baso % (Auto) Gran # Lymph # [place] # Eos # Baso # PT 16.8 H INR 1.51 H APTT 29.6 Sodium Potassium Chloride Carbon Dioxide Anion Gap BUN Creatinine Est GFR ( Amer) Est GFR (Non-Af Amer) POC Glucose (mg/dL) 137 H Random Glucose Uric Acid 1.5 L Calcium Total Bilirubin AST ALT Alkaline Phosphatase Total Protein Albumin Globulin Albumin/Globulin Ratio Procalcitonin 02/05/17 02/05/17 11:30 16:27 WBC RBC Hgb Hct MCV MCH MCHC RDW Plt Count Manual Plt Count Gran % Lymph % (Auto) [place] % (Auto) Eos % (Auto) Baso % (Auto) Gran # Lymph # [place] # Eos # Baso # PT INR APTT Sodium Potassium Chloride Carbon Dioxide Anion Gap BUN Creatinine Est GFR ( Amer) Est GFR (Non-Af Amer) POC Glucose (mg/dL) 137 H 249 H Random Glucose Uric Acid Calcium Total Bilirubin AST ALT Alkaline Phosphatase Total Protein Albumin Globulin Albumin/Globulin Ratio Procalcitonin Assessment & Plan - Assessment and Plan (Free Text) Assessment: 56yo M w/ pancytopenia and fever of unknown origin, surgery consulted for TLC -Central line placed without complication -CXR reviewed, no pneumothorax -OK to use RIJ TLC -Surgery will sign off DW Dr. Roque Grubbs PGY3 Proc: Central Venous Access - Time Performed Time Performed: 15:00 - Time Out Time Out: Side verified, Site verified, Patient ID confirmed, Sterile procedures obs. - Procedure Procedure: Central Line placement: Right Technique:: Seldinger technique, Ultrasound guidance, Internal jugular vein - Consent obtained Consent obtained: Written - Indications Indication(s):: Centrally admin. meds Tube type:: Triple lumen - Local Anesthetic Local Anesthetic: Lidocaine: 3cc - Line sutured in place Line sutured in place:: Yes - Confirmation Confirmation:: CXR -tube approp position, No pneumothorax - Patient tolerated procedure Patient Tolerated Procedure:: Well
[2017-02-05] MEDS: Tolvaptan 15 MG TAB PO SCH (18:10)
[2017-02-05] MEDS: POLYETHYLENE GLYCOL 3350 17 GM/Dose PACKET PO SCH (18:10)
[2017-02-05 19:15] LABS: PH,URINE 6.5 (4.7-8.0); URINE BILIRUBIN NEGATIVE (NEGATIVE); URINE BLOOD SMALL (NEGATIVE); URINE GLUCOSE (UA) >=1000 mg/dL (NEGATIVE); URINE KETONE NEGATIVE (NEGATIVE); URINE LEUKOCYTE ESTERASE NEGATIVE Leu/uL (NEGATIVE); URINE PROTEIN TRACE mg/dL (<30 mg/dL); URINE UROBILINOGEN 0.2 E.U./dL (<1 E.U./dL)
[2017-02-05 19:16] LABS: URINE APPEARANCE CLEAR (CLEAR); URINE COLOR YELLOW (YELLOW)
[2017-02-05 19:27] LABS: URINE BACTERIA SMALL (NEG); URINE EPITHELIAL CELLS 0 - 2 /hpf (0-5); URINE WBC 0 - 2 /hpf (0-6)
--- NOTE | 2017-02-05 23:39 | CON ---
GASTROENTEROLOGY CONSULTATION DATE: 02/05/2017 REQUESTING PHYSICIAN: Herb Fernández MD REASON FOR CONSULT: I have been asked to see this 56-year-old male just recently discharged from [facility] a little over 24 hours ago with recurrent pancytopenia, fever, systemic inflammatory response syndrome with history of BETANCOURT and bronchitis as well as mediastinal and retroperitoneal lymphadenopathy. The patient also has a history of Aditya-positive hemolytic anemia. He has had multiple bone marrow biopsies, most recently surely before his discharge several days ago. Special immunostaining is pending. Prior bone marrow biopsies have been negative for any possible etiology for his pancytopenia. The patient had negative cultures on his prior admission. He has had multiple outside consultations including consultations at [facility], with Dr. Yolie Baugh at [facility] and also at [facility] in [facility], again without any etiology for his pancytopenia. The patient is again admitted with fever to 103 and pancytopenia with white blood cell count this morning down to 1.5 and platelet count down to 7, his hemoglobin is down to 8.2. He denies any abdominal pain, nausea, vomiting, rectal bleeding, or melena. PAST MEDICAL HISTORY: As above. Again, he has a history of pancytopenia, BETANCOURT, interstitial infiltrates on imaging of the chest as well as lymphadenopathy involving his mediastinum and abdomen and retroperitoneum, also COPD and oropharyngeal candidiasis. SOCIAL HISTORY: He denies cigarette smoking or alcohol use. FAMILY HISTORY: Noncontributory. CURRENT MEDICATIONS: Include hydrocortisone suppositories twice a day, folic acid, Mepron, Mycelex Troches, prednisone 80 mg daily, tolvaptan, and acyclovir. REVIEW OF SYSTEMS: A 14-point review of systems is notable for fever, generalized weakness, and loss of appetite. PHYSICAL EXAMINATION: GENERAL: Chronically ill-appearing male, lying in bed. VITAL SIGNS: Reveal temperature of 98.4, blood pressure 109/67, heart rate is 72. HEENT: Reveal an area of erythema on the bridge of his nose. He also has a cold sore on his right upper lip. There is no thrush in his oral mucosa. Sclerae white. Conjunctivae pale. NECK: Supple. CHEST: Reveal lungs to be clear. HEART: Reveals regular rate and rhythm. ABDOMEN: Soft, nontender. EXTREMITIES: Show 1+ pedal edema. He has ecchymotic areas on his forearms. LABORATORY DATA: Reveal white blood cell count 1.5; hemoglobin 8.2; platelet count of 10,000, this is a manual platelet count. Laboratory data reveal sodium 125, total bilirubin of 2, AST 66, ALT 147, alkaline phosphatase of 387, and albumin 2.2. IMPRESSION: This 56-year-old male with: 1. Recurrent pancytopenia and fever, rule out neutropenic fever, and sepsis versus systemic inflammatory response syndrome. 2. Nonalcoholic steatohepatitis (BETANCOURT). Note: Etiology of the pancytopenia has not been determined despite multiple bone marrow biopsies, a lung biopsy, and a liver biopsy. His lymphadenopathy in the mediastinum and abdomen and retroperitoneum actually have improved on most recent CT imaging. I am concerned about an indolent leukemia or some other autoimmune process causing pancytopenia. RECOMMENDATIONS: 1. Await further immunologic staining of his recent bone marrow biopsy. 2. Transfuse platelets and packed red blood cells as needed. 3. Continue PPI for stress ulcer prophylaxis. 4. I will order an antimitochondrial antibody to rule out primary biliary cirrhosis. Gerardo Quintanilla MD
[2017-02-06 01:59] LABS: TOTAL PROTEIN, SERUM 5.5 g/dL (6.1-8.1)
--- NOTE | 2017-02-06 03:45 | CON ---
PULMONARY CONSULTATION DATE: 02/05/2017 REFERRING PHYSICIAN: Herb Fernández MD REASON FOR CONSULT: Cough, shortness of breath, and pulmonary infiltrate. HISTORY OF PRESENT ILLNESS: This is a 56-year-old gentleman well known to me from the office and previous admission, has a multiple organ involvement with seems like autoimmune disease-type phenomenon, just recently discharged home, seen at Dr. Perez's office, found to have severe thrombocytopenia, was brought into ER and was admitted, does have some cough and shortness of breath, also have a sleep apnea syndrome in the past. Has a liver abnormality, bilateral pulmonary nodular interstitial infiltrate in retroperitoneal lymph node. After extensive workup, the patient was started on prednisone, thinking about may be it is a sarcoidosis because the patient refused for the surgery which was including VATS to get lung biopsy, but the patient refused it, so he responded very well to prednisone 80 mg. Radiologically improving his infiltrate on the x-ray or chest CT and also retroperitoneal lymph node disappear. His cough totally disappear, but after couple of months, his prednisone was starting tapering just like a 5 to 10 mg. While symptom of chills, fever and body aches, come to emergency room, at that time had a fever up to 102, 103, again became thrombocytopenia. He was transfused well, fever 103 after transfusion, 48-hour he had no fever. Remember before discharge 48-hour, after high fever, he was given Solu-Medrol IV and prednisone totally was decreased to 40 mg daily. Now readmitted, lying in the bed. No new changes since last 2 days, has a low-grade fever. Yesterday, I had long discussion with Dr. Perez and the patient was given 80 mg of prednisone and suggested to do connective tissue disorder workup. He used to have an unremarkable CARMELA, but later his CARMELA was increased too. There is no hemoptysis, no hematemesis, no hematuria. Does have a leg swelling. PAST MEDICAL HISTORY: As per history of present illness. ALLERGIES: POLLEN, DUST AND MOLD. SOCIAL HISTORY: Nonsmoker, nondrinker. FAMILY HISTORY: Positive for stroke, coronary artery disease, colon cancer, no history of immune disease. MEDICATIONS: He is on Anusol p.r.n. basis, Bactroban p.r.n. basis, folic acid 1 mg daily, insulin coverage, Maalox p.r.n. basis, cefepime 2 g IV q.8 hours, Mepron 750 mg twice a day, Mycelex Troches 5 times a day, prednisone back to 80 mg daily, ProctoFoam p.r.n. basis, Samsca 15 mg daily, IV fluid normal saline 100 mL per hour, Tylenol p.r.n. basis and Zovirax 200 mg five times a day. REVIEW OF SYSTEMS: No headache. No rhinitis. Has some herpetic lesion on the left nasal bridge, ulcer is improving. PHYSICAL EXAMINATION: LUNGS: Has a few crackle at bases, scattered rhonchi. HEART: S1 and S2. ABDOMEN: Soft and nontender. No organomegaly. EXTREMITIES: Does have some edema. NEUROLOGIC: Awake, alert and follow simple commands. LABORATORY DATA: Shows hemoglobin 8.2, hematocrit 24.3, WBC 1.5 and platelet is 7. INR 1.51. PTT is 30. Sodium 125, potassium 3.7, chloride 95, bicarbonate 30, BUN 10, creatinine 0.6, glucose 128, uric acid 1.5, calcium is 7.6, total bili is 2.0, AST 66, ALT 147, alk phos is 387, albumin is 2.2. Procalcitonin 1.65. On 01/30/2017, his CARMELA was . CARMELA screen is positive. CARMELA pattern was nucleolar. Complement CH50 is more than 60. TB Gold test is indeterminate. IMPRESSION AND PLAN: Autoimmune disease with pancytopenia, severe thrombocytopenia, herpetic lip lesion, obstructive sleep apnea syndrome, redeveloped cough, lower extremity swelling, has a hemorrhoid. Case discussed with Dr. Perez last night. We will decided to increase prednisone to 80 mg again for diagnostic and therapeutic purposes. At this time, his infiltrate definitely increase in lung x-ray and was started a high-dose steroid. In the past, chest x-ray became improved. Same time Infectious Disease's consult was called infection other than had a Pseudomonal. On last admission, the sputum I doubt that was too organism because that time x-ray was unremarkable. Continue IV fluid. Replace electrolyte. 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 Recently has a bone marrow done, reports are still pending. Workup for connective tissue disease being repeated. Thank you and we will follow with you. Ant Lai MD
[2017-02-06] MEDS: Cefepime IV 2 gm in NS 2 GM/100 ML BAG IVPB SCH ×3 (06:41→21:20)
[2017-02-06] MEDS: Insulin Lispro (humaLOG) LOW Coverage SC SCH ×4 (08:43→22:58)
[2017-02-06] MEDS: Atovaquone 750 mg/5 ml Susp UD PO SCH ×2 (09:02→17:24)
[2017-02-06] MEDS: Alum-Mag Hydrox-Simethicone Susp (30 mL) PO PRN (09:02)
[2017-02-06] MEDS: Hydrocortisone 2.5% Rectal Cream(30 gm) PR SCH ×2 (09:10→17:23)
[2017-02-06] MEDS: DEXILANT 60 MG PO SCH (09:11)
[2017-02-06] MEDS: POLYETHYLENE GLYCOL 3350 17 GM/Dose PACKET PO SCH ×2 (09:12→17:24)
[2017-02-06] MEDS: Hydrocortisone-Pramoxine 1%-1% Foam(10 gm) TOP SCH ×3 (09:13→17:24)
[2017-02-06] MEDS: Tolvaptan 15 MG TAB PO SCH (09:26)
[2017-02-06] MEDS: Sodium Chloride 0.9% 1,000 ML IV SCH ×2 (09:31→22:30)
[2017-02-06 09:57] LABS: GRAN # 1.93 (1.4-6.5); GRAN % 84.6 % (50.0-68.0); HEMATOCRIT 30.3 % (42.0-52.0); LYMPH # 0.3 (1.2-3.4); LYMPH % 13.2 % (22.0-35.0); MEAN CELL VOLUME 96.2 fl (80.0-105.0); MEAN CORPUSCULAR HEMOGLOBIN 32.1 pg (25.0-35.0); MEAN CORPUSCULAR HGB CONC 33.3 g/dl (31.0-37.0); MEAN PLATELET VOLUME 9.2 fl (7.0-11.0); MONO # 0.1 (0.1-0.6); MONO % 2.2 % (1.0-6.0); RED CELL DISTRIBUTION WIDTH 23.1 % (11.5-14.5)
[2017-02-06 10:03] LABS: PLATELET COUNT 22 10^3/uL (120.0-450.0); WHITE BLOOD COUNT 2.3 10^3/ul (4.5-11.0)
[2017-02-06 10:23] LABS: ALB/GLOB RATIO 0.6 (1.1-1.8); ALKALINE PHOSPHATASE 438 U/L (38-126); ALT/SGPT 148 U/L (7-56); AST/SGOT 62 U/L (17-59); BILIRUBIN,TOTAL 3.4 mg/dL (0.2-1.3); BLOOD UREA NITROGEN 9 mg/dL (7-21); CALCIUM 8.3 mg/dL (8.4-10.5); CARBON DIOXIDE 30 mmol/L (21-33); CHLORIDE 103 mmol/L (98-107); GFR AFRICAN-AMERICAN > 60; GLUCOSE,RANDOM 155 mg/dL (70-110); MAGNESIUM 2.2 mg/dL (1.7-2.2); PHOSPHOROUS 2.5 mg/dL (2.5-4.5); POTASSIUM 3.3 mmol/L (3.6-5.0); SODIUM 136 mmol/L (132-148); TOTAL PROTEIN 6.8 g/dL (5.8-8.3)
--- NOTE | 2017-02-06 10:32 | CON ---
DATE: 02/06/2017 The patient admitted for Dr. Herb Fernández and Dr. Perez. REFERRING PHYSICIAN: Dr. Herb Fernández REASON FOR CONSULTATION: Evaluation of the patient known to us from previous evaluation who presents with neutropenic fevers, SIRS and hyponatremia. HISTORY OF PRESENT ILLNESS: The patient is a 56-year-old white male with a history of pancytopenia, history of fevers, T-max is 103. Possible underlying autoimmune disease, possible underlying sarcoidosis. History of bilateral pulmonary nodules and infiltrates. The patient refused invasive workup in the past. History of JUNG, history of NIDDM, history of nonalcoholic steatohepatitis. The patient was seen by us during a previous admission earlier this month when he was noted to be hyponatremic. Workup at that time was positive for SIADH. The patient's sodium level at that time dropped as low as 125 and with administration of normal saline, came up to 131. The patient was ultimately discharged home. He returns now with a sodium of 124/125. The patient is presently on broad-spectrum antibiotic therapy. He was given one dose of tolvaptan. He is on normal saline at 100 mL an hour. We are asked to evaluate the patient for his hyponatremia. The patient remains on steroids for possible autoimmune disease. PAST MEDICAL HISTORY: Significant for that of pancytopenia, history of possible autoimmune disease, possible sarcoidosis, history of bilateral pulmonary nodules and infiltrates. The patient has in the past had refused invasive workup. History of JUNG, history of NIDDM, history of nonalcoholic steatohepatitis and history of SIADH. HOME MEDICATIONS: Included that of prednisone, Bactroban, Multivites, Anusol, folic acid, iron, Famvir, Dexilant, oral Cipro, and Mepron. ALLERGIES: PATIENT IS ALLERGIC TO POLLEN, DUST AND MOLD. NO HISTORY OF ALLERGIES TO MEDICATIONS. PRESENT MEDICATIONS: In hospital include that of Anusol-HC, Bactroban, folic acid, Dexilant, insulin, Maalox, Maxipime, Mepron, MiraLax, Mycelex, prednisone, ProctoFoam, tolvaptan, normal saline, Tylenol p.r.n. and Zovirax. SOCIAL HISTORY: No history of cigarette smoking, history of very infrequent use of alcohol. FAMILY HISTORY: Noncontributory and as per old charts. REVIEW OF SYSTEMS: Ten plus systems reviewed with the patient. All positives are noted above. GENERAL: The patient states decreased appetite, but weight has remained stable since discharge. ENT: Denies any hearing or visual problems. PULMONARY: No shortness of breath. No cough, no wheezing. CARDIAC: No history of coronary artery disease. No history of chest pain. GI: No nausea, no vomiting, no diarrhea, no constipation. No abdominal pain. : No history of chronic kidney disease. No history of UTIs. ENDOCRINE: History of NIDDM. MUSCULOSKELETAL: No complaints. NEURO: No history of CVA, TIA, seizures or syncope. HEM/ONC: Positive for anemia likely secondary to his underlying medical situation. PSYCHIATRIC HISTORY: Negative. PHYSICAL EXAMINATION: GENERAL: The patient is currently seen on 3R. He is in isolation because of his pancytopenia. VITAL SIGNS: Blood pressure is 114/72, temperature presently is 101.8. Pulse is 91 with respiratory rate of 20. Oxygen saturation is 94%. HEENT: Exam shows him to be normocephalic, atraumatic. Conjunctivae are pale. Sclerae are nonicteric. Pupils equal, reactive to light and accommodation. Extraocular muscles are intact. NECK: Supple. No neck vein distention, no lymphadenopathy. No bruits. No thyromegaly. CHEST: Scattered rhonchi. No rales, no wheezing. CARDIOVASCULAR: Shows a regular rate and rhythm with a soft systolic murmur left lower sternal border. No S3. No S4. No rub. ABDOMEN: Soft. Bowel sounds are normal. No rebound or guarding. No masses. BACK: No CVAT. No spinal tenderness. EXTREMITIES: Show no lower extremity cyanosis, clubbing or edema. Distal lower extremity pulses are 2+ bilateral. NEURO: Shows him to be perhaps mildly depressed. He is alert, oriented x3 with no gross focal motor or sensory deficits noted. LABORATORY DATA AND IMAGING: Chest x-ray on 02/05 shows bilateral infiltrates. Right IJ central line. The infiltrates are asymmetrical. No pleural effusion. CBC, white blood cell count down to 1.5, hemoglobin 8.2, platelet count is 7000 with a manual platelet count of 10,000. Coags, PT 16.8 with a PTT of 29.6. Chemistries show a sodium of 125, potassium 3.7, chloride 95, BUN 10 with a creatinine of 0.6. Uric acid level was low at 1.5. Glucose is 128. Calcium was 7.6. Bilirubin was 2.0. Mild elevation of liver enzymes. Albumin is 2.2. Urines; urine sodium was 55. Urine osmolality was not done. Microbiology: Blood cultures are negative at 24 hours. ASSESSMENT: Recurrent hyponatremia. The patient had an initial diagnosis of Syndrome of inappropriate antidiuretic hormone secretion (SIADH). He responded last time nicely to IV normal saline. He has received at present, normal saline along with one dose of tolvaptan. I expect his sodium level to improve. His workup appears to be consistent with syndrome of inappropriate antidiuretic hormone secretion, though no urine osmolality was not done. I will continue isotonic saline. I will continue tolvaptan until a sodium level reaches the 135 range. Pancytopenia, etiology as of yet not completely determined. Possible autoimmune disease. The patient remains on steroid therapy. Possible sarcoidosis. The patient never had a biopsy. History of JUNG as per pulmonary note. History of NIDDM. Glucose control is acceptable given the fact that he is on steroids. History of nonalcoholic steatohepatitis, mild elevation of liver enzymes. Neutropenic sepsis. The patient continues on broad-spectrum antibiotic therapy. Etiology of his pulmonary infiltrates are not known at this point in time. PLAN: 1. Review with continuing tolvaptan. The patient does not need to be on a fluid restriction if he is taking tolvaptan. Continue IV fluid hydration with normal saline. 2. Continue empiric antibiotic therapy pending cultures. 3. Perhaps a more invasive workup to determine the exact etiology of his underlying pancytopenia. Perhaps VAT with lung biopsy. 4. Check urine osmolality. 5. Continue the patient in isolation given his pancytopenia. 6. Case discussed with his attending and staff on 3R. Thank you for letting me partake and share in the care of your patient. Emanuel Esquivel MD
[2017-02-06] MEDS: Vancomycin 1gm in NS 250ml 1 GM/250 ML BAG IVPB SCH ×2 (10:52→22:26)
--- NOTE | 2017-02-06 14:22 | CP.PCM.PN ---
Subjective - Date & Time of Evaluation Date of Evaluation: 02/06/17 Time of Evaluation: 10:55 - Subjective Subjective: Patient still having fevers, but less chills, denies nausea or vomiting, no SOB , cough is less, no diarrhea, no abdominal pain, no headache, no sore throat. Objective - Vital Signs/Intake and Output Vital Signs (last 24 hours): Temp Pulse Resp BP Pulse Ox 101.8 F H 91 H 20 114/72 94 L 02/06/17 08:16 02/06/17 08:16 02/06/17 08:16 02/06/17 08:16 02/06/17 08:16 Intake and Output: 02/06/17 02/06/17 06:59 18:59 Intake Total 2024 Output Total 2999 Balance -975 - Medications Medications: Current Medications Acetaminophen (Tylenol 325mg Tab) 650 mg PO Q4 PRN PRN Reason: Fever >100.4 F Last Admin: 02/06/17 05:43 Dose: 650 mg Acyclovir (Zovirax) 200 mg PO 5XD DAVID PRN Reason: Protocol Last Admin: 02/06/17 09:02 Dose: 200 mg Al Hydrox/Mg Hydrox/Simethicone (Maalox Plus 30 Ml) 30 ml PO DAILY PRN PRN Reason: Indigestion / Heartburn Last Admin: 02/06/17 09:02 Dose: 30 ml Atovaquone (Mepron) 750 mg PO BID [facility] Last Admin: 02/06/17 09:02 Dose: 750 mg Clotrimazole (Mycelex Charles) 10 mg MT 5XD [facility] Last Admin: 02/06/17 09:03 Dose: 10 mg Folic Acid (Folic Acid) 1 mg PO DAILY [facility] Last Admin: 02/06/17 09:02 Dose: 1 mg Home Med (Home Med) 60 unit PO DAILY [facility] Last Admin: 02/06/17 09:11 Dose: 60 unit Hydrocortisone (Anusol-Hc) [address] BID [facility] Last Admin: 02/06/17 09:10 Dose: 1 applic Hydrocortisone/Pramoxine (Proctofoam) 1 gm TOP TID [facility] Last Admin: 02/06/17 09:13 Dose: Not Given Cefepime HCl (Maxipime 2gm) 2 gm in 100 mls @ 100 mls/hr IVPB Q8 DAVID PRN Reason: Protocol Stop: 02/11/17 23:31 Last Admin: 02/06/17 06:41 Dose: 100 mls/hr Sodium Chloride (Sodium Chloride 0.9%) 1,000 mls @ 100 mls/hr IV .Q10H [facility] Last Admin: 02/06/17 09:31 Dose: 100 mls/hr Vancomycin HCl (Vancomycin 1gm) 250 mls @ 167 mls/hr IVPB Q12H DAVID PRN Reason: Protocol Insulin Human Lispro (Humalog Low) 0 units SC ACHS DAVID PRN Reason: Protocol Last Admin: 02/06/17 08:43 Dose: Not Given Mupirocin (Bactroban Ointment) 0 gm TOP BID [facility] Last Admin: 02/06/17 09:11 Dose: 1 applic Polyethylene Glycol (Miralax) 17 gm PO BID [facility] Last Admin: 02/06/17 09:12 Dose: Not Given Prednisone (Prednisone Tab) 80 mg PO DAILY [facility] Last Admin: 02/06/17 09:03 Dose: 80 mg Tolvaptan (Samsca) 15 mg PO DAILY [facility] Stop: 02/07/17 15:04 Last Admin: 02/06/17 09:26 Dose: 15 mg - Labs Labs: 02/05/17 06:20 02/05/17 06:20 PT 16.8 SECONDS (9.4-12.5) H 02/05/17 10:15 INR 1.51 (0.93-1.08) H 02/05/17 10:15 APTT 29.6 Seconds (25.1-36.5) 02/05/17 10:15 - Constitutional Appears: Chronically Ill - Head Exam Head Exam: NORMAL INSPECTION - ENT Exam ENT Exam: Mucous Membranes Moist Additional comments: ulcer on the lip, lower - Neck Exam Neck Exam: absent: Meningismus - Respiratory Exam Respiratory Exam: Decreased Breath Sounds - Cardiovascular Exam Cardiovascular Exam: +S1, +S2 - GI/Abdominal Exam GI & Abdominal Exam: Soft. absent: Tenderness Assessment and Plan - Assessment and Plan (Free Text) Plan: Assessment Systemic Inflammatory Response Syndome, R/O sepsis due to Pseudomonas in sputum cx in a patient with lung fibrosis R/O HCAP; R/O autoimmune disease Pancytopenia, etiology to be determined hemorrhoids history of non-alcoholic steatohepatitis Plan repeat blood cx is negsative; previous sputum cx showed Pseudomonas - continue Cefepime day 2 and added IV Vancomycin and gave a dose of IV Gentamicin CT C/A/P previously showed lung fibrosis will repeat Fungitell; CMV PCR and Galactomannan from previous admission are negative continue Mepron since CD4/CD8 ratio is low and patient is on chronic steroids reviewed work up done by Dr. Weston from [facility] which did not show acute EBV infection, no HIV, negative RPR will continue to monitor clinically discussed with Dr. Perez - will need further autoimmune disease work up
--- NOTE | 2017-02-06 14:36 | CON ---
ATTENDING PHYSICIAN: Herb Fernández MD HISTORY OF PRESENT ILLNESS: Patient is a 56-year-old male with history of severe pancytopenia of unknown etiology treated for the past 6 months with steroids, who responded well until few weeks' ago when he developed fever, fatigue, diarrhea. He was hospitalized last week and treated with prednisone and wide-spectrum antibiotics and his workup was significant for pseudomonas in sputum, nonspecific bilateral infiltrations in both lungs and abnormal with positive AMA consistent with autoimmune disorder. Patient had platelet transfusions and blood transfusions. He came back one day after he was discharged with severe fatigue and very high fever during evaluation in instructional designer office, his platelet count was 10. Patient complains of generalized fatigue, generalized muscle weakness. He has difficulty with walking, but denies any headache, nausea, vomiting, diarrhea, dysuria. He has productive cough. PAST MEDICAL HISTORY: Significant for above, severe pancytopenia, possibly sarcoidosis, liver steatosis. ALLERGIES: SIGNIFICANT FOR ALLERGIES TO POLLEN, DUST, AND MOLD. CURRENT MEDICATIONS: Prednisone 40 mg, Mepron prophylactically 3 times a week, Mycelex Troches, Zovirax and Cipro he was taking as an outpatient. REVIEW OF SYSTEMS: He denies any headache. Complains of decrease of appetite and weight loss. He denies any dysphagia, sore throat. He complains of productive cough, but denies any shortness of breath, wheezing, or chest pain. He denies any heart palpitation. He denies any abdominal pain, diarrhea, nausea, or vomiting. He has chronic constipation. He denies any dysuria, hematuria, or flank pain. He still feels down, but denies being depressed or suicidal. PHYSICAL EXAMINATION VITAL SIGNS: His temperature on admission was 102.2, this morning he spiked again, temperature 104, his pulse 91, blood pressure 114/72, respiratory rate 20. GENERAL: Patient seems comfortable in bed. He is little bit skin flushed during evaluation. HEENT: Head is normocephalic and atraumatic. Eyes with pupils reactive to light. No jaundice. Skin ulcerations on the right lower lip. Oral mucosa is moist. No oral thrush. NECK: Supple. LUNGS: With decreased breath sounds and crackles. HEART: With regular rhythm and rate. ABDOMEN: Soft, nontender, nondistended. EXTREMITIES: With trace of edema. SKIN: Ecchymosis on lower and upper extremities noted. DIAGNOSTIC TESTS: Severe pancytopenia with WBC 2.3 and platelet count 7. His laboratory tests this morning showed WBC 2.3, hemoglobin 10.1, platelet count 22 with manual platelet count of . Patient has severe hyponatremia with sodium 124 and potassium 3.7. His renal function showed BUN 10 and creatinine 6 this morning. Patient has sodium 136, potassium 3.3, BUN 9 and creatinine 0.7. His liver enzymes are elevated with total bilirubin 3.4, AST 62, ALT 148. His albumin is 2.5. His sputum culture showed positive pseudomonas 4 days ago, he is new and cultures are still pending. Chest x-ray showed new multifocal infiltration, which would progress compared to the x-ray from previous admission a week ago. His bone marrow results are still pending. ASSESSMENT: 1. Severe pancytopenia with negative bone marrow biopsies in the past, but new bone marrow biopsy is still pending. 2. Fever, rule out systemic inflammatory response syndrome, rule out sepsis with new positive procalcitonin. 3. Severe hyponatremia secondary to syndrome of inappropriate antidiuretic hormone. 4. Myopathy, possibly secondary to prednisone and deconditioning. PLAN OF TREATMENT: Case was discussed with Dr. Perez this morning, who continues stabilizing the patient with platelet transfusion and blood transfusion. We will repeat septic workup and treat with broad spectrum antibiotics, vancomycin, and Maxipime. We will continue prophylaxis with Zovirax. We will continue GI protection with Dexilant. Patient was started back on high dose of prednisone 80 mg by instructional designer. He had good response to high dose of prednisone in the past. Patient's condition is guarded. Case was discussed also with government guard. Patient would benefit from credit risk manager evaluation; however, we do not have available credit risk manager in [facility]. Denisa Hebert MD DENNIS
--- NOTE | 2017-02-06 22:54 | PN ---
DATE: 02/06/2017 PULMONARY PROGRESS NOTE REFERRING PHYSICIAN: Herb Fernández MD SUBJECTIVE: He is lying in the bed, head at 45 degree with a central venous catheter. Not much cough, no sputum production. No nausea, no vomiting, no diarrhea, no leg pain, does have leg swelling. OBJECTIVE: GENERAL: In no acute distress. VITAL SIGNS: Temperature 101.8, T-max was 104.4, heart rate is 91, respiratory rate is 20, blood pressure 114/72, pulse ox 94% on room air. HEENT: Moist mucous membranes. No ulcer or thrush noted. NECK: Supple. No JVD. LUNGS: Have fair airflow with a few rhonchi. HEART: S1 and S2. ABDOMEN: Soft, nontender. No organomegaly. EXTREMITIES: Trace edema. NEUROLOGICALLY: Awake, alert, follows simple commands. MEDICATIONS: He is on Anusol rectally twice a day p.r.n. Also continue Bactroban ointment to affected area twice a day, folic acid 1 mg daily, Maalox 30 mL daily p.r.n., Mepron 750 mg twice a day, MiraLax 17 g twice a day, Mycelex Charles 5 times a day, prednisone 80 mg daily, Samsca 15 mg daily, IV fluid normal saline 100 mL per hour, Tylenol p.r.n., Zovirax 200 mg 5 times a day. LABORATORY DATA: Shows hemoglobin 10.1, hematocrit 30.3, WBC 2.3, platelet count is 22 today. Sodium 136, potassium 3.3, chloride 103, bicarbonate 30, BUN 9, creatinine 0.7, glucose 155, calcium is 8.3, phosphorus 2.5, magnesium 2.2. AST 62, ALT 148, alk phos is 438, albumin is 2.5. Microbiology: Blood culture, so far, there is no growth. IMPRESSION AND PLAN: Pancytopenia, fever, T-max was 104 today per central line, sleep apnea syndrome, steatosis of the liver, high CARMELA. Pulmonary point of view, doing okay. Continue bronchodilator. Keep head at 45 degrees. Continue prednisone 80 mg for now. The patient's question is if he should be transferred to a tertiary care center where Immunology and Rheumatology services are available. We will discussed with Infectious Disease as well as . For now, continue steroids. Antibiotics as per Infectious Diseases. Follow up CBC, CMP in the morning, CPAP while sleeping. Ant Lai MD
[2017-02-07] MEDS: Cefepime IV 2 gm in NS 2 GM/100 ML BAG IVPB SCH ×2 (05:21→15:00)
[2017-02-07] MEDS: Alum-Mag Hydrox-Simethicone Susp (30 mL) PO PRN (08:25)
[2017-02-07] MEDS: Insulin Lispro (humaLOG) LOW Coverage SC SCH ×3 (08:48→16:37)
[2017-02-07] MEDS: Atovaquone 750 mg/5 ml Susp UD PO SCH ×2 (09:58→18:07)
[2017-02-07] MEDS: POLYETHYLENE GLYCOL 3350 17 GM/Dose PACKET PO SCH ×3 (09:58→18:07)
[2017-02-07] MEDS: Vancomycin 1gm in NS 250ml 1 GM/250 ML BAG IVPB SCH (09:59)
[2017-02-07] MEDS: Hydrocortisone-Pramoxine 1%-1% Foam(10 gm) TOP SCH ×3 (10:06→18:16)
[2017-02-07] MEDS: Hydrocortisone 2.5% Rectal Cream(30 gm) PR SCH ×2 (10:06→18:18)
[2017-02-07] MEDS: Tolvaptan 15 MG TAB PO SCH (10:14)
[2017-02-07 10:57] LABS: HEMATOCRIT 28.5 % (42.0-52.0); MEAN CELL VOLUME 97.6 fl (80.0-105.0); MEAN CORPUSCULAR HEMOGLOBIN 32.2 pg (25.0-35.0); RED CELL DISTRIBUTION WIDTH 23.7 % (11.5-14.5)
[2017-02-07 10:58] LABS: PLATELET COUNT 12 10^3/uL (120.0-450.0); WHITE BLOOD COUNT 2.2 10^3/ul (4.5-11.0)
[2017-02-07 11:04] LABS: INR 1.6 (0.93-1.08); PARTIAL THROMBOPLASTIN TIME 30.9 Seconds (25.1-36.5)
[2017-02-07 11:09] LABS: ALB/GLOB RATIO 0.6 (1.1-1.8); ALKALINE PHOSPHATASE 384 U/L (38-126); ALT/SGPT 129 U/L (7-56); AST/SGOT 76 U/L (17-59); BILIRUBIN,TOTAL 4.3 mg/dL (0.2-1.3); BLOOD UREA NITROGEN 9 mg/dL (7-21); CARBON DIOXIDE 23 mmol/L (21-33); CHLORIDE 101 mmol/L (98-107); GFR AFRICAN-AMERICAN > 60; GLUCOSE,RANDOM 202 mg/dL (70-110); MAGNESIUM 1.9 mg/dL (1.7-2.2); PHOSPHOROUS 1.9 mg/dL (2.5-4.5); POTASSIUM 3.5 mmol/L (3.6-5.0); SODIUM 131 mmol/L (132-148); TOTAL PROTEIN 6.2 g/dL (5.8-8.3)
[2017-02-07 12:03] LABS: ERYTHROCYTE SEDIMENTATION RATE 90 mm/hr (0.00-15.0)
--- NOTE | 2017-02-07 12:07 | RAD ---
HISTORY: dyspnea COMPARISON: 02/05/2017 FINDINGS: LUNGS: No active pulmonary disease. PLEURA: No significant pleural effusion identified, no pneumothorax apparent. CARDIOVASCULAR: Right internal jugular triple-lumen central venous catheter unchanged in position. OSSEOUS STRUCTURES: No significant abnormalities. VISUALIZED UPPER ABDOMEN: Normal. OTHER FINDINGS: None. IMPRESSION: No active disease.
[2017-02-07] MEDS: Potassium Chloride 10 mEq ER Tab PO SCH (13:09)
--- NOTE | 2017-02-07 15:09 | PN ---
DATE: SUBJECTIVE: The patient is currently seen sleeping in bed in isolation because of his pancytopenia. I did not awake patient.. He remains on IV antibiotic therapy for his neutropenic sepsis and remains on IV fluid hydration. His cell counts continue to remain low. MEDICATIONS: Medication list reviewed. The patient is currently on Anusol, Bactroban, folic acid, Dexilant, insulin, potassium, cefepime, Mepron, MiraLax, Mycelex Charles, p.o. prednisone, ProctoFoam, tolvaptan, normal saline 100 mL an hour, Tylenol p.r.n., Valtrex and vancomycin IV. OBJECTIVE: INTAKE/OUTPUT: Intake 3240, output 3200. VITAL SIGNS: Blood pressure 146/77, temperature T-max was 103 degrees, presently is 100.6. Respiratory rate is 20. HEENT: Exam shows him to be normocephalic, atraumatic. Conjunctivae are pale. Sclerae are icteric. NECK: Supple. No neck vein distention. CHEST: Scattered rhonchi. No rales or wheezing. CARDIOVASCULAR: Shows a regular rate and rhythm with a soft systolic murmur left lower sternal border. ABDOMEN: Soft. Bowel sounds normal. No masses. No rebound or guarding. EXTREMITIES: Show no lower extremity cyanosis, clubbing or edema. LABORATORY DATA AND IMAGING: Admitting chest x-ray showed bilateral infiltrates. A right IJ central line. Labs, CBC, white blood cell count 2.2, hemoglobin 9.4, manual platelet count is 8000. Chemistry shows sodium down to 131, it was 136 yesterday, it was 124 on admission. Potassium is 3.5. Magnesium level was 1.9, phosphorus low at 1.9. Calcium is 8.0 with an albumin of 2.2, corrects to normal. BUN 9 with a creatinine of 0.7. CO2 was 23. Microbiology, all cultures are negative at 48 hours. ASSESSMENT: 1. Recurrent hyponatremia. Workup is entirely consistent with that of syndrome of inappropriate secretion of antidiuretic hormone (SIADH). The patient is receiving his third dose of tolvaptan 15 mg today. He does remain on normal saline. Does not appear that he is drinking copious amounts of fluid. I would like him to remain on tolvaptan until his sodium level normalizes. 2. Pancytopenia. Exact etiology is as of yet not completely determined. Possible autoimmune disease. Patient remains on steroid therapy. 3. Possible sarcoidosis. The patient never completed workup, never had a biopsy. 4. History of obstructive sleep apnea as per Pulmonary note. 5. History of non-insulin dependent diabetes mellitus. Glucose control is acceptable given the fact that he is on steroids. 6. History of nonalcoholic steatohepatitis with elevation of his liver enzymes. 7. Neutropenic sepsis and possible pneumonia. The patient remains on broad-spectrum antibiotic therapy. PLAN: 1. From my standpoint, we will continue tolvaptan for today and decide tomorrow whether or not we want to renew the medication. I will continue the patient on isotonic IV fluid hydration. His oral intake and fluid intake is likely not good. 2. Continue empiric antibiotic therapy. Follow up with ID. Follow up with Pulmonary. 3. Continue the patient on isolation given his pancytopenia. 4. Continue to monitor labs on a daily basis. Emanuel Esquivel MD MTDD
--- NOTE | 2017-02-07 16:24 | CP.PCM.PN ---
Subjective - Date & Time of Evaluation Date of Evaluation: 02/07/17 Time of Evaluation: 15:10 - Subjective Subjective: Feels weak and tired, still with intermittent fevers, no vomiting, appetite is poor and there is dysgeusia. Objective - Vital Signs/Intake and Output Vital Signs (last 24 hours): Temp Pulse Resp BP Pulse Ox 100.6 F H 94 H 20 114/72 94 L 02/07/17 07:12 02/07/17 06:00 02/06/17 08:16 02/06/17 08:16 02/06/17 08:16 Intake and Output: 02/07/17 02/07/17 06:59 18:59 Intake Total 2400 Output Total 1700 Balance 700 - Medications Medications: Current Medications Acetaminophen (Tylenol 325mg Tab) 650 mg PO Q4 PRN PRN Reason: Fever >100.4 F Last Admin: 02/07/17 06:04 Dose: 650 mg Al Hydrox/Mg Hydrox/Simethicone (Maalox Plus 30 Ml) 30 ml PO DAILY PRN PRN Reason: Indigestion / Heartburn Last Admin: 02/06/17 09:02 Dose: 30 ml Atovaquone (Mepron) 750 mg PO BID [facility] Last Admin: 02/06/17 17:24 Dose: 750 mg Clotrimazole (Mycelex Charles) 10 mg MT 5XD [facility] Last Admin: 02/07/17 05:19 Dose: 10 mg Folic Acid (Folic Acid) 1 mg PO DAILY [facility] Last Admin: 02/06/17 09:02 Dose: 1 mg Home Med (Home Med) 60 unit PO 0700 [facility] Hydrocortisone (Anusol-Hc) 0 gm NM BID [facility] Last Admin: 02/06/17 17:23 Dose: 1 applic Hydrocortisone/Pramoxine (Proctofoam) 1 gm TOP TID [facility] Last Admin: 02/06/17 17:24 Dose: Not Given Cefepime HCl (Maxipime 2gm) 2 gm in 100 mls @ 100 mls/hr IVPB Q8 DAVID PRN Reason: Protocol Stop: 02/11/17 23:31 Last Admin: 02/07/17 05:21 Dose: 100 mls/hr Sodium Chloride (Sodium Chloride 0.9%) 1,000 mls @ 100 mls/hr IV .Q10H [facility] Last Admin: 02/06/17 22:30 Dose: 100 mls/hr Vancomycin HCl (Vancomycin 1gm) 1 gm in 250 mls @ 167 mls/hr IVPB Q12H DAVID PRN Reason: Protocol Last Admin: 02/06/17 22:26 Dose: 167 mls/hr Insulin Human Lispro (Humalog Low) 0 units SC ACHS DAVID PRN Reason: Protocol Last Admin: 02/06/17 22:58 Dose: Not Given Mupirocin (Bactroban Ointment) 0 gm TOP BID [facility] Last Admin: 02/06/17 17:23 Dose: 1 applic Polyethylene Glycol (Miralax) 17 gm PO BID [facility] Last Admin: 02/06/17 17:24 Dose: 17 gm Prednisone (Prednisone Tab) 80 mg PO 0800 [facility] Tolvaptan (Samsca) 15 mg PO DAILY [facility] Stop: 02/07/17 15:04 Last Admin: 02/06/17 09:26 Dose: 15 mg Valacyclovir HCl (Valtrex) 500 mg PO BID [facility] PRN Reason: Protocol Stop: 02/14/17 10:01 - Labs Labs: 02/06/17 09:45 02/06/17 09:45 PT 16.8 SECONDS (9.4-12.5) H 02/05/17 10:15 INR 1.51 (0.93-1.08) H 02/05/17 10:15 APTT 29.6 Seconds (25.1-36.5) 02/05/17 10:15 - Constitutional Appears: Chronically Ill - Head Exam Head Exam: NORMAL INSPECTION - Neck Exam Neck Exam: absent: Meningismus - Respiratory Exam Respiratory Exam: Decreased Breath Sounds. absent: Rales - Cardiovascular Exam Cardiovascular Exam: +S1, +S2 - GI/Abdominal Exam GI & Abdominal Exam: Soft. absent: Tenderness Assessment and Plan - Assessment and Plan (Free Text) Plan: Assessment Systemic Inflammatory Response Syndome, R/O sepsis due to Pseudomonas in sputum cx in a patient with lung fibrosis R/O HCAP; R/O autoimmune disease, R/O systemic infection but so far work up has been negative Pancytopenia, etiology to be determined hemorrhoids history of non-alcoholic steatohepatitis Plan repeat blood cx is negsative; previous sputum cx showed Pseudomonas - continue Cefepime day 3 and added IV Vancomycin, gave a dose of IV Gentamicin and will start PO Doxycycline as well although less likely, will also get rickettsia work up; there is nothing in his travel history to suggest malaria CT C/A/P previously showed lung fibrosis will repeat Fungitell; CMV PCR and Galactomannan from previous admission are negative continue Mepron since CD4/CD8 ratio is low and patient is on chronic steroids reviewed work up done by Dr. Weston from [facility] which did not show acute EBV infection, no HIV, negative RPR will continue to monitor clinically discussed with Dr. Perez - will need further autoimmune disease work up would have wanted to start NSAIDS for the fevers but with his low platelets it may be problematic - will discuss with Dr. Perez first before starting it
[2017-02-07] MEDS: Potassium Phosphate 15 MMOLE in Sodium Chloride 0.9% 1,000 ML IV SCH (16:40)
[2017-02-07] MEDS ORDERED: DiphenhydrAMINE 50 mg/ml Inj IVP ONE (17:00)
[2017-02-07] MEDS: Meropenem 1 GM in Dextrose 5% In Water 100 ML IVPB SCH ×2 (17:15→23:54)
[2017-02-07 18:46] LABS: PH,URINE 6.5 (4.7-8.0); URINE APPEARANCE CLEAR (CLEAR); URINE BILIRUBIN NEGATIVE (NEGATIVE); URINE BLOOD LARGE (NEGATIVE); URINE COLOR YELLOW (YELLOW); URINE GLUCOSE (UA) 250 mg/dL (NEGATIVE); URINE KETONE NEGATIVE (NEGATIVE); URINE LEUKOCYTE ESTERASE NEGATIVE Leu/uL (NEGATIVE); URINE PROTEIN TRACE mg/dL (<30 mg/dL); URINE UROBILINOGEN 0.2 E.U./dL (<1 E.U./dL)
[2017-02-07 18:51] LABS: URINE RBC 15 - 20 /hpf (0-2)
[2017-02-07 18:52] LABS: URINE AMORPHOUS SEDIMENT FEW; URINE BACTERIA MOD (NEG); URINE WBC 0 - 2 /hpf (0-6)
--- NOTE | 2017-02-07 21:27 | CP.PCM.PN ---
Subjective - Date & Time of Evaluation Date of Evaluation: 02/06/17 Time of Evaluation: 21:00 - Subjective Subjective: Continues to have fevers during the day. Tyelenol and cold blankets helpful. ROS: 12 ROS otherwise negative Pain: deneis Objective - Vital Signs/Intake and Output Vital Signs (last 24 hours): Temp Pulse Resp BP Pulse Ox 99.8 F H 103 H 22 137/78 97 02/07/17 21:04 02/07/17 21:04 02/07/17 21:04 02/07/17 21:04 02/07/17 16:32 Intake and Output: 02/07/17 02/08/17 18:59 06:59 Intake Total 840 0 Output Total 2825 -1984 0 - Medications Medications: Current Medications Acetaminophen (Tylenol 325mg Tab) 650 mg PO Q4 PRN PRN Reason: Fever >100.4 F Last Admin: 02/07/17 13:34 Dose: 650 mg Al Hydrox/Mg Hydrox/Simethicone (Maalox Plus 30 Ml) 30 ml PO DAILY PRN PRN Reason: Indigestion / Heartburn Last Admin: 02/07/17 08:25 Dose: 30 ml Atovaquone (Mepron) 750 mg PO BID [facility] Last Admin: 02/07/17 18:07 Dose: 750 mg Clotrimazole (Mycelex Charles) 10 mg MT 5XD [facility] Last Admin: 02/07/17 18:13 Dose: 10 mg Doxycycline Hyclate (Doryx) 100 mg PO Q12 DAVID PRN Reason: Protocol Last Admin: 02/07/17 16:51 Dose: 100 mg Folic Acid (Folic Acid) 1 mg PO DAILY [facility] Last Admin: 02/07/17 09:58 Dose: 1 mg Home Med (Home Med) 60 unit PO 0700 DAVID Hydrocortisone (Anusol-Hc) 0 gm [place] BID [facility] Last Admin: 02/07/17 18:18 Dose: 1 applic Hydrocortisone/Pramoxine (Proctofoam) 1 gm TOP TID [facility] Last Admin: 02/07/17 18:16 Dose: 1 unit Vancomycin HCl (Vancomycin 1gm) 1 gm in 250 mls @ 167 mls/hr IVPB Q12H DAVID PRN Reason: Protocol Last Admin: 02/07/17 09:59 Dose: 167 mls/hr Potassium Phosphate 15 mmole/ (Sodium Chloride) 1,005 mls @ 80 mls/hr IV .[id number] [facility] Last Admin: 02/07/17 16:40 Dose: 80 mls/hr Meropenem 1 gm/ Dextrose 100 mls @ 100 mls/hr IVPB Q8 [facility] PRN Reason: Protocol Stop: 02/14/17 16:31 Last Admin: 02/07/17 17:15 Dose: 100 mls/hr Insulin Human Lispro (Humalog Low) 0 units SC ACHS [facility] PRN Reason: Protocol Last Admin: 02/07/17 16:37 Dose: 3 units Mupirocin (Bactroban Ointment) 0 gm TOP BID [facility] Last Admin: 02/07/17 18:17 Dose: 1 applic Polyethylene Glycol (Miralax) 17 gm PO BID [facility] Last Admin: 02/07/17 18:07 Dose: 17 gm Potassium Chloride (Klor-Con 10) 20 meq PO BRK [facility] Last Admin: 02/07/17 13:09 Dose: 20 meq Prednisone (Prednisone Tab) 80 mg PO 0800 [facility] Last Admin: 02/07/17 08:25 Dose: 80 mg Valacyclovir HCl (Valtrex) 500 mg PO BID [facility] PRN Reason: Protocol Stop: 02/14/17 10:01 Last Admin: 02/07/17 18:13 Dose: 500 mg - Labs Labs: 02/07/17 10:30 02/07/17 10:30 PT 17.8 SECONDS (9.4-12.5) H 02/07/17 10:30 INR 1.60 (0.93-1.08) H 02/07/17 10:30 APTT 30.9 Seconds (25.1-36.5) 02/07/17 10:30 - Constitutional Appears: Non-toxic - Head Exam Head Exam: ATRAUMATIC, NORMAL INSPECTION, NORMOCEPHALIC - Respiratory Exam Respiratory Exam: Clear to Ausculation Bilateral, NORMAL BREATHING PATTERN - Cardiovascular Exam Cardiovascular Exam: Tachycardia, REGULAR RHYTHM - GI/Abdominal Exam GI & Abdominal Exam: Soft, Normal Bowel Sounds. absent: Tenderness - Extremities Exam Extremities Exam: Full ROM, Normal Capillary Refill, Normal Inspection. absent : Joint Swelling, Pedal Edema - Skin Additional comments: Echymosies evident in skin in forearms b/l; blister on lip (HSV for mucosal blister from low plts?) Assessment and Plan - Assessment and Plan (Free Text) Assessment: Mr. Contreras isaias 56 y/o man with pmhx signficant for self reported history iron defeciency anemia (thought to be 2/2 hemrhoids), concern for NAFLD, who developed his second campylobacter infection in 01/2016 and subsequently developed brief flu like symtpoms in 03/2016 in the setting of hilar lymphadenopathy and ILD like radiographic findings on CT (which habe been resolving) and developed progressive pancytopenia and fevers in the ensuing months. Patient was empirically started on steroids in 11/2016 with subsequent improvement of previous respirtatory symptoms (cough primarily) and was being tapered gradually from 80mg/qd which was stopped due to clinical worsening ( fatigue, malaise, fevers) His extensive w/up was notable for negative bone marrow biopsies x3 with concomittant flow cytometry and cytogenetics, colo/EGD demonstrating gastrtis and internal hemmrohids only, a negative peripheral blood flow cytometry; a benign liver biopsy dipslaying normal liver archetecure, and a negative infecitous w/up (EBV, CMV, HIV, Hep serologies). Patients labs noted for elevated sed, crp, polytypic gammaglobulinmiea, an CARMELA 1:640 (nucleolar pattern) . On two occasions in July and November the patietn was noted to have RASHIDA+ testing with IgG antibodies identified but subsequent and prior testing demonstrated no antibodies. Ddx for the patient's presentation includes undelrying rheumatologic processes ( though primary rheumatology evaluation at [facility] with Dr. Albright was unremarkable) primary hematologic processes such as an evolving malignanciy?; HLH/MAS, AIHA. Repeatd biopsies have failed to isolate a hematologic process and will repeat testing to evaluate for AIHA. HLH/MAS is a remote possibility but perhaps less likley. For now will continue infectious w/up; treat with abx, steroids; and await pathology from repeat bone marrow biopsy. If patient's condition does not improve will conisder transfer to hospital with rheumatology #Fevers -d/c neutropenic precuations (patient not neutropenic) - ID on consult - Patient is on Vanco and Cefepime - Acyclovir for possible HSV on R lower lip - atovoquone for low CD4/CD8 count- HIV negative - GI consulted for diarrhea and abnormal LFTs- C.diff negative at last admission - Pulm consulted - Prednisone 80mg - Tylenol prn fever #Pancytopenia - Awaiting results for bone marrow biopsy - Folic acid - cand d/c granix -repeat quantatiative immunoglobulins; await serume CHRISTIE; obtain Urine CHRISTIE #Hyponatremia - continue NS@100 # Hemorrhoids - Proctocream TID - Anusol d/c #Diabetes - HgbA1c: 7.2 at last admission - glucose can be elevated due to steroids - Continue ISS and to monitor blood glucose #GI ppx: Dexliant (from home) DVT ppx: SCDs Jhon Perez MD Hematology Service
--- NOTE | 2017-02-07 21:36 | CP.PCM.PN ---
Subjective - Date & Time of Evaluation Date of Evaluation: 02/07/17 Time of Evaluation: 18:00 - Subjective Subjective: Patient feels "wiped out today" Continues to have fevers. Endorses some SOB though not hypoxic on vitals. patient's notes that patient perhaps feels similar to when he was at home previously. ROS: 12 ROS otherwise negative Pain: denies Objective - Vital Signs/Intake and Output Vital Signs (last 24 hours): Temp Pulse Resp BP Pulse Ox 99.8 F H 103 H 22 137/78 97 02/07/17 21:04 02/07/17 21:04 02/07/17 21:04 02/07/17 21:04 02/07/17 16:32 Intake and Output: 02/07/17 02/08/17 18:59 06:59 Intake Total 840 0 Output Total 2825 -1984 0 - Medications Medications: Current Medications Acetaminophen (Tylenol 325mg Tab) 650 mg PO Q4 PRN PRN Reason: Fever >100.4 F Last Admin: 02/07/17 13:34 Dose: 650 mg Al Hydrox/Mg Hydrox/Simethicone (Maalox Plus 30 Ml) 30 ml PO DAILY PRN PRN Reason: Indigestion / Heartburn Last Admin: 02/07/17 08:25 Dose: 30 ml Atovaquone (Mepron) 750 mg PO BID [facility] Last Admin: 02/07/17 18:07 Dose: 750 mg Clotrimazole (Mycelex Charles) 10 mg MT 5XD [facility] Last Admin: 02/07/17 18:13 Dose: 10 mg Doxycycline Hyclate (Doryx) 100 mg PO Q12 DAVID PRN Reason: Protocol Last Admin: 02/07/17 16:51 Dose: 100 mg Folic Acid (Folic Acid) 1 mg PO DAILY [facility] Last Admin: 02/07/17 09:58 Dose: 1 mg Home Med (Home Med) 60 unit PO 0700 DAVID Hydrocortisone (Anusol-Hc) 0 gm [place] BID [facility] Last Admin: 02/07/17 18:18 Dose: 1 applic Hydrocortisone/Pramoxine (Proctofoam) 1 gm TOP TID [facility] Last Admin: 02/07/17 18:16 Dose: 1 unit Vancomycin HCl (Vancomycin 1gm) 1 gm in 250 mls @ 167 mls/hr IVPB Q12H DAVID PRN Reason: Protocol Last Admin: 02/07/17 09:59 Dose: 167 mls/hr Potassium Phosphate 15 mmole/ (Sodium Chloride) 1,005 mls @ 80 mls/hr IV .[id number] [facility] Last Admin: 02/07/17 16:40 Dose: 80 mls/hr Meropenem 1 gm/ Dextrose 100 mls @ 100 mls/hr IVPB Q8 DAVID PRN Reason: Protocol Stop: 02/14/17 16:31 Last Admin: 02/07/17 17:15 Dose: 100 mls/hr Insulin Human Lispro (Humalog Low) 0 units SC ACHS [facility] PRN Reason: Protocol Last Admin: 02/07/17 16:37 Dose: 3 units Mupirocin (Bactroban Ointment) 0 gm TOP BID [facility] Last Admin: 02/07/17 18:17 Dose: 1 applic Polyethylene Glycol (Miralax) 17 gm PO BID [facility] Last Admin: 02/07/17 18:07 Dose: 17 gm Potassium Chloride (Klor-Con 10) 20 meq PO BRK [facility] Last Admin: 02/07/17 13:09 Dose: 20 meq Prednisone (Prednisone Tab) 80 mg PO 0800 [facility] Last Admin: 02/07/17 08:25 Dose: 80 mg Valacyclovir HCl (Valtrex) 500 mg PO BID [facility] PRN Reason: Protocol Stop: 02/14/17 10:01 Last Admin: 02/07/17 18:13 Dose: 500 mg - Labs Labs: 02/07/17 10:30 02/07/17 10:30 PT 17.8 SECONDS (9.4-12.5) H 02/07/17 10:30 INR 1.60 (0.93-1.08) H 02/07/17 10:30 APTT 30.9 Seconds (25.1-36.5) 02/07/17 10:30 - Constitutional Appears: Non-toxic - Respiratory Exam Respiratory Exam: Clear to Ausculation Bilateral, NORMAL BREATHING PATTERN - Cardiovascular Exam Cardiovascular Exam: Tachycardia, REGULAR RHYTHM - GI/Abdominal Exam GI & Abdominal Exam: Soft, Normal Bowel Sounds. absent: Tenderness - Extremities Exam Extremities Exam: Full ROM, Normal Capillary Refill, Normal Inspection. absent : Joint Swelling, Pedal Edema Additional comments: trace edema - Neurological Exam Neurological Exam: Abnormal Gait - Skin Skin Exam: Warm Additional comments: scattered echymoeses on forearms unchanged; ulcer vs mucosal blister on lip unchanged Assessment and Plan - Assessment and Plan (Free Text) Assessment: Mr. Contreras isaias 56 y/o man with pmhx signficant for self reported history iron defeciency anemia (thought to be 2/2 hemrhoids), concern for NAFLD, who developed his second campylobacter infection in 01/2016 and subsequently developed brief flu like symtpoms in 03/2016 in the setting of hilar lymphadenopathy and ILD like radiographic findings on CT (which habe been resolving) and developed progressive pancytopenia and fevers in the ensuing months. Patient was empirically started on steroids in 11/2016 with subsequent improvement of previous respirtatory symptoms (cough primarily) and was being tapered gradually from 80mg/qd which was stopped due to clinical worsening ( fatigue, malaise, fevers) His extensive w/up was notable for negative bone marrow biopsies x3 with concomittant flow cytometry and cytogenetics, colo/EGD demonstrating gastrtis and internal hemmrohids only, a negative peripheral blood flow cytometry; a benign liver biopsy dipslaying normal liver archetecure, and a negative infecitous w/up (EBV, CMV, HIV, Hep serologies). Patients labs noted for elevated sed, crp, polytypic gammaglobulinmiea, an CARMELA 1:640 (nucleolar pattern) . On two occasions in July and November the patietn was noted to have RASHIDA+ testing with IgG antibodies identified but subsequent and prior testing demonstrated no antibodies. Ddx for the patient's presentation includes undelrying rheumatologic processes ( though primary rheumatology evaluation at [facility] with Dr. Albright was unremarkable) primary hematologic processes such as an evolving malignanciy?; HLH/MAS, AIHA. Repeatd biopsies have failed to isolate a hematologic process and will repeat testing to evaluate for AIHA. HLH/MAS is a remote possibility but perhaps less likley. For now will continue infectious w/up; treat with abx, steroids; and await pathology from repeat bone marrow biopsy. Given that patient appears slightly more symptomatic--though hemodynamically stable; will plan on transfer to ICU. If patient's condition does not improve will conisder transfer to hospital with rheumatology #Fevers -d/c neutropenic precuations (patient not neutropenic) - ID on consult - Patient is on Vanco and Cefepime - Acyclovir for possible HSV on R lower lip - atovoquone for low CD4/CD8 count- HIV negative - GI consulted for diarrhea and abnormal LFTs- C.diff negative at last admission - Pulm consulted - Prednisone 80mg - Tylenol prn fever #Pancytopenia - Awaiting results for bone marrow biopsy - Folic acid - cand d/c granix -repeat quantatiative immunoglobulins; await serume CHRISTIE; obtain Urine CHRISTIE -trasnfuse for hgb <7 and plts <20 -consider sending soluble IL2 as send out labs -repeat fibriongen wnl and trigylerides slidely elevated (not clear cut for HLH) #Hyponatremia - continue NS@100 # Hemorrhoids - Proctocream TID - Anusol d/c #Diabetes - HgbA1c: 7.2 at last admission - glucose can be elevated due to steroids - Continue ISS and to monitor blood glucose #GI ppx: Dexliant (from home) DVT ppx: SCDs Jhon Perez MD Hematology Service
--- NOTE | 2017-02-07 23:07 | PN ---
DATE: 02/07/2017 PULMONARY PROGRESS NOTE REFERRING PHYSICIAN: Herb Fernández MD SUBJECTIVE: He is lying in the bed, slight fever up to 103 early this morning, some difficult breathing. He was given high-flow oxygen, presently was comfortable but lethargic, tired, sleepy. No chest pian, not much cough. No abdominal pain. Had a bowel movement. Does have a some upper and lower extremity trace swelling. OBJECTIVE: GENERAL: In no acute distress. VITAL SIGNS: Temperature 98, heart rate is 104, respiratory rate is 18, blood pressure 116/78, pulse ox 97% on 2 L nasal canula. HEENT: Moist mucous membranes. Crowded airway. NECK: Supple. No JVD. LUNGS: Have a few scattered rhonchi. HEART: S1 and S2. ABDOMEN: Soft, nontender. No organomegaly. EXTREMITIES: Does have some trace edema. NEUROLOGIC: Awake, alert, follows simple commands. MEDICATIONS: He is on Anusol b.i.d., doxycycline 100 mg twice a day, folic acid 1 mg daily, insulin coverage, potassium 20 mEq daily, Mepron 750 mg twice a day, meropenem 1 g q. 8 hours, MiraLax 17 g twice a day, Mycelex Charles 10 mg 5 times a day, IV fluid with potassium 30 mL per hour, prednisone 80 mg daily, 1 g three tablets a day, Tylenol p.r.n., Valtrex 500 mg twice a day, vancomycin 1 g IV q. 12 hours. LABORATORY DATA: His hemoglobin is 9.4, hematocrit 28.5, WBC 2.2, platelet is only 8, sedimentation rate is 90. INR is 1.60. D-dimer quantitative is 1978. Sodium 131, potassium 3.5, chloride 101, bicarbonate 23, BUN 9, creatinine 0.7, glucose 195, calcium is 8.0, phosphorus is 1.9, magnesium 1.9, ferritin 8900. AST 76, ALT 129, alkaline phosphatase is 384. C-reactive protein more than 15. Microbiology; blood culture has been negative. He had a chest x-ray done today, which shows no infiltrate or effusion. IMPRESSION AND PLAN: Recurring fever, pancytopenia with severely decreased platelets, sleep apnea syndrome, steatosis of the liver, high CARMELA, high sedimentation rate. Case discussed with infectious disease, Dr. Lovett at bedside, in detail spoke to patient's at bedside. It will not be a bad idea to give the Motrin for a day or so. Continue Solu-Medrol. Continue CPAP while sleeping. I will speak to Dr. Perez in the morning. Also, the patient will be transferred to intensive care unit especially with low platelets for close monitoring. The patient also high risk with the platelet injection. Last time developed fever of 104 after platelet transfusion. The patient and agreed with the plan. Thank you and we will follow with you. Ant Lai MD
[2017-02-08] MEDS: Insulin Lispro (humaLOG) LOW Coverage SC SCH ×5 (00:12→21:59)
[2017-02-08] MEDS: Vancomycin 1gm in NS 250ml 1 GM/250 ML BAG IVPB SCH ×2 (00:17→10:43)
--- NOTE | 2017-02-08 01:29 | CON ---
DATE: 02/07/2017 HISTORY OF PRESENT ILLNESS: This is a 56-year-old gentleman with history of multiorgan system disorder of unclear origin,which includes interstitial lung disease with bilateral hilar adenopathy, pancytopenia, liver involvement, disabling fatigue. Of note, the patient had a very extensive workup. He was told to have either unusual (as no non-caseating granulomas were ever found on many biopsies) form of multiorgan system sarcoidosis versus autoimmune disorder versus some immunologic disorder. At this time, the patient came with fever and neutropenic sepsis for last one week. He was weak. He had malaise, fatigue and some cough, which did not get better. He was treated with antibiotics, however, eventually was admitted to the hospital where he was started on broad-spectrum antibiotics and high-dose steroids. Subsequent septic workup was initiated, however, was unrevealing, except for sputum positive for Pseudomonas aeruginosa prior to admission to the hospital and the patient was treated with cefepime. After started on high-dose steroids, (prednisone 80 mg a day), chest x-ray abnormalities (interstitial infiltrates and bilateral hilar adenopathy) substantially improved. However it did not translate into clinical and subjective improvement as his blood cell count continued to drop and he still experienced severe fatigue. He also had episodes of intermittent fever up to 103 max. He continued to have pancytopenia and his thrombocytopenia was especially severe. ICU consult today was called because his platelet count dropped down to 8 and concern was raised for possibility of developing spontaneous intracranial hemorrhage. No nausea. No vomiting. No diarrhea. PAST MEDICAL HISTORY: Nonalcoholic steatohepatitis diagnosed approximately 20 years ago with liver biopsy, Campylobacter infection in 2016 with progressive pancytopenia since then. Bone marrow biopsy in 05/2016 showed cellular marrow maturing trilineage hematopoiesis, no evidence of acute leukemia. No evidence of lymphoproliferative disorder or plasma cell dyscrasia. He had another bone marrow biopsy with results pending by Dr. Perez recently this hospital stay. The patient also had second opinion at [facility] by Dr. Yolie Baugh, which did not elucidate further etiology of his cytopenias. [facility] testing was negative with splenomegaly and mediastinal lymphadenopathy noted. Bronchoscopy with biopsy with mediastinal nodes did not reveal any non-caseating or caseating granulomas and were nondiagnostic. The patient was also evaluated in [facility] for liver disease and rheumatologic issues, however, none of these consultation or tests or biopsies determined underlying diagnoses. It is presumed that he has autoimmune disease with constellation of symptoms, which he is now here for treatment with significant thrombocytopenic indices and pancytopenia. He also has Aditya positive anemia, abnormal LFTs, COPD with oropharyngeal candidiasis. FAMILY HISTORY: Noncontributory. SOCIAL HISTORY: No alcohol or illicit drug abuse. No tobacco smoking. ALLERGIES: POLLEN, DUST, AND MOLD. CURRENT MEDICATIONS: Include Tylenol p.r.n, aluminium/magnesium p.r.n,, Mepron, clotrimazole, doxycycline, folic acid, furosemide, hydrocortisone topical solution, meropenem, prednisone 80 mg daily, potassium chloride, Granix, Valtrex, vancomycin. REVIEW OF SYSTEMS: Review of 12-organ system other than mentioned in history of present illness is negative. PHYSICAL EXAMINATION: VITAL SIGNS: Temperature 98.4, blood pressure 116/78, respiratory rate is 18, and oxygen saturation 97% on 2 L nasal cannula and heart rate is 90. ENT: Head and neck atraumatic. LUNGS: Clear to auscultation bilaterally. HEART: Regular rate and rhythm. S1 and S2 normal. ABDOMEN: Soft, nontender, nondistended. MUSCULOSKELETAL: Trace bilateral pedal and ankle edema. NEUROLOGIC: The patient moves all extremities spontaneously. SKIN: Color is moist. PSYCHIATRIC: The patient appears to have flat affect, very tired. LABORATORY DATA: WBC 2.2, hemoglobin 9.4, and platelet count 8. ESR 19. Urine is negative for leukocyte esterase and nitrites. INR is 1.6. D-dimer is 1978. Sodium 131, potassium 3.5, chloride 101, carbon dioxide 23, BUN 9, creatinine 0.7, glucose 259. AST 76, ALT 129. CRP more than 15. Total protein 6.2. Chest x-ray showed no acute pulmonary disease 2 days after high-dose steroids. ASSESSMENT AND PLAN: This is a 56-year-old gentleman who presented to ICU for severe malaise, fatigue, intermittent fevers and extremely low platelet count, which may potentially put him at risk for intracranial hemorrhage. I discussed the case with Dr. Lovett and Dr. Chris Jr. Possibility of some autoimmune disorder in combination with infectious process cannot be ruled out. The patient's antibiotics upgraded to meropenem and vancomycin. We might consider to proceed with inhaled antibiotics. The patient is on high-dose steroids that generally should lead to improvement of autoimmune disorders (but definitely not always). That been said, refractory cases cannot be ruled out and Dr. Chris Villasenor will be looking into it as well. Certainly, the patient will have platelet transfusion tonight. We will continue to target euvolemia, euglycemia, normothermia, and oxygen saturation more than 90%. We will continue with DVT and GI prophylaxis. ccm time 40 min Bethel Whittington MD MTDMacey
[2017-02-08] MEDS: Meropenem 1 GM in Dextrose 5% In Water 100 ML IVPB SCH (05:10)
[2017-02-08 06:39] LABS: GRAN # 1.48 (1.4-6.5); GRAN % 81.3 % (50.0-68.0); HEMATOCRIT 27.9 % (42.0-52.0); LYMPH # 0.3 (1.2-3.4); LYMPH % 14.3 % (22.0-35.0); MEAN CELL VOLUME 97.2 fl (80.0-105.0); MEAN CORPUSCULAR HEMOGLOBIN 32.8 pg (25.0-35.0); MEAN CORPUSCULAR HGB CONC 33.7 g/dl (31.0-37.0); MEAN PLATELET VOLUME 9.4 fl (7.0-11.0); MONO # 0.1 (0.1-0.6); MONO % 4.4 % (1.0-6.0); RED CELL DISTRIBUTION WIDTH 23.6 % (11.5-14.5)
[2017-02-08 06:41] LABS: WHITE BLOOD COUNT 1.8 10^3/ul (4.5-11.0)
[2017-02-08] MEDS: Home Med 1 UNIT PO SCH (07:08)
[2017-02-08 07:18] LABS: ALB/GLOB RATIO 0.6 (1.1-1.8); ALKALINE PHOSPHATASE 372 U/L (38-126); ALT/SGPT 121 U/L (7-56); AST/SGOT 67 U/L (17-59); BILIRUBIN,TOTAL 5.1 mg/dL (0.2-1.3); BLOOD UREA NITROGEN 9 mg/dL (7-21); CALCIUM 8.4 mg/dL (8.4-10.5); CARBON DIOXIDE 31 mmol/L (21-33); CHLORIDE 100 mmol/L (98-107); GFR AFRICAN-AMERICAN > 60; GLUCOSE,RANDOM 114 mg/dL (70-110); MAGNESIUM 1.9 mg/dL (1.7-2.2); PHOSPHOROUS 2.6 mg/dL (2.5-4.5); POTASSIUM 3.2 mmol/L (3.6-5.0); SODIUM 135 mmol/L (132-148); TOTAL PROTEIN 6.7 g/dL (5.8-8.3)
[2017-02-08] MEDS: Potassium Chloride 10 mEq ER Tab PO SCH (08:06)
[2017-02-08] MEDS: Alum-Mag Hydrox-Simethicone Susp (30 mL) PO PRN (08:19)
--- NOTE | 2017-02-08 08:23 | CON ---
DATE: 02/05/2017 REASON FOR CONSULTATION: Hyponatremia, pancytopenia, and fevers. HISTORY OF PRESENT ILLNESS: A 56-year-old male known to me from recent prior evaluation. The patient was recently admitted to hospital with neutropenic sepsis, fevers, pancytopenia. He was found to be hyponatremic during that admission also. 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 Because of his pancytopenia and fevers and hypotension, he was treated with normal saline. There was some improvement in his sodium. At the time of discharge, his sodium was 129. He presented to the Emergency Room at the direction of Dr. Perez the very next day because of repeat fevers, pancytopenia, fatigue. PAST MEDICAL AND SURGICAL HISTORY: Nonalcoholic steatohepatitis, pancytopenia, multiple blood transfusions, bone marrow biopsy x2, mediastinal lymph node biopsy, liver biopsy, COPD, oropharyngeal Candidiasis, symptomatic anemia, and Aditya positive anemia. FAMILY HISTORY: Noncontributory. SOCIAL HISTORY: No smoking, no alcohol use, no IV drug abuse. ALLERGIES: POLLEN, DUST AND MOLDS. CURRENT MEDICATIONS: Anusol, Bactroban, folic acid, gentamicin 220 mg one dose, Humalog, Maalox, cefepime 2 g q. 12, Mepron 750 b.i.d., Mycelex, prednisone 80, normal saline at 100 mL per hour, Tylenol, Zovirax. REVIEW OF SYSTEMS: The patient denies any nausea, vomiting, or diarrhea. He denies any abdominal pain. He denies any chest tightness, palpitations. Denies any shortness of breath or cough. All other systems are reviewed and unremarkable. PHYSICAL EXAMINATION GENERAL: Middle-aged male lying in bed. VITAL SIGNS: Blood pressure 115/70, heart rate 100, respiratory rate 21, temperature 101, T-max is 103. HEENT: Normocephalic, atraumatic. NECK: Supple, no JVD. LUNGS: Bilateral equal entry, rales. CARDIAC: S1 and S2, regular rate and rhythm, no murmur, no rub. ABDOMEN: Obese, distended, soft, nontender, bowel sounds present. EXTREMITIES: Trace lower extremity edema. Intake and output not charted. LABORATORY DATA: WBC 1.5, hemoglobin 8.2, hematocrit 24, platelets 7, manual platelet count 10. Sodium 125, potassium 3.7, chloride 95, CO2 of 30, BUN 10, creatinine 0.6, glucose 128, uric acid 1.5, calcium 7.6, total bili 2.0, AST 66, ALT of 147, albumin 2.2, INR 1.5. ASSESSMENT AND PLAN: 1. Recurrent pancytopenia. 2. High-grade fever, neutropenic sepsis. 3. 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 4. Elevated liver function tests. 5. History of nonalcoholic steatohepatitis. 6. Severe hypoalbuminemia and hypergammaglobulinemia. PLAN: 1. Tolvaptan 15 mg daily. 2. Continue antibiotics as per ID recommendations. 3. Continue workup for proteinuria. 4. ?Kidney biopsy at some point?? Thank you for the courtesy of this consultation. We will follow this patient with you. Ella Steve MD
--- NOTE | 2017-02-08 09:28 | PN ---
DATE: 02/07/2017 SUBJECTIVE: The patient was seen at bedside this morning. He complains of generalized weakness, some exertional shortness of breath when going to bathroom. He continues with high fevers. His T-max over past 24 hours was 104. He complains of decrease of appetite. He denies any cough, chest pain, abdominal pain, nausea, vomiting. PHYSICAL EXAMINATION: VITAL SIGNS: His temperature this morning during exam was 100.6, his pulse was 99, his blood pressure 146/77, and respiratory rate 20, and his oxygen saturation this morning was 94%. GENERAL: He is comfortable, in no acute form of distress. He is alert, awake, and oriented. HEENT: Head normocephalic and atraumatic. Oral mucosa is moist. NECK: Supple. LUNGS: With decreased breath sounds in base,but no rales, wheezing, or rhonchi. HEART: With regular rhythm and rate. ABDOMEN: Soft, nontender, and nondistended. EXTREMITIES: With trace edema. There are some ecchymosis in upper and lower extremities. DIAGNOSTIC TESTS: This morning, repeated one showed persistent pancytopenia with WBC 2.2, hemoglobin 9.4, hematocrit 28.5, and platelet count of 12. His chemistry shows sodium 131, potassium 3.5, and glucose 195. His renal function is normal with BUN 9 and creatinine 0.7. Liver enzymes are high with elevated bilirubin 4.3, AST 76, ALT 129 and alkaline phosphatase 384. His autoimmune workup is still pending. ASSESSMENT: 1. Severe pancytopenia, etiology uncertain, probably secondary to autoimmune disorder. 2. Fever, persistent with probably systemic inflammatory response syndrome, negative cultures until now, history of positive sputum culture with pseudomonas and past admission last week. 3. 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 4. Elevated liver enzymes with high bilirubin. PLAN OF TREATMENT: We will continue prednisone 80 mg with close monitoring of his laboratory test and hoping for response. We will transfuse platelets. I will add potassium supplement. I will repeat chest x-ray for followup due to complaints of dyspnea. We are awaiting bone marrow bx and serology results. Denisaarturo Hebert MD [facility] # [id number]
[2017-02-08] MEDS: Atovaquone 750 mg/5 ml Susp UD PO SCH ×2 (09:50→17:11)
[2017-02-08] MEDS: Hydrocortisone 2.5% Rectal Cream(30 gm) PR SCH ×2 (09:55→17:29)
[2017-02-08] MEDS: Potassium Chloride 40 mEq/30 ml LIQ UD PO SCH ×2 (10:01→13:04)
--- NOTE | 2017-02-08 10:34 | CP.PCM.PN ---
Subjective - Date & Time of Evaluation Date of Evaluation: 02/08/17 Time of Evaluation: 10:20 - Subjective Subjective: Patient still feels tired and weak, still with intermittent fevers, appetite is ok, no odynophagia, occasional shortness of breath at rest, dry cough, no abdominal pain, no dysuria, no diarrhea. Objective - Vital Signs/Intake and Output Vital Signs (last 24 hours): Temp Pulse Resp BP Pulse Ox 100.2 F H 84 23 128/90 97 02/08/17 03:57 02/08/17 06:00 02/08/17 03:57 02/08/17 03:57 02/07/17 16:32 Intake and Output: 02/07/17 02/08/17 18:59 06:59 Intake Total 840 648 Output Total 2825 Balance -1985 648 - Medications Medications: Current Medications Acetaminophen (Tylenol 325mg Tab) 650 mg PO Q4 PRN PRN Reason: Fever >100.4 F Last Admin: 02/08/17 02:00 Dose: 650 mg Al Hydrox/Mg Hydrox/Simethicone (Maalox Plus 30 Ml) 30 ml PO DAILY PRN PRN Reason: Indigestion / Heartburn Last Admin: 02/07/17 08:25 Dose: 30 ml Atovaquone (Mepron) 750 mg PO BID [facility] Last Admin: 02/07/17 18:07 Dose: 750 mg Clotrimazole (Mycelex Charles) 10 mg MT 5XD [facility] Last Admin: 02/08/17 00:13 Dose: Not Given Doxycycline Hyclate (Doryx) 100 mg PO Q12 [facility]ID PRN Reason: Protocol Last Admin: 02/08/17 00:15 Dose: 100 mg Folic Acid (Folic Acid) 1 mg PO DAILY [facility] Last Admin: 02/07/17 09:58 Dose: 1 mg Home Med (Home Med) 60 unit PO 0700 DAVID Hydrocortisone (Anusol-Hc) 0 gm AK BID [facility] Last Admin: 02/07/17 18:18 Dose: 1 applic Hydrocortisone/Pramoxine (Proctofoam) 1 gm TOP TID [facility] Last Admin: 02/07/17 18:16 Dose: 1 unit Vancomycin HCl (Vancomycin 1gm) 1 gm in 250 mls @ 167 mls/hr IVPB Q12H [facility] PRN Reason: Protocol Last Admin: 02/08/17 00:17 Dose: 167 mls/hr Potassium Phosphate 15 mmole/ (Sodium Chloride) 1,005 mls @ 80 mls/hr IV .[id number] [facility] Last Admin: 02/07/17 16:40 Dose: 80 mls/hr Meropenem 1 gm/ Dextrose 100 mls @ 100 mls/hr IVPB Q8 [facility] PRN Reason: Protocol Stop: 02/14/17 16:31 Last Admin: 02/08/17 05:10 Dose: 100 mls/hr Insulin Human Lispro (Humalog Low) 0 units SC ACHS [facility] PRN Reason: Protocol Last Admin: 02/08/17 00:12 Dose: Not Given Mupirocin (Bactroban Ointment) 0 gm TOP BID [facility] Last Admin: 02/07/17 18:17 Dose: 1 applic Polyethylene Glycol (Miralax) 17 gm PO BID [facility] Last Admin: 02/07/17 18:07 Dose: 17 gm Potassium Chloride (Klor-Con 10) 20 meq PO BRK [facility] Last Admin: 02/07/17 13:09 Dose: 20 meq Prednisone (Prednisone Tab) 80 mg PO 0800 [facility] Last Admin: 02/07/17 08:25 Dose: 80 mg Valacyclovir HCl (Valtrex) 500 mg PO BID [facility] PRN Reason: Protocol Stop: 02/14/17 10:01 Last Admin: 02/07/17 18:13 Dose: 500 mg - Labs Labs: 02/08/17 06:00 02/07/17 10:30 PT 17.8 SECONDS (9.4-12.5) H 02/07/17 10:30 INR 1.60 (0.93-1.08) H 02/07/17 10:30 APTT 30.9 Seconds (25.1-36.5) 02/07/17 10:30 - Constitutional Appears: Chronically Ill - Head Exam Head Exam: NORMAL INSPECTION - ENT Exam Additional comments: lip sores are improving - Neck Exam Neck Exam: absent: Meningismus - Respiratory Exam Respiratory Exam: Decreased Breath Sounds - Cardiovascular Exam Cardiovascular Exam: +S1, +S2 - GI/Abdominal Exam GI & Abdominal Exam: Soft. absent: Tenderness Assessment and Plan - Assessment and Plan (Free Text) Plan: Assessment Systemic Inflammatory Response Syndome, R/O sepsis due to Pseudomonas in sputum cx in a patient with lung fibrosis R/O HCAP; R/O autoimmune disease, R/O systemic infection but so far work up has been negative probable Herpes labialis, improving Pancytopenia, etiology to be determined hemorrhoids history of non-alcoholic steatohepatitis Plan repeat blood cx are negative; previous sputum cx showed Pseudomonas - continue Merrem day 3, IV Vancomycin and doxycycline; gave a dose of IV Gentamicin previously although less likely, will also get rickettsia work up; there is nothing in his travel history to suggest malaria CT C/A/P previously showed lung fibrosis will repeat Fungitell; CMV PCR and Galactomannan from previous admission are negative Quantiferon is indeterminate but the high fevers, regression of mediastinal lymph nodes on repeat CT scan without TB treatment (2016) makes TB less likely continue Mepron since CD4/CD8 ratio was low and patient is on chronic steroids ( currently on 80 mg Prednisone) reviewed work up done by Dr. Weston from [facility] which did not show acute EBV infection, no HIV, negative RPR will continue to monitor clinically discussed with Dr. Perez previously - will need further autoimmune disease work up; HLH is part of the consideration but so far the blood work does not strongly suggest it (triglycerides not very high, still awaiting repeat Haptoglobin), and the flow cytometry and peripheral smear on 01/30/2017 ( results in the EMR) also do not suggest it would have wanted to start NSAIDS for the fevers but with his low platelets it may be problematic discussed with Dr. Lai as well
[2017-02-08] MEDS: POLYETHYLENE GLYCOL 3350 17 GM/Dose PACKET PO SCH (10:42)
[2017-02-08] MEDS: Hydrocortisone-Pramoxine 1%-1% Foam(10 gm) TOP SCH ×3 (10:48→17:08)
--- NOTE | 2017-02-08 10:49 | CP.PCM.PN ---
Subjective - Date & Time of Evaluation Date of Evaluation: 02/08/17 Time of Evaluation: 07:00 - Subjective Subjective: Progress note for Dr Perez service Patient is currently in ICU, continues to spike with tmax of 103. Antibiotics switched from cefepime to merrem by ID. Repeat cultures were sent yesterday pending. Patient reported no chills this morning. Admits to generalized weakness , fatigue, SOB and fever. Had an episode of semi formed stool last night. Denies cp. Objective - Vital Signs/Intake and Output Vital Signs (last 24 hours): Temp Pulse Resp BP Pulse Ox 101.4 F H 116 H 22 125/65 95 02/08/17 08:25 02/08/17 10:10 02/08/17 10:10 02/08/17 10:00 02/08/17 10:10 Intake and Output: 02/08/17 02/08/17 06:59 18:59 Intake Total 648 Balance 648 - Medications Medications: Current Medications Acetaminophen (Tylenol 325mg Tab) 650 mg PO Q4 PRN PRN Reason: Fever >100.4 F Last Admin: 02/08/17 08:25 Dose: 650 mg Al Hydrox/Mg Hydrox/Simethicone (Maalox Plus 30 Ml) 30 ml PO DAILY PRN PRN Reason: Indigestion / Heartburn Last Admin: 02/08/17 08:19 Dose: 30 ml Atovaquone (Mepron) 750 mg PO BID [facility] Last Admin: 02/08/17 09:50 Dose: 750 mg Clotrimazole (Mycelex Charles) 10 mg MT 5XD [facility] Last Admin: 02/08/17 09:55 Dose: Not Given Doxycycline Hyclate (Doryx) 100 mg PO Q12 [facility] PRN Reason: Protocol Last Admin: 02/08/17 09:50 Dose: 100 mg Folic Acid (Folic Acid) 1 mg PO DAILY [facility] Last Admin: 02/08/17 09:50 Dose: 1 mg Home Med (Home Med) 60 unit PO 0700 [facility] Last Admin: 02/08/17 07:08 Dose: 60 unit Hydrocortisone (Anusol-Hc) 0 gm DC BID [facility] Last Admin: 02/08/17 09:55 Dose: Not Given Hydrocortisone/Pramoxine (Proctofoam) 1 gm TOP TID [facility] Last Admin: 02/07/17 18:16 Dose: 1 unit Vancomycin HCl (Vancomycin 1gm) 1 gm in 250 mls @ 167 mls/hr IVPB Q12H [facility] PRN Reason: Protocol Last Admin: 02/08/17 00:17 Dose: 167 mls/hr Potassium Phosphate 15 mmole/ (Sodium Chloride) 1,005 mls @ 80 mls/hr IV .[id number] [facility] Last Admin: 02/07/17 16:40 Dose: 80 mls/hr Meropenem 1 gm/ Dextrose 100 mls @ 100 mls/hr IVPB Q8 [facility] PRN Reason: Protocol Stop: 02/14/17 16:31 Last Admin: 02/08/17 05:10 Dose: 100 mls/hr Insulin Human Lispro (Humalog Low) 0 units SC ACHS [facility] PRN Reason: Protocol Last Admin: 02/08/17 08:02 Dose: Not Given Mupirocin (Bactroban Ointment) 0 gm TOP BID [facility] Last Admin: 02/08/17 09:53 Dose: 2 applic Polyethylene Glycol (Miralax) 17 gm PO BID [facility] Last Admin: 02/07/17 18:07 Dose: 17 gm Potassium Chloride (Klor-Con 10) 20 meq PO BRK [facility] Last Admin: 02/08/17 08:06 Dose: 20 meq Potassium Chloride (Potassium Chloride Oral Soln) 40 meq PO Q2H [facility] Stop: 02/08/17 11:46 Last Admin: 02/08/17 10:01 Dose: 40 meq Prednisone (Prednisone Tab) 80 mg PO 0800 [facility] Last Admin: 02/08/17 08:06 Dose: 80 mg Valacyclovir HCl (Valtrex) 500 mg PO BID [facility] PRN Reason: Protocol Stop: 02/14/17 10:01 Last Admin: 02/08/17 09:50 Dose: 500 mg - Labs Labs: 02/08/17 06:00 02/08/17 06:00 PT 17.8 SECONDS (9.4-12.5) H 02/07/17 10:30 INR 1.60 (0.93-1.08) H 02/07/17 10:30 APTT 30.9 Seconds (25.1-36.5) 02/07/17 10:30 - Constitutional Appears: No Acute Distress, Older Than Stated Age, Chronically Ill - Head Exam Head Exam: ATRAUMATIC, NORMAL INSPECTION, NORMOCEPHALIC - Eye Exam Eye Exam: Normal appearance. absent: Scleral icterus - ENT Exam ENT Exam: Mucous Membranes Moist - Neck Exam Neck Exam: Normal Inspection - Respiratory Exam Respiratory Exam: Clear to Ausculation Bilateral, NORMAL BREATHING PATTERN. absent: Prolonged Expiratory Phase, Rales, Rhonchi, Wheezes, Respiratory Distress, Stridor - Cardiovascular Exam Cardiovascular Exam: Tachycardia, REGULAR RHYTHM, +S1, +S2 - GI/Abdominal Exam GI & Abdominal Exam: Soft, Normal Bowel Sounds. absent: Distended, Firm, Guarding, Rigid, Tenderness - Extremities Exam Extremities Exam: Pedal Edema (ivan pitting edemas below the ankle. ) - Back Exam Back Exam: NORMAL INSPECTION - Neurological Exam Neurological Exam: Alert, Awake, Oriented x3 - Psychiatric Exam Psychiatric exam: Depressed - Skin Skin Exam: Dry, Warm Additional comments: multiple ecchymotic lesions on the upper extremities, multiple non blanching petechial rash on the lower extremities. + Jaundice. Assessment and Plan - Assessment and Plan (Free Text) Assessment: Patient is a 56 y/o Male with PMH of h/o campylobacter infection in 2016, hemorrhoids, pancytopenia of unknown origin with extensive work up ( negative HIV/EBV/CMV, negative bone marrow biopsy x3), BETANCOURT s/p liver biopsy that was benign, h/o florencia positive anemia, oropharyngeal candidiasis whom was sent from Dr Perez office for pancytopenia with neutropenia, and diarrhea, and was admitted with possible sepsis with pancytopenia . Patient is s/p multiple platelet and prbc transfusions pending repeat bone marrow results. Patient continued to spike temp, was short of breath and had platelet count of 12 while on med/surg and had to be transferred to ICU for further management and close monitoring. Plan: 1) SIRS with unclear etiology - r/o pneumonia, with positive sputum culture with pseudomona, with elevated procalcitonin - Patient continuous to spike with TMAX of 103 - Blood and urine cultures with no growth. - No acute findings on chest x-ray, interstitial/alveolar lung disease on CT from 11/05. - ID following, abx was switched over to merrem. - Extensive work up sent including fungitell and tick born illnesses. - Patient is also on valtrex for possible HSV on R lower lip - Atovoquone for low CD4/CD8 count, however negative HIV. - Continue with tylenol prn for fever - Currently in the unit, and pulm is following as well. 2) Pancytopenia with no clear etiology - ANC of 1480, s/p 3 units total of prb with hgb stable at 9.4, s/p 4 units of platelet transfused, currently 38. - Continue with granix - Transfuse with hgb below 7 and below below 20,000. - All blood products need to be irradiated. - Pending repeat bone marrow biopsy report - Pending extensive work up including work up for plasma cell dyscrasis, lyme disease. So far HIV/CMV/EBV/TB negative. - Continue with folic acid. - On prednisone, which should help if autoimmune etiology. 3) Hyponatremia likely due to SIADH - Resolved - Nephrology following, s/p tolvaptan - On NS 4) Hypokalemia- will replete and continue to monitor. 5) H/o Hemorrhoids- continue with proctocream 6) NIDDM- continue with ISS, fingersticks ACHS and diabetic diet. 7) Diarrhea- negative c diff, hold miralax. 8) Gi prophylaxis- Dexilant ( from home) DVT prophylaxis: SCDs. Patient seen, examined and case discussed with Dr Perez.
--- NOTE | 2017-02-08 11:38 | CP.PCM.PN ---
Subjective - Date & Time of Evaluation Date of Evaluation: 02/08/17 Time of Evaluation: 07:30 - Subjective Subjective: Patient seen and examined. Pt complaints of weakness, egeneralized, associated with malaise, and fatigue. Denies DELANEY, dizziness, palpitations, SOB, CP. Objective - Vital Signs/Intake and Output Vital Signs (last 24 hours): Temp Pulse Resp BP Pulse Ox 100.5 F H 116 H 22 125/65 95 02/08/17 09:25 02/08/17 10:10 02/08/17 10:10 02/08/17 10:00 02/08/17 10:10 Intake and Output: 02/08/17 02/08/17 06:59 18:59 Intake Total 648 Balance 648 - Medications Medications: Current Medications Acetaminophen (Tylenol 325mg Tab) 650 mg PO Q4 PRN PRN Reason: Fever >100.4 F Last Admin: 02/08/17 08:25 Dose: 650 mg Al Hydrox/Mg Hydrox/Simethicone (Maalox Plus 30 Ml) 30 ml PO DAILY PRN PRN Reason: Indigestion / Heartburn Last Admin: 02/08/17 08:19 Dose: 30 ml Atovaquone (Mepron) 750 mg PO BID [facility] Last Admin: 02/08/17 09:50 Dose: 750 mg Clotrimazole (Mycelex Charles) 10 mg MT 5XD [facility] Last Admin: 02/08/17 09:55 Dose: Not Given Doxycycline Hyclate (Doryx) 100 mg PO Q12 [facility]ID PRN Reason: Protocol Last Admin: 02/08/17 09:50 Dose: 100 mg Folic Acid (Folic Acid) 1 mg PO DAILY [facility] Last Admin: 02/08/17 09:50 Dose: 1 mg Home Med (Home Med) 60 unit PO 0700 [facility] Last Admin: 02/08/17 07:08 Dose: 60 unit Hydrocortisone (Anusol-Hc) 0 gm [place] BID [facility] Last Admin: 02/08/17 09:55 Dose: Not Given Hydrocortisone/Pramoxine (Proctofoam) 1 gm TOP TID [facility] Last Admin: 02/08/17 10:48 Dose: 1 unit Vancomycin HCl (Vancomycin 1gm) 1 gm in 250 mls @ 167 mls/hr IVPB Q12H [facility] PRN Reason: Protocol Last Admin: 02/08/17 10:43 Dose: 167 mls/hr Potassium Phosphate 15 mmole/ (Sodium Chloride) 1,005 mls @ 80 mls/hr IV .[id number] [facility] Last Admin: 02/07/17 16:40 Dose: 80 mls/hr Meropenem 1 gm/ Dextrose 100 mls @ 100 mls/hr IVPB Q8 [facility] PRN Reason: Protocol Stop: 02/14/17 16:31 Last Admin: 02/08/17 05:10 Dose: 100 mls/hr Insulin Human Lispro (Humalog Low) 0 units SC ACHS [facility] PRN Reason: Protocol Last Admin: 02/08/17 08:02 Dose: Not Given Mupirocin (Bactroban Ointment) 0 gm TOP BID [facility] Last Admin: 02/08/17 09:53 Dose: 2 applic Polyethylene Glycol (Miralax) 17 gm PO BID [facility] Last Admin: 02/08/17 10:42 Dose: Not Given Potassium Chloride (Klor-Con 10) 20 meq PO BRK [facility] Last Admin: 02/08/17 08:06 Dose: 20 meq Potassium Chloride (Potassium Chloride Oral Soln) 40 meq PO Q2H [facility] Stop: 02/08/17 11:46 Last Admin: 02/08/17 10:01 Dose: 40 meq Prednisone (Prednisone Tab) 80 mg PO 0800 [facility] Last Admin: 02/08/17 08:06 Dose: 80 mg Valacyclovir HCl (Valtrex) 500 mg PO BID [facility] PRN Reason: Protocol Stop: 02/14/17 10:01 Last Admin: 02/08/17 09:50 Dose: 500 mg - Labs Labs: 02/08/17 06:00 02/08/17 06:00 PT 17.8 SECONDS (9.4-12.5) H 02/07/17 10:30 INR 1.60 (0.93-1.08) H 02/07/17 10:30 APTT 30.9 Seconds (25.1-36.5) 02/07/17 10:30 - Constitutional Appears: Well, Non-toxic, No Acute Distress - Head Exam Head Exam: ATRAUMATIC - Eye Exam Eye Exam: EOMI, Normal appearance - ENT Exam ENT Exam: Mucous Membranes Moist - Neck Exam Neck Exam: Full ROM - Respiratory Exam Respiratory Exam: Clear to Ausculation Bilateral, NORMAL BREATHING PATTERN - Cardiovascular Exam Cardiovascular Exam: REGULAR RHYTHM, +S1, +S2 - GI/Abdominal Exam GI & Abdominal Exam: Soft, Normal Bowel Sounds - Extremities Exam Extremities Exam: Full ROM, Pedal Edema - Neurological Exam Neurological Exam: Alert, Awake, Oriented x3 Assessment and Plan - Assessment and Plan (Free Text) Assessment: Pt is 56yo male a/w fever, malaise, sepsis, and thrombocytopenia Thrombocytopenia Fever Fatigue Systemic Inflammatory Response Syndome, R/O sepsis due to Pseudomonas in sputum cx R/O HCAP; R/O autoimmune disease Recommend: - cont with supp o2 as neeed - antibiotics as per ID, Merreponem, Vancomycin - steroids as per heme/onc - PCP ppx - monitor platelets, and bleeding - FS control - GI ppx - DVT ppx, SCDs - follow up heme/onc, ID, pumonary - continue care in MICU
[2017-02-08] MEDS: Potassium Phosphate 15 MMOLE in Sodium Chloride 0.9% 1,000 ML IV SCH ×2 (13:05→18:25)
--- NOTE | 2017-02-08 13:05 | PN ---
DATE: 02/08/2017 SUBJECTIVE: The patient is lying in bed in the intensive care. Continues to have temperature. His temperature this morning is at 100.5. He denies any abdominal pain, nausea, vomiting, diarrhea, or rectal bleeding. PHYSICAL EXAMINATION: VITAL SIGNS: Reveal temperature 100.5, blood pressure 125/65, heart rate 116. HEENT: Reveal sclerae to be icteric. Conjunctivae pale. NECK: Supple. CHEST: Reveal lungs to be clear. HEART: Reveals a regular rate and rhythm. ABDOMEN: Soft, nontender. EXTREMITIES: Show 1+ pedal edema. He does have ecchymotic areas on his arms. LABORATORY DATA: Reveal white blood cell count 1.8, hemoglobin 9.4, platelet count 38,000, potassium of 3.2. Liver enzymes are elevated with total bilirubin of 5.1, AST 67, ALT 121, alkaline phosphatase of 372. IMPRESSION: This is a 56-year-old male with fevers, pancytopenia, known history of BETANCOURT, now with elevated liver enzymes. I have discussed this case with Dr. Perez. His most recent bone marrow biopsy shows an area of CD 30 positivity, suspicious for lymphoma. The rise in his liver enzymes may be related to a myeloproliferative process. The elevated liver enzymes appear to be cholestatic in nature with total bilirubin and alkaline phosphatase elevated. He has had negative CAT scans in the past. RECOMMENDATIONS: The patient is to be transferred to [facility] in [facility] for further workup and treatment of his pancytopenia and fever. Gerardo Quintanilla MD
[2017-02-08 13:08] LABS: BILIRUBIN,DIRECT 4.8 mg/dL (0.0-0.4); URIC ACID 1.2 mg/dL (3.5-8.5)
[2017-02-08] MEDS ORDERED: Morphine 5 MG/ML SYRINGE IVP PRN (15:48)
[2017-02-08] MEDS: Aztreonam 2 Gm in NS 100mL 100 ML IVPB SCH ×2 (16:41→22:03)
--- NOTE | 2017-02-08 21:33 | PN ---
DATE: 02/08/2017 PULMONARY PROGRESS NOTE REFERRING PHYSICIAN: Dr. Perez. SUBJECTIVE: He is sitting up in a reclining chair. Does not feel well. Presently, intensive care unit. Sister at bedside. Just body aches and discomfort, on nasal cannula, pulse ox 100%, not much cough. No sputum production. No nausea. No vomiting. No diarrhea. Does have some upper and lower extremity trace edema. OBJECTIVE: GENERAL: In no acute distress. VITAL SIGNS: Temperature is 99, T-max 101, heart rate is 107, respiratory rate is 20, pulse ox 100% on nasal cannula. HEENT: Moist mucous membranes. Carotid airway. NECK: Supple. No JVD. LUNGS: Has a fair airflow with few rhonchi. HEART: S1 and S2. ABDOMEN: Soft and nontender. No organomegaly. EXTREMITIES: Trace edema. NEUROLOGIC: Awake and alert, follows simple commands. LABORATORY DATA: Shows hemoglobin 9.4, hematocrit 27.9, WBC is 1.8, platelets is 38, fibrinogen 248, fibrinogen degradation product is less than 40. Sodium 135, potassium 3.2. Chloride 100. Bicarbonate 31. BUN 9, creatinine 0.6. Glucose 114. Uric acid 1.2. Calcium is 8.4, phosphorus 2.6, magnesium 1.9. Total bilirubin 5.1, direct bilirubin 4.8. AST 67. ALT 121. Alkaline phosphatase is 372. LDH 59. Total protein 6.7. Albumin 2.4. Procalcitonin 1.25 that is from yesterday. Antimitochondrial antibody was negative. Blood cultures have been negative. Peripheral smear shows red blood cells are normocytic, normochromic with 1+ anisocytosis occasional, schistocyte present and rate, crenated teardrop cells, ovalocytes identified, platelets are reduced in number. Preliminary report for bone marrow biopsy suggested of one island of cells possibility of non-Hodgkin's. MEDICATIONS: He is on Anusol p.r.n. basis, Azactam 2 g IV q. 8 hours, doxycycline 100 mg twice a day, folic acid 1 mg daily, insulin coverage, potassium 70 mEq daily, MiraLax p.r.n. basis, Mepron 750 mg twice a day, Mycelex jodie 10 mg 5 times a day, IV fluid with potassium 80 mL per hour, prednisone 80 mg daily, Tylenol p.r.n. basis, Valtrex 500 mg twice a day. IMPRESSION AND PLAN: Pancytopenia, elevated liver enzymes, history of obstructive sleep apnea, being treated for healthcare associated organisms. Spoke to Dr. Perez in detail. Also his endobronchial ultrasound report obtained from [facility], which was nondiagnostic and e-mailed to Dr. Perez. After discussing with Dr. Perez, p.o. prednisone stopped, Solu-Medrol 125 mg one dose given and continue 100 mg daily. We will watch patient closely. Discussion is ongoing to transfer the patient to [facility] for tertiary care services. Awaiting for the bed availability. Spoke to patient family at bedside. All the questions answered. Also add morphine 1 mg q. 6 hours p.r.n. for pain and discomfort. Spoke to nursing staff to assure to use BIPAP tonight while sleeping. Followup labs in the morning. Thank you and we will follow with you. Ant Lai MD
--- NOTE | 2017-02-08 21:45 | PN ---
DATE: 02/08/2017 SUBJECTIVE: The patient is seen sitting in chair in the ICU. He appears very tired. He appears weak. He appears depressed. He denies any chest pain, but he complains of shortness of breath. He denies any cough. He denies any nausea, vomiting. He denies any abdominal pain. He denies any urinary complaints. He has had no bowel movement in 2 days. PHYSICAL EXAMINATION: GENERAL: Young male sitting in chair in the ICU. VITAL SIGNS: Blood pressure 121/70, heart rate 116, respiratory rate 18, temperature 100.5, T-max is 100.7. HEENT: Normocephalic, atraumatic. NECK: Supple, no JVD. LUNGS: Bilateral equal air entry, bilateral equal expansion, no rales. CARDIAC: S1, S2. Regular, rate, and rhythm, no murmur, no rub. ABDOMEN: Obese, distended, soft, nontender, bowel sounds present. EXTREMITIES: 1+ pitting edema of the lower extremities. INTAKE AND OUTPUT: Intake 4088 and output 2825. LABORATORY DATA: WBC 1.8, hemoglobin 9.4, hematocrit 28, platelets 38. Sodium 135, potassium 3.2, chloride 100, CO2 of 31, BUN 9, creatinine 0.6, glucose 114, calcium 8.4, phosphorus 2.6, magnesium 1.9, uric acid 1.2, total bili 5.1, direct bili 4.8, AST 67, ALT 121, LDH 959, albumin 2.4, corrected calcium is 9.5. Urinalysis yellow clear, pH 6.0, specific less than 1.005, protein trace, glucose 250, ketones negative, blood large, urine sodium 55, urine creatinine 29. Blood cultures negative. Repeat bone marrow biopsy, normocytic normochromic red blood cells, no nucleated RBCs seen. Platelets are reduced in number, no clumping. WBC cells showed no atypical or immature forms. CURRENT MEDICATIONS: Azactam 2 g q. 8 h., Bactroban, doxycycline 100 q. 12 h., folic acid, Mepron, Mycelex, potassium 20 mEq riders x2 doses, IV fluids with potassium on hold, prednisone, Tylenol, Valtrex 40 mEq p.o. x2 doses of potassium given this morning, vancomycin 1 g. ASSESSMENT: 1. Severe hypokalemia. 2. Mild hyponatremia. 3. Pancytopenia. 4. Sleep apnea. 5. Non-insulin diabetes mellitus. 6. Nonalcoholic steatohepatitis. 7. Neutropenic sepsis. 8. ? Sarcoidosis. 9. Elevated erythrocyte sedimentation rate, elevated antinuclear antibody. PLAN 1. Continue aggressive potassium supplementation. 2. Continue broad-spectrum antibiotics as per ID recommendations. 3. Continue antivirals. 4. Transfuse as needed. 5. Awaiting transfer to [facility]. Ella Steve MD
--- NOTE | 2017-02-08 23:26 | PN ---
DATE: SUBJECTIVE: The patient was transferred to the intensive care unit last night. The patient complains of generalized weakness, continues with high fever. He has very poor appetite and no taste. He denies any nausea and abdominal pain, cough or chest pain. PHYSICAL EXAMINATION GENERAL: He is ill-looking, but in no acute form of distress. VITAL SIGNS: This morning showed temperature 101.4, his respiratory rate was 25, blood pressure 125/65 and pulse this morning was 116. HEENT: Head was normocephalic and atraumatic. Oral mucosa moist. NECK: Supple. LUNGS: With decreased breath sounds, but no rales, rhonchi or wheezing. HEART: With regular breathing, tachycardiac. ABDOMEN: Soft, nontender and nondistended. EXTREMITIES: With decreased edema. Some ecchymotic areas in the lower extremities. DIAGNOSTIC TEST: CBC remains critical with WBC 1.8, his hemoglobin 9.4 and platelet count 38 this morning. His sed rate 90. Chemistry with sodium 135, potassium 3.2, his BUN 9, creatinine 0.6. Liver enzymes remain high with bilirubin 5.1 and alkaline phosphatase 372. His cultures all are negative. This morning, bone marrow biopsy was still pending. ASSESSMENT: 1. Severe pancytopenia with persistent fever, history of abnormal elevated CARMELA, most probably autoimmune disorder, must rule out malignancy. 2. Persistent fever due to systemic inflammatory response syndrome with negative cultures, no signs of infectious process. 3. 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 4. Cholestasis with elevated liver enzymes. PLAN OF TREATMENT: Case was discussed yesterday with Dr. Perez. We will wait for the reports of bone marrow and further testing. The patient will remain on wide-spectrum antibiotic coverage and prophylaxis with Zovirax and Mepron. The patient will remain on IV fluids. We will replace potassium. Continue prednisone [address] Perez is arranging possible transfer to [facility] for further treatment this evening or possibly tomorrow. Denisa Hebert MD DENNIS
[2017-02-09 05:57] LABS: LYME DISEASE SCREEN <0.90 index
[2017-02-09] MEDS: Aztreonam 2 Gm in NS 100mL 100 ML IVPB SCH ×3 (06:30→21:59)
[2017-02-09] MEDS: Home Med 1 UNIT PO SCH (06:32)
[2017-02-09 06:48] LABS: GRAN # 1.19 (1.4-6.5); GRAN % 81.5 % (50.0-68.0); HEMATOCRIT 28.9 % (42.0-52.0); LYMPH # 0.3 (1.2-3.4); LYMPH % 17.1 % (22.0-35.0); MEAN CELL VOLUME 96.7 fl (80.0-105.0); MEAN CORPUSCULAR HEMOGLOBIN 32.1 pg (25.0-35.0); MEAN CORPUSCULAR HGB CONC 33.2 g/dl (31.0-37.0); MEAN PLATELET VOLUME 8.6 fl (7.0-11.0); MONO % 1.4 % (1.0-6.0); RED CELL DISTRIBUTION WIDTH 23.2 % (11.5-14.5)
[2017-02-09 07:09] LABS: PLATELET COUNT 11 10^3/uL (120.0-450.0); WHITE BLOOD COUNT 1.5 10^3/ul (4.5-11.0)
[2017-02-09 07:16] LABS: ALB/GLOB RATIO 0.6 (1.1-1.8); ALKALINE PHOSPHATASE 373 U/L (38-126); ALT/SGPT 128 U/L (7-56); AST/SGOT 84 U/L (17-59); BILIRUBIN,TOTAL 6.5 mg/dL (0.2-1.3); BLOOD UREA NITROGEN 12 mg/dL (7-21); CALCIUM 8.4 mg/dL (8.4-10.5); CARBON DIOXIDE 29 mmol/L (21-33); CHLORIDE 100 mmol/L (98-107); GFR AFRICAN-AMERICAN > 60; GLUCOSE,RANDOM 162 mg/dL (70-110); MAGNESIUM 1.9 mg/dL (1.7-2.2); PHOSPHOROUS 3.4 mg/dL (2.5-4.5); POTASSIUM 4.2 mmol/L (3.6-5.0); SODIUM 132 mmol/L (132-148); TOTAL PROTEIN 6.7 g/dL (5.8-8.3)
[2017-02-09] MEDS: Insulin Lispro (humaLOG) LOW Coverage SC SCH ×4 (08:34→22:00)
[2017-02-09] MEDS: Potassium Chloride 10 mEq ER Tab PO SCH (09:46)
[2017-02-09] MEDS: Hydrocortisone-Pramoxine 1%-1% Foam(10 gm) TOP SCH ×4 (09:47→17:28)
[2017-02-09] MEDS: Hydrocortisone 2.5% Rectal Cream(30 gm) PR SCH ×2 (09:49→17:27)
[2017-02-09] MEDS: Atovaquone 750 mg/5 ml Susp UD PO SCH (10:01)
--- NOTE | 2017-02-09 10:33 | CP.CCUPN ---
<Delvis Zimmerman - Last Filed: 02/09/17 13:27> CCU Subjective - Physician Review Events Since Last Encounter (Free Text): 02/09/17 13:[address] Dai Pt seen and examined at bedside. No signs of active bleeding. Tmax of 101.7F. Reports chills. No CP/SOB. No Abd pain. No N/V/D. No new complaints. CCU Objective - Vital Signs / Intake & Output Vital Signs (Last 4 hours): Vital Signs Pulse Resp BP Pulse Ox 02/09/17 07:30 94 H 27 H 100 02/09/17 07:20 92 H 40 H 100 02/09/17 07:10 91 H 34 H 100 02/09/17 07:00 93 H 18 125/69 99 02/09/17 06:50 95 H 24 100 02/09/17 06:40 105 H 37 H 60 L Intake and Output (Last 8hrs): Intake & Output 02/08/17 02/09/17 02/09/17 22:59 06:59 14:59 Intake Total 1960 Output Total 400 Balance 1560 Intake: IV 1160 Right Hand 0 Right Internal Jugular 1160 Oral 800 Output: Urine 400 Urine, Voided 400 Other: # Bowel Movements 0 - Physical Exam Head: Positive for: Atraumatic, Normocephalic Pupils: Positive for: PERRL Extroacular Muscles: Positive for: EOMI Conjunctiva: Positive for: Icteric Mouth: Positive for: Moist Mucous Membranes Neck: Positive for: Normal Range of Motion. Negative for: JVD Respiratory/Chest: Positive for: Clear to Auscultation, Good Air Exchange. Negative for: Respiratory Distress, Accessory Muscle Use, Wheezes, Decreased Breath Sounds, Rales, Rhonchi Cardiovascular: Positive for: Normal S1, S2, Tachycardic. Negative for: Murmurs Abdomen: Positive for: Normal Bowel Sounds. Negative for: Tenderness, Distention, Rebound Upper Extremity: Positive for: Normal Inspection Lower Extremity: Positive for: Normal Inspection Neurological: Positive for: GCS=15 Skin: Positive for: Warm, Dry, Other (jaundice noted) Psychiatric: Positive for: Alert, Oriented x 3 - Medications Active Medications: Active Medications Generic Name Dose Route Start Last Admin Trade Name Freq PRN Reason Stop Dose Admin Acetaminophen 650 mg 02/04/17 19:35 02/09/17 01:04 Tylenol 325mg Tab PO 650 mg Q4 PRN Administration Fever >100.4 F Al Hydrox/Mg Hydrox/Simethicone 30 ml 02/05/17 09:43 02/08/17 08:19 Maalox Plus 30 Ml PO 30 ml DAILY PRN Administration Indigestion / Heartburn Atovaquone 750 mg 02/04/17 19:30 02/09/17 10:01 Mepron PO 750 mg BID DAVID Administration Clotrimazole 10 mg 02/04/17 22:00 02/09/17 06:32 Mycelex [place] MT 10 mg 5XD DAVID Administration Doxycycline Hyclate 100 mg 02/07/17 16:30 02/09/17 09:46 Doryx PO 100 mg Q12 DAVID Administration Protocol Folic Acid 1 mg 02/05/17 10:00 02/09/17 09:47 Folic Acid PO 1 mg DAILY DAVID Administration Home Med 60 unit 02/08/17 07:00 02/09/17 06:32 Home Med PO 60 unit 0700 DAVID Administration Hydrocortisone 0 gm 02/04/17 21:15 02/09/17 09:49 Anusol-Hc SC 1 applic BID DAVID Administration Hydrocortisone/Pramoxine 1 gm 02/05/17 14:00 02/09/17 09:47 Proctofoam TOP 1 gm TID DAVID Administration Potassium Phosphate 15 mmole/ 1,005 mls @ 80 mls/hr 02/07/17 11:56 02/08/17 18:25 Sodium Chloride IV 80 mls/hr .[id number] DAVID Administration Aztreonam 100 mls @ 100 mls/hr 02/08/17 14:00 02/09/17 06:30 Azactam 2 Gm IVPB 02/15/17 14:01 100 mls/hr Q8 DAVID Administration Protocol Insulin Human Lispro 0 units 02/05/17 11:30 02/09/17 08:34 Humalog Low SC Not Given ACHS [facility] Protocol Methylprednisolone 100 mg 02/09/17 10:00 02/09/17 09:50 Solu-Medrol IVP 100 mg DAILY DAVID Administration Morphine Sulfate 1 mg 02/08/17 15:48 Morphine IVP Q4 PRN Pain, moderate (4-7) Mupirocin 0 gm 02/04/17 19:45 02/09/17 09:49 Bactroban Ointment TOP 1 applic BID DAVID Administration Potassium Chloride 20 meq 02/07/17 11:45 02/09/17 09:46 Klor-Con 10 PO 20 meq BRK DAVID Administration Valacyclovir HCl 500 mg 02/07/17 10:00 02/09/17 09:46 Valtrex PO 02/14/17 10:01 500 mg BID DAVID Administration Protocol - Patient Studies Lab Studies: Microbiology Studies 02/05/17 01:43 Blood Culture - Preliminary Blood-Venous NO GROWTH AFTER 4 DAYS 02/05/17 01:25 Blood Culture - Preliminary Blood-Venous NO GROWTH AFTER 4 DAYS 02/07/17 17:15 Blood Culture - Preliminary Blood-Venous NO GROWTH AFTER 24 HOURS 02/07/17 17:15 Blood Culture - Preliminary Blood-Venous NO GROWTH AFTER 24 HOURS 02/07/17 17:00 Urine Culture - Final Urine No Growth (<1,000 CFU/ML) Lab Studies 02/09/17 02/09/17 02/09/17 Range/Units 07:42 06:15 06:15 WBC 1.5 L* (4.5-11.0) 10^3/ul RBC 2.99 L (3.5-6.1) 10^6/uL Hgb 9.6 L (14.0-18.0) g/dL Hct 28.9 L (42.0-52.0) % MCV 96.7 (80.0-105.0) fl MCH 32.1 (25.0-35.0) pg MCHC 33.2 (31.0-37.0) g/dl RDW 23.2 H (11.5-14.5) % Plt Count 11 L* (120.0-450.0) 10^3/uL MPV 8.6 (7.0-11.0) fl Gran % 81.5 H (50.0-68.0) % Lymph % (Auto) 17.1 L (22.0-35.0) % [place] % (Auto) 1.4 (1.0-6.0) % Eos % (Auto) 0.0 L (1.5-5.0) % Baso % (Auto) 0.0 (0.0-3.0) % Gran # 1.19 L (1.4-6.5) Lymph # 0.3 L (1.2-3.4) [place] # 0.0 L (0.1-0.6) Eos # 0.0 (0.0-0.7) Baso # 0.00 (0.0-2.0) K/mm3 Haptoglobin (43-212) mg/dL Fibrinogen 205 (200-393) mg/dl Fibrin Degrad Products (< 10 ug/mL) Sodium (132-148) mmol/L Potassium (3.6-5.0) mmol/L Chloride (98-107) mmol/L Carbon Dioxide (21-33) mmol/L Anion Gap (10-20) BUN (7-21) mg/dL Creatinine (0.8-1.5) mg/dl Est GFR ( Amer) Est GFR (Non-Af Amer) POC Glucose (mg/dL) 184 H (65-110) mg/dL Random Glucose (70-110) mg/dL Uric Acid (3.5-8.5) mg/dL Calcium (8.4-10.5) mg/dL Phosphorus (2.5-4.5) mg/dL Magnesium (1.7-2.2) mg/dL Ferritin ng/mL Total Bilirubin (0.2-1.3) mg/dL Direct Bilirubin (0.0-0.4) mg/dL AST (17-59) U/L ALT (7-56) U/L Alkaline Phosphatase (38-126) U/L Lactate Dehydrogenase (333-699) U/L Total Protein (5.8-8.3) g/dL Albumin (3.0-4.8) g/dL Globulin gm/dL Albumin/Globulin Ratio (1.1-1.8) Urine Immunofixation (Not Detected) Anti-Mitochondrial Ab (Negative) Lyme Disease Screen index 02/09/17 02/08/17 02/08/17 Range/Units 06:15 21:06 16:27 WBC (4.5-11.0) 10^3/ul RBC (3.5-6.1) 10^6/uL Hgb (14.0-18.0) g/dL Hct (42.0-52.0) % MCV (80.0-105.0) fl MCH (25.0-35.0) pg MCHC (31.0-37.0) g/dl RDW (11.5-14.5) % Plt Count (120.0-450.0) 10^3/uL MPV (7.0-11.0) fl Gran % (50.0-68.0) % Lymph % (Auto) (22.0-35.0) % [place] % (Auto) (1.0-6.0) % Eos % (Auto) (1.5-5.0) % Baso % (Auto) (0.0-3.0) % Gran # (1.4-6.5) Lymph # (1.2-3.4) [place] # (0.1-0.6) Eos # (0.0-0.7) Baso # (0.0-2.0) K/mm3 Haptoglobin (43-212) mg/dL Fibrinogen (200-393) mg/dl Fibrin Degrad Products (< 10 ug/mL) Sodium 132 (132-148) mmol/L Potassium 4.2 (3.6-5.0) mmol/L Chloride 100 (98-107) mmol/L Carbon Dioxide 29 (21-33) mmol/L Anion Gap 8 L (10-20) BUN 12 (7-21) mg/dL Creatinine 0.6 L (0.8-1.5) mg/dl Est GFR ( Amer) > 60 Est GFR (Non-Af Amer) > 60 POC Glucose (mg/dL) 220 H 266 H (65-110) mg/dL Random Glucose 162 H (70-110) mg/dL Uric Acid (3.5-8.5) mg/dL Calcium 8.4 (8.4-10.5) mg/dL Phosphorus 3.4 (2.5-4.5) mg/dL Magnesium 1.9 (1.7-2.2) mg/dL Ferritin ng/mL Total Bilirubin 6.5 H (0.2-1.3) mg/dL Direct Bilirubin (0.0-0.4) mg/dL AST 84 H D (17-59) U/L ALT 128 H (7-56) U/L Alkaline Phosphatase 373 H (38-126) U/L Lactate Dehydrogenase 919 H (333-699) U/L Total Protein 6.7 (5.8-8.3) g/dL Albumin 2.4 L (3.0-4.8) g/dL Globulin 4.3 gm/dL Albumin/Globulin Ratio 0.6 L (1.1-1.8) Urine Immunofixation (Not Detected) Anti-Mitochondrial Ab (Negative) Lyme Disease Screen index 02/08/17 02/08/17 02/08/17 Range/Units 12:52 12:52 12:52 WBC (4.5-11.0) 10^3/ul RBC (3.5-6.1) 10^6/uL Hgb (14.0-18.0) g/dL Hct (42.0-52.0) % MCV (80.0-105.0) fl MCH (25.0-35.0) pg MCHC (31.0-37.0) g/dl RDW (11.5-14.5) % Plt Count (120.0-450.0) 10^3/uL MPV (7.0-11.0) fl Gran % (50.0-68.0) % Lymph % (Auto) (22.0-35.0) % [place] % (Auto) (1.0-6.0) % Eos % (Auto) (1.5-5.0) % Baso % (Auto) (0.0-3.0) % Gran # (1.4-6.5) Lymph # (1.2-3.4) [place] # (0.1-0.6) Eos # (0.0-0.7) Baso # (0.0-2.0) K/mm3 Haptoglobin (43-212) mg/dL Fibrinogen 248 (200-393) mg/dl Fibrin Degrad Products >10 <40 ug/ml (< 10 ug/mL) Sodium (132-148) mmol/L Potassium (3.6-5.0) mmol/L Chloride (98-107) mmol/L Carbon Dioxide (21-33) mmol/L Anion Gap (10-20) BUN (7-21) mg/dL Creatinine (0.8-1.5) mg/dl Est GFR ( Amer) Est GFR (Non-Af Amer) POC Glucose (mg/dL) (65-110) mg/dL Random Glucose (70-110) mg/dL Uric Acid 1.2 L (3.5-8.5) mg/dL Calcium (8.4-10.5) mg/dL Phosphorus (2.5-4.5) mg/dL Magnesium (1.7-2.2) mg/dL Ferritin > 81012.0 ng/mL Total Bilirubin (0.2-1.3) mg/dL Direct Bilirubin 4.8 H (0.0-0.4) mg/dL AST (17-59) U/L ALT (7-56) U/L Alkaline Phosphatase (38-126) U/L Lactate Dehydrogenase 959 H (333-699) U/L Total Protein (5.8-8.3) g/dL Albumin (3.0-4.8) g/dL Globulin gm/dL Albumin/Globulin Ratio (1.1-1.8) Urine Immunofixation (Not Detected) Anti-Mitochondrial Ab (Negative) Lyme Disease Screen index 02/08/17 02/08/17 02/08/17 Range/Units 11:32 07:46 06:00 WBC (4.5-11.0) 10^3/ul RBC (3.5-6.1) 10^6/uL Hgb (14.0-18.0) g/dL Hct (42.0-52.0) % MCV (80.0-105.0) fl MCH (25.0-35.0) pg MCHC (31.0-37.0) g/dl RDW (11.5-14.5) % Plt Count (120.0-450.0) 10^3/uL MPV (7.0-11.0) fl Gran % (50.0-68.0) % Lymph % (Auto) (22.0-35.0) % [place] % (Auto) (1.0-6.0) % Eos % (Auto) (1.5-5.0) % Baso % (Auto) (0.0-3.0) % Gran # (1.4-6.5) Lymph # (1.2-3.4) [place] # (0.1-0.6) Eos # (0.0-0.7) Baso # (0.0-2.0) K/mm3 Haptoglobin (43-212) mg/dL Fibrinogen (200-393) mg/dl Fibrin Degrad Products (< 10 ug/mL) Sodium (132-148) mmol/L Potassium (3.6-5.0) mmol/L Chloride (98-107) mmol/L Carbon Dioxide (21-33) mmol/L Anion Gap (10-20) BUN (7-21) mg/dL Creatinine (0.8-1.5) mg/dl Est GFR ( Amer) Est GFR (Non-Af Amer) POC Glucose (mg/dL) 148 H 91 (65-110) mg/dL Random Glucose (70-110) mg/dL Uric Acid (3.5-8.5) mg/dL Calcium (8.4-10.5) mg/dL Phosphorus (2.5-4.5) mg/dL Magnesium (1.7-2.2) mg/dL Ferritin ng/mL Total Bilirubin (0.2-1.3) mg/dL Direct Bilirubin (0.0-0.4) mg/dL AST (17-59) U/L ALT (7-56) U/L Alkaline Phosphatase (38-126) U/L Lactate Dehydrogenase (333-699) U/L Total Protein (5.8-8.3) g/dL Albumin (3.0-4.8) g/dL Globulin gm/dL Albumin/Globulin Ratio (1.1-1.8) Urine Immunofixation (Not Detected) Anti-Mitochondrial Ab (Negative) Lyme Disease Screen <0.90 index 02/07/17 02/06/17 02/05/17 Range/Units 10:30 09:45 18:40 WBC (4.5-11.0) 10^3/ul RBC (3.5-6.1) 10^6/uL Hgb (14.0-18.0) g/dL Hct (42.0-52.0) % MCV (80.0-105.0) fl MCH (25.0-35.0) pg MCHC (31.0-37.0) g/dl RDW (11.5-14.5) % Plt Count (120.0-450.0) 10^3/uL MPV (7.0-11.0) fl Gran % (50.0-68.0) % Lymph % (Auto) (22.0-35.0) % [place] % (Auto) (1.0-6.0) % Eos % (Auto) (1.5-5.0) % Baso % (Auto) (0.0-3.0) % Gran # (1.4-6.5) Lymph # (1.2-3.4) [place] # (0.1-0.6) Eos # (0.0-0.7) Baso # (0.0-2.0) K/mm3 Haptoglobin <15 L (43-212) mg/dL Fibrinogen (200-393) mg/dl Fibrin Degrad Products (< 10 ug/mL) Sodium (132-148) mmol/L Potassium (3.6-5.0) mmol/L Chloride (98-107) mmol/L Carbon Dioxide (21-33) mmol/L Anion Gap (10-20) BUN (7-21) mg/dL Creatinine (0.8-1.5) mg/dl Est GFR ( Amer) Est GFR (Non-Af Amer) POC Glucose (mg/dL) (65-110) mg/dL Random Glucose (70-110) mg/dL Uric Acid (3.5-8.5) mg/dL Calcium (8.4-10.5) mg/dL Phosphorus (2.5-4.5) mg/dL Magnesium (1.7-2.2) mg/dL Ferritin ng/mL Total Bilirubin (0.2-1.3) mg/dL Direct Bilirubin (0.0-0.4) mg/dL AST (17-59) U/L ALT (7-56) U/L Alkaline Phosphatase (38-126) U/L Lactate Dehydrogenase (333-699) U/L Total Protein (5.8-8.3) g/dL Albumin (3.0-4.8) g/dL Globulin gm/dL Albumin/Globulin Ratio (1.1-1.8) Urine Immunofixation Not detected (Not Detected) Anti-Mitochondrial Ab Negative (Negative) Lyme Disease Screen index Laboratory Results - last 24 hr 02/05/17 02/06/17 02/07/17 18:40 09:45 10:30 WBC RBC Hgb Hct MCV MCH MCHC RDW Plt Count MPV Gran % Lymph % (Auto) [place] % (Auto) Eos % (Auto) Baso % (Auto) Gran # Lymph # [place] # Eos # Baso # Haptoglobin <15 L Fibrinogen Fibrin Degrad Products Sodium Potassium Chloride Carbon Dioxide Anion Gap BUN Creatinine Est GFR ( Amer) Est GFR (Non-Af Amer) POC Glucose (mg/dL) Random Glucose Uric Acid Calcium Phosphorus Magnesium Ferritin Total Bilirubin Direct Bilirubin AST ALT Alkaline Phosphatase Lactate Dehydrogenase Total Protein Albumin Globulin Albumin/Globulin Ratio Urine Immunofixation Not detected Anti-Mitochondrial Ab Negative Lyme Disease Screen 02/08/17 02/08/17 02/08/17 06:00 07:46 11:32 WBC RBC Hgb Hct MCV MCH MCHC RDW Plt Count MPV Gran % Lymph % (Auto) [place] % (Auto) Eos % (Auto) Baso % (Auto) Gran # Lymph # [place] # Eos # Baso # Haptoglobin Fibrinogen Fibrin Degrad Products Sodium Potassium Chloride Carbon Dioxide Anion Gap BUN Creatinine Est GFR ( Amer) Est GFR (Non-Af Amer) POC Glucose (mg/dL) 91 148 H Random Glucose Uric Acid Calcium Phosphorus Magnesium Ferritin Total Bilirubin Direct Bilirubin AST ALT Alkaline Phosphatase Lactate Dehydrogenase Total Protein Albumin Globulin Albumin/Globulin Ratio Urine Immunofixation Anti-Mitochondrial Ab Lyme Disease Screen <0.90 02/08/17 02/08/17 02/08/17 12:52 12:52 12:52 WBC RBC Hgb Hct MCV MCH MCHC RDW Plt Count MPV Gran % Lymph % (Auto) [place] % (Auto) Eos % (Auto) Baso % (Auto) Gran # Lymph # [place] # Eos # Baso # Haptoglobin Fibrinogen 248 Fibrin Degrad Products >10 <40 ug/ml Sodium Potassium Chloride Carbon Dioxide Anion Gap BUN Creatinine Est GFR ( Amer) Est GFR (Non-Af Amer) POC Glucose (mg/dL) Random Glucose Uric Acid 1.2 L Calcium Phosphorus Magnesium Ferritin > 00668.0 Total Bilirubin Direct Bilirubin 4.8 H AST ALT Alkaline Phosphatase Lactate Dehydrogenase 959 H Total Protein Albumin Globulin Albumin/Globulin Ratio Urine Immunofixation Anti-Mitochondrial Ab Lyme Disease Screen 02/08/17 02/08/17 02/09/17 16:27 21:06 06:15 WBC RBC Hgb Hct MCV MCH MCHC RDW Plt Count MPV Gran % Lymph % (Auto) [place] % (Auto) Eos % (Auto) Baso % (Auto) Gran # Lymph # [place] # Eos # Baso # Haptoglobin Fibrinogen Fibrin Degrad Products Sodium 132 Potassium 4.2 Chloride 100 Carbon Dioxide 29 Anion Gap 8 L BUN 12 Creatinine 0.6 L Est GFR ( Amer) > 60 Est GFR (Non-Af Amer) > 60 POC Glucose (mg/dL) 266 H 220 H Random Glucose 162 H Uric Acid Calcium 8.4 Phosphorus 3.4 Magnesium 1.9 Ferritin Total Bilirubin 6.5 H Direct Bilirubin AST 84 H D ALT 128 H Alkaline Phosphatase 373 H Lactate Dehydrogenase 919 H Total Protein 6.7 Albumin 2.4 L Globulin 4.3 Albumin/Globulin Ratio 0.6 L Urine Immunofixation Anti-Mitochondrial Ab Lyme Disease Screen 02/09/17 02/09/17 02/09/17 06:15 06:15 07:42 WBC 1.5 L* RBC 2.99 L Hgb 9.6 L Hct 28.9 L MCV 96.7 MCH 32.1 MCHC 33.2 RDW 23.2 H Plt Count 11 L* MPV 8.6 Gran % 81.5 H Lymph % (Auto) 17.1 L [place] % (Auto) 1.4 Eos % (Auto) 0.0 L Baso % (Auto) 0.0 Gran # 1.19 L Lymph # 0.3 L [place] # 0.0 L Eos # 0.0 Baso # 0.00 Haptoglobin Fibrinogen 205 Fibrin Degrad Products Sodium Potassium Chloride Carbon Dioxide Anion Gap BUN Creatinine Est GFR ( Amer) Est GFR (Non-Af Amer) POC Glucose (mg/dL) 184 H Random Glucose Uric Acid Calcium Phosphorus Magnesium Ferritin Total Bilirubin Direct Bilirubin AST ALT Alkaline Phosphatase Lactate Dehydrogenase Total Protein Albumin Globulin Albumin/Globulin Ratio Urine Immunofixation Anti-Mitochondrial Ab Lyme Disease Screen Fingerstick Blood Sugar Results: 184 Assessment/Plan - Assessment and Plan (Free Text) Assessment: 56yo M with PMHx of hemorrhoids and Pancytopenia of unknown origin here with Fever, Malaise, Thrombocytopenia. Bone marrow Bx concerning for Hodgkin's. Liver Bx negative. Accepted to [facility] by Dr. Kenny Pugh for further treatment, awaiting insurance acceptance and bed availability. Thrombocytopenia worse today, will Transfuse 2U Platelets. 1. Pancytopenia ANC -1.2 worsening thrombocytopenia. Will transfuse 2U platelets. Will premedicate with tylenol and benadryl. Patient already on steroids H/H stable repeat PT/INR and correct coagulopathy as needed 2. SIRS, r/o sepsis consider pseudomonas in Sputum Cx r/o HCAP, low suspicion continue abx as per ID; Doxy, Aztreonam, Clotrimazole, Valacyclovir 3. Elevated LFTs Abd US - Negative Hold hepatotoxic meds 4. PPx: Neutropenic precautions Dispo: Will transfer to [facility] under care of Dr. Kenny Pugh. Discussed case with Dr. Dai. Delvis Zimmerman PGY1 <Federico Dai - Last Filed: 02/09/17 13:45> CCU Objective - Vital Signs / Intake & Output Vital Signs (Last 4 hours): Vital Signs Temp Pulse Resp BP 02/09/17 13:35 98.6 F 139 H 24 117/73 02/09/17 10:00 111 H Intake and Output (Last 8hrs): Intake & Output 02/08/17 02/09/17 02/09/17 22:59 06:59 14:59 Intake Total 1960 0 Output Total 400 Balance 1560 0 Intake: IV 1160 Right Hand 0 Right Internal Jugular 1160 Oral 800 Blood Product 0 Apheresis Plts Acda Lr 0 Irr Unit [id number] Output: Urine 400 Urine, Voided 400 Other: # Bowel Movements 0 - Medications Active Medications: Active Medications Generic Name Dose Route Start Last Admin Trade Name Freq PRN Reason Stop Dose Admin Acetaminophen 650 mg 02/04/17 19:35 02/09/17 01:04 Tylenol 325mg Tab PO 650 mg Q4 PRN Administration Fever >100.4 F Al Hydrox/Mg Hydrox/Simethicone 30 ml 02/05/17 09:43 02/08/17 08:19 Maalox Plus 30 Ml PO 30 ml DAILY PRN Administration Indigestion / Heartburn Atovaquone 750 mg 02/04/17 19:30 02/09/17 10:01 Mepron PO 750 mg BID DAVID Administration Clotrimazole 10 mg 02/04/17 22:00 02/09/17 11:04 Mycelex [place] MT 10 mg 5XD DAVID Administration Doxycycline Hyclate 100 mg 02/07/17 16:30 02/09/17 09:46 Doryx PO 100 mg Q12 DAVID Administration Protocol Folic Acid 1 mg 02/05/17 10:00 02/09/17 09:47 Folic Acid PO 1 mg DAILY DAVID Administration Home Med 60 unit 02/08/17 07:00 02/09/17 06:32 Home Med PO 60 unit 0700 DAVID Administration Hydrocortisone 0 gm 02/04/17 21:15 02/09/17 09:49 Anusol-Hc SC 1 applic BID DAVID Administration Hydrocortisone/Pramoxine 1 gm 02/05/17 14:00 02/09/17 11:04 Proctofoam TOP 1 gm TID DAVID Administration Potassium Phosphate 15 mmole/ 1,005 mls @ 80 mls/hr 02/07/17 11:56 02/08/17 18:25 Sodium Chloride IV 80 mls/hr .[id number] DAVID Administration Aztreonam 100 mls @ 100 mls/hr 02/08/17 14:00 02/09/17 06:30 Azactam 2 Gm IVPB 02/15/17 14:01 100 mls/hr Q8 [facility] Administration Protocol Insulin Human Lispro 0 units 02/05/17 11:30 02/09/17 12:46 Humalog Low SC Not Given ACHS [facility] Protocol Methylprednisolone 100 mg 02/09/17 10:00 02/09/17 09:50 Solu-Medrol IVP 100 mg DAILY DAVID Administration Morphine Sulfate 1 mg 02/08/17 15:48 Morphine IVP Q4 PRN Pain, moderate (4-7) Mupirocin 0 gm 02/04/17 19:45 02/09/17 09:49 Bactroban Ointment TOP 1 applic BID DAVID Administration Potassium Chloride 20 meq 02/07/17 11:45 02/09/17 09:46 Klor-Con 10 PO 20 meq BRK DAVID Administration Valacyclovir HCl 500 mg 02/07/17 10:00 02/09/17 09:46 Valtrex PO 02/14/17 10:01 500 mg BID DAVID Administration Protocol - Patient Studies Lab Studies: Microbiology Studies 02/07/17 17:40 MRSA Culture (Admit) - Final Nose MRSA NOT DETECTED 02/05/17 01:43 Blood Culture - Preliminary Blood-Venous NO GROWTH AFTER 4 DAYS 02/05/17 01:25 Blood Culture - Preliminary Blood-Venous NO GROWTH AFTER 4 DAYS 02/07/17 17:15 Blood Culture - Preliminary Blood-Venous NO GROWTH AFTER 24 HOURS 02/07/17 17:15 Blood Culture - Preliminary Blood-Venous NO GROWTH AFTER 24 HOURS 02/07/17 17:00 Urine Culture - Final Urine No Growth (<1,000 CFU/ML) Lab Studies 02/09/17 02/09/17 02/09/17 Range/Units 12:20 11:03 07:42 WBC (4.5-11.0) 10^3/ul RBC (3.5-6.1) 10^6/uL Hgb (14.0-18.0) g/dL Hct (42.0-52.0) % MCV (80.0-105.0) fl MCH (25.0-35.0) pg MCHC (31.0-37.0) g/dl RDW (11.5-14.5) % Plt Count (120.0-450.0) 10^3/uL MPV (7.0-11.0) fl Gran % (50.0-68.0) % Lymph % (Auto) (22.0-35.0) % [place] % (Auto) (1.0-6.0) % Eos % (Auto) (1.5-5.0) % Baso % (Auto) (0.0-3.0) % Gran # (1.4-6.5) Lymph # (1.2-3.4) [place] # (0.1-0.6) Eos # (0.0-0.7) Baso # (0.0-2.0) K/mm3 Haptoglobin (43-212) mg/dL PT 17.9 H (9.4-12.5) SECONDS INR 1.61 H (0.93-1.08) APTT 33.4 (25.1-36.5) Seconds Fibrinogen (200-393) mg/dl Sodium (132-148) mmol/L Potassium (3.6-5.0) mmol/L Chloride (98-107) mmol/L Carbon Dioxide (21-33) mmol/L Anion Gap (10-20) BUN (7-21) mg/dL Creatinine (0.8-1.5) mg/dl Est GFR ( Amer) Est GFR (Non-Af Amer) POC Glucose (mg/dL) 150 H 184 H (65-110) mg/dL Random Glucose (70-110) mg/dL Calcium (8.4-10.5) mg/dL Phosphorus (2.5-4.5) mg/dL Magnesium (1.7-2.2) mg/dL Ferritin ng/mL Total Bilirubin (0.2-1.3) mg/dL AST (17-59) U/L ALT (7-56) U/L Alkaline Phosphatase (38-126) U/L Lactate Dehydrogenase (333-699) U/L Total Protein (5.8-8.3) g/dL Albumin (3.0-4.8) g/dL Globulin gm/dL Albumin/Globulin Ratio (1.1-1.8) Urine Immunofixation (Not Detected) Anti-Mitochondrial Ab (Negative) Lyme Disease Screen index 02/09/17 02/09/17 02/09/17 Range/Units 06:15 06:15 06:15 WBC 1.5 L* (4.5-11.0) 10^3/ul RBC 2.99 L (3.5-6.1) 10^6/uL Hgb 9.6 L (14.0-18.0) g/dL Hct 28.9 L (42.0-52.0) % MCV 96.7 (80.0-105.0) fl MCH 32.1 (25.0-35.0) pg MCHC 33.2 (31.0-37.0) g/dl RDW 23.2 H (11.5-14.5) % Plt Count 11 L* (120.0-450.0) 10^3/uL MPV 8.6 (7.0-11.0) fl Gran % 81.5 H (50.0-68.0) % Lymph % (Auto) 17.1 L (22.0-35.0) % [place] % (Auto) 1.4 (1.0-6.0) % Eos % (Auto) 0.0 L (1.5-5.0) % Baso % (Auto) 0.0 (0.0-3.0) % Gran # 1.19 L (1.4-6.5) Lymph # 0.3 L (1.2-3.4) [place] # 0.0 L (0.1-0.6) Eos # 0.0 (0.0-0.7) Baso # 0.00 (0.0-2.0) K/mm3 Haptoglobin (43-212) mg/dL PT (9.4-12.5) SECONDS INR (0.93-1.08) APTT (25.1-36.5) Seconds Fibrinogen 205 (200-393) mg/dl Sodium 132 (132-148) mmol/L Potassium 4.2 (3.6-5.0) mmol/L Chloride 100 (98-107) mmol/L Carbon Dioxide 29 (21-33) mmol/L Anion Gap 8 L (10-20) BUN 12 (7-21) mg/dL Creatinine 0.6 L (0.8-1.5) mg/dl Est GFR ( Amer) > 60 Est GFR (Non-Af Amer) > 60 POC Glucose (mg/dL) (65-110) mg/dL Random Glucose 162 H (70-110) mg/dL Calcium 8.4 (8.4-10.5) mg/dL Phosphorus 3.4 (2.5-4.5) mg/dL Magnesium 1.9 (1.7-2.2) mg/dL Ferritin ng/mL Total Bilirubin 6.5 H (0.2-1.3) mg/dL AST 84 H D (17-59) U/L ALT 128 H (7-56) U/L Alkaline Phosphatase 373 H (38-126) U/L Lactate Dehydrogenase 919 H (333-699) U/L Total Protein 6.7 (5.8-8.3) g/dL Albumin 2.4 L (3.0-4.8) g/dL Globulin 4.3 gm/dL Albumin/Globulin Ratio 0.6 L (1.1-1.8) Urine Immunofixation (Not Detected) Anti-Mitochondrial Ab (Negative) Lyme Disease Screen index 02/08/17 02/08/17 02/08/17 Range/Units 21:06 16:27 12:52 WBC (4.5-11.0) 10^3/ul RBC (3.5-6.1) 10^6/uL Hgb (14.0-18.0) g/dL Hct (42.0-52.0) % MCV (80.0-105.0) fl MCH (25.0-35.0) pg MCHC (31.0-37.0) g/dl RDW (11.5-14.5) % Plt Count (120.0-450.0) 10^3/uL MPV (7.0-11.0) fl Gran % (50.0-68.0) % Lymph % (Auto) (22.0-35.0) % [place] % (Auto) (1.0-6.0) % Eos % (Auto) (1.5-5.0) % Baso % (Auto) (0.0-3.0) % Gran # (1.4-6.5) Lymph # (1.2-3.4) [place] # (0.1-0.6) Eos # (0.0-0.7) Baso # (0.0-2.0) K/mm3 Haptoglobin (43-212) mg/dL PT (9.4-12.5) SECONDS INR (0.93-1.08) APTT (25.1-36.5) Seconds Fibrinogen 248 (200-393) mg/dl Sodium (132-148) mmol/L Potassium (3.6-5.0) mmol/L Chloride (98-107) mmol/L Carbon Dioxide (21-33) mmol/L Anion Gap (10-20) BUN (7-21) mg/dL Creatinine (0.8-1.5) mg/dl Est GFR ( Amer) Est GFR (Non-Af Amer) POC Glucose (mg/dL) 220 H 266 H (65-110) mg/dL Random Glucose (70-110) mg/dL Calcium (8.4-10.5) mg/dL Phosphorus (2.5-4.5) mg/dL Magnesium (1.7-2.2) mg/dL Ferritin ng/mL Total Bilirubin (0.2-1.3) mg/dL AST (17-59) U/L ALT (7-56) U/L Alkaline Phosphatase (38-126) U/L Lactate Dehydrogenase (333-699) U/L Total Protein (5.8-8.3) g/dL Albumin (3.0-4.8) g/dL Globulin gm/dL Albumin/Globulin Ratio (1.1-1.8) Urine Immunofixation (Not Detected) Anti-Mitochondrial Ab (Negative) Lyme Disease Screen index 02/08/17 02/08/17 02/08/17 Range/Units 12:52 11:32 07:46 WBC (4.5-11.0) 10^3/ul RBC (3.5-6.1) 10^6/uL Hgb (14.0-18.0) g/dL Hct (42.0-52.0) % MCV (80.0-105.0) fl MCH (25.0-35.0) pg MCHC (31.0-37.0) g/dl RDW (11.5-14.5) % Plt Count (120.0-450.0) 10^3/uL MPV (7.0-11.0) fl Gran % (50.0-68.0) % Lymph % (Auto) (22.0-35.0) % [place] % (Auto) (1.0-6.0) % Eos % (Auto) (1.5-5.0) % Baso % (Auto) (0.0-3.0) % Gran # (1.4-6.5) Lymph # (1.2-3.4) [place] # (0.1-0.6) Eos # (0.0-0.7) Baso # (0.0-2.0) K/mm3 Haptoglobin (43-212) mg/dL PT (9.4-12.5) SECONDS INR (0.93-1.08) APTT (25.1-36.5) Seconds Fibrinogen (200-393) mg/dl Sodium (132-148) mmol/L Potassium (3.6-5.0) mmol/L Chloride (98-107) mmol/L Carbon Dioxide (21-33) mmol/L Anion Gap (10-20) BUN (7-21) mg/dL Creatinine (0.8-1.5) mg/dl Est GFR ( Amer) Est GFR (Non-Af Amer) POC Glucose (mg/dL) 148 H 91 (65-110) mg/dL Random Glucose (70-110) mg/dL Calcium (8.4-10.5) mg/dL Phosphorus (2.5-4.5) mg/dL Magnesium (1.7-2.2) mg/dL Ferritin > 79377.0 ng/mL Total Bilirubin (0.2-1.3) mg/dL AST (17-59) U/L ALT (7-56) U/L Alkaline Phosphatase (38-126) U/L Lactate Dehydrogenase (333-699) U/L Total Protein (5.8-8.3) g/dL Albumin (3.0-4.8) g/dL Globulin gm/dL Albumin/Globulin Ratio (1.1-1.8) Urine Immunofixation (Not Detected) Anti-Mitochondrial Ab (Negative) Lyme Disease Screen index 02/08/17 02/07/17 02/06/17 Range/Units 06:00 10:30 21:40 WBC (4.5-11.0) 10^3/ul RBC (3.5-6.1) 10^6/uL Hgb (14.0-18.0) g/dL Hct (42.0-52.0) % MCV (80.0-105.0) fl MCH (25.0-35.0) pg MCHC (31.0-37.0) g/dl RDW (11.5-14.5) % Plt Count (120.0-450.0) 10^3/uL MPV (7.0-11.0) fl Gran % (50.0-68.0) % Lymph % (Auto) (22.0-35.0) % [place] % (Auto) (1.0-6.0) % Eos % (Auto) (1.5-5.0) % Baso % (Auto) (0.0-3.0) % Gran # (1.4-6.5) Lymph # (1.2-3.4) [place] # (0.1-0.6) Eos # (0.0-0.7) Baso # (0.0-2.0) K/mm3 Haptoglobin <15 L (43-212) mg/dL PT (9.4-12.5) SECONDS INR (0.93-1.08) APTT (25.1-36.5) Seconds Fibrinogen (200-393) mg/dl Sodium (132-148) mmol/L Potassium (3.6-5.0) mmol/L Chloride (98-107) mmol/L Carbon Dioxide (21-33) mmol/L Anion Gap (10-20) BUN (7-21) mg/dL Creatinine (0.8-1.5) mg/dl Est GFR ( Amer) Est GFR (Non-Af Amer) POC Glucose (mg/dL) 211 H (65-110) mg/dL Random Glucose (70-110) mg/dL Calcium (8.4-10.5) mg/dL Phosphorus (2.5-4.5) mg/dL Magnesium (1.7-2.2) mg/dL Ferritin ng/mL Total Bilirubin (0.2-1.3) mg/dL AST (17-59) U/L ALT (7-56) U/L Alkaline Phosphatase (38-126) U/L Lactate Dehydrogenase (333-699) U/L Total Protein (5.8-8.3) g/dL Albumin (3.0-4.8) g/dL Globulin gm/dL Albumin/Globulin Ratio (1.1-1.8) Urine Immunofixation (Not Detected) Anti-Mitochondrial Ab (Negative) Lyme Disease Screen <0.90 index 02/06/17 02/06/17 02/05/17 Range/Units 16:53 09:45 18:40 WBC (4.5-11.0) 10^3/ul RBC (3.5-6.1) 10^6/uL Hgb (14.0-18.0) g/dL Hct (42.0-52.0) % MCV (80.0-105.0) fl MCH (25.0-35.0) pg MCHC (31.0-37.0) g/dl RDW (11.5-14.5) % Plt Count (120.0-450.0) 10^3/uL MPV (7.0-11.0) fl Gran % (50.0-68.0) % Lymph % (Auto) (22.0-35.0) % [place] % (Auto) (1.0-6.0) % Eos % (Auto) (1.5-5.0) % Baso % (Auto) (0.0-3.0) % Gran # (1.4-6.5) Lymph # (1.2-3.4) [place] # (0.1-0.6) Eos # (0.0-0.7) Baso # (0.0-2.0) K/mm3 Haptoglobin (43-212) mg/dL PT (9.4-12.5) SECONDS INR (0.93-1.08) APTT (25.1-36.5) Seconds Fibrinogen (200-393) mg/dl Sodium (132-148) mmol/L Potassium (3.6-5.0) mmol/L Chloride (98-107) mmol/L Carbon Dioxide (21-33) mmol/L Anion Gap (10-20) BUN (7-21) mg/dL Creatinine (0.8-1.5) mg/dl Est GFR ( Amer) Est GFR (Non-Af Amer) POC Glucose (mg/dL) 223 H (65-110) mg/dL Random Glucose (70-110) mg/dL Calcium (8.4-10.5) mg/dL Phosphorus (2.5-4.5) mg/dL Magnesium (1.7-2.2) mg/dL Ferritin ng/mL Total Bilirubin (0.2-1.3) mg/dL AST (17-59) U/L ALT (7-56) U/L Alkaline Phosphatase (38-126) U/L Lactate Dehydrogenase (333-699) U/L Total Protein (5.8-8.3) g/dL Albumin (3.0-4.8) g/dL Globulin gm/dL Albumin/Globulin Ratio (1.1-1.8) Urine Immunofixation Not detected (Not Detected) Anti-Mitochondrial Ab Negative (Negative) Lyme Disease Screen index Laboratory Results - last 24 hr 02/05/17 02/06/17 02/06/17 18:40 09:45 16:53 WBC RBC Hgb Hct MCV MCH MCHC RDW Plt Count MPV Gran % Lymph % (Auto) [place] % (Auto) Eos % (Auto) Baso % (Auto) Gran # Lymph # [place] # Eos # Baso # Haptoglobin PT INR APTT Fibrinogen Sodium Potassium Chloride Carbon Dioxide Anion Gap BUN Creatinine Est GFR ( Amer) Est GFR (Non-Af Amer) POC Glucose (mg/dL) 223 H Random Glucose Calcium Phosphorus Magnesium Ferritin Total Bilirubin AST ALT Alkaline Phosphatase Lactate Dehydrogenase Total Protein Albumin Globulin Albumin/Globulin Ratio Urine Immunofixation Not detected Anti-Mitochondrial Ab Negative Lyme Disease Screen 02/06/17 02/07/17 02/08/17 21:40 10:30 06:00 WBC RBC Hgb Hct MCV MCH MCHC RDW Plt Count MPV Gran % Lymph % (Auto) [place] % (Auto) Eos % (Auto) Baso % (Auto) Gran # Lymph # [place] # Eos # Baso # Haptoglobin <15 L PT INR APTT Fibrinogen Sodium Potassium Chloride Carbon Dioxide Anion Gap BUN Creatinine Est GFR ( Amer) Est GFR (Non-Af Amer) POC Glucose (mg/dL) 211 H Random Glucose Calcium Phosphorus Magnesium Ferritin Total Bilirubin AST ALT Alkaline Phosphatase Lactate Dehydrogenase Total Protein Albumin Globulin Albumin/Globulin Ratio Urine Immunofixation Anti-Mitochondrial Ab Lyme Disease Screen <0.90 02/08/17 02/08/17 02/08/17 07:46 11:32 12:52 WBC RBC Hgb Hct MCV MCH MCHC RDW Plt Count MPV Gran % Lymph % (Auto) [place] % (Auto) Eos % (Auto) Baso % (Auto) Gran # Lymph # [place] # Eos # Baso # Haptoglobin PT INR APTT Fibrinogen Sodium Potassium Chloride Carbon Dioxide Anion Gap BUN Creatinine Est GFR ( Amer) Est GFR (Non-Af Amer) POC Glucose (mg/dL) 91 148 H Random Glucose Calcium Phosphorus Magnesium Ferritin > 07860.0 Total Bilirubin AST ALT Alkaline Phosphatase Lactate Dehydrogenase Total Protein Albumin Globulin Albumin/Globulin Ratio Urine Immunofixation Anti-Mitochondrial Ab Lyme Disease Screen 02/08/17 02/08/17 02/08/17 12:52 16:27 21:06 WBC RBC Hgb Hct MCV MCH MCHC RDW Plt Count MPV Gran % Lymph % (Auto) [place] % (Auto) Eos % (Auto) Baso % (Auto) Gran # Lymph # [place] # Eos # Baso # Haptoglobin PT INR APTT Fibrinogen 248 Sodium Potassium Chloride Carbon Dioxide Anion Gap BUN Creatinine Est GFR ( Amer) Est GFR (Non-Af Amer) POC Glucose (mg/dL) 266 H 220 H Random Glucose Calcium Phosphorus Magnesium Ferritin Total Bilirubin AST ALT Alkaline Phosphatase Lactate Dehydrogenase Total Protein Albumin Globulin Albumin/Globulin Ratio Urine Immunofixation Anti-Mitochondrial Ab Lyme Disease Screen 02/09/17 02/09/17 02/09/17 06:15 06:15 06:15 WBC 1.5 L* RBC 2.99 L Hgb 9.6 L Hct 28.9 L MCV 96.7 MCH 32.1 MCHC 33.2 RDW 23.2 H Plt Count 11 L* MPV 8.6 Gran % 81.5 H Lymph % (Auto) 17.1 L [place] % (Auto) 1.4 Eos % (Auto) 0.0 L Baso % (Auto) 0.0 Gran # 1.19 L Lymph # 0.3 L [place] # 0.0 L Eos # 0.0 Baso # 0.00 Haptoglobin PT INR APTT Fibrinogen 205 Sodium 132 Potassium 4.2 Chloride 100 Carbon Dioxide 29 Anion Gap 8 L BUN 12 Creatinine 0.6 L Est GFR ( Amer) > 60 Est GFR (Non-Af Amer) > 60 POC Glucose (mg/dL) Random Glucose 162 H Calcium 8.4 Phosphorus 3.4 Magnesium 1.9 Ferritin Total Bilirubin 6.5 H AST 84 H D ALT 128 H Alkaline Phosphatase 373 H Lactate Dehydrogenase 919 H Total Protein 6.7 Albumin 2.4 L Globulin 4.3 Albumin/Globulin Ratio 0.6 L Urine Immunofixation Anti-Mitochondrial Ab Lyme Disease Screen 02/09/17 02/09/17 02/09/17 07:42 11:03 12:20 WBC RBC Hgb Hct MCV MCH MCHC RDW Plt Count MPV Gran % Lymph % (Auto) [place] % (Auto) Eos % (Auto) Baso % (Auto) Gran # Lymph # [place] # Eos # Baso # Haptoglobin PT 17.9 H INR 1.61 H APTT 33.4 Fibrinogen Sodium Potassium Chloride Carbon Dioxide Anion Gap BUN Creatinine Est GFR ( Amer) Est GFR (Non-Af Amer) POC Glucose (mg/dL) 184 H 150 H Random Glucose Calcium Phosphorus Magnesium Ferritin Total Bilirubin AST ALT Alkaline Phosphatase Lactate Dehydrogenase Total Protein Albumin Globulin Albumin/Globulin Ratio Urine Immunofixation Anti-Mitochondrial Ab Lyme Disease Screen Assessment/Plan - Assessment and Plan (Free Text) Assessment: Patient seen and examined with resident, agree with note with following additions/exceptions: Pt is 56yo male a/w fever, malaise, sepsis, and thrombocytopenia. Currently febrile, but HD stable. Heme Onc following, Platelets today 11, will receive 2u platelets today, and INR 1.6, 1u FFP as per Heme Onc. Awaiting possible transfer to [facility], awaiting case managment/insurnce resolution. BM biopsy showed questionable pattern for Hodgkins vs rare HLH syndrome. Thrombocytopenia Fever Fatigue Systemic Inflammatory Response Syndome/sepsis due to Pseudomonas in sputum cx R/O autoimmune disease Recommend: - cont with supp o2 as neeed - antibiotics as per ID, Merreponem, Vancomycin - steroids as per heme/onc - monitor platelets, and bleeding - transfuse 2u plts, 1u FFP - FS control - DVT ppx, SCDs - follow up heme/onc, ID, pumonary - possible transfer to [facility]
--- NOTE | 2017-02-09 10:52 | US ---
HISTORY: attention to liver, gallbladder and pancreas COMPARISON: Abdomen pelvis CT 02/09/2017. TECHNIQUE: Sonographic evaluation of the abdomen. FINDINGS: LIVER: Measures 14.3 cm. Normal echogenicity of the liver parenchyma. No mass. No intrahepatic bile duct dilatation. GALLBLADDER: Gallbladder is largely contracted limiting evaluation of the wall. No cholelithiasis identified. Acalculous cholecystitis is difficult to completely exclude given measurements up to 7 mm thickness of the gallbladder wall. No pericholecystic fluid collections appreciated. There is also no reported sonographic Mortensen's sign. COMMON BILE DUCT: Measures 4.1 mm. No stones. No dilatation. PANCREAS: The vast majority the pancreas is unremarkable appearing however the distal tail is obscured by bowel gas. RIGHT KIDNEY: Measures 11.0cm. Normal echogenicity. No calculus, mass, or hydronephrosis. Body habitus limits definition. LEFT KIDNEY: Measures 11.6cm. Normal echogenicity. No calculus, mass, or hydronephrosis. Body habitus limits definition. SPLEEN: No focal lesion is seen in the spleen however the study is mildly enlarged at 13.7 cm. AORTA: No aneurysmal dilatation. IVC: Unremarkable. OTHER FINDINGS: None. IMPRESSION: 1. Is difficult to completely exclude cholecystitis although the only spine that may indicate this is questionable thickening of the gallbladder wall in the gallbladder that is nearly completely collapsed. No cholelithiasis, pericholecystic fluid collection or reported sonographic Mortensen's sign. Clinically correlate further. 2. Mild splenomegaly 13.7 cm without focal splenic mass appreciated. 3. Partial imaging of the pancreas.
[2017-02-09 12:43] LABS: INR 1.61 (0.93-1.08); PARTIAL THROMBOPLASTIN TIME 33.4 Seconds (25.1-36.5)
[2017-02-09] MEDS ORDERED: DiphenhydrAMINE 50 mg/ml Inj IVP STA (12:49)
--- NOTE | 2017-02-09 14:41 | PN ---
DATE: 02/09/2017 SUBJECTIVE: Patient is in room 129, bed 6 and the patient was seen early this morning. No fevers reported, did have fevers earlier, appears to be comfortable. PHYSICAL EXAMINATION: VITAL SIGNS: Temperature of 98, T-max is 101.7, heart rate of 92, blood pressure is 125/60, respiratory rate of 18. HEENT: Unremarkable. NECK: Supple. LUNGS: Decreased breath sounds. HEART: Normal S1, S2. ABDOMEN: Soft and nontender. LABORATORY DATA: Reveals white count of 1.5, hemoglobin of 9, platelets of 11,000. Chemistries reveals a BUN of 12, creatinine of 0.6. Urinalysis is noted. Lyme screen is less than 0.9. Microbiology reveals blood cultures are negative. Repeat blood cultures are negative. Urine cultures are negative. The patient had an HIV test in October which was negative. MEDICATIONS: Review of orders reveals the patient to be on aztreonam and doxycycline and Valtrex. Dr. Barton's note is reviewed. Dr. Lai's note is reviewed. Dr. Steve's note is reviewed. Dr. Quintanilla's note is reviewed. Dr. Dai's note is reviewed. Addendum by note from yesterday reveals the patient's bone marrow biopsy report with CD30 markers suspicious for Hodgkin's lymphoma. ASSESSMENT AND PLAN: A 56-year-old male with systemic inflammatory response syndrome with lung fibrosis and possible lymphoma with a history of nonalcoholic steatohepatitis and admitted with pancytopenia, neutropenia with fever. All cultures negative, day #4 of meropenem, which is actually aztreonam now and doxycycline. The patient is also on Solu-Medrol, currently on aztreonam and doxycycline. We will follow closely with you. Yanick Chisholm MD [id number]
--- NOTE | 2017-02-09 15:55 | PN ---
DATE: 02/09/2017 SUBJECTIVE: The patient is seen in intensive care unit. He is still jaundiced. He continues to have low grade fevers. He continues to feel weak with generalized ill feeling. MEDICATIONS: Include aztreonam, Anusol, hydrocortisone suppositories, Bactroban ointment, doxycycline 100 mg IV q.12, folic acid 1 mg daily, Dexilant 60 mg once a day, Mepron 750 mg twice a day, Mycelex Charles 10 mg five times a day, Solu-Medrol 100 mg IV once a day, acetaminophen and Valtrex 500 mg p.o. b.i.d. His meropenem has been stopped. PHYSICAL EXAMINATION: VITAL SIGNS: Reveal a temperature of 98.4, blood pressure 124/70, heart rate of 100. The patient appears jaundiced. HEENT: Reveal sclerae to be icteric. Conjunctivae pale. NECK: Supple. CHEST: Reveal lungs to be clear. HEART: Reveals regular rate and rhythm. ABDOMEN: Soft, nontender. No mass. EXTREMITIES: Show generalized anasarca with 1+ edema of his lower extremities. LABORATORY DATA: Reveal white blood cell count 1.5, hemoglobin 9.6 platelet count of 11,000. Chemistries reveal BUN of 12, creatinine 0.6, AST 84, ALT 128, alkaline phosphatase 373. These are all at the stable level. His total bilirubin did increase a little bit to 6.5. I reviewed the abdominal. I reviewed the abdominal ultrasound which shows mild splenomegaly, normal common bile duct, normal appearing liver. No masses in the liver. No gallstones and a mildly thickened gallbladder wall measuring 7 mm with no pericholecystic fluid. IMPRESSION: 1. Pancytopenia, etiology unclear. Recent bone marrow biopsy did show increased activity of CD 30. This raises the concern of a indolent lymphoma. 2. Systemic inflammatory response syndrome. 3. Elevated liver enzymes in a patient with a history of nonalcoholic steatohepatitis. Ultrasound of the abdomen did show mild thickening of the gallbladder wall without any stones or evidence of biliary obstruction. I suspect that the elevated liver enzymes are mainly a cholestatic process and may be secondary to recent meropenem and Mepron use. His meropenem has been discontinued and switched to aztreonam. I will speak to ID about stopping Mepron. Another possibility is a infiltrative process in the liver. RECOMMENDATIONS: 1. Continue broad-spectrum antibiotics. 2. The patient is to be transfused platelets. 3. [place] [facility] [place] Quintanilla MD DENNIS
--- NOTE | 2017-02-09 21:12 | PN ---
DATE: SUBJECTIVE: The patient is currently seen in CCU bed #6. He remains in isolation. He is receiving blood products and presently receiving platelet products. He had been accepted by Hematology/Oncology for transfer to [facility]. However, insurance issues are pending. The patient had a bone marrow biopsy during a previous admission, which appears to be positive for possible Hodgkin's lymphoma. The patient remains pancytopenic. He remains febrile, temperature presently is 103 degrees Fahrenheit. MEDICATIONS: Medication list reviewed. The patient is currently on hydrocortisone HC, Azactam, Bactroban, doxycycline, folic acid, Dexilant, sliding scale insulin, potassium, Maalox Plus, morphine p.r.n., K-Phos, IV fluids, sodium normal saline 80 mL an hour, ProctoFoam, Solu-Medrol, Tylenol p.r.n., and Valtrex. OBJECTIVE: INTAKE/OUTPUT: Intake is 1960, output is 400. VITAL SIGNS: Blood pressure is 111/63, temperature 103, pulse 129 and regular, respiratory rate 30, pulse ox 100%. HEENT: Shows him to be normocephalic, atraumatic. Conjunctivae are pale. Sclerae are icteric. NECK: Supple. No neck vein distention. CHEST: Scattered rhonchi. No rales or wheezing. CARDIOVASCULAR: Shows a rapid S1, S2. Soft systolic murmur in the left lower sternal border. ABDOMEN: Soft. Bowel sounds normal. No masses. No rebound or guarding. EXTREMITIES: No lower extremity cyanosis, clubbing, or edema. LABORATORY DATA AND IMAGING STUDIES: Microbiology: All cultures are negative to date. Blood cultures are negative at 4 days. Urine cultures are negative. Repeat blood cultures are negative at 24 hours. CBC: White blood cell count today remains low at 1.5, hemoglobin 9.6, platelet count is 11,000. Sed rate was 90. Coags: PT 17.9, INR 1.61, PTT of 33.4. Fibrin split products greater than 10, less than 40. Fibrinogen 205. Chemistries: Sodium is back down to 132, but within the normal range. Potassium 4.2, BUN 12 with creatinine of 0.6. Glucose was 162. Bilirubin 6.5 with an AST of 84, ALT of 128, alkaline phosphatase is elevated at 373. LDH is elevated at 919. Albumin is low at 2.4. Uric acid was low previously at 1.2. ASSESSMENT: 1. Borderline hyponatremia. 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 The patient had received three doses of tolvaptan. he remains on normal saline. 2. Pancytopenia. Exact etiology is not clear, but the patient was seen to have a lymphoma-type pattern on his bone marrow. Possibly Hodgkin's lymphoma. The patient is in the process of being transferred to the Hematology/Oncology Service at [facility]. 3. Possible sarcoidosis. The patient never had a lung biopsy. 4. History of obstructive sleep apnea. 5. History of noninsulin-dependent diabetes mellitus. Glucose control is acceptable. The patient is on steroids. He is on sliding scale insulin. 6. History of nonalcoholic steatohepatitis with elevation of his liver enzymes. 7. Neutropenic sepsis, possible pneumonia. The patient remains on broad-spectrum antibiotic therapy. All cultures are negative to date. PLAN: 1. Discussed with the patient's in detail. Agree that he should be transferred to a [facility]. He is awaiting transfer pending his insurance. I also discussed with her other institutions in [facility] such as [facility], the [facility]. 2. Continue isotonic IV fluid. Sodium level is acceptable at 132. Calcium, phosphorus, magnesium level are all normal today. 3. Continue antibiotic therapy empirically. The patient is being followed by ID. 4. Continue to support the patient with blood products given his severe pancytopenia. 5. Try to reassure the that finding an abnormality in the bone marrow might be a good finding as we could have a diagnosis and the patient could start a treatment plan. Emanuel Esquivel MD
[2017-02-10] MEDS: Potassium Phosphate 15 MMOLE in Sodium Chloride 0.9% 1,000 ML IV SCH
[2017-02-10 00:13] LABS: (1-3)-B-D GLUCAN <31 pg/mL
--- NOTE | 2017-02-10 01:55 | DS ---
REASON FOR ADMISSION: This is a 56-year-old white male, who was admitted to [facility] with progressive anemia, pancytopenia, fevers, chills, and failure to thrive at home with worsening liver function, was admitted for further management. This is his second admission to [facility]. The patient was recently in the hospital admitted for pancytopenia and was treated with IV antibiotics at that time with the assumption that he probably had a septic focus, was found to have pseudomonas in the sputum, but other testings were negative. He was treated with Xanax, broad-spectrum antibiotics, and then sent home on Mepron, Cipro, and prednisone attenuated dose of 40 mg a day. He was in home less than 24 hours and had to be readmitted for progressively worsening fevers and progressively worsening pancytopenia. HOSPITAL COURSE: The patient in the hospital, but noted to be having hectic temperatures up to 103, was again covered with broad-spectrum antibiotics. He did have a triple lumen catheter placed on the right side of his neck in the jugular vein for both fluid management and for transfusion of blood and blood products. The patient had a bone marrow aspiration biopsy done during this admission, last Wednesday under aseptic precautions. Final results of those reports were available to us on Wednesday. On the core biopsy, there is one focus of CD30 positive for cluster of cells, highly suspicious for Hodgkin's lymphoma, though the pathologist were reviewed four of them and felt that additional tissue would be probably important at this point in time to further delineate what type of Hodgkin's disease or whether the patient need further systemic therapy based on the diagnosis. During the hospital course, in addition to getting broad-spectrum antibiotics, the patient received blood and blood products. Earlier today because of his worsening liver functions, the patient had ultrasound of the abdomen, which failed to show anything dramatic, did show a contracted gallbladder and tail of the pancreas was not clearly visualized because of abdominal gas and there was borderline splenomegaly. The patient's current medications include doxycycline, he is on Tylenol p.r.n. and he is on Maalox with Mylicon p.r.n. He is on Mepron 750 mg p.o b.i.d and Mycelex 10 mg p.o. to be sucked four times a day, he is on doxycycline 100 mg p.o. q.12 hours., folic acid 1 mg daily, and Dexilant 60 mg daily. He is on Anusol, hydrocortisone, and Proctofoam treatment for his rectal hemorrhoids. He is on IV fluid at 80 mL an hour. Continue with potassium phosphate. He is on Azactam 2 g IV piggyback q.8 hours and insulin coverage p.r.n., and methylprednisolone 100 mg IV piggyback daily. He is on morphine 1 mg IV as needed p.r.n. for moderate pain, and Bactroban ointment topically b.i.d. to the affected areas on the skin. He is on potassium chloride, Klor-Con 20 mEq p.o. daily. He is on Valtrex 500 mg p.o. b.i.d. LABORATORY DATA: Blood cultures to date have shown no growth. Urine cultures to date have shown no growth. Most recent labs from today revealed a white count of 1.5, hemoglobin of 9.6, hematocrit of 28, and platelet count of 11,000. Electrolytes are grossly within normal limits. Important parameters have given monitoring him for his ferritin is elevated, it is almost up to 10,000,and fibrinogen is 205. Alkaline phosphatase is 373, ALT is 128 with AST of 84, total protein is 6.7 with an albumin of 2.4, globulin of 4.3, and total bilirubin is 6.5. Out of which direct bilirubin is elevated, which is of concerning to us. Lyme screening was negative. PHYSICAL EXAMINATION: GENERAL: The patient is examined at the bedside. VITAL SIGNS: Stable. He is still using nasal oxygen, his gradient has been holding. Vital signs from today revealed T-max of 101, pulse rate is 111, blood pressure is 126/94, and respiration is 12. The patient is on nasal cannula 2 L per minute. HEENT: The patient examined in bed. Head is normocephalic and atraumatic. The patient is grossly icteric. Temporal muscle wasting is noted. Examination of the conjunctiva shows sclerae to be icteric. Conjunctivae pale. Examination of the oropharynx reveals no significant oropharyngeal lesions. There is no petechiae in the hard palate or the soft palate. Tongue is moist and coated. No ulcerations are noted. NECK: Supple. There is no adenopathy. No jugular venous distention noted. LUNGS: Relatively clear to percussion and auscultation. CARDIOVASCULAR SYSTEM: Reveals the PMI to be in the fifth intercostal space inside the midclavicular line. Tachycardia is noted. Heart rate is regular. No murmur is discernible. ABDOMEN: Reveals to be mildly distended. Liver and spleen are not palpable. Bowel sounds are present. No rebound, rigidity or guarding is demonstrable. EXTREMITIES: Reveals chronic edema of the lower extremities with varicosities. There is no evidence of adenopathy in the neck, axilla, or groin. NEUROLOGIC: Reveals no focal deficits. GENITOURINARY AND RECTAL: Deferred. ASSESSMENT AND PLAN: The patient has pancytopenia in the background of having hectic temperatures with abnormal liver function tests with associated other parameters of concern at this point in time, the ferritin is being elevated in addition to coagulation being abnormal and the fibrinogen is on the lower side at 205. 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 The other condition that we also concerned about is hematopoietic disorder consisting of macrophage, hemophagocytic syndrome, which could be also very difficult to diagnose and at this point in time some of the laboratory parameters that of concerning for the same, given that the bone marrow did not show any evidence of erythrophagocytosis. At this point in time, we are in juncture where should be treat the patient or not. Additional tissue was recommended by four pathologists. So, we are leaving it up to the doctors at [facility] to help with that and further management of this patient. The patient is being transferred to [facility] for further input from the team of doctors there to see if the patient should go on systemic therapy top of the steroids without therapy directed towards the Hodgkin's disease or should we try to get additional tissue in the form of more mediastinal sampling or may be even a splenectomy to determine if the spleen is affected by some disorder, things that are of concern to us. The liver biopsies were negative for amyloid, liver biopsy was negative for granuloma, liver biopsy was negative for lymphoma, liver biopsy was negative for any other opportunistic infection and/or even sarcoidosis. Prior to bone marrow biopsies, were also inconclusive except for the colon biopsy showing atypical CD30 positive lymphocytes in the bone marrow and paratrabecular infiltrate, which is very concerning for Hodgkin's lymphoma or K antigen large cell lymphoma that is not expressing the K antigen. Orders have been written for transfer, we got an authorization from the [facility] as well for the plan transfer as soon as the bed is available. In the meantime, we will try to support the patient and keep the patient on appropriate medication. We will continue IV antibiotics, continue to transfuse him p.r.n. as needed depending upon the counts. The patient today when I examined him at around 7 o'clock appears to be relatively comfortable and is holding his ground at this point in time. Copies of everything that we have done so far have been included with the patient's chart and make sure the dictation from to night will also go with him when he is transferred. Time spent with the patient at least an hour. I spoke to the family in great detail about the patient's finding and about the possible prognosis and possibly what treatment protocol we should be adopting. Abhinav Perez MD
--- NOTE | 2017-02-10 03:35 | PN ---
PULMONARY PROGRESS NOTE DATE: 02/09/2017 REFERRING PHYSICIAN: Dr. Perez. SUBJECTIVE: He is lying in the bed, head at 45 degrees, and lethargic. Sister and is at bedside. Day was unremarkable, on nasal cannula oxygen, receiving platelets, and spike of fever up to 103. No nausea. No vomiting. No diarrhea. No leg pain. Does have upper and lower extremity mild swelling. OBJECTIVE: VITAL SIGNS: T-max 101, heart rate 88, respiratory rate is 16, blood pressure 126/94, and pulse ox 98% on 2 L nasal cannula. HEENT: Moist mucous membranes. Crowded airway. NECK: Supple. No JVD. LUNGS: Has a fair airflow with few rhonchi. HEART: S1 and S2. ABDOMEN: Soft and nontender. No organomegaly. EXTREMITIES: Does have trace edema. NEUROLOGIC: Awake and alert, follows simple commands. MEDICATIONS: He is on Anusol twice a day, Azactam 2 g IV q.8 hours, doxycycline 100 mg twice a day, folic acid 1 mg daily, potassium 20 mEq daily, MiraLax 30 mg daily, morphine 1 mg q.4 hours p.r.n., IV fluid 80 mL per hour with potassium, Solu-Medrol 100 mg daily, Tylenol p.r.n., and Valtrex 500 mg twice a day. LABORATORY DATA: Shows hemoglobin 9.6, hematocrit 28.9, WBC 1.5, and platelets 11. INR 1.61 and PTT 33. Sodium 132, potassium 4.2, chloride 100, bicarbonate 29, BUN 12, creatinine 0.6, and glucose 162. Calcium 8.4, phosphorus 3.4, and magnesium 1.9. Ferritin greater than 10,000. AST 84, ALT 128, and alkaline phosphatase is 373. LDH is 919 and albumin is 2.4. IMPRESSION AND PLAN: Pancytopenia with elevated liver enzymes, obstructive sleep apnea syndrome, and recurrent fever. One of the anticipation diagnosis is Hodgkin's lymphoma. He is on high dose of steroids and getting platelets today. Continue pain management. Awaiting to be transferred to [facility], I think he is already awaiting for the bed availability, encourage continuous positive airway pressure use, supplement oxygen, and gastric prophylaxis. Followup labs in the morning. I spoke to the patient's family at bedside and all the questions answered. Thank you and we will follow with you. Ant Lai MD
[2017-02-10] MEDS: Aztreonam 2 Gm in NS 100mL 100 ML IVPB SCH ×2 (05:38→13:06)
[2017-02-10 06:58] VITALS: BP 103/61; RESP 19; O2SAT 99
[2017-02-10 07:00] LABS: INR 1.62 (0.93-1.08)
[2017-02-10 07:09] LABS: GRAN # 0.83 (1.4-6.5); GRAN % 76.8 % (50.0-68.0); HEMATOCRIT 25.2 % (42.0-52.0); LYMPH # 0.1 (1.2-3.4); MEAN CELL VOLUME 95.8 fl (80.0-105.0); MEAN CORPUSCULAR HEMOGLOBIN 32.3 pg (25.0-35.0); MEAN CORPUSCULAR HGB CONC 33.7 g/dl (31.0-37.0); MEAN PLATELET VOLUME 9.7 fl (7.0-11.0); MONO # 0.1 (0.1-0.6); MONO % 10.2 % (1.0-6.0); RED CELL DISTRIBUTION WIDTH 23.5 % (11.5-14.5)
[2017-02-10 07:19] LABS: ALB/GLOB RATIO 0.6 (1.1-1.8); ALKALINE PHOSPHATASE 286 U/L (38-126); ALT/SGPT 142 U/L (7-56); AST/SGOT 119 U/L (17-59); BILIRUBIN,TOTAL 7.4 mg/dL (0.2-1.3); BLOOD UREA NITROGEN 16 mg/dL (7-21); CALCIUM 8.4 mg/dL (8.4-10.5); CARBON DIOXIDE 26 mmol/L (21-33); CHLORIDE 101 mmol/L (98-107); GFR AFRICAN-AMERICAN > 60; GLUCOSE,RANDOM 167 mg/dL (70-110); MAGNESIUM 1.9 mg/dL (1.7-2.2); PHOSPHOROUS 4.3 mg/dL (2.5-4.5); SODIUM 132 mmol/L (132-148); TOTAL PROTEIN 6.3 g/dL (5.8-8.3)
[2017-02-10 07:24] LABS: BETA 1 GLOBULIN 0.4 g/dL (0.4-0.6); BETA 2 GLOBULIN 0.8 g/dL (0.2-0.5); GAMMA GLOBULIN 1.4 g/dL (0.8-1.7)
[2017-02-10 07:33] LABS: WHITE BLOOD COUNT 1.1 10^3/ul (4.5-11.0)
[2017-02-10 07:34] LABS: PLATELET COUNT 30 10^3/uL (120.0-450.0)
--- NOTE | 2017-02-10 07:51 | CP.PCM.PN ---
Subjective - Date & Time of Evaluation Date of Evaluation: 02/10/17 Time of Evaluation: 06:50 - Subjective Subjective: Heme/onc service progress note for Dr Perez. Patient remains febrile with Tmax of 103. Patient admits to shortness of breath , fatigue and weakness. Appeared more drowsy this AM. Patient is pending transfer to [facility] pending bed availability. Objective - Vital Signs/Intake and Output Vital Signs (last 24 hours): Temp Pulse Resp BP Pulse Ox 96 F L 48 L 19 103/61 99 02/10/17 04:00 02/10/17 06:50 02/10/17 06:50 02/10/17 06:00 02/10/17 06:50 Intake and Output: 02/10/17 02/10/17 06:59 18:59 Intake Total 1210 Output Total 1000 Balance 210 - Medications Medications: Current Medications Acetaminophen (Tylenol 325mg Tab) 650 mg PO Q4 PRN PRN Reason: Fever >100.4 F Last Admin: 02/09/17 14:20 Dose: 325 mg Al Hydrox/Mg Hydrox/Simethicone (Maalox Plus 30 Ml) 30 ml PO DAILY PRN PRN Reason: Indigestion / Heartburn Last Admin: 02/08/17 08:19 Dose: 30 ml Doxycycline Hyclate (Doryx) 100 mg PO Q12 DAVID PRN Reason: Protocol Last Admin: 02/09/17 22:00 Dose: 100 mg Folic Acid (Folic Acid) 1 mg PO DAILY [facility] Last Admin: 02/09/17 09:47 Dose: 1 mg Home Med (Home Med) 60 unit PO 0700 [facility] Last Admin: 02/09/17 06:32 Dose: 60 unit Hydrocortisone (Anusol-Hc) 0 gm VA BID [facility] Last Admin: 02/09/17 17:27 Dose: 1 applic Hydrocortisone/Pramoxine (Proctofoam) 1 gm TOP TID [facility] Last Admin: 02/09/17 17:28 Dose: 1 gm Potassium Phosphate 15 mmole/ (Sodium Chloride) 1,005 mls @ 80 mls/hr IV .[id number] [facility] Last Admin: 02/10/17 00:00 Dose: 80 mls/hr Aztreonam (Azactam 2 Gm) 100 mls @ 100 mls/hr IVPB Q8 DAVID PRN Reason: Protocol Stop: 02/15/17 14:01 Last Admin: 02/10/17 05:38 Dose: 100 mls/hr Insulin Human Lispro (Humalog Low) 0 units SC ACHS [facility] PRN Reason: Protocol Last Admin: 02/09/17 22:00 Dose: Not Given Methylprednisolone (Solu-Medrol) 100 mg IVP DAILY [facility] Last Admin: 02/09/17 09:50 Dose: 100 mg Morphine Sulfate (Morphine) 1 mg IVP Q4 PRN PRN Reason: Pain, moderate (4-7) Mupirocin (Bactroban Ointment) 0 gm TOP BID [facility] Last Admin: 02/09/17 17:27 Dose: 1 applic Potassium Chloride (Klor-Con 10) 20 meq PO BRK [facility] Last Admin: 02/09/17 09:46 Dose: 20 meq Valacyclovir HCl (Valtrex) 500 mg PO BID [facility] PRN Reason: Protocol Stop: 02/14/17 10:01 Last Admin: 02/09/17 17:31 Dose: 500 mg - Labs Labs: 02/10/17 06:40 02/10/17 06:40 PT 18.0 SECONDS (9.4-12.5) H 02/10/17 06:40 INR 1.62 (0.93-1.08) H 02/10/17 06:40 APTT 33.4 Seconds (25.1-36.5) 02/09/17 12:20 - Constitutional Appears: No Acute Distress, Chronically Ill - Head Exam Head Exam: ATRAUMATIC, NORMAL INSPECTION, NORMOCEPHALIC - Eye Exam Eye Exam: Scleral icterus - ENT Exam ENT Exam: Mucous Membranes Moist - Neck Exam Neck Exam: Normal Inspection - Respiratory Exam Respiratory Exam: Clear to Ausculation Bilateral, NORMAL BREATHING PATTERN. absent: Rales, Rhonchi, Wheezes, Respiratory Distress, Stridor - Cardiovascular Exam Cardiovascular Exam: Bradycardia, REGULAR RHYTHM, +S1, +S2 - GI/Abdominal Exam GI & Abdominal Exam: Soft, Normal Bowel Sounds. absent: Distended, Firm, Guarding, Rigid, Tenderness - Extremities Exam Extremities Exam: Pedal Edema - Back Exam Back Exam: NORMAL INSPECTION - Neurological Exam Additional comments: Somnolent, easy to arouse. - Psychiatric Exam Psychiatric exam: Depressed - Skin Additional comments: Hot to touch, + ecchymosis on the b/l upper extremities, + petechial rash on b/ l lower extremities. Assessment and Plan - Assessment and Plan (Free Text) Assessment: Patient is a 56 y/o Male with PMH of h/o campylobacter infection in 2016, hemorrhoids, pancytopenia of unknown origin with extensive work up ( negative HIV/EBV/CMV, negative bone marrow biopsy x3), [facility]RT s/p liver biopsy that was benign, h/o florencia positive anemia, oropharyngeal candidiasis whom was sent from Dr Perez office for pancytopenia with neutropenia, and diarrhea, and was admitted with possible SIRS with neutropenic fever, with unclear etiology. Patient continued to be pancytopenic, is s/p multiple transfusions with prbc, ffp, and platelet. Patient continue to spike, despite being on antibiotics. Patient is being followed by multiple services and is in ICU pending transfer to [facility]. Differentials include malignancy with Hemophagocytic lymphohistiocytosis (HLH) versus indolent B cell lymphoma versus Hodgkin lymphoma. Plan: 1) SIRS- Neutropenic with fever with unclear etiology - Patient continuous to spike temp with tmax of 103 - BP on the lower side this am, will be getting fluid boluses. - Blood and urine cultures still with no growth. - No acute findings on chest x-ray, interstitial/alveolar lung disease on CT from 11/05. - Now on aztreonam and doxy - Will stop doxy due to abnormal LFTs - ID following - On valtrex for possible HSV on R lower lip. - Was on Atovoquone for low CD4/CD8 count, discontinued due to hepatitis. - hold Tylenol due to abnormal LFTs, will try cooling blanket, and prn motrin. - Patient is being followed by multiple service. 2) Pancytopenia with no clear etiology, possibility of - ANC of 830, - Continue with granix - Transfuse with hgb below 7 and below below 20,000. - All blood products need to be irradiated. - So far HIV/CMV/EBV/TB/lyme negative. - Patient appears to be hemolysing - Continue with folic acid. - Now on high dose solumedrol. 3) Transaminitis- - Negative hep panel, and mitochondrial antibody - LFTs including Dbili and INR continue to trend up - Will give another unit of ffp. - on high dose solumedrol, which should help. - Abdominal ultrasound reveals mild splenomegaly - Will continue to avoid hepatotox. 4) AMS with drowsiness likely metabolic encephalopathy and febrile illness. - Will obtain ammonia level - Neurology consulted for input. 4) Hyponatremia - resolved - On NS as per nephro 5) Hypokalemia- resolved, continue to monitor. 6) H/o Hemorrhoids- continue with proctocream 7) NIDDM- continue with ISS, fingersticks ACHS and diabetic diet. 8) Diarrhea- negative c diff, hold miralax. 9) Gi prophylaxis- Dexilant ( from home) DVT prophylaxis: SCDs. 10) Dispo- pending bed availability at [facility]. Patient seen, examined and case discussed with Dr Perez.
[2017-02-10] MEDS: Insulin Lispro (humaLOG) LOW Coverage SC SCH ×2 (08:23→11:57)
[2017-02-10] MEDS: Home Med 1 UNIT PO SCH (08:24)
[2017-02-10] MEDS: Potassium Chloride 10 mEq ER Tab PO SCH (08:26)
--- NOTE | 2017-02-10 09:55 | CP.CCUPN ---
<Delvis Zimmerman - Last Filed: 02/10/17 10:05> CCU Subjective - Physician Review Events Since Last Encounter (Free Text): 02/10/17 10:[address] Dai Pt seen and examined at bedside. Febrile to 102.2F overnight. Patient reports chills. He states that he feels more fatigue today. He denies any pain or any new complaints. Awaiting for bed availability at [facility]. CCU Objective - Vital Signs / Intake & Output Vital Signs (Last 4 hours): Vital Signs Temp Pulse Resp BP Pulse Ox 02/10/17 08:00 97.6 F 02/10/17 06:50 48 L 19 99 02/10/17 06:40 52 L 19 98 02/10/17 06:30 53 L 20 100 02/10/17 06:20 74 21 95 02/10/17 06:10 58 L 21 97 02/10/17 06:00 59 L 19 103/61 96 Intake and Output (Last 8hrs): Intake & Output 02/09/17 02/10/17 02/10/17 22:59 06:59 14:59 Intake Total 301 1210 Output Total 1000 Balance 301 210 Weight 190 lb 3.2 oz Intake: IV 1160 Right Hand 200 Right Internal Jugular 960 Oral 50 Blood Product 301 Apheresis Plts Acda Lr 301 Irr Unit [id number] Output: Urine 1000 Urine, Voided 1000 Other: # Bowel Movements 0 - Physical Exam Head: Positive for: Atraumatic, Normocephalic Pupils: Positive for: PERRL Extroacular Muscles: Positive for: EOMI Conjunctiva: Positive for: Icteric Mouth: Positive for: Moist Mucous Membranes Neck: Positive for: Normal Range of Motion. Negative for: JVD Respiratory/Chest: Positive for: Clear to Auscultation, Good Air Exchange. Negative for: Respiratory Distress, Accessory Muscle Use, Wheezes, Decreased Breath Sounds, Rales, Rhonchi Cardiovascular: Positive for: Normal S1, S2, Tachycardic. Negative for: Murmurs Abdomen: Positive for: Normal Bowel Sounds. Negative for: Tenderness, Distention, Rebound Upper Extremity: Positive for: Normal Inspection Lower Extremity: Positive for: Normal Inspection Neurological: Positive for: GCS=15 Skin: Positive for: Warm, Dry, Other (jaundice noted) Psychiatric: Positive for: Alert, Oriented x 3 - Medications Active Medications: Active Medications Generic Name Dose Route Start Last Admin Trade Name Freq PRN Reason Stop Dose Admin Al Hydrox/Mg Hydrox/Simethicone 30 ml 02/05/17 09:43 02/08/17 08:19 Maalox Plus 30 Ml PO 30 ml DAILY PRN Administration Indigestion / Heartburn Doxycycline Hyclate 100 mg 02/07/17 16:30 02/09/17 22:00 Doryx PO 100 mg Q12 ADVID Administration Protocol Folic Acid 1 mg 02/05/17 10:00 02/09/17 09:47 Folic Acid PO 1 mg DAILY DAVID Administration Home Med 60 unit 02/08/17 07:00 02/10/17 08:24 Home Med PO 60 unit 0700 DAVID Administration Hydrocortisone 0 gm 02/04/17 21:15 02/09/17 17:27 Anusol-Hc VT 1 applic BID DAVID Administration Hydrocortisone/Pramoxine 1 gm 02/05/17 14:00 02/09/17 17:28 Proctofoam TOP 1 gm TID DAVID Administration Potassium Phosphate 15 mmole/ 1,005 mls @ 80 mls/hr 02/07/17 11:56 02/10/17 00:00 Sodium Chloride IV 80 mls/hr .[id number] DAVID Administration Aztreonam 100 mls @ 100 mls/hr 02/08/17 14:00 02/10/17 05:38 Azactam 2 Gm IVPB 02/15/17 14:01 100 mls/hr Q8 DAVID Administration Protocol Insulin Human Lispro 0 units 02/05/17 11:30 02/10/17 08:23 Humalog Low SC 1 units ACHS DAVID Administration Protocol Methylprednisolone 100 mg 02/09/17 10:00 02/09/17 09:50 Solu-Medrol IVP 100 mg DAILY DAVID Administration Morphine Sulfate 1 mg 02/08/17 15:48 Morphine IVP Q4 PRN Pain, moderate (4-7) Mupirocin 0 gm 02/04/17 19:45 02/09/17 17:27 Bactroban Ointment TOP 1 applic BID DAVID Administration Potassium Chloride 20 meq 02/07/17 11:45 02/10/17 08:26 Klor-Con 10 PO 20 meq BRK DAVID Administration Valacyclovir HCl 500 mg 02/07/17 10:00 02/09/17 17:31 Valtrex PO 02/14/17 10:01 500 mg BID DAVID Administration Protocol - Patient Studies Lab Studies: Microbiology Studies 02/05/17 01:43 Blood Culture - Final Blood-Venous NO GROWTH AFTER 5 DAYS Gram Stain - Final TEST NOT PERFORMED 02/05/17 01:25 Blood Culture - Final Blood-Venous NO GROWTH AFTER 5 DAYS Gram Stain - Final TEST NOT PERFORMED 02/07/17 17:15 Blood Culture - Preliminary Blood-Venous NO GROWTH AFTER 48 HOURS 02/07/17 17:15 Blood Culture - Preliminary Blood-Venous NO GROWTH AFTER 48 HOURS 02/07/17 17:40 MRSA Culture (Admit) - Final Nose MRSA NOT DETECTED Lab Studies 02/10/17 02/10/17 02/10/17 Range/Units 07:41 06:43 06:40 WBC 1.1 L* D (4.5-11.0) 10^3/ul RBC 2.63 L (3.5-6.1) 10^6/uL Hgb 8.5 L (14.0-18.0) g/dL Hct 25.2 L (42.0-52.0) % MCV 95.8 (80.0-105.0) fl MCH 32.3 (25.0-35.0) pg MCHC 33.7 (31.0-37.0) g/dl RDW 23.5 H (11.5-14.5) % Plt Count 30 L* (120.0-450.0) 10^3/uL MPV 9.7 (7.0-11.0) fl Gran % 76.8 H (50.0-68.0) % Lymph % (Auto) 13.0 L (22.0-35.0) % [place] % (Auto) 10.2 H (1.0-6.0) % Eos % (Auto) 0.0 L (1.5-5.0) % Baso % (Auto) 0.0 (0.0-3.0) % Gran # 0.83 L (1.4-6.5) Lymph # 0.1 L (1.2-3.4) [place] # 0.1 (0.1-0.6) Eos # 0.0 (0.0-0.7) Baso # 0.00 (0.0-2.0) K/mm3 PT (9.4-12.5) SECONDS INR (0.93-1.08) APTT (25.1-36.5) Seconds Sodium (132-148) mmol/L Potassium (3.6-5.0) mmol/L Chloride (98-107) mmol/L Carbon Dioxide (21-33) mmol/L Anion Gap (10-20) BUN (7-21) mg/dL Creatinine (0.8-1.5) mg/dl Est GFR ( Amer) Est GFR (Non-Af Amer) POC Glucose (mg/dL) 193 H (65-110) mg/dL Random Glucose (70-110) mg/dL Calcium (8.4-10.5) mg/dL Phosphorus (2.5-4.5) mg/dL Magnesium (1.7-2.2) mg/dL Ferritin ng/mL Total Bilirubin (0.2-1.3) mg/dL Direct Bilirubin 6.7 H (0.0-0.4) mg/dL AST (17-59) U/L ALT (7-56) U/L Alkaline Phosphatase (38-126) U/L Total Protein (5.8-8.3) g/dL Albumin (3.0-4.8) g/dL Albumin (PEP) (3.8-4.8) g/dL Globulin gm/dL Albumin/Globulin Ratio (1.1-1.8) Zwxrq-4-Knefzotre (0.2-0.3) g/dL Pdzmw-8-Rluuiqpqj (0.5-0.9) g/dL Sxpu-4-Ucpihjsj (0.4-0.6) g/dL Cugi-9-Gnvnnevh (0.2-0.5) g/dL Gamma Globulins (0.8-1.7) g/dL Abnorm Protein Band 1 Abnorm Protein Band 2 Abnorm Protein Band 3 CHRISTIE & SPEP Interp Serum Immunofixation (Not Detected) Beta-(1,3)-D-Glucan pg/mL B-(1,3)-D-Glucan Intrp 02/10/17 02/10/17 02/09/17 Range/Units 06:40 06:40 21:08 WBC (4.5-11.0) 10^3/ul RBC (3.5-6.1) 10^6/uL Hgb (14.0-18.0) g/dL Hct (42.0-52.0) % MCV (80.0-105.0) fl MCH (25.0-35.0) pg MCHC (31.0-37.0) g/dl RDW (11.5-14.5) % Plt Count (120.0-450.0) 10^3/uL MPV (7.0-11.0) fl Gran % (50.0-68.0) % Lymph % (Auto) (22.0-35.0) % [place] % (Auto) (1.0-6.0) % Eos % (Auto) (1.5-5.0) % Baso % (Auto) (0.0-3.0) % Gran # (1.4-6.5) Lymph # (1.2-3.4) [place] # (0.1-0.6) Eos # (0.0-0.7) Baso # (0.0-2.0) K/mm3 PT 18.0 H (9.4-12.5) SECONDS INR 1.62 H (0.93-1.08) APTT (25.1-36.5) Seconds Sodium 132 (132-148) mmol/L Potassium 4.0 (3.6-5.0) mmol/L Chloride 101 (98-107) mmol/L Carbon Dioxide 26 (21-33) mmol/L Anion Gap 9 L (10-20) BUN 16 (7-21) mg/dL Creatinine 0.6 L (0.8-1.5) mg/dl Est GFR ( Amer) > 60 Est GFR (Non-Af Amer) > 60 POC Glucose (mg/dL) 247 H (65-110) mg/dL Random Glucose 167 H (70-110) mg/dL Calcium 8.4 (8.4-10.5) mg/dL Phosphorus 4.3 (2.5-4.5) mg/dL Magnesium 1.9 (1.7-2.2) mg/dL Ferritin ng/mL Total Bilirubin 7.4 H (0.2-1.3) mg/dL Direct Bilirubin (0.0-0.4) mg/dL AST 119 H D (17-59) U/L ALT 142 H (7-56) U/L Alkaline Phosphatase 286 H D (38-126) U/L Total Protein 6.3 (5.8-8.3) g/dL Albumin 2.3 L (3.0-4.8) g/dL Albumin (PEP) (3.8-4.8) g/dL Globulin 3.9 gm/dL Albumin/Globulin Ratio 0.6 L (1.1-1.8) Pbtws-7-Psmcodwpw (0.2-0.3) g/dL Bxhdk-4-Hluaelbro (0.5-0.9) g/dL Nnma-2-Ngzeguvq (0.4-0.6) g/dL Edwe-0-Ptpxxkbk (0.2-0.5) g/dL Gamma Globulins (0.8-1.7) g/dL Abnorm Protein Band 1 Abnorm Protein Band 2 Abnorm Protein Band 3 CHRISTIE & SPEP Interp Serum Immunofixation (Not Detected) Beta-(1,3)-D-Glucan pg/mL B-(1,3)-D-Glucan Intrp 02/09/17 02/09/17 02/09/17 Range/Units 15:44 12:20 11:03 WBC (4.5-11.0) 10^3/ul RBC (3.5-6.1) 10^6/uL Hgb (14.0-18.0) g/dL Hct (42.0-52.0) % MCV (80.0-105.0) fl MCH (25.0-35.0) pg MCHC (31.0-37.0) g/dl RDW (11.5-14.5) % Plt Count (120.0-450.0) 10^3/uL MPV (7.0-11.0) fl Gran % (50.0-68.0) % Lymph % (Auto) (22.0-35.0) % [place] % (Auto) (1.0-6.0) % Eos % (Auto) (1.5-5.0) % Baso % (Auto) (0.0-3.0) % Gran # (1.4-6.5) Lymph # (1.2-3.4) [place] # (0.1-0.6) Eos # (0.0-0.7) Baso # (0.0-2.0) K/mm3 PT 17.9 H (9.4-12.5) SECONDS INR 1.61 H (0.93-1.08) APTT 33.4 (25.1-36.5) Seconds Sodium (132-148) mmol/L Potassium (3.6-5.0) mmol/L Chloride (98-107) mmol/L Carbon Dioxide (21-33) mmol/L Anion Gap (10-20) BUN (7-21) mg/dL Creatinine (0.8-1.5) mg/dl Est GFR ( Amer) Est GFR (Non-Af Amer) POC Glucose (mg/dL) 191 H 150 H (65-110) mg/dL Random Glucose (70-110) mg/dL Calcium (8.4-10.5) mg/dL Phosphorus (2.5-4.5) mg/dL Magnesium (1.7-2.2) mg/dL Ferritin ng/mL Total Bilirubin (0.2-1.3) mg/dL Direct Bilirubin (0.0-0.4) mg/dL AST (17-59) U/L ALT (7-56) U/L Alkaline Phosphatase (38-126) U/L Total Protein (5.8-8.3) g/dL Albumin (3.0-4.8) g/dL Albumin (PEP) (3.8-4.8) g/dL Globulin gm/dL Albumin/Globulin Ratio (1.1-1.8) Hznyq-4-Jrudcimmb (0.2-0.3) g/dL Odgsj-3-Wbgmvuwda (0.5-0.9) g/dL Igjv-9-Tklmsbup (0.4-0.6) g/dL Urai-2-Nejxzvnf (0.2-0.5) g/dL Gamma Globulins (0.8-1.7) g/dL Abnorm Protein Band 1 Abnorm Protein Band 2 Abnorm Protein Band 3 CHRISTIE & SPEP Interp Serum Immunofixation (Not Detected) Beta-(1,3)-D-Glucan pg/mL B-(1,3)-D-Glucan Intrp 02/09/17 02/06/17 02/06/17 Range/Units 06:15 21:40 16:53 WBC (4.5-11.0) 10^3/ul RBC (3.5-6.1) 10^6/uL Hgb (14.0-18.0) g/dL Hct (42.0-52.0) % MCV (80.0-105.0) fl MCH (25.0-35.0) pg MCHC (31.0-37.0) g/dl RDW (11.5-14.5) % Plt Count (120.0-450.0) 10^3/uL MPV (7.0-11.0) fl Gran % (50.0-68.0) % Lymph % (Auto) (22.0-35.0) % [place] % (Auto) (1.0-6.0) % Eos % (Auto) (1.5-5.0) % Baso % (Auto) (0.0-3.0) % Gran # (1.4-6.5) Lymph # (1.2-3.4) [place] # (0.1-0.6) Eos # (0.0-0.7) Baso # (0.0-2.0) K/mm3 PT (9.4-12.5) SECONDS INR (0.93-1.08) APTT (25.1-36.5) Seconds Sodium (132-148) mmol/L Potassium (3.6-5.0) mmol/L Chloride (98-107) mmol/L Carbon Dioxide (21-33) mmol/L Anion Gap (10-20) BUN (7-21) mg/dL Creatinine (0.8-1.5) mg/dl Est GFR ( Amer) Est GFR (Non-Af Amer) POC Glucose (mg/dL) 211 H 223 H (65-110) mg/dL Random Glucose (70-110) mg/dL Calcium (8.4-10.5) mg/dL Phosphorus (2.5-4.5) mg/dL Magnesium (1.7-2.2) mg/dL Ferritin > 24127.0 ng/mL Total Bilirubin (0.2-1.3) mg/dL Direct Bilirubin (0.0-0.4) mg/dL AST (17-59) U/L ALT (7-56) U/L Alkaline Phosphatase (38-126) U/L Total Protein (5.8-8.3) g/dL Albumin (3.0-4.8) g/dL Albumin (PEP) (3.8-4.8) g/dL Globulin gm/dL Albumin/Globulin Ratio (1.1-1.8) Fmpyt-3-Dtdzkwqoz (0.2-0.3) g/dL Tpwxl-0-Pfofjxknh (0.5-0.9) g/dL Hdzo-3-Qophwivo (0.4-0.6) g/dL Sfxk-3-Hhnsqmvu (0.2-0.5) g/dL Gamma Globulins (0.8-1.7) g/dL Abnorm Protein Band 1 Abnorm Protein Band 2 Abnorm Protein Band 3 CHRISTIE & SPEP Interp Serum Immunofixation (Not Detected) Beta-(1,3)-D-Glucan pg/mL B-(1,3)-D-Glucan Intrp 02/05/17 02/05/17 Range/Units 06:20 05:00 WBC (4.5-11.0) 10^3/ul RBC (3.5-6.1) 10^6/uL Hgb (14.0-18.0) g/dL Hct (42.0-52.0) % MCV (80.0-105.0) fl MCH (25.0-35.0) pg MCHC (31.0-37.0) g/dl RDW (11.5-14.5) % Plt Count (120.0-450.0) 10^3/uL MPV (7.0-11.0) fl Gran % (50.0-68.0) % Lymph % (Auto) (22.0-35.0) % [place] % (Auto) (1.0-6.0) % Eos % (Auto) (1.5-5.0) % Baso % (Auto) (0.0-3.0) % Gran # (1.4-6.5) Lymph # (1.2-3.4) [place] # (0.1-0.6) Eos # (0.0-0.7) Baso # (0.0-2.0) K/mm3 PT (9.4-12.5) SECONDS INR (0.93-1.08) APTT (25.1-36.5) Seconds Sodium (132-148) mmol/L Potassium (3.6-5.0) mmol/L Chloride (98-107) mmol/L Carbon Dioxide (21-33) mmol/L Anion Gap (10-20) BUN (7-21) mg/dL Creatinine (0.8-1.5) mg/dl Est GFR ( Amer) Est GFR (Non-Af Amer) POC Glucose (mg/dL) (65-110) mg/dL Random Glucose (70-110) mg/dL Calcium (8.4-10.5) mg/dL Phosphorus (2.5-4.5) mg/dL Magnesium (1.7-2.2) mg/dL Ferritin ng/mL Total Bilirubin (0.2-1.3) mg/dL Direct Bilirubin (0.0-0.4) mg/dL AST (17-59) U/L ALT (7-56) U/L Alkaline Phosphatase (38-126) U/L Total Protein (5.8-8.3) g/dL Albumin (3.0-4.8) g/dL Albumin (PEP) 1.9 L (3.8-4.8) g/dL Globulin gm/dL Albumin/Globulin Ratio (1.1-1.8) Ndefr-4-Jhbinryrr 0.4 H (0.2-0.3) g/dL Nlkui-7-Abpjtmocv 0.5 (0.5-0.9) g/dL Wptd-1-Mufavtpr 0.4 (0.4-0.6) g/dL Tkom-3-Kfwoanxu 0.8 H (0.2-0.5) g/dL Gamma Globulins 1.4 (0.8-1.7) g/dL Abnorm Protein Band 1 TEST NOT PERFORMED Abnorm Protein Band 2 TEST NOT PERFORMED Abnorm Protein Band 3 TEST NOT PERFORMED CHRISTIE & SPEP Interp See note Serum Immunofixation Detected H (Not Detected) Beta-(1,3)-D-Glucan <31 pg/mL B-(1,3)-D-Glucan Intrp Negative Laboratory Results - last 24 hr 02/05/17 02/05/17 02/06/17 05:00 06:20 16:53 WBC RBC Hgb Hct MCV MCH MCHC RDW Plt Count MPV Gran % Lymph % (Auto) [place] % (Auto) Eos % (Auto) Baso % (Auto) Gran # Lymph # [place] # Eos # Baso # PT INR APTT Sodium Potassium Chloride Carbon Dioxide Anion Gap BUN Creatinine Est GFR ( Amer) Est GFR (Non-Af Amer) POC Glucose (mg/dL) 223 H Random Glucose Calcium Phosphorus Magnesium Ferritin Total Bilirubin Direct Bilirubin AST ALT Alkaline Phosphatase Total Protein Albumin Albumin (PEP) 1.9 L Globulin Albumin/Globulin Ratio Ocfly-3-Vgjqldmuo 0.4 H Uwrss-2-Prxvjdjir 0.5 Vgkk-8-Iknfpiui 0.4 Iqss-8-Cdwimqgs 0.8 H Gamma Globulins 1.4 Abnorm Protein Band 1 TEST NOT PERFORMED Abnorm Protein Band 2 TEST NOT PERFORMED Abnorm Protein Band 3 TEST NOT PERFORMED CHRISTIE & SPEP Interp See note Serum Immunofixation Detected H Beta-(1,3)-D-Glucan <31 B-(1,3)-D-Glucan Intrp Negative 02/06/17 02/09/17 02/09/17 21:40 06:15 11:03 WBC RBC Hgb Hct MCV MCH MCHC RDW Plt Count MPV Gran % Lymph % (Auto) [place] % (Auto) Eos % (Auto) Baso % (Auto) Gran # Lymph # [place] # Eos # Baso # PT INR APTT Sodium Potassium Chloride Carbon Dioxide Anion Gap BUN Creatinine Est GFR ( Amer) Est GFR (Non-Af Amer) POC Glucose (mg/dL) 211 H 150 H Random Glucose Calcium Phosphorus Magnesium Ferritin > 93228.0 Total Bilirubin Direct Bilirubin AST ALT Alkaline Phosphatase Total Protein Albumin Albumin (PEP) Globulin Albumin/Globulin Ratio Xushg-9-Etgfaxrpa Kdjsh-8-Onxunpybh Zrnq-2-Mgqwsnxt Qrfi-3-Hjkudpfs Gamma Globulins Abnorm Protein Band 1 Abnorm Protein Band 2 Abnorm Protein Band 3 CHRISTIE & SPEP Interp Serum Immunofixation Beta-(1,3)-D-Glucan B-(1,3)-D-Glucan Intrp 02/09/17 02/09/17 02/09/17 12:20 15:44 21:08 WBC RBC Hgb Hct MCV MCH MCHC RDW Plt Count MPV Gran % Lymph % (Auto) [place] % (Auto) Eos % (Auto) Baso % (Auto) Gran # Lymph # [place] # Eos # Baso # PT 17.9 H INR 1.61 H APTT 33.4 Sodium Potassium Chloride Carbon Dioxide Anion Gap BUN Creatinine Est GFR ( Amer) Est GFR (Non-Af Amer) POC Glucose (mg/dL) 191 H 247 H Random Glucose Calcium Phosphorus Magnesium Ferritin Total Bilirubin Direct Bilirubin AST ALT Alkaline Phosphatase Total Protein Albumin Albumin (PEP) Globulin Albumin/Globulin Ratio Zbjwt-1-Rckzjblvl Obzmr-6-Xsxnwinsk Lfus-2-Yljmazba Nyit-4-Rjrmxftb Gamma Globulins Abnorm Protein Band 1 Abnorm Protein Band 2 Abnorm Protein Band 3 CHRISTIE & SPEP Interp Serum Immunofixation Beta-(1,3)-D-Glucan B-(1,3)-D-Glucan Intrp 02/10/17 02/10/17 02/10/17 06:40 06:40 06:40 WBC 1.1 L* D RBC 2.63 L Hgb 8.5 L Hct 25.2 L MCV 95.8 MCH 32.3 MCHC 33.7 RDW 23.5 H Plt Count 30 L* MPV 9.7 Gran % 76.8 H Lymph % (Auto) 13.0 L [place] % (Auto) 10.2 H Eos % (Auto) 0.0 L Baso % (Auto) 0.0 Gran # 0.83 L Lymph # 0.1 L [place] # 0.1 Eos # 0.0 Baso # 0.00 PT 18.0 H INR 1.62 H APTT Sodium 132 Potassium 4.0 Chloride 101 Carbon Dioxide 26 Anion Gap 9 L BUN 16 Creatinine 0.6 L Est GFR ( Amer) > 60 Est GFR (Non-Af Amer) > 60 POC Glucose (mg/dL) Random Glucose 167 H Calcium 8.4 Phosphorus 4.3 Magnesium 1.9 Ferritin Total Bilirubin 7.4 H Direct Bilirubin AST 119 H D ALT 142 H Alkaline Phosphatase 286 H D Total Protein 6.3 Albumin 2.3 L Albumin (PEP) Globulin 3.9 Albumin/Globulin Ratio 0.6 L Jgozu-8-Cfmfshntt Aiwyp-8-Nqbpbzfhc Fdxa-0-Jbdqsdtm Jjwv-3-Ibxebwyc Gamma Globulins Abnorm Protein Band 1 Abnorm Protein Band 2 Abnorm Protein Band 3 CHRISTIE & SPEP Interp Serum Immunofixation Beta-(1,3)-D-Glucan B-(1,3)-D-Glucan Intrp 02/10/17 02/10/17 06:43 07:41 WBC RBC Hgb Hct MCV MCH MCHC RDW Plt Count MPV Gran % Lymph % (Auto) [place] % (Auto) Eos % (Auto) Baso % (Auto) Gran # Lymph # [place] # Eos # Baso # PT INR APTT Sodium Potassium Chloride Carbon Dioxide Anion Gap BUN Creatinine Est GFR ( Amer) Est GFR (Non-Af Amer) POC Glucose (mg/dL) 193 H Random Glucose Calcium Phosphorus Magnesium Ferritin Total Bilirubin Direct Bilirubin 6.7 H AST ALT Alkaline Phosphatase Total Protein Albumin Albumin (PEP) Globulin Albumin/Globulin Ratio Zvwwg-4-Gcnenmlcc Mptsr-2-Bandctvlf Mobo-0-Flwolnam Moun-5-Axdfiwgi Gamma Globulins Abnorm Protein Band 1 Abnorm Protein Band 2 Abnorm Protein Band 3 CHRISTIE & SPEP Interp Serum Immunofixation Beta-(1,3)-D-Glucan B-(1,3)-D-Glucan Intrp Fingerstick Blood Sugar Results: 193 Assessment/Plan - Assessment and Plan (Free Text) Assessment: 56yo M with PMHx of hemorrhoids and Pancytopenia of unknown origin here with Fever, Malaise, Thrombocytopenia. Bone marrow Bx concerning for Hodgkin's. Liver Bx negative. Accepted to [facility] Heme/Onc by Dr. Kenny Pugh for further treatment, awaiting bed availability. Thrombocytopenia with minimal improvement s/p 2U platelets yesterday. 1. Pancytopenia Leukopenia worsening ANC -844 Thrombocytopenia with mild improvement s/p 2U Platelets yesterday Continue steroids Hb down to 8.5/25.2 today from 9.6/28.9. No signs of bleeding. 2. SIRS, r/o sepsis consider pseudomonas in Sputum Cx r/o HCAP, low suspicion continue abx as per ID; Aztreonam, Valacyclovir 3. Elevated LFTs Abd US - Negative Hold hepatotoxic meds 4. PPx: Neutropenic precautions SCDs Dispo: Will transfer to [facility] under care of Dr. Kenny Pugh. Awaiting bed availability Discussed case with DrShahid Edmondson Elsie PGY1 <Federico Dai - Last Filed: 02/10/17 11:28> CCU Objective - Vital Signs / Intake & Output Vital Signs (Last 4 hours): Vital Signs Temp Pulse 02/10/17 10:00 75 02/10/17 08:00 97.6 F Intake and Output (Last 8hrs): Intake & Output 02/09/17 02/10/17 02/10/17 22:59 06:59 14:59 Intake Total 301 1210 Output Total 1000 Balance 301 210 Weight 190 lb 3.2 oz 190 lb Intake: IV 1160 Right Hand 200 Right Internal Jugular 960 Oral 50 Blood Product 301 Apheresis Plts Acda Lr 301 Irr Unit [id number] Output: Urine 1000 Urine, Voided 1000 Other: # Bowel Movements 0 - Medications Active Medications: Active Medications Generic Name Dose Route Start Last Admin Trade Name Freq PRN Reason Stop Dose Admin Doxycycline Hyclate 100 mg 02/07/17 16:30 02/09/17 22:00 Doryx PO 100 mg Q12 DAVID Administration Protocol Folic Acid 1 mg 02/05/17 10:00 02/10/17 10:08 Folic Acid PO 1 mg DAILY DAVID Administration Home Med 60 unit 02/08/17 07:00 02/10/17 08:24 Home Med PO 60 unit 0700 DAVID Administration Hydrocortisone 0 gm 02/04/17 21:15 02/10/17 10:14 Anusol-Hc VT 1 applic BID DAVID Administration Hydrocortisone/Pramoxine 1 gm 02/05/17 14:00 02/10/17 10:14 Proctofoam TOP 1 gm TID DAVID Administration Potassium Phosphate 15 mmole/ 1,005 mls @ 80 mls/hr 02/07/17 11:56 02/10/17 00:00 Sodium Chloride IV 80 mls/hr .[id number] DAVID Administration Aztreonam 100 mls @ 100 mls/hr 02/08/17 14:00 02/10/17 05:38 Azactam 2 Gm IVPB 02/15/17 14:01 100 mls/hr Q8 DAVID Administration Protocol Insulin Human Lispro 0 units 02/05/17 11:30 02/10/17 08:23 Humalog Low SC 1 units ACHS DAVID Administration Protocol Methylprednisolone 100 mg 02/09/17 10:00 02/10/17 10:14 Solu-Medrol IVP 100 mg DAILY DAVID Administration Morphine Sulfate 1 mg 02/08/17 15:48 Morphine IVP Q4 PRN Pain, moderate (4-7) Mupirocin 0 gm 02/04/17 19:45 02/10/17 10:14 Bactroban Ointment TOP 1 applic BID DAVID Administration Potassium Chloride 20 meq 02/07/17 11:45 02/10/17 08:26 Klor-Con 10 PO 20 meq BRK DAVID Administration Valacyclovir HCl 500 mg 02/07/17 10:00 02/10/17 10:08 Valtrex PO 02/14/17 10:01 500 mg BID DAVID Administration Protocol - Patient Studies Lab Studies: Microbiology Studies 02/05/17 01:43 Blood Culture - Final Blood-Venous NO GROWTH AFTER 5 DAYS Gram Stain - Final TEST NOT PERFORMED 02/05/17 01:25 Blood Culture - Final Blood-Venous NO GROWTH AFTER 5 DAYS Gram Stain - Final TEST NOT PERFORMED 02/07/17 17:15 Blood Culture - Preliminary Blood-Venous NO GROWTH AFTER 48 HOURS 02/07/17 17:15 Blood Culture - Preliminary Blood-Venous NO GROWTH AFTER 48 HOURS 02/07/17 17:40 MRSA Culture (Admit) - Final Nose MRSA NOT DETECTED Lab Studies 02/10/17 02/10/17 02/10/17 Range/Units 11:06 07:41 06:43 WBC (4.5-11.0) 10^3/ul RBC (3.5-6.1) 10^6/uL Hgb (14.0-18.0) g/dL Hct (42.0-52.0) % MCV (80.0-105.0) fl MCH (25.0-35.0) pg MCHC (31.0-37.0) g/dl RDW (11.5-14.5) % Plt Count (120.0-450.0) 10^3/uL MPV (7.0-11.0) fl Gran % (50.0-68.0) % Lymph % (Auto) (22.0-35.0) % [place] % (Auto) (1.0-6.0) % Eos % (Auto) (1.5-5.0) % Baso % (Auto) (0.0-3.0) % Gran # (1.4-6.5) Lymph # (1.2-3.4) [place] # (0.1-0.6) Eos # (0.0-0.7) Baso # (0.0-2.0) K/mm3 PT (9.4-12.5) SECONDS INR (0.93-1.08) APTT (25.1-36.5) Seconds Sodium (132-148) mmol/L Potassium (3.6-5.0) mmol/L Chloride (98-107) mmol/L Carbon Dioxide (21-33) mmol/L Anion Gap (10-20) BUN (7-21) mg/dL Creatinine (0.8-1.5) mg/dl Est GFR ( Amer) Est GFR (Non-Af Amer) POC Glucose (mg/dL) 219 H 193 H (65-110) mg/dL Random Glucose (70-110) mg/dL Calcium (8.4-10.5) mg/dL Phosphorus (2.5-4.5) mg/dL Magnesium (1.7-2.2) mg/dL Ferritin ng/mL Total Bilirubin (0.2-1.3) mg/dL Direct Bilirubin 6.7 H (0.0-0.4) mg/dL AST (17-59) U/L ALT (7-56) U/L Alkaline Phosphatase (38-126) U/L Total Protein (5.8-8.3) g/dL Albumin (3.0-4.8) g/dL Albumin (PEP) (3.8-4.8) g/dL Globulin gm/dL Albumin/Globulin Ratio (1.1-1.8) Qhxty-6-Evmiawogm (0.2-0.3) g/dL Ojeld-9-Obmrpdukq (0.5-0.9) g/dL Bwei-0-Rbegqhcq (0.4-0.6) g/dL Hvuz-0-Twjlswji (0.2-0.5) g/dL Gamma Globulins (0.8-1.7) g/dL Abnorm Protein Band 1 Abnorm Protein Band 2 Abnorm Protein Band 3 CHRISTIE & SPEP Interp Serum Immunofixation (Not Detected) Beta-(1,3)-D-Glucan pg/mL B-(1,3)-D-Glucan Intrp 02/10/17 02/10/17 02/10/17 Range/Units 06:40 06:40 06:40 WBC 1.1 L* D (4.5-11.0) 10^3/ul RBC 2.63 L (3.5-6.1) 10^6/uL Hgb 8.5 L (14.0-18.0) g/dL Hct 25.2 L (42.0-52.0) % MCV 95.8 (80.0-105.0) fl MCH 32.3 (25.0-35.0) pg MCHC 33.7 (31.0-37.0) g/dl RDW 23.5 H (11.5-14.5) % Plt Count 30 L* (120.0-450.0) 10^3/uL MPV 9.7 (7.0-11.0) fl Gran % 76.8 H (50.0-68.0) % Lymph % (Auto) 13.0 L (22.0-35.0) % [place] % (Auto) 10.2 H (1.0-6.0) % Eos % (Auto) 0.0 L (1.5-5.0) % Baso % (Auto) 0.0 (0.0-3.0) % Gran # 0.83 L (1.4-6.5) Lymph # 0.1 L (1.2-3.4) [place] # 0.1 (0.1-0.6) Eos # 0.0 (0.0-0.7) Baso # 0.00 (0.0-2.0) K/mm3 PT 18.0 H (9.4-12.5) SECONDS INR 1.62 H (0.93-1.08) APTT (25.1-36.5) Seconds Sodium 132 (132-148) mmol/L Potassium 4.0 (3.6-5.0) mmol/L Chloride 101 (98-107) mmol/L Carbon Dioxide 26 (21-33) mmol/L Anion Gap 9 L (10-20) BUN 16 (7-21) mg/dL Creatinine 0.6 L (0.8-1.5) mg/dl Est GFR ( Amer) > 60 Est GFR (Non-Af Amer) > 60 POC Glucose (mg/dL) (65-110) mg/dL Random Glucose 167 H (70-110) mg/dL Calcium 8.4 (8.4-10.5) mg/dL Phosphorus 4.3 (2.5-4.5) mg/dL Magnesium 1.9 (1.7-2.2) mg/dL Ferritin ng/mL Total Bilirubin 7.4 H (0.2-1.3) mg/dL Direct Bilirubin (0.0-0.4) mg/dL AST 119 H D (17-59) U/L ALT 142 H (7-56) U/L Alkaline Phosphatase 286 H D (38-126) U/L Total Protein 6.3 (5.8-8.3) g/dL Albumin 2.3 L (3.0-4.8) g/dL Albumin (PEP) (3.8-4.8) g/dL Globulin 3.9 gm/dL Albumin/Globulin Ratio 0.6 L (1.1-1.8) Nkesx-6-Yhimzzcfp (0.2-0.3) g/dL Wvoej-0-Eyndhprlt (0.5-0.9) g/dL Wdwb-8-Mfsezgou (0.4-0.6) g/dL Wqex-0-Nctukkav (0.2-0.5) g/dL Gamma Globulins (0.8-1.7) g/dL Abnorm Protein Band 1 Abnorm Protein Band 2 Abnorm Protein Band 3 CHRISTIE & SPEP Interp Serum Immunofixation (Not Detected) Beta-(1,3)-D-Glucan pg/mL B-(1,3)-D-Glucan Intrp 02/09/17 02/09/17 02/09/17 Range/Units 21:08 15:44 12:20 WBC (4.5-11.0) 10^3/ul RBC (3.5-6.1) 10^6/uL Hgb (14.0-18.0) g/dL Hct (42.0-52.0) % MCV (80.0-105.0) fl MCH (25.0-35.0) pg MCHC (31.0-37.0) g/dl RDW (11.5-14.5) % Plt Count (120.0-450.0) 10^3/uL MPV (7.0-11.0) fl Gran % (50.0-68.0) % Lymph % (Auto) (22.0-35.0) % [place] % (Auto) (1.0-6.0) % Eos % (Auto) (1.5-5.0) % Baso % (Auto) (0.0-3.0) % Gran # (1.4-6.5) Lymph # (1.2-3.4) [place] # (0.1-0.6) Eos # (0.0-0.7) Baso # (0.0-2.0) K/mm3 PT 17.9 H (9.4-12.5) SECONDS INR 1.61 H (0.93-1.08) APTT 33.4 (25.1-36.5) Seconds Sodium (132-148) mmol/L Potassium (3.6-5.0) mmol/L Chloride (98-107) mmol/L Carbon Dioxide (21-33) mmol/L Anion Gap (10-20) BUN (7-21) mg/dL Creatinine (0.8-1.5) mg/dl Est GFR ( Amer) Est GFR (Non-Af Amer) POC Glucose (mg/dL) 247 H 191 H (65-110) mg/dL Random Glucose (70-110) mg/dL Calcium (8.4-10.5) mg/dL Phosphorus (2.5-4.5) mg/dL Magnesium (1.7-2.2) mg/dL Ferritin ng/mL Total Bilirubin (0.2-1.3) mg/dL Direct Bilirubin (0.0-0.4) mg/dL AST (17-59) U/L ALT (7-56) U/L Alkaline Phosphatase (38-126) U/L Total Protein (5.8-8.3) g/dL Albumin (3.0-4.8) g/dL Albumin (PEP) (3.8-4.8) g/dL Globulin gm/dL Albumin/Globulin Ratio (1.1-1.8) Kobzh-9-Bybjdnixh (0.2-0.3) g/dL Ykuld-1-Tbpayofki (0.5-0.9) g/dL Xrax-8-Xtbqiinh (0.4-0.6) g/dL Rdlj-0-Nklfxwlg (0.2-0.5) g/dL Gamma Globulins (0.8-1.7) g/dL Abnorm Protein Band 1 Abnorm Protein Band 2 Abnorm Protein Band 3 CHRISTIE & SPEP Interp Serum Immunofixation (Not Detected) Beta-(1,3)-D-Glucan pg/mL B-(1,3)-D-Glucan Intrp 02/09/17 02/05/17 02/05/17 Range/Units 06:15 06:20 05:00 WBC (4.5-11.0) 10^3/ul RBC (3.5-6.1) 10^6/uL Hgb (14.0-18.0) g/dL Hct (42.0-52.0) % MCV (80.0-105.0) fl MCH (25.0-35.0) pg MCHC (31.0-37.0) g/dl RDW (11.5-14.5) % Plt Count (120.0-450.0) 10^3/uL MPV (7.0-11.0) fl Gran % (50.0-68.0) % Lymph % (Auto) (22.0-35.0) % [place] % (Auto) (1.0-6.0) % Eos % (Auto) (1.5-5.0) % Baso % (Auto) (0.0-3.0) % Gran # (1.4-6.5) Lymph # (1.2-3.4) [place] # (0.1-0.6) Eos # (0.0-0.7) Baso # (0.0-2.0) K/mm3 PT (9.4-12.5) SECONDS INR (0.93-1.08) APTT (25.1-36.5) Seconds Sodium (132-148) mmol/L Potassium (3.6-5.0) mmol/L Chloride (98-107) mmol/L Carbon Dioxide (21-33) mmol/L Anion Gap (10-20) BUN (7-21) mg/dL Creatinine (0.8-1.5) mg/dl Est GFR ( Amer) Est GFR (Non-Af Amer) POC Glucose (mg/dL) (65-110) mg/dL Random Glucose (70-110) mg/dL Calcium (8.4-10.5) mg/dL Phosphorus (2.5-4.5) mg/dL Magnesium (1.7-2.2) mg/dL Ferritin > 95153.0 ng/mL Total Bilirubin (0.2-1.3) mg/dL Direct Bilirubin (0.0-0.4) mg/dL AST (17-59) U/L ALT (7-56) U/L Alkaline Phosphatase (38-126) U/L Total Protein (5.8-8.3) g/dL Albumin (3.0-4.8) g/dL Albumin (PEP) 1.9 L (3.8-4.8) g/dL Globulin gm/dL Albumin/Globulin Ratio (1.1-1.8) Jmcut-2-Dydqljqxu 0.4 H (0.2-0.3) g/dL Duubz-3-Acukwoipy 0.5 (0.5-0.9) g/dL Ykjs-8-Jdvlxawa 0.4 (0.4-0.6) g/dL Wnsn-7-Cdwleyho 0.8 H (0.2-0.5) g/dL Gamma Globulins 1.4 (0.8-1.7) g/dL Abnorm Protein Band 1 TEST NOT PERFORMED Abnorm Protein Band 2 TEST NOT PERFORMED Abnorm Protein Band 3 TEST NOT PERFORMED CHRISTIE & SPEP Interp See note Serum Immunofixation Detected H (Not Detected) Beta-(1,3)-D-Glucan <31 pg/mL B-(1,3)-D-Glucan Intrp Negative Laboratory Results - last 24 hr 02/05/17 02/05/17 02/09/17 05:00 06:20 06:15 WBC RBC Hgb Hct MCV MCH MCHC RDW Plt Count MPV Gran % Lymph % (Auto) [place] % (Auto) Eos % (Auto) Baso % (Auto) Gran # Lymph # [place] # Eos # Baso # PT INR APTT Sodium Potassium Chloride Carbon Dioxide Anion Gap BUN Creatinine Est GFR ( Amer) Est GFR (Non-Af Amer) POC Glucose (mg/dL) Random Glucose Calcium Phosphorus Magnesium Ferritin > 34886.0 Total Bilirubin Direct Bilirubin AST ALT Alkaline Phosphatase Total Protein Albumin Albumin (PEP) 1.9 L Globulin Albumin/Globulin Ratio Rbqwv-9-Umpjzemva 0.4 H Dxzac-0-Wbojheuvt 0.5 Pfpw-8-Weoxrgns 0.4 Umcz-7-Qmfycjdv 0.8 H Gamma Globulins 1.4 Abnorm Protein Band 1 TEST NOT PERFORMED Abnorm Protein Band 2 TEST NOT PERFORMED Abnorm Protein Band 3 TEST NOT PERFORMED CHRISTIE & SPEP Interp See note Serum Immunofixation Detected H Beta-(1,3)-D-Glucan <31 B-(1,3)-D-Glucan Intrp Negative 02/09/17 02/09/17 02/09/17 12:20 15:44 21:08 WBC RBC Hgb Hct MCV MCH MCHC RDW Plt Count MPV Gran % Lymph % (Auto) [place] % (Auto) Eos % (Auto) Baso % (Auto) Gran # Lymph # [place] # Eos # Baso # PT 17.9 H INR 1.61 H APTT 33.4 Sodium Potassium Chloride Carbon Dioxide Anion Gap BUN Creatinine Est GFR ( Amer) Est GFR (Non-Af Amer) POC Glucose (mg/dL) 191 H 247 H Random Glucose Calcium Phosphorus Magnesium Ferritin Total Bilirubin Direct Bilirubin AST ALT Alkaline Phosphatase Total Protein Albumin Albumin (PEP) Globulin Albumin/Globulin Ratio Prldh-7-Bqmpvcrqe Ylcri-0-Mjcxvmczc Angn-9-Hlnzeddn Etbs-1-Uhqnruja Gamma Globulins Abnorm Protein Band 1 Abnorm Protein Band 2 Abnorm Protein Band 3 CHRISTIE & SPEP Interp Serum Immunofixation Beta-(1,3)-D-Glucan B-(1,3)-D-Glucan Intrp 02/10/17 02/10/17 02/10/17 06:40 06:40 06:40 WBC 1.1 L* D RBC 2.63 L Hgb 8.5 L Hct 25.2 L MCV 95.8 MCH 32.3 MCHC 33.7 RDW 23.5 H Plt Count 30 L* MPV 9.7 Gran % 76.8 H Lymph % (Auto) 13.0 L [place] % (Auto) 10.2 H Eos % (Auto) 0.0 L Baso % (Auto) 0.0 Gran # 0.83 L Lymph # 0.1 L [place] # 0.1 Eos # 0.0 Baso # 0.00 PT 18.0 H INR 1.62 H APTT Sodium 132 Potassium 4.0 Chloride 101 Carbon Dioxide 26 Anion Gap 9 L BUN 16 Creatinine 0.6 L Est GFR ( Amer) > 60 Est GFR (Non-Af Amer) > 60 POC Glucose (mg/dL) Random Glucose 167 H Calcium 8.4 Phosphorus 4.3 Magnesium 1.9 Ferritin Total Bilirubin 7.4 H Direct Bilirubin AST 119 H D ALT 142 H Alkaline Phosphatase 286 H D Total Protein 6.3 Albumin 2.3 L Albumin (PEP) Globulin 3.9 Albumin/Globulin Ratio 0.6 L Ampfb-5-Gfkgtxbzh Gckkw-0-Nlglttdeu Qkrf-8-Sbixupsg Dshk-2-Vdadognh Gamma Globulins Abnorm Protein Band 1 Abnorm Protein Band 2 Abnorm Protein Band 3 CHRISTIE & SPEP Interp Serum Immunofixation Beta-(1,3)-D-Glucan B-(1,3)-D-Glucan Intrp 02/10/17 02/10/17 02/10/17 06:43 07:41 11:06 WBC RBC Hgb Hct MCV MCH MCHC RDW Plt Count MPV Gran % Lymph % (Auto) [place] % (Auto) Eos % (Auto) Baso % (Auto) Gran # Lymph # [place] # Eos # Baso # PT INR APTT Sodium Potassium Chloride Carbon Dioxide Anion Gap BUN Creatinine Est GFR ( Amer) Est GFR (Non-Af Amer) POC Glucose (mg/dL) 193 H 219 H Random Glucose Calcium Phosphorus Magnesium Ferritin Total Bilirubin Direct Bilirubin 6.7 H AST ALT Alkaline Phosphatase Total Protein Albumin Albumin (PEP) Globulin Albumin/Globulin Ratio Nptxz-4-Eoxmwnyid Aoyfc-6-Koejqijrx Apcc-7-Gcjtqvpl Zaqw-4-Amwdaegd Gamma Globulins Abnorm Protein Band 1 Abnorm Protein Band 2 Abnorm Protein Band 3 CHRISTIE & SPEP Interp Serum Immunofixation Beta-(1,3)-D-Glucan B-(1,3)-D-Glucan Intrp Assessment/Plan - Assessment and Plan (Free Text) Assessment: Patient seen and examined with resident, agree with note with following additions/exceptions: Pt is 56yo male a/w fever, malaise, sepsis, and thrombocytopenia. Last night had fever, HD stable. BM biopsy showed questionable pattern for Hodgkins vs rare HLH syndrome. Heme Onc following, Platelets today 30. HH downtrending, will monitor fotr now, no overt signs of bleeding. Benign abd exam, Lungs CTABL. 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
[2017-02-10 10:04] VITALS: PULSE 75
--- NOTE | 2017-02-10 10:04 | PN ---
DATE: 02/10/2017 SUBJECTIVE: The patient is lying in bed. He continues to have fevers, T-max was 102.2 at night, is currently afebrile. He denies any abdominal pain, nausea, vomiting, rectal bleeding, melena, chest pain, shortness of breath or change in mental status. He is awake and alert. MEDICATIONS: Currently include aztreonam 2 g IV q. 8 h. doxycycline 100 mg p.o. q. 12 h., folic acid 1 mg daily morphine sulfate 1 mg IV q. 4 hours p.r.n. pain, Anusol-HC suppositories 25 mg twice a day, Solu-Medrol 100 mg IV once a day, valacyclovir 500 mg p.o. b.i.d., acetaminophen 325 mg q. 4 h. as needed for fever. PHYSICAL EXAMINATION: VITAL SIGNS: Reveal temperature of 100.2, blood pressure of 97/57, heart rate 90. HEENT: The patient is icteric. Reveals sclerae to be icteric. Conjunctivae pale. NECK: Supple. CHEST: Reveal scattered coarse rales at the bases. HEART: Exam reveals a regular rate and rhythm. ABDOMEN: Soft, nontender. EXTREMITIES: Show petechiae on his arm. He has trace pedal edema. LABORATORY DATA: Reveal white blood cell count 1.1, hemoglobin 8.5, platelet count up to 30,000 after platelet transfusion. Chemistries reveal AST 119, ALT 142, alkaline phosphatase of 286, total bilirubin of 7.4, blood sugar 193. IMPRESSION: 1. Pancytopenia with CD 30 positive cells on bone marrow suspicious for lymphoma. 2. Fever with neutropenia, most likely systemic inflammatory response syndrome with negative blood cultures. 3. Elevated liver enzymes which are trending slightly higher. The patient had been on meropenem and Mepron which has been stopped due to their possible hepatotoxic effects. Ultrasound of the abdomen did not show dilated ducts and a contracted gallbladder with thickened gallbladder wall measuring up to 7 mm without any pericholecystic fluid. No gallstones were seen. Common bile duct is normal. The patient is critically ill. Recommendations are waiting transfer to [facility] in [facility] for further evaluation and treatment. Gerardo Quintanilla MD [facility] # [phone]
[2017-02-10] MEDS: Hydrocortisone-Pramoxine 1%-1% Foam(10 gm) TOP SCH ×2 (10:14→14:48)
[2017-02-10] MEDS: Hydrocortisone 2.5% Rectal Cream(30 gm) PR SCH (10:14)
--- NOTE | 2017-02-10 11:39 | CP.PCM.PN ---
Subjective - Date & Time of Evaluation Date of Evaluation: 02/10/17 Time of Evaluation: 10:40 - Subjective Subjective: Patient continues to feel weak, continues to have intermittent fevers, no diarrhea, no abdominal pain, no nausea, no vomiting, cough is minimal. Objective - Vital Signs/Intake and Output Vital Signs (last 24 hours): Temp Pulse Resp BP Pulse Ox 97.6 F 75 19 103/61 99 02/10/17 08:00 02/10/17 10:00 02/10/17 06:50 02/10/17 06:00 02/10/17 06:50 Intake and Output: 02/10/17 02/10/17 06:59 18:59 Intake Total 1210 Output Total 1000 Balance 210 - Medications Medications: Current Medications Al Hydrox/Mg Hydrox/Simethicone (Maalox Plus 30 Ml) 30 ml PO DAILY PRN PRN Reason: Indigestion / Heartburn Last Admin: 02/08/17 08:19 Dose: 30 ml Doxycycline Hyclate (Doryx) 100 mg PO Q12 [facility] PRN Reason: Protocol Last Admin: 02/09/17 22:00 Dose: 100 mg Folic Acid (Folic Acid) 1 mg PO DAILY [facility] Last Admin: 02/09/17 09:47 Dose: 1 mg Home Med (Home Med) 60 unit PO 0700 [facility] Last Admin: 02/10/17 08:24 Dose: 60 unit Hydrocortisone (Anusol-Hc) 0 gm AL BID [facility] Last Admin: 02/09/17 17:27 Dose: 1 applic Hydrocortisone/Pramoxine (Proctofoam) 1 gm TOP TID [facility] Last Admin: 02/09/17 17:28 Dose: 1 gm Potassium Phosphate 15 mmole/ (Sodium Chloride) 1,005 mls @ 80 mls/hr IV .[id number] [facility] Last Admin: 02/10/17 00:00 Dose: 80 mls/hr Aztreonam (Azactam 2 Gm) 100 mls @ 100 mls/hr IVPB Q8 [facility]ID PRN Reason: Protocol Stop: 02/15/17 14:01 Last Admin: 02/10/17 05:38 Dose: 100 mls/hr Insulin Human Lispro (Humalog Low) 0 units SC ACHS DAVID PRN Reason: Protocol Last Admin: 02/10/17 08:23 Dose: 1 units Methylprednisolone (Solu-Medrol) 100 mg IVP DAILY [facility] Last Admin: 02/09/17 09:50 Dose: 100 mg Morphine Sulfate (Morphine) 1 mg IVP Q4 PRN PRN Reason: Pain, moderate (4-7) Mupirocin (Bactroban Ointment) 0 gm TOP BID [facility] Last Admin: 02/09/17 17:27 Dose: 1 applic Potassium Chloride (Klor-Con 10) 20 meq PO BRK [facility] Last Admin: 02/10/17 08:26 Dose: 20 meq Valacyclovir HCl (Valtrex) 500 mg PO BID [facility] PRN Reason: Protocol Stop: 02/14/17 10:01 Last Admin: 02/09/17 17:31 Dose: 500 mg - Labs Labs: 02/10/17 06:40 02/10/17 06:40 PT 18.0 SECONDS (9.4-12.5) H 02/10/17 06:40 INR 1.62 (0.93-1.08) H 02/10/17 06:40 APTT 33.4 Seconds (25.1-36.5) 02/09/17 12:20 - Constitutional Appears: Chronically Ill - Head Exam Head Exam: NORMAL INSPECTION - Neck Exam Neck Exam: absent: Meningismus - Respiratory Exam Respiratory Exam: Decreased Breath Sounds - Cardiovascular Exam Cardiovascular Exam: +S1, +S2 - GI/Abdominal Exam GI & Abdominal Exam: Soft. absent: Tenderness Assessment and Plan - Assessment and Plan (Free Text) Plan: Assessment Systemic Inflammatory Response Syndome, R/O Hodgkin Lymphoma R/O sepsis due to Pseudomonas in sputum cx in a patient with lung fibrosis R/O HCAP; R/O autoimmune disease, R/O systemic infection but so far work up continues to be negative; patient is also neutropenic making him at risk for PSeudomonas infection probable Herpes labialis, improving Pancytopenia, etiology to be determined hemorrhoids history of non-alcoholic steatohepatitis Plan repeat blood cx are negative; previous sputum cx showed Pseudomonas - continue Azactam (day 5 total antibiotics); gave a dose of IV Gentamicin previously and was also on Doxycycline but stopped because of increased liver enzymes although less likely, will also get rickettsia work up; there is nothing in his travel history to suggest malaria CT C/A/P previously showed lung fibrosis repeat Fungitell is negative; CMV PCR and Galactomannan from previous admission are negative Quantiferon is indeterminate but the high fevers, regression of mediastinal lymph nodes on repeat CT scan without TB treatment (2016) makes TB less likely continue Mepron since CD4/CD8 ratio was low and patient is on chronic steroids ( currently on 80 mg Prednisone) reviewed work up done by Dr. Weston from [facility] which did not show acute EBV infection, no HIV, negative RPR will continue to monitor clinically discussed with Dr. Perez previously - will need further autoimmune disease work up; HLH is part of the consideration but so far the blood work does not strongly suggest it (triglycerides not very high, still awaiting repeat Haptoglobin), and the flow cytometry and peripheral smear on 01/30/2017 ( results in the EMR) also do not suggest it would have wanted to start NSAIDS for the fevers but with his low platelets it may be problematic discussed with Dr. Lai as well reviewed newest Bone marrow biopsy report (biopsy done 2016) - some B- cells with CD30 markers, strongly suspicious for Hodgkin lymphoma continue antibiotics while patient is neutropenic plan is for transfer to [facility]
[2017-02-10 12:11] VITALS: TEMP 95
[2017-02-10] MEDS ORDERED: Sodium Chloride 0.9% 1,000 ML IV STA ×2 (12:17→12:27)
[2017-02-10 13:14] LABS: VENOUS BLOOD GAS BASE EXCESS 2.4 mmol/L (0.0-2.0); VENOUS BLOOD PH 7.42 (7.32-7.43)
[2017-02-10 14:00] LABS: GRAN # 0.41 (1.4-6.5); GRAN % 71.9 % (50.0-68.0); LYMPH # 0.1 (1.2-3.4); LYMPH % 12.3 % (22.0-35.0); MEAN CELL VOLUME 95.9 fl (80.0-105.0); MEAN CORPUSCULAR HEMOGLOBIN 32.5 pg (25.0-35.0); MEAN CORPUSCULAR HGB CONC 33.9 g/dl (31.0-37.0); MONO # 0.1 (0.1-0.6); MONO % 15.8 % (1.0-6.0); RED CELL DISTRIBUTION WIDTH 23.2 % (11.5-14.5)
[2017-02-10 14:04] LABS: HEMATOCRIT 23.3 % (42.0-52.0); PLATELET COUNT 21 10^3/uL (120.0-450.0); WHITE BLOOD COUNT 0.6 10^3/ul (4.5-11.0)
[2017-02-10 14:15] LABS: INR 1.61 (0.93-1.08); PARTIAL THROMBOPLASTIN TIME 35.6 Seconds (25.1-36.5)
[2017-02-10 14:21] LABS: ALB/GLOB RATIO 0.6 (1.1-1.8); ALKALINE PHOSPHATASE 233 U/L (38-126); ALT/SGPT 140 U/L (7-56); AST/SGOT 121 U/L (17-59); BILIRUBIN,TOTAL 6.9 mg/dL (0.2-1.3); BLOOD UREA NITROGEN 17 mg/dL (7-21); CALCIUM 7.6 mg/dL (8.4-10.5); CARBON DIOXIDE 23 mmol/L (21-33); CHLORIDE 108 mmol/L (98-107); GFR AFRICAN-AMERICAN > 60; GLUCOSE,RANDOM 222 mg/dL (70-110); MAGNESIUM 1.8 mg/dL (1.7-2.2); PHOSPHOROUS 3.1 mg/dL (2.5-4.5); POTASSIUM 3.8 mmol/L (3.6-5.0); SODIUM 134 mmol/L (132-148); TOTAL PROTEIN 5.6 g/dL (5.8-8.3)
--- NOTE | 2017-02-10 14:35 | CP.PCM.PN ---
Subjective - Date & Time of Evaluation Date of Evaluation: 02/10/17 Time of Evaluation: 14:21 - Subjective Subjective: ICU interval progress note. Dr. Dai Notified by [facility] that a bed is available and the transfer is in progress. Patient is alert and oriented x3. He is in no acute distress. Denies any complaints. He does report some fatigue and lethargy. Vital signs: BP 109/69 (82) HR 57 SpO2 100% on 2L NC Physical exam is unchanged from previous. Patient given 2L bolus of NS. Repeat Labs noted. Plan: Transfer patient to [facility] under the care of Dr. Kenny Black Discussed case with Dr. Black's Resident from [facility]. He understands and agrees with plan. Patient accepted for transfer. Objective - Vital Signs/Intake and Output Vital Signs (last 24 hours): Temp Pulse Resp BP Pulse Ox 95 F L 75 19 103/61 99 02/10/17 12:00 02/10/17 10:00 02/10/17 06:50 02/10/17 06:00 02/10/17 06:50 Intake and Output: 02/10/17 02/10/17 06:59 18:59 Intake Total 1210 Output Total 1000 Balance 210 - Medications Medications: Current Medications Atovaquone (Mepron) 750 mg PO BID [facility] Folic Acid (Folic Acid) 1 mg PO DAILY [facility] Last Admin: 02/10/17 10:08 Dose: 1 mg Home Med (Home Med) 60 unit PO 0700 [facility] Last Admin: 02/10/17 08:24 Dose: 60 unit Hydrocortisone (Anusol-Hc) 0 gm [place] BID [facility] Last Admin: 02/10/17 10:14 Dose: 1 applic Hydrocortisone/Pramoxine (Proctofoam) 1 gm TOP TID [facility] Last Admin: 02/10/17 10:14 Dose: 1 gm Potassium Phosphate 15 mmole/ (Sodium Chloride) 1,005 mls @ 80 mls/hr IV .[id number] [facility] Last Admin: 02/10/17 00:00 Dose: 80 mls/hr Aztreonam (Azactam 2 Gm) 100 mls @ 100 mls/hr IVPB Q8 [facility]ID PRN Reason: Protocol Stop: 02/15/17 14:01 Last Admin: 02/10/17 13:06 Dose: 100 mls/hr Insulin Human Lispro (Humalog Low) 0 units SC ACHS [facility] PRN Reason: Protocol Last Admin: 02/10/17 11:57 Dose: Not Given Methylprednisolone (Solu-Medrol) 100 mg IVP DAILY [facility] Last Admin: 02/10/17 10:14 Dose: 100 mg Mupirocin (Bactroban Ointment) 0 gm TOP BID [facility] Last Admin: 02/10/17 10:14 Dose: 1 applic Potassium Chloride (Klor-Con 10) 20 meq PO BRK [facility] Last Admin: 02/10/17 08:26 Dose: 20 meq Valacyclovir HCl (Valtrex) 500 mg PO BID [facility] PRN Reason: Protocol Stop: 02/14/17 10:01 Last Admin: 02/10/17 10:08 Dose: 500 mg - Labs Labs: 02/10/17 13:00 02/10/17 06:40 PT 17.7 SECONDS (9.4-12.5) H 02/10/17 13:00 INR 1.61 (0.93-1.08) H 02/10/17 13:00 APTT 35.6 Seconds (25.1-36.5) 02/10/17 13:00
[2017-02-10] MEDS ORDERED: Atovaquone 750 mg/5 ml Susp UD PO SCH (18:00)
--- NOTE | 2017-02-10 19:27 | PN ---
DATE: 02/10/2017 PULMONARY PROGRESS NOTE REFERRING PHYSICIAN: Dr. Perez. SUBJECTIVE: He is lying in the bed, sleepy, arousable, follows simple commands, still spiking fever, became hypothermic though. There is no cough. No sputum production. No nausea. No vomiting. No abdominal pain. Does have a trace leg swelling. OBJECTIVE: GENERAL: In no acute distress. VITAL SIGNS: Temperature 97.6, heart rate 75, respiratory rate 20, blood pressure 103/61, and pulse ox 96% on nasal cannula. HEENT: Moist mucous membranes. Crowded airway. NECK: Supple. No JVD. LUNGS: Fair airflow with few rhonchi. No wheezing. HEART: S1 and S2. ABDOMEN: Soft, nontender, and nondistended. EXTREMITIES: There is no edema. NEUROLOGIC: Awake and alert, follows simple commands. There is no upper or lower extremity weakness. MEDICATIONS: He is on Anusol p.r.n. basis, Azactam 2 g IV q.8 hours, folic acid 1 mg daily, insulin coverage, potassium 10 mEq daily, Naprosyn 750 mg twice a day started for fever, IV fluid getting with K-Phos 80 mL per hour, Solu-Medrol 100 mg daily, and Valtrex 500 mg twice a day. LABORATORY DATA: Shows hemoglobin 7.9, hematocrit 23.3, WBC 0.6, and platelet count is 21. INR 1.61 and PTT 36. The blood gas VBG done, shows pH 7.42, pCO2 of 42, O2 of 140, this is on room air. Sodium 134, potassium 3.8, chloride 108, bicarbonate 23, BUN 17, creatinine 0.5, glucose 222, calcium 7.6, phosphorus 3.1, and magnesium 1.8. Total bilirubin 6.9, AST 121, ALT 140, alkaline phosphatase is 233, ammonia level is 21, total protein 5.6, albumin is 2.1. Microbiology: Blood culture has been negative. Urine culture, there is no growth. IMPRESSION AND PLAN: Pancytopenia with recurrent fever; history of obstructive sleep apnea; elevated liver enzymes, especially bilirubin; questionable Hodgkin lymphoma on the bone marrow, on steroids, originally responded well on steroids with improving hemoglobin, WBC, and platelets and also clinically feeling better to the extent that CT finding improved where interstitial and not only infiltrates disappeared as well as retroperitoneal lymph node disappeared or at least improved. Since this admission, spiking fever, thrombocytopenia, and pancytopenia not improving, status post platelet transfusion yesterday. The patient is being transferred to, I believe, Oncology-Hematology services to [facility] for tertiary care followup. Dr. Perez has been speaking to the accepting physician. I spoke to the family at bedside and all the questions answered. I spoke to er medical technician. Ant Lai MD
--- NOTE | 2017-02-10 19:55 | CP.PCM.CON ---
<Vianca Pitts - Last Filed: 02/11/17 01:30> History of Present Illness - History of Present Illness History of Present Illness: PGY-[address] Bean's service 56 year old male with PMH of hemorrhoids, history of non-alcoholic steatohepatitis, presented with pancytopenia and fevers. The morning patient was lethargic and drowsy. He states that he feels more tired. Patients oriented to person, place and location. He is currently being worked up for pancytopenia of unknown origin. He had fever of 102.2 overnight with hypotension, sytolic blood pressure falling into the 90s, he is normally in the 120s. Patient is currently on neutropenic precautions. He report pancytopenia for past 2 years. He is receiving antibiotics. He denies headache, dizziness, chest pain, SOB. PMH:hemorrhoids, history of non-alcoholic steatohepatitis, campylobacter infection, pancytopenia starting in 2016 PSH: none social history: denies smoking, occasional alcohol use allergy: pollen, dust mold Review of Systems - Review of Systems All systems: reviewed and no additional remarkable complaints except (as stated in HPI) Past Patient History - Infectious Disease Hx of Infectious Diseases: None - Tetanus Immunizations Tetanus Immunization: Unknown - Past Social History Smoking Status: Never Smoked - CARDIAC Hx Cardiac Disorders: No Hx Pacemaker: No Hx Peripheral Edema: Yes - PULMONARY Hx Respiratory Disorders: Yes - NEUROLOGICAL Hx Neurological Disorder: No - HEENT Hx HEENT Problems: No - RENAL Hx Chronic Kidney Disease: Yes Hx Kidney Stones: Yes (3.8 MM KIDNEY STONES 11-02-13) - ENDOCRINE/METABOLIC Hx Endocrine Disorders: No - HEMATOLOGICAL/ONCOLOGICAL Hx Blood Disorders: Yes Hx Anemia: Yes Hx Blood Transfusions: Yes Other/Comment: pancytopenia, blood transfusion platelets, hemolytic anemia - INTEGUMENTARY Hx Dermatological Problems: No - MUSCULOSKELETAL/RHEUMATOLOGICAL Hx Falls: No - GASTROINTESTINAL Hx Gastrointestinal Disorders: No - GENITOURINARY/GYNECOLOGICAL Hx Genitourinary Disorders: No - PSYCHIATRIC Hx Emotional Abuse: No Hx Physical Abuse: No Hx Substance Use: No - SURGICAL HISTORY Other/Comment: lung biopsy in past, benign, ct scan guided bone marrow bx 05/21/16 - ANESTHESIA Hx Anesthesia: Yes Hx Anesthesia Reactions: No Hx Malignant Hyperthermia: No Meds Home Medications: Home Medication List Medication Instructions Recorded Confirmed Type Folic Acid 1 mg PO DAILY tab 02/10/17 Rx Hydrocortisone-Pramoxine 1%-1% 1 gm TOP TID aer 02/10/17 Rx [Proctofoam] Tbo-Filgrastim [Granix] 480 mcg SC DAILY ml 02/10/17 Rx methylPREDNISolone [Solu-Medrol] 100 mg IVP DAILY ml 02/10/17 Rx valACYclovir [Valtrex] 500 mg PO BID tab 02/10/17 Rx Allergies/Adverse Reactions: Allergies Allergy/AdvReac Type Severity Reaction Status Date / Time POLLEN AdvReac Mild SNEEZING Uncoded 01/28/17 17:30 DUST AdvReac SNEEZING Uncoded 01/28/17 17:30 MOLD AdvReac SNEEZING Uncoded 01/28/17 17:30 Physical Exam - Constitutional Appears: No Acute Distress - Head Exam Head Exam: ATRAUMATIC, NORMAL INSPECTION, NORMOCEPHALIC - Eye Exam Eye Exam: EOMI, Normal appearance - ENT Exam ENT Exam: Mucous Membranes Moist - Respiratory Exam Respiratory Exam: NORMAL BREATHING PATTERN. absent: Respiratory Distress - Cardiovascular Exam Cardiovascular Exam: REGULAR RHYTHM - Extremities Exam Extremities exam: Positive for: normal inspection - Neurological Exam Neurological exam: Alert, Oriented x3 Additional comments: patient is lethargic and drowsy but arousable and oriented Results - Vital Signs Recent Vital Signs: Last Vital Signs Temp 95 F L 02/10/17 12:00 Pulse 75 02/10/17 14:00 Resp 19 02/10/17 06:50 BP 103/61 02/10/17 06:00 Pulse Ox 99 02/10/17 06:50 - Labs Result Diagrams: 02/10/17 13:00 02/10/17 13:00 Labs: Laboratory Results - last 24 hr 02/05/17 02/05/17 02/09/17 05:00 06:20 06:15 WBC RBC Hgb Hct MCV MCH MCHC RDW Plt Count MPV Gran % Lymph % (Auto) [place]he % (Auto) Eos % (Auto) Baso % (Auto) Gran # Lymph # [place]he # Eos # Baso # PT INR APTT pO2 VBG pH VBG pCO2 VBG HCO3 VBG Total CO2 VBG O2 Sat (Calc) VBG Base Excess VBG Potassium Glucose Lactate FiO2 Sodium Potassium Chloride Carbon Dioxide Anion Gap BUN Creatinine Est GFR ( Amer) Est GFR (Non-Af Amer) POC Glucose (mg/dL) Random Glucose Calcium Phosphorus Magnesium Ferritin > 13357.0 Total Bilirubin Direct Bilirubin AST ALT Alkaline Phosphatase Ammonia Total Protein Albumin Albumin (PEP) 1.9 L Globulin Albumin/Globulin Ratio Gldbv-8-Tirrkmnde 0.4 H Ljuof-1-Xxbwvaixv 0.5 Trsn-0-Gkmfjknh 0.4 Qgyl-6-Oxxagaeq 0.8 H Gamma Globulins 1.4 Abnorm Protein Band 1 TEST NOT PERFORMED Abnorm Protein Band 2 TEST NOT PERFORMED Abnorm Protein Band 3 TEST NOT PERFORMED Procalcitonin Venous Blood Potassium CHRISTIE & SPEP Interp See note Beta-(1,3)-D-Glucan <31 B-(1,3)-D-Glucan Intrp Negative 02/09/17 02/10/17 02/10/17 21:08 06:40 06:40 WBC RBC Hgb Hct MCV MCH MCHC RDW Plt Count MPV Gran % Lymph % (Auto) [place]he % (Auto) Eos % (Auto) Baso % (Auto) Gran # Lymph # [place] # Eos # Baso # PT 18.0 H INR 1.62 H APTT pO2 VBG pH VBG pCO2 VBG HCO3 VBG Total CO2 VBG O2 Sat (Calc) VBG Base Excess VBG Potassium Glucose Lactate FiO2 Sodium 132 Potassium 4.0 Chloride 101 Carbon Dioxide 26 Anion Gap 9 L BUN 16 Creatinine 0.6 L Est GFR ( Amer) > 60 Est GFR (Non-Af Amer) > 60 POC Glucose (mg/dL) 247 H Random Glucose 167 H Calcium 8.4 Phosphorus 4.3 Magnesium 1.9 Ferritin Total Bilirubin 7.4 H Direct Bilirubin AST 119 H D ALT 142 H Alkaline Phosphatase 286 H D Ammonia Total Protein 6.3 Albumin 2.3 L Albumin (PEP) Globulin 3.9 Albumin/Globulin Ratio 0.6 L Mxckk-8-Fhstyldrr Qsbpo-0-Jwqzlxzsj Dset-2-Hxhronbv Qxbx-8-Xaqlutzx Gamma Globulins Abnorm Protein Band 1 Abnorm Protein Band 2 Abnorm Protein Band 3 Procalcitonin Venous Blood Potassium CHRISTIE & SPEP Interp Beta-(1,3)-D-Glucan B-(1,3)-D-Glucan Intrp 02/10/17 02/10/17 02/10/17 06:40 06:43 07:41 WBC 1.1 L* D RBC 2.63 L Hgb 8.5 L Hct 25.2 L MCV 95.8 MCH 32.3 MCHC 33.7 RDW 23.5 H Plt Count 30 L* MPV 9.7 Gran % 76.8 H Lymph % (Auto) 13.0 L [place]he % (Auto) 10.2 H Eos % (Auto) 0.0 L Baso % (Auto) 0.0 Gran # 0.83 L Lymph # 0.1 L Ashe # 0.1 Eos # 0.0 Baso # 0.00 PT INR APTT pO2 VBG pH VBG pCO2 VBG HCO3 VBG Total CO2 VBG O2 Sat (Calc) VBG Base Excess VBG Potassium Glucose Lactate FiO2 Sodium Potassium Chloride Carbon Dioxide Anion Gap BUN Creatinine Est GFR ( Amer) Est GFR (Non-Af Amer) POC Glucose (mg/dL) 193 H Random Glucose Calcium Phosphorus Magnesium Ferritin Total Bilirubin Direct Bilirubin 6.7 H AST ALT Alkaline Phosphatase Ammonia Total Protein Albumin Albumin (PEP) Globulin Albumin/Globulin Ratio Qxwbu-9-Ecmydbttg Exfeg-9-Gcjruilsu Jaqx-6-Omwdgvbf Cgqn-1-Padcytxw Gamma Globulins Abnorm Protein Band 1 Abnorm Protein Band 2 Abnorm Protein Band 3 Procalcitonin Venous Blood Potassium CHRISTIE & SPEP Interp Beta-(1,3)-D-Glucan B-(1,3)-D-Glucan Intrp 02/10/17 02/10/17 02/10/17 11:06 11:10 13:00 WBC 0.6 L* D RBC 2.43 L Hgb 7.9 L Hct 23.3 L MCV 95.9 MCH 32.5 MCHC 33.9 RDW 23.2 H Plt Count 21 L* MPV Gran % 71.9 H Lymph % (Auto) 12.3 L [place]he % (Auto) 15.8 H Eos % (Auto) 0.0 L Baso % (Auto) 0.0 Gran # 0.41 L Lymph # 0.1 L [place]he # 0.1 Eos # 0.0 Baso # 0.00 PT INR APTT pO2 VBG pH VBG pCO2 VBG HCO3 VBG Total CO2 VBG O2 Sat (Calc) VBG Base Excess VBG Potassium Glucose Lactate FiO2 Sodium Potassium Chloride Carbon Dioxide Anion Gap BUN Creatinine Est GFR ( Amer) Est GFR (Non-Af Amer) POC Glucose (mg/dL) 219 H Random Glucose Calcium Phosphorus Magnesium Ferritin Total Bilirubin Direct Bilirubin AST ALT Alkaline Phosphatase Ammonia 21.3 Total Protein Albumin Albumin (PEP) Globulin Albumin/Globulin Ratio Hcscp-3-Aenptvzww Ixfum-6-Xosanqgps Oxdz-8-Qmctrbqu Ezbj-6-Ffhwzrir Gamma Globulins Abnorm Protein Band 1 Abnorm Protein Band 2 Abnorm Protein Band 3 Procalcitonin Venous Blood Potassium CHRISTIE & SPEP Interp Beta-(1,3)-D-Glucan B-(1,3)-D-Glucan Intrp 02/10/17 02/10/17 02/10/17 13:00 13:00 13:00 WBC RBC Hgb Hct MCV MCH MCHC RDW Plt Count MPV Gran % Lymph % (Auto) [place]he % (Auto) Eos % (Auto) Baso % (Auto) Gran # Lymph # [place]he # Eos # Baso # PT 17.7 H INR 1.61 H APTT 35.6 pO2 VBG pH VBG pCO2 VBG HCO3 VBG Total CO2 VBG O2 Sat (Calc) VBG Base Excess VBG Potassium Glucose Lactate FiO2 Sodium 134 Potassium 3.8 Chloride 108 H Carbon Dioxide 23 Anion Gap 8 L BUN 17 Creatinine 0.5 L Est GFR ( Amer) > 60 Est GFR (Non-Af Amer) > 60 POC Glucose (mg/dL) Random Glucose 222 H Calcium 7.6 L Phosphorus 3.1 Magnesium 1.8 Ferritin Total Bilirubin 6.9 H Direct Bilirubin AST 121 H ALT 140 H Alkaline Phosphatase 233 H Ammonia Total Protein 5.6 L Albumin 2.1 L Albumin (PEP) Globulin 3.5 Albumin/Globulin Ratio 0.6 L Srwpi-4-Rdoobvdws Vjhvx-3-Mgqusagmu Spad-4-Azfaddhz Qewf-3-Pnxaqupg Gamma Globulins Abnorm Protein Band 1 Abnorm Protein Band 2 Abnorm Protein Band 3 Procalcitonin 1.12 H Venous Blood Potassium CHRISTIE & SPEP Interp Beta-(1,3)-D-Glucan B-(1,3)-D-Glucan Intrp 02/10/17 13:00 WBC RBC Hgb Hct MCV MCH MCHC RDW Plt Count MPV Gran % Lymph % (Auto) [place]he % (Auto) Eos % (Auto) Baso % (Auto) Gran # Lymph # [place]he # Eos # Baso # PT INR APTT pO2 140 H VBG pH 7.42 VBG pCO2 42.0 VBG HCO3 27.2 VBG Total CO2 28.5 H VBG O2 Sat (Calc) 99.5 H VBG Base Excess 2.4 H VBG Potassium 4.1 Glucose 246 H Lactate 1.9 FiO2 21.0 Sodium 135.0 Potassium Chloride 106.0 Carbon Dioxide Anion Gap BUN Creatinine Est GFR ( Amer) Est GFR (Non-Af Amer) POC Glucose (mg/dL) Random Glucose Calcium Phosphorus Magnesium Ferritin Total Bilirubin Direct Bilirubin AST ALT Alkaline Phosphatase Ammonia Total Protein Albumin Albumin (PEP) Globulin Albumin/Globulin Ratio Bclag-0-Ismaxyhtj Zkbnj-1-Ujnuhqmza Ckex-7-Pqcgcbea Cmcc-8-Qjzwpwdl Gamma Globulins Abnorm Protein Band 1 Abnorm Protein Band 2 Abnorm Protein Band 3 Procalcitonin Venous Blood Potassium 4.1 CHRISTIE & SPEP Interp Beta-(1,3)-D-Glucan B-(1,3)-D-Glucan Intrp Assessment & Plan - Assessment and Plan (Free Text) Assessment: 56 year old male with PMH of hemorrhoids, history of non-alcoholic steatohepatitis, initially presented to hospital with pancytopenia and fevers, the morning patient was lethargic and drowsy. AMS most likely due to toxic metabolic confusion due to hypoperfusion. 1. AMS 2. pancytopenia 3. transaminitis 4. hyponatremia - ammonia levels within normal limits - will order MRI - Maintain blood pressure between 120-130's - continue work up per primary team and ICU team case reviewed and discussed with attending <Ottoniel Bean - Last Filed: 02/11/17 06:00> Results - Vital Signs Recent Vital Signs: Last Vital Signs Temp 95 F L 02/10/17 12:00 Pulse 75 02/10/17 14:00 Resp 19 02/10/17 06:50 BP 103/61 02/10/17 06:00 Pulse Ox 99 02/10/17 06:50 - Labs Result Diagrams: 02/10/17 13:00 02/10/17 13:00 Labs: Laboratory Results - last 24 hr 02/05/17 02/10/17 02/10/17 05:00 06:40 06:40 WBC RBC Hgb Hct MCV MCH MCHC RDW Plt Count MPV Gran % Lymph % (Auto) [place]he % (Auto) Eos % (Auto) Baso % (Auto) Gran # Lymph # [place]he # Eos # Baso # PT 18.0 H INR 1.62 H APTT pO2 VBG pH VBG pCO2 VBG HCO3 VBG Total CO2 VBG O2 Sat (Calc) VBG Base Excess VBG Potassium Glucose Lactate FiO2 Sodium 132 Potassium 4.0 Chloride 101 Carbon Dioxide 26 Anion Gap 9 L BUN 16 Creatinine 0.6 L Est GFR ( Amer) > 60 Est GFR (Non-Af Amer) > 60 POC Glucose (mg/dL) Random Glucose 167 H Calcium 8.4 Phosphorus 4.3 Magnesium 1.9 Total Bilirubin 7.4 H Direct Bilirubin AST 119 H D ALT 142 H Alkaline Phosphatase 286 H D Ammonia Total Protein 6.3 Albumin 2.3 L Albumin (PEP) 1.9 L Globulin 3.9 Albumin/Globulin Ratio 0.6 L Jfdzk-3-Nokotcuni 0.4 H Nejlc-5-Veehxidxj 0.5 Yomu-4-Bnxpxjhy 0.4 Zlrt-6-Hdhqpwms 0.8 H Gamma Globulins 1.4 Abnorm Protein Band 1 TEST NOT PERFORMED Abnorm Protein Band 2 TEST NOT PERFORMED Abnorm Protein Band 3 TEST NOT PERFORMED Procalcitonin Venous Blood Potassium CHRISTIE & SPEP Interp See note 02/10/17 02/10/17 02/10/17 06:40 06:43 07:41 WBC 1.1 L* D RBC 2.63 L Hgb 8.5 L Hct 25.2 L MCV 95.8 MCH 32.3 MCHC 33.7 RDW 23.5 H Plt Count 30 L* MPV 9.7 Gran % 76.8 H Lymph % (Auto) 13.0 L [place] % (Auto) 10.2 H Eos % (Auto) 0.0 L Baso % (Auto) 0.0 Gran # 0.83 L Lymph # 0.1 L [place]he # 0.1 Eos # 0.0 Baso # 0.00 PT INR APTT pO2 VBG pH VBG pCO2 VBG HCO3 VBG Total CO2 VBG O2 Sat (Calc) VBG Base Excess VBG Potassium Glucose Lactate FiO2 Sodium Potassium Chloride Carbon Dioxide Anion Gap BUN Creatinine Est GFR ( Amer) Est GFR (Non-Af Amer) POC Glucose (mg/dL) 193 H Random Glucose Calcium Phosphorus Magnesium Total Bilirubin Direct Bilirubin 6.7 H AST ALT Alkaline Phosphatase Ammonia Total Protein Albumin Albumin (PEP) Globulin Albumin/Globulin Ratio Yhkpf-3-Nosileukk Swgzg-6-Bfgeltdac Kubj-5-Lepzcosm Yzhh-6-Avvmonyr Gamma Globulins Abnorm Protein Band 1 Abnorm Protein Band 2 Abnorm Protein Band 3 Procalcitonin Venous Blood Potassium CHRISTIE & SPEP Interp 02/10/17 02/10/17 02/10/17 11:06 11:10 13:00 WBC 0.6 L* D RBC 2.43 L Hgb 7.9 L Hct 23.3 L MCV 95.9 MCH 32.5 MCHC 33.9 RDW 23.2 H Plt Count 21 L* MPV Gran % 71.9 H Lymph % (Auto) 12.3 L [place] % (Auto) 15.8 H Eos % (Auto) 0.0 L Baso % (Auto) 0.0 Gran # 0.41 L Lymph # 0.1 L [place]he # 0.1 Eos # 0.0 Baso # 0.00 PT INR APTT pO2 VBG pH VBG pCO2 VBG HCO3 VBG Total CO2 VBG O2 Sat (Calc) VBG Base Excess VBG Potassium Glucose Lactate FiO2 Sodium Potassium Chloride Carbon Dioxide Anion Gap BUN Creatinine Est GFR ( Amer) Est GFR (Non-Af Amer) POC Glucose (mg/dL) 219 H Random Glucose Calcium Phosphorus Magnesium Total Bilirubin Direct Bilirubin AST ALT Alkaline Phosphatase Ammonia 21.3 Total Protein Albumin Albumin (PEP) Globulin Albumin/Globulin Ratio Hmgsy-1-Jtmetzecg Jetsu-5-Nnjfxnavg Hyjh-0-Mmyvhkuf Bztm-5-Oiybstvy Gamma Globulins Abnorm Protein Band 1 Abnorm Protein Band 2 Abnorm Protein Band 3 Procalcitonin Venous Blood Potassium CHRISTIE & SPEP Interp 02/10/17 02/10/17 02/10/17 13:00 13:00 13:00 WBC RBC Hgb Hct MCV MCH MCHC RDW Plt Count MPV Gran % Lymph % (Auto) [place] % (Auto) Eos % (Auto) Baso % (Auto) Gran # Lymph # [place]he # Eos # Baso # PT 17.7 H INR 1.61 H APTT 35.6 pO2 VBG pH VBG pCO2 VBG HCO3 VBG Total CO2 VBG O2 Sat (Calc) VBG Base Excess VBG Potassium Glucose Lactate FiO2 Sodium 134 Potassium 3.8 Chloride 108 H Carbon Dioxide 23 Anion Gap 8 L BUN 17 Creatinine 0.5 L Est GFR ( Amer) > 60 Est GFR (Non-Af Amer) > 60 POC Glucose (mg/dL) Random Glucose 222 H Calcium 7.6 L Phosphorus 3.1 Magnesium 1.8 Total Bilirubin 6.9 H Direct Bilirubin AST 121 H ALT 140 H Alkaline Phosphatase 233 H Ammonia Total Protein 5.6 L Albumin 2.1 L Albumin (PEP) Globulin 3.5 Albumin/Globulin Ratio 0.6 L Rqiqk-0-Uivngffkm Mkdoa-6-Rarrwywxi Qimx-4-Cnpzynqv Pfez-1-Sxjxamid Gamma Globulins Abnorm Protein Band 1 Abnorm Protein Band 2 Abnorm Protein Band 3 Procalcitonin 1.12 H Venous Blood Potassium CHRISTIE & SPEP Interp 02/10/17 13:00 WBC RBC Hgb Hct MCV MCH MCHC RDW Plt Count MPV Gran % Lymph % (Auto) [place] % (Auto) Eos % (Auto) Baso % (Auto) Gran # Lymph # [place]he # Eos # Baso # PT INR APTT pO2 140 H VBG pH 7.42 VBG pCO2 42.0 VBG HCO3 27.2 VBG Total CO2 28.5 H VBG O2 Sat (Calc) 99.5 H VBG Base Excess 2.4 H VBG Potassium 4.1 Glucose 246 H Lactate 1.9 FiO2 21.0 Sodium 135.0 Potassium Chloride 106.0 Carbon Dioxide Anion Gap BUN Creatinine Est GFR ( Amer) Est GFR (Non-Af Amer) POC Glucose (mg/dL) Random Glucose Calcium Phosphorus Magnesium Total Bilirubin Direct Bilirubin AST ALT Alkaline Phosphatase Ammonia Total Protein Albumin Albumin (PEP) Globulin Albumin/Globulin Ratio Fujxh-3-Wjnbpydnt Dvuds-3-Gzxsuehpf Dohl-4-Pdjlbpjh Sdme-5-Vqtvxlvy Gamma Globulins Abnorm Protein Band 1 Abnorm Protein Band 2 Abnorm Protein Band 3 Procalcitonin Venous Blood Potassium 4.1 CHRISTIE & SPEP Interp Attending/Attestation - Attestation I have personally seen and examined this patient.: Yes I have fully participated in the care of the patient.: Yes I have reviewed all pertinent clinical information: Yes
--- NOTE | 2017-02-10 21:53 | PN ---
DATE OF SERVICE: 02/10/2017 SUBJECTIVE: The patient is seen lying in bed in the ICU. He seemed to be resting comfortably. As per the resident staff, he is a little lethargic today. No focal deficits. He is receiving Azactam 2 g q.8. Doxycycline has been discontinued. He is also receiving Mepron 750 b.i.d. and valacyclovir. He remains thrombocytopenic, pancytopenic. PHYSICAL EXAMINATION: GENERAL: Middle-aged male, lying in bed. VITAL SIGNS: Blood pressure 103/61, heart rate 75, respiratory rate 20, temperature 95, T-max 102.2. HEENT: Normocephalic, atraumatic. NECK: Supple, no JVD. LUNGS: Bilateral equal air entry, bilateral rhonchi, no rales. CARDIAC: S1 and S2, regular rate and rhythm, no murmur, no rub. ABDOMEN: Obese, distended, soft, nontender, bowel sounds present. EXTREMITIES: 1+ pitting edema of the lower extremities. INTAKE AND OUTPUT: 1511/1000. LABORATORY DATA: WBC 0.6, hemoglobin 7.9, hematocrit 23, platelets 21, absolute neutrophil count 894, sodium 134, potassium 3.8, chloride 108, CO2 23, BUN 17, creatinine 0.5, glucose 222, calcium 7.6, phosphorus 3.1, magnesium 1.8, albumin 2.1, corrected calcium is 9.0, total bilirubin 6.9, direct bilirubin 5.8, AST 121, ALT 140, procalcitonin 1.1. Lyme disease screen less than 0.9. Antimicrobial antibody negative. Urine immunofixation not detected. Serum immunofixation faint bands of IgA kappa and lambda. INR 1.6. Cultures negative. CURRENT MEDICATIONS: Normal saline bolus, Solu-Medrol 100 IV daily, Tylenol, Valtrex 500 b.i.d., normal saline with 15 millimoles of potassium phosphate at 80, Mepron, Maalox, potassium chloride 20 mEq, folic acid 1 mg daily, Azactam 2 g q.8. ASSESSMENT: 1. Hyponatremia, improving, mild. 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 The patient received 3 doses of sulbactam. 2. Pancytopenia, unclear etiology. 3. Nonalcoholic steatohepatitis. 4. Worsening liver parameters. 5. ? sarcoidosis. 6. Chronic obstructive pulmonary disease/obstructive sleep apnea. 7. Neutropenic sepsis. PLAN: 1. Continue IV fluid resuscitation, the patient is hypotensive at present. 2. Continue empiric antibiotics, Azactam 2 g q.8. 3. Continue empiric treatment for PCP. 4. Continue antivirals. 5. Monitor electrolytes closely. 6. Monitor for bleeding. 7. Transfuse PRBC/platelets as needed. 8. Case discussed at length with residents in the ICU. The patient is awaiting transfer to [facility]. More than 35 minutes was spent in the care of this critically ill patient. Ella Steve MD
--- NOTE | 2017-02-11 00:59 | PN ---
DATE: SUBJECTIVE: The patient remains in the Intensive Care Unit. He is very fatigued and seems more lethargic. He was sleeping this morning when evaluated. He was arousable. Denies any cough, chest pain or abdominal pain. His appetite is very poor. PHYSICAL EXAMINATION: VITAL SIGNS: The patient remained afebrile with temperature of 102.2 at night, this morning 97.6. His blood pressure is stable, but runs lower, the lowest was 97/67. He also became more bradycardic overnight. His respiratory rate is 20. His oxygen saturation is 98% on 2 L of nasal cannula. Lethargic, but arousable. HEENT: Head is normocephalic and atraumatic. Jaundice noticed. Oral mucosa is dry. NECK: Supple. LUNGS: With decreased breath sounds. No rales or wheezing. HEART: Regular rhythm with a rate of 70 per minute. ABDOMEN: Soft, nontender, and nondistended. EXTREMITIES: With trace edema, some ecchymosis of lower extremities noted. DIAGNOSTIC TESTS: CBC with severe pancytopenia with WBC 1.1 this morning. Hemoglobin 8.5, hematocrit 25.2, and platelet count 30. Chemistry showed improved electrolytes significantly and high bilirubin, total bilirubin 6.9 and his liver enzymes are elevated. Repeated procalcitonin slightly improved, but still elevated at 1.12. ASSESSMENT: 1. Severe pancytopenia with persistent high fever with still uncertain etiology with possible lymphoma as per oncologist after review of his recent bone marrow. 2. Severe fatigue. 3. Elevated liver enzymes. PLAN OF TREATMENT: The patient is awaiting transfer to [facility]. This was accepted by the physician in Oncology and . Monitor until then. Denisa Hebert MD
== END 2017-02-10 15:55 | disposition short-term general hospital (02) | DRG 809 ==
LOC: ED 18:03 → ERH 18:58 → 3RNO 21:45 → CCU 02-07 17:41
PROVIDERS: ADMIT Family Medicine; ATTEND Family Medicine
PROC: 05HM33Z Insertion of Infusion Device into Right Internal Jugular Vein, Percutaneous Approach (ICD-10-PCS; 2017-02-05)
PROC: B543ZZA Ultrasonography of Right Jugular Veins, Guidance (ICD-10-PCS; 2017-02-05)
PROC: 6A551Z2 Pheresis of Platelets, Multiple (ICD-10-PCS; 2017-02-05)
PROC: 30233N1 Transfusion of Nonautologous Red Blood Cells into Peripheral Vein, Percutaneous Approach (ICD-10-PCS; 2017-02-05)
PROC: 5A09357 Assistance with Respiratory Ventilation, Less than 24 Consecutive Hours, Continuous Positive Airway Pressure (ICD-10-PCS; principal; 2017-02-08)
PROC: 30233K1 Transfusion of Nonautologous Frozen Plasma into Peripheral Vein, Percutaneous Approach (ICD-10-PCS; 2017-02-09)
DX: D61.818 Other pancytopenia (principal); C81.90 Hodgkin lymphoma, unspecified, unspecified site; B37.0 Candidal stomatitis; R65.10 Systemic inflammatory response syndrome (SIRS) of non-infectious origin without acute organ dysfunction; E22.2 Syndrome of inappropriate secretion of antidiuretic hormone; D70.9 Neutropenia, unspecified; J84.10 Pulmonary fibrosis, unspecified; E11.22 Type 2 diabetes mellitus with diabetic chronic kidney disease; R50.81 Fever presenting with conditions classified elsewhere; N18.9 Chronic kidney disease, unspecified; D89.2 Hypergammaglobulinemia, unspecified; E88.09 Other disorders of plasma-protein metabolism, not elsewhere classified; K75.81 Nonalcoholic steatohepatitis (NASH); J44.9 Chronic obstructive pulmonary disease, unspecified; G47.33 Obstructive sleep apnea (adult) (pediatric); R62.7 Adult failure to thrive; K64.8 Other hemorrhoids; E87.6 Hypokalemia; R19.7 Diarrhea, unspecified; B00.1 Herpesviral vesicular dermatitis; Z79.84 Long term (current) use of oral hypoglycemic drugs; Z79.52 Long term (current) use of systemic steroids